=== PATIENT | male | born 1955 | race Caucasian/White ===

== ENCOUNTER 2018-08-08 10:55 | Emergency (ER) | payer OTHER ==
[2018-08-08] MEDS ORDERED: methylPREDNISolone SOD SUCCI 125 MG/2 ML VIAL IM ONE (11:51)
[2018-08-08] MEDS ORDERED: CYCLOBENZAPRINE 10MG STARTER 3 TAB BTL PO STA (11:51)
[2018-08-08] MEDS ORDERED: KETOROLAC 60 MG/2 ML VIAL IM STA (11:51)
--- NOTE | 2018-08-08 11:55 | ED ---
Neck Injury/Pain HPI - General Chief Complaint: Neck Pain/Injury Stated Complaint: trouble walking Time Seen by Provider: 08/08/18 11:08 Source: RN notes reviewed, old records reviewed Mode of arrival: ambulatory Limitations: no limitations - History of Present Illness Initial Comments: 62-year-old male presents emergency room today with chief complaint of pain over bilateral thighs worse with range of motion. He also complains of some right-sided neck pain. He reports symptoms seemed to start after he lifted a lot of heavy things earlier in the week with his father. He states that he has pain with ambulation. He denies any numbness or tingling down the legs. He reports he's had no fevers or chills. Patient relates that he has no swelling in the lower extremities. He denies any abdominal pain. No change in urination or bowel habits. - Related Data Previous Rx's Medication Instructions Recorded Cyclobenzaprine [Flexeril] 10 mg PO TID #20 tab 08/08/18 Dexamethasone 0.75 mg PO DAILY #12 tab 08/08/18 Ibuprofen 600 mg PO TID #20 tablet 08/08/18 Ibuprofen [Motrin] 600 mg PO Q8HR PRN #20 tab 08/08/18 traMADol HCl [Ultram] 50 mg PO Q6HR PRN 3 Days #12 tab 08/08/18 Allergies Allergy/AdvReac Type Severity Reaction Status Date / Time No Known Allergies Allergy Verified 08/08/18 11:05 Review of Systems ROS Statement: Those systems with pertinent positive or pertinent negative responses have been documented in the HPI. ROS Other: All systems not noted in ROS Statement are negative. Past Medical History Past Medical History: Deep Vein Thrombosis (DVT) History of Any Multi-Drug Resistant Organisms: None Reported Additional Past Surgical History / Comment(s): Lithotripsy Past Psychological History: No Psychological Hx Reported Smoking Status: Never smoker Past Alcohol Use History: Occasional Past Drug Use History: None Reported General Exam - General Exam Comments Initial Comments: Patient is a 62-year-old male. Alert and oriented 3. Patient appears in no acute distress. Limitations: no limitations General appearance: alert, in no apparent distress Head exam: Present: atraumatic, normocephalic, normal inspection Eye exam: Present: normal appearance, PERRL, EOMI. Absent: scleral icterus, conjunctival injection, periorbital swelling ENT exam: Present: normal exam, normal oropharynx, mucous membranes moist Neck exam: Present: normal inspection, other (Patient has right-sided cervical tenderness.). Absent: tenderness, meningismus, lymphadenopathy Respiratory exam: Present: normal lung sounds bilaterally. Absent: respiratory distress, wheezes, rales, rhonchi, stridor Cardiovascular Exam: Present: regular rate GI/Abdominal exam: Present: soft, normal bowel sounds. Absent: distended, tenderness, guarding, rebound, rigid Extremities exam: Present: normal inspection, full ROM, normal capillary refill , other (Patient has normal capillary refill, 2+ dorsalis pedis and posterior tibial pulse bilaterally. No surrounding swelling in the calf or lower extremity's. Patient has no pain with passive range of motion of the upper Glez. The Patient has to engage the quadricep muscles to lift the leg he does report pain. No palpable masses.). Absent: tenderness, pedal edema, joint swelling, calf tenderness Back exam: Present: normal inspection Neurological exam: Present: alert, oriented X3, CN II-XII intact Psychiatric exam: Present: normal affect, normal mood Skin exam: Present: warm, dry, intact, normal color. Absent: rash Course Vital Signs 08/08/18 11:01 Temperature 98.5 F Pulse Rate 77 Respiratory 18 Rate Blood Pressure 97/65 O2 Sat by Pulse 96 Oximetry Medical Decision Making - Medical Decision Making Patient is a 62-year-old female presents emergency department today with chief complaint of neck pain as well as bilateral anterior thigh pain. Patient's symptoms started a few days after doing a lot of heavy lifting. X-ray of his neck and lumbar spine are negative for acute process. Evidence of degenerative disease. Pelvis x-ray was normal. Patient is pain with range of motion of his upper extremities and engaging quadriceps with straight leg raise. He has no pain with passive range of motion. Discusses likely related to muscle strain with heavy lifting. He has normal pulses normal sensation distally.Leg swelling. At this time Patient will be discharged and temperature medication short course of pain medication. All questions answered return parameters were discussed. - Radiology Data Radiology results: report reviewed Pelvis x-rays negative for any acute process. Lumbar spine x-rays negative for any acute osseous lesion. In her changes noted. Cervical spine is negative for any acute osseous lesions are drowning changes noted. Disposition Clinical Impression: Quadriceps muscle strain, Cervical strain Disposition: HOME SELF-CARE Condition: Good Instructions: Cervical Strain (ED) Additional Instructions: Patient is follow-up with primary care provider. Return to emergency department if any alarming signs or symptoms occur. Prescriptions: Cyclobenzaprine [Flexeril] 10 mg PO TID #20 tab Dexamethasone 0.75 mg PO DAILY #12 tab Ibuprofen [Motrin] 600 mg PO Q8HR PRN #20 tab PRN Reason: Pain Ibuprofen 600 mg PO TID #20 tablet traMADol HCl [Ultram] 50 mg PO Q6HR PRN 3 Days #12 tab PRN Reason: Pain Is patient prescribed a controlled substance at d/c from ED?: Yes When asked, does pt state using other controlled substances?: Yes If prescribed controlled substance>3 days was MAPS reviewed?: Prescribed <3 Days If opioid is for acute pain is fill amount 7 days or less?: Yes If Rx opioid, was Start Talking consent form obtained?: Yes Referrals: Jose Sosa MD [Primary Care Provider] - 1-2 days Time of Disposition: 13:58
--- NOTE | 2018-08-08 12:57 | XR ---
EXAMINATION TYPE: XR cervical spine limited , 3 VIEWS DATE OF EXAM ORDERED: 08/08/2018 HISTORY: Pain. COMPARISON: None. FINDINGS: Vertebral body height and alignment are maintained. Atlantoaxial relationships are normal. There is degenerative disc disease and hypertrophic spondylosis present at C5-6 and C6-7 and to a le sser extent C4-5. There is mild uncovertebral joint disease at these levels. The facets appear unrema rkable. IMPRESSION: 1. NO ACUTE OSSEOUS LESION. 2. DEGENERATIVE CHANGE.
--- NOTE | 2018-08-08 13:00 | XR ---
EXAMINATION TYPE: XR lumbar spine 2 or 3V , 3 VIEWS DATE OF EXAM ORDERED: 08/08/2018 HISTORY: Pain. COMPARISON: None. FINDINGS: There is mild wedging of the T11 vertebral body which appears chronic. Vertebral body heig ht and alignment otherwise maintained. There is no spondylolysis or spondylolisthesis. There is diffu se disc space loss, most marked at L5-S1. There is diffuse hypertrophic spondylosis. The pedicles are intact. IMPRESSION: 1. NO ACUTE OSSEOUS LESION. 2. DEGENERATIVE CHANGE.
--- NOTE | 2018-08-08 13:03 | XR ---
EXAMINATION TYPE: XR pelvis AP view , ONE VIEW DATE OF EXAM ORDERED: 08/08/2018 HISTORY: Pain. COMPARISON: None. FINDINGS: Osseous structures about the pelvis are normal. There is minimal degenerative change in th e hips. There are phleboliths in the pelvis. IMPRESSION: NO ACUTE OSSEOUS LESION.
[2018-08-08 14:14] VITALS: BP 106/68; PULSE 62; RESP 16; TEMP 98.1
== END 2018-08-08 14:12 | disposition home or self-care (01) ==
LOC: EC 10:55
DX: S76.112A Strain of left quadriceps muscle, fascia and tendon, initial encounter (principal); S76.111A Strain of right quadriceps muscle, fascia and tendon, initial encounter; S16.1XXA Strain of muscle, fascia and tendon at neck level, initial encounter; Z86.718 Personal history of other venous thrombosis and embolism; X50.9XXA Other and unspecified overexertion or strenuous movements or postures, initial encounter
CPT/HCPCS: 72040; 72100; 72170; 99284; 96372 ×2; J2930; J1885

== ENCOUNTER → 2018-08-28 | Outpatient (CLI) | payer OTHER ==
--- NOTE | 2018-08-30 17:11 | CT ---
EXAMINATION TYPE: CT ChestAbdPelvis w con DATE OF EXAM: 08/28/2018 COMPARISON: NONE HISTORY: Bilateral leg pain and weakness, neck pain, and abnormal lab values. CT DLP: 1374 mGycm. Automated Exposure Control for Dose Reduction was Utilized. CONTRAST: CT scan of the thorax, abdomen and pelvis is performed with IV Contrast, patient injected with 100 mL of Isovue 300. FINDINGS: LUNGS: Anterior right upper lobe linear region on series 4 image 26 abutting the mediastinal border a ppears as vascular ectasia on the sagittal image rather than a pulmonary nodule. Focal 4 mm area of p robable atelectasis is seen along the right lung base dependently on series 4 image 43. 3 mm pulmonar y nodule is present in the right lower lobe laterally on image 44. Linear bibasilar pleural-parenchym al scarring is seen. Irregular shaped 4 mm left pulmonary nodule is seen on image 40 laterally. No fo zina consolidation is seen to suggest pneumonia. There is no pleural effusion or pneumothorax seen. T he tracheobronchial tree is patent. MEDIASTINUM: There are no greater than 1 cm hilar or mediastinal lymph nodes. There is aneurysmal dil atation of the ascending thoracic aorta as it measures 4.6 cm. Aortic root measures 4.5 cm and is als o aneurysmal. Descending thoracic aorta is within normal limits. Heart is mildly enlarged. No pericar dial effusion is seen. LIVER/GB: Hepatic parenchyma is diffusely hypoattenuated in comparison to that of the spleen, most co mmonly seen in hepatic steatosis. This finding limits evaluation for hepatic masses. No gross evidenc e of hepatic mass is seen. No intrahepatic biliary ductal dilatation. No cholelithiasis. PANCREAS: No significant abnormality is seen. SPLEEN: No significant abnormality is seen. ADRENALS: No significant abnormality is seen. KIDNEYS: Kidneys enhance and excrete symmetrically however there is mild left-sided hydronephrosis se condary to a 4 mm obstructing stone at the left ureterovesicular junction. Left-sided parapelvic cyst s are also seen as well as renal malrotation bilaterally and extrarenal pelvises sees bilaterally. BOWEL: Numerous colonic diverticula are present without pericolonic fat stranding. Moderate amount re tained colonic stool is seen throughout the entirety of the large bowel. Appendix is not clearly deli neated however no right lower quadrant fat stranding changes are seen. No dilated large or small graciela l.. GENITAL ORGANS: Prostate gland is heterogenous containing some central zone calcifications. LYMPH NODES: No greater than 1cm abdominal or pelvic lymph nodes are appreciated. OSSEOUS STRUCTURES: Multilevel moderate degenerative changes of the spine are identified with Schmorl 's nodes present throughout. Mild femoral acetabular arthropathy is also seen. IMPRESSION: 1. 4 mm left ureteral calculus at the ureterovesicular junction causing mild left-sided hydronephrosi s. No alteration in renal physiology by CT at this time as the kidneys enhance and excrete symmetrica lly. 2. Aneurysmal dilatation of the ascending thoracic aorta and aortic root. 3. Hepatic steatosis, colonic diverticulosis, and bilateral subcentimeter pulmonary nodules are incid entally identified. Follow-up CT thorax in 12 months is recommended to assess for interval growth of the small pulmonary nodules. A Yellow level critical message alert has been initiated for Jose Sosa MD via the [employer] Critical Results System on 08/30/2018 5:09 PM. This message alert has been sent to Jose Sosa MD vi a the preferences provided by the clinician for the receipt of Radiology Critical Findings. Message I D [id number].
== END | disposition home or self-care (01) ==
LOC: RADCTMAIN 08:04
PROVIDERS: ATTEND Internal Medicine Geriatric Medicine
DX: N13.2 Hydronephrosis with renal and ureteral calculous obstruction (principal); I71.2 Thoracic aortic aneurysm, without rupture; R91.8 Other nonspecific abnormal finding of lung field; K57.30 Diverticulosis of large intestine without perforation or abscess without bleeding; K76.0 Fatty (change of) liver, not elsewhere classified
CPT/HCPCS: 71260; 74177; Q9967

== ENCOUNTER → 2018-09-07 | Outpatient (CLI) | payer MEDICARE, OTHER ==
--- NOTE | 2018-09-07 10:47 | ECHOF ---
Referral Reason:I35.0 Nonrheumatic aortic (valve) stenosis MEASUREMENTS -------- HEIGHT: 175.3 cm WEIGHT: 75.7 kg BP: RVIDd: 3.5 cm (< 3.3) IVSd: 1.3 cm (0.6 - 1.1) LVIDd: 4.9 cm (3.9 - 5.3) LVPWd: 1.2 cm (0.6 - 1.1) IVSs: 3.0 cm LVIDs: 3.7 cm LVPWs: 1.5 cm LA Diam: 5.1 cm (2.7 - 3.8) LAESV Index (A-L): 54.59 ml/m Ao Diam: 4.1 cm (2.0 - 3.7) AV Cusp: 1.7 cm (1.5 - 2.6) MV EXCURSION: 40.607 mm (> 18.000) MV EF SLOPE: 104 mm/s (70 - 150) EPSS: 0.3 cm MV E Bernard: 1.11 m/s MV DecT: 85 ms MV A Bernard: 0.86 m/s MV E/A Ratio: 1.29 RAP: 5.00 mmHg RVSP: 18.74 mmHg FINDINGS -------- Sinus rhythm. This was a technically good study. The left ventricular size is normal. There is mild concentric left ventricular hypertrophy. Overa ll left ventricular systolic function is low-normal with, an EF between 50 - 55 %. The right ventricle is mildly enlarged. The left atrium is moderately dilated. The right atrial size is normal. The aortic valve is trileaflet and appears structurally normal. Aortic Root is dilated and measures 4.1cm: Ascending is dilated and measures 4.6cm. Severe mitral regurgitation is present. Large, mobile vegetation attached to the posterior mitral v alve leaflet. Mild tricuspid regurgitation present. There is no evidence of pulmonary hypertension. The right v entricular systolic pressure, as measured by Doppler, is 18.74mmHg. There is no pulmonic regurgitation present. The aortic root size is normal. There is no pericardial effusion. CONCLUSIONS -------- 1. Sinus rhythm. 2. This was a technically good study. 3. The left ventricular size is normal. 4. There is mild concentric left ventricular hypertrophy. 5. Overall left ventricular systolic function is low-normal with, an EF between 50 - 55 %. 6. The right ventricle is mildly enlarged. 7. The left atrium is moderately dilated. 8. The aortic valve is trileaflet and appears structurally normal. 9. Aortic Root is dilated and measures 4.1cm: Ascending is dilated and measures 4.6cm. 10. Severe mitral regurgitation is present. 11. Large, mobile vegetation attached to the posterior mitral valve leaflet. 12. Mild tricuspid regurgitation present. 13. There is no evidence of pulmonary hypertension. 14. There is no pulmonic regurgitation present. 15. The aortic root size is normal. 16. There is no pericardial effusion. MEDICARE COORDINATOR: Aundrea Smith RDCS
== END | disposition home or self-care (01) ==
LOC: RADECHMAIN 08:15
PROVIDERS: ATTEND Internal Medicine Geriatric Medicine
DX: I08.1 Rheumatic disorders of both mitral and tricuspid valves (principal)
CPT/HCPCS: 93306

== ENCOUNTER 2018-09-11 07:23 | Day surgery (SDC) | payer MEDICARE, OTHER ==
--- NOTE | 2018-09-07 13:02 | HP ---
HISTORY AND PHYSICAL The patient to be admitted to undergo transesophageal echocardiogram and cardiac catheterization on Friday. Mr. Reddy is a 63-year-old male with a history of hyperlipidemia and no prior documented history of coronary artery disease or congestive heart failure and a history of heart murmur for a long time. He does not recall that he had an echocardiogram. For the last month, he has not felt well. Prior to that he had some chills and sweating and he has severe generalize achiness that prevented him from being as active physically as he is usually. He was diagnosed initially with pneumonia and has received antibiotics but persisted in having the symptoms. He was seen in the emergency room her on one occasion. Subsequently was evaluated by Dr. Sosa and a CAT scan was done to rule out any other abnormalities that showed a dilated ascending aorta. The patient was referred to undergo a transthoracic echocardiogram that was performed today and that showed an overall preserved systolic function with severe mitral regurgitation and a mass on the posterior mitral valve leaflet suggestive of endocarditis and vegetations. The patient has no fever at this time. Apparently, he had lab data that raised the possibility of Lyme disease and has been started on antibiotics. He cannot recall what he is on. He is usually very active physically. He denies any change in his breathing. He denies any dizziness or palpitation. No syncope. No peripheral edema. No PND, orthopnea. No syncope. His coronary risk factors are remarkable for hyperlipidemia. He is nonsmoker, nondiabetic. REVIEW OF SYSTEMS: RESPIRATORY SYSTEM: He has no recent fever, although he had fever initially. He has no history of documented obstructive lung disease or wheezing. GI SYSTEM: No recent GI bleeding. No peptic ulcer disease. SYSTEM: No dysuria or hematuria. NERVOUS SYSTEM: No stroke or seizure. PHYSICAL EXAMINATION: He is a 63-year-old male, alert, oriented, in no apparent distress. Blood pressure 130/70 with the heart rate in the 70s. HEAD: Normocephalic. EYES: Sclerae anicteric. NECK: Good carotid upstroke. No bruit. No jugular venous distention. LUNGS: Clear to auscultation. HEART: Regular rate and rhythm. S1, S2. No S3 with a holosystolic murmur at the apex radiating to the axilla. No diastolic murmur. No rub. ABDOMEN: Soft, nontender. Positive bowel sounds. No organomegaly. EXTREMITIES: No edema. Intact distal pulses. IMPRESSION: 1. Severe mitral regurgitation with possible vegetations suggestive of endocarditis. 2. Prior history of fever 2 months ago, resolved. 3. History of hyperlipidemia. RECOMMENDATION: I have discussed his case with Dr. Sosa. I will proceed with transesophageal echocardiogram and a cardiac catheterization to further assess his mitral valve. The patient will require further evaluation by the Infectious Disease service in regard to the possible vegetation and infectious process. Depending on his progress, further recommendation will be made. MMODL / IJN: [id number] /
[2018-09-08 13:22] VITALS: BMI 23.6
[~2018-09-11 07:23] MED LIST: ALPRAZolam 0.25 MG TAB PO PRN; ALPRAZolam 0.5 MG TAB PO PRN; ASPIRIN 325 MG TAB PO STA; ATORVASTATIN 80 MG TAB PO STA; NITROGLYCERIN SL TABS 0.4 MG TAB SUBLINGUAL PRN; SODIUM CHLORIDE 0.9% 1,000 ML in EMPTY BAG 1 BAG IV ONE
[2018-09-11] MEDS ORDERED: SODIUM CHLORIDE 0.9% 1,000 ML IV ONE (08:02)
[2018-09-11 08:14] VITALS: TEMP 97.9
[2018-09-11] MEDS: BENZOCAINE SPRAY 1 CAN MUCOUS MEM ONE ×2 (08:28→08:42)
[2018-09-11] MEDS ORDERED: MIDAZOLAM 2 MG/2 ML VIAL IV ONE (08:44)
[2018-09-11] MEDS ORDERED: fentaNYL (PF) 50 MCG/ML 2 ML AMP IV ONE (08:44)
[2018-09-11] MEDS: MIDAZOLAM 2 MG/2 ML VIAL IV ONE ×2 (08:50→09:42)
[2018-09-11] MEDS ORDERED: HEPARIN SODIUM 1,000 UN/ML (10ML VL) ONE (09:09)
[2018-09-11] MEDS ORDERED: VERAPAMIL 2.5 MG/ML 2 ML AMP ONE (09:09)
[2018-09-11] MEDS ORDERED: LIDOCAINE 1% INJ 10MG/ML (20 ML MDV) ONE (09:09)
--- NOTE | 2018-09-11 09:20 | ECHOT ---
TRANSESOPHAGEAL ECHOCARDIOGRAM INDICATION: Mitral regurgitation. PROCEDURE: After explaining the procedure to the patient, its risks and the complications, his blood pressure, heart rate, O2 saturation was monitored. The throat was sprayed with Cetacaine. He received 3 mg of intravenous Versed, 50 mcg intravenous fentanyl. The probe was reintroduced into esophagus without difficulty. Images were obtained. Following that, the probe was removed. There was no immediate complication. FINDINGS: Left atrial size is normal. Left atrial appendage is normal. Left ventricular size is normal. Ejection fraction is estimated at 55%. The aortic valve is a tricuspid valve and appears to be normal. The ascending aorta is dilated at 4.6 cm. The tricuspid valve is normal. The mitral valve revealed a vegetation attached to the posterior mitral valve leaflets, predominantly from the atrial aspect and prolapsing at times back into the ventricle. The descending thoracic aorta appears to be normal. Contrast bubble study revealed no evidence of shunting across the interatrial septum with Valsalva maneuver. No pericardial effusion was noted. Doppler pulse wave and color Doppler obtained revealed severe eccentric mitral regurgitation with mild tricuspid regurgitation. There was no shunting by color Doppler study. CONCLUSION: 1. Normal left ventricular size with ejection fraction 55%. 2. Severe eccentric mitral regurgitation with vegetation on the posterior mitral valve leaflets. 3. Mild tricuspid regurgitation. 4. Normal appearance of the descending thoracic aorta with dilatation of the ascending aorta and mild aortic regurgitation. 5. No shunting across the interatrial septum. 6. No pericardial effusion. MMODL / IJN: [id number] /
[2018-09-11] MEDS ORDERED: fentaNYL (PF) 50 MCG/ML 2 ML AMP IVP ONE (09:38)
[2018-09-11] MEDS ORDERED: LIDOCAINE 1% (PF) 10MG/ML VIAL SQ ONE (09:38)
[2018-09-11] MEDS ORDERED: IV FLUID CONTINUATION 700 ML IV ONE (09:40)
[2018-09-11] MEDS ORDERED: VERAPAMIL SYRINGE (5 MG/10 ML) INTRAARTER ONE (09:40)
[2018-09-11] MEDS ORDERED: IOPAMIDOL-370 100ML BTL INJ ONE (10:09)
[2018-09-11] MEDS ORDERED: IOPAMIDOL-370 125ML BTL INJ ONE (10:10)
[2018-09-11] MEDS ORDERED: RX INFO: IV CONTRAST WAS GIVEN 1 EACH MISC MISCELLANE PRN (10:25)
[2018-09-11] MEDS ORDERED: SODIUM CHLORIDE 0.9% 1,000 ML IV SCH (10:30)
--- NOTE | 2018-09-11 10:41 | CC ---
CARDIAC CATHETERIZATION REPORT Mr. Reddy is a 63-year-old male who has not been feeling well for the last 2 months or so with symptoms of fever, subsequently had a CAT scan that showed a dilated ascending aorta. Because of that, the transthoracic echocardiogram was ordered that showed a vegetation in the posterior mitral valve leaflets. Based on those findings, recommendations were made regarding cardiac catheterization. The procedures, risks and complications were discussed with the patient who is in full understanding and agreement. PROCEDURE: Patient was brought to flue dust laborer in a fasting semi-sedated state after receiving fentanyl and Benadryl and achieving moderate conscious sedated state. Using Xylocaine anesthesia and Seldinger technique, a 6-Liberian sheath was introduced in the right radial artery. Selective right and left coronary angiography were performed using care 5-Liberian 4 bend left Bertrand catheter and a 6-Liberian Zulma catheter to cannulate the right coronary artery. Attempt to cannulate the right coronary artery using a 5-Liberian 3.5 bend right Bertrand, 5-Liberian 4 bend right Bertrand and a 6-Liberian AL 2 were unsuccessful. Images of the coronary arteries including hemiaxial views were obtained. A 5-Liberian tight pigtail catheter was introduced in the ascending aorta and an BELARUSIAN view of the ascending aorta was performed. The aortic valve was crossed using the Bertrand catheter and pressures were calculated. Following that, catheter and sheaths were removed. Hemostasis was obtained with deployment of a TR band. There was no immediate complication. Patient is returned to his room in stable condition. Of note, patient received 4000 units of intravenous heparin as well as intra-arterial verapamil. FINDINGS: LEFT MAIN: This is a large-sized vessel, bifurcating into left circumflex, left anterior descending artery. Left main coronary artery has no evidence of high-grade stenosis. LEFT ANTERIOR DESCENDING ARTERY: This is a large-sized vessel, reaching toward the apex with a wraparound apex segment, giving rise to small diagonal branch. The left anterior descending artery as well as branches have no evidence of obstructive coronary artery disease. LEFT CIRCUMFLEX: This is a large nondominant vessel giving rise to a large obtuse marginal branch that has no evidence of high-grade stenosis. RIGHT CORONARY ARTERY: This vessel has a posterior takeoff, large and dominant, bifurcating distally into PDA and posterolateral segment branches. The right coronary artery as well as branches have no evidence of obstructive coronary artery disease. LEFT VENTRICULOGRAM: Left ventriculogram is not performed. AORTOGRAM: Aortogram was performed in the BELARUSIAN view and revealed dilated ascending aorta with no significant aortic regurgitation and a tricuspid aortic valve. HEMODYNAMICS: There was no gradient across the aortic valve. The left ventricular end-diastolic pressure was 18-20 mmHg. CONCLUSION: 1. Normal coronary arteries. 2. Dilated ascending aorta. RECOMMENDATION: I have recommend proceeding with evaluation regarding his mitral regurgitation and endocarditis. Those findings and recommendation were discussed with the patient and his family who are in full understanding and agreement. Duration of the procedure is 36 minutes. MMODL / IJN: [id number] /
[2018-09-11 10:44] VITALS: PULSE 67
[2018-09-11 13:32] VITALS: RESP 20
[2018-09-11 15:40] VITALS: BP 102/60
[2018-09-11] MEDS ORDERED: DOXYCYCLINE 100 MG CAP PO SCH (21:00)
[2018-09-11] MEDS ORDERED: TAMSULOSIN 0.4 MG CAP.ER.24H PO SCH (21:00)
== END 2018-09-11 15:55 | disposition home or self-care (01) ==
LOC: CATHCVL 07:23
PROVIDERS: ATTEND Internal Medicine Interventional Cardiology
DX: I08.1 Rheumatic disorders of both mitral and tricuspid valves (principal); I77.810 Thoracic aortic ectasia; E78.5 Hyperlipidemia, unspecified
CPT/HCPCS: 93312; 93320; 93325; 93458; 87040; 87077; 87186; 87150; C1894; C1769; J2250; J3010; J2001; J1644; Q9967 ×2

== ENCOUNTER 2018-09-11 17:44 | Inpatient (IN) | payer MEDICARE, OTHER ==
[2018-09-11] MEDS ORDERED: SODIUM CHLORIDE 0.9% 1,000 ML IV ONE (17:53)
--- NOTE | 2018-09-11 18:02 | ED ---
Chest Pain HPI - General Chief Complaint: Chest Pain Stated Complaint: infection on heart valve, dr sent Time Seen by Provider: 09/11/18 17:51 Source: patient Mode of arrival: ambulatory Limitations: no limitations - History of Present Illness Initial Comments: 63-year-old male past medical history of mitral regurgitation, previous DVT presenting today sent over from primary care physician for diagnosis of holy cross mitral valve endocarditis. Patient states for the past 3 months he has had night sweats every single night and fevers on and off. In addition patient admits to general malaise, and occasional headache. Patient states he's been evaluated by his primary care provider, who ordered SILVIA and cardiac catheterization today performed by Dr. Hinojosa. Findings revealed vegetation of the posterior mitral valve. Ejection fraction preserved. Cardiac catherization WNL. Pt was sent for admission. Attending provider Dr. Sosa requested no antibiotics until 3 sets of cultures obtained. Patient denies any chest pain, shortness of breath, dyspnea on exertion, lower extremity swelling. Upon arrival pt VS stable, hemodynamically stable. Patient has a low-grade fever. Remainder of ROS (-), patient denies any recent back pain, abdominal pain, nausea or vomiting, numbness or tingling, dysuria or hematuria, constipation or diarrhea, or visual changes, or any other complaints. - Related Data Home Medications Medication Instructions Recorded Confirmed Doxycycline [Vibramycin] 100 mg PO BID 09/08/18 09/11/18 Tamsulosin [Flomax] 0.4 mg PO HS 09/08/18 09/11/18 Nattokinase 1 tab PO DAILY 09/11/18 09/11/18 Serrapeptase 1 tab PO DAILY 09/11/18 09/11/18 Allergies Allergy/AdvReac Type Severity Reaction Status Date / Time No Known Allergies Allergy Verified 09/11/18 17:58 Review of Systems ROS Statement: Those systems with pertinent positive or pertinent negative responses have been documented in the HPI. ROS Other: All systems not noted in ROS Statement are negative. EKG Findings - EKG Comments: EKG Findings:: A 12-lead EKG was performed and shows the following: Rate is 88bpm, and rhythm is normal sinus. There are normal QRS complexes and normal R- wave progression. ST segments have no elevation or depression, and CA segments appear normal. Left axis deviation noted. Past Medical History Past Medical History: Deep Vein Thrombosis (DVT), Prostate Disorder Additional Past Medical History / Comment(s): SEE DR. HINOJOSA H & P FOR CARDIAC INFORMATION. DVT-2011-RT CALF. WAS SEEN IN ER 08/08/18 FOR SEVERE GROIN PAIN. HX KIDNEY STONES History of Any Multi-Drug Resistant Organisms: None Reported Additional Past Surgical History / Comment(s): Lithotripsy. COLONOSOCPY. ALSO SCHEDULED FOR SILVIA 09/11/18 Past Anesthesia/Blood Transfusion Reactions: No Reported Reaction Past Psychological History: No Psychological Hx Reported Smoking Status: Never smoker Past Alcohol Use History: Occasional Past Drug Use History: None Reported - Past Family History Mother Family Medical History: Cancer Additional Family Medical History / Comment(s): SKIN General Exam - General Exam Comments Initial Comments: General: The patient is awake and alert, in no distress, and does not appear acutely ill. Eye: +3 pupils are equal, round and reactive to light, extra-ocular movements are intact. No nystagmus. There is normal conjunctiva bilaterally. No signs of icterus. Ears, nose, mouth and throat: There are moist mucous membranes and no oral lesions. Neck: The neck is supple, there is no tenderness or JVD. Cardiovascular: There is a regular rate and rhythm. No rub or gallop is appreciated. holo systolic murmur appreciated. Respiratory: Lungs are clear to auscultation, respirations are non-labored, breath sounds are equal. No wheezes, stridor, rales, or rhonchi. No signs of respiratory distress Gastrointestinal: Soft, non-distended, non-tender abdomen without masses or organomegaly noted. There is no rebound or guarding present. No CVA tenderness. Bowel sounds are unremarkable. Musculoskeletal: Normal ROM, no tenderness. Strength 5/5. Sensation intact. Radial pulses equal bilaterally 2+. Neurological: A&O x 3. CN II-XII intact, There are no obvious motor or sensory deficits. Coordination appears grossly intact. Speech is normal. Skin: Skin is warm and dry and no rashes or lesions are noted. No vascular phenomenon noted Psychiatric: Cooperative, appropriate mood & affect, normal judgment. Limitations: no limitations Course Vital Signs 09/11/18 09/11/18 09/11/18 17:47 18:24 19:38 Temperature 99.7 F H 100.2 F H Pulse Rate 92 Pulse Rate [ 68 Bilateral Sitting] Respiratory 20 Rate Blood Pressure 111/73 O2 Sat by Pulse 98 Oximetry 09/11/18 09/11/18 09/11/18 20:54 21:00 21:37 Temperature 99.4 F 99.3 F Pulse Rate 79 78 Pulse Rate [ Bilateral Sitting] Respiratory 16 16 Rate Blood Pressure 99/62 104/57 O2 Sat by Pulse 97 97 Oximetry Chest Pain MDM - MDM Dr. Robin, attending physician had spoken with patient's primary provider who sent patient to emergency room for evaluation for subacute endocarditis. It was recommended to avoid initiation of antibiotic therapy until 3 blood cultures were obtained with the last being the morning of 09/12/2018. EKG obtained revealing no acute findings. Troponin mildly elevated however patient had negative cardiac catheterization earlier this morning involving accessed through the right radial artery. Bandage clean and dry and intact at place of entry. Remainder of laboratory findings nonspecific/unremarkable. Patient was admitted to Dr. Farmer, with both cardiac and infectious disease consultation. Blood cultures pending. Patient's vital signs remained stable. Patient appears well. Patient given Tylenol for fever management. Patient was transferred to the floor in stable condition after discussing the case in detail with Dr. Robin. Patient continues to deny symptoms. Disposition Clinical Impression: Endocarditis of [facility] cross valve Disposition: ADMITTED IP TO THIS [facility] Time of Disposition: 19:06 Decision to Admit Reason: Admit from EC Decision Date: 09/11/18 Decision Time: 19:06
[2018-09-11] MEDS ORDERED: VANCOMYCIN IV PER PHARMACY 1 EACH MISC MISCELLANE PRN (18:03)
[2018-09-11] MEDS ORDERED: ACETAMINOPHEN TAB 325 MG TAB PO STA (18:04)
[2018-09-11] MEDS ORDERED: VANCOMYCIN 1,750 MG in SODIUM CHLORIDE 0.9% 500 ML 500 ML IVPB ONE (18:30)
[2018-09-11] MEDS: SODIUM CHLORIDE 0.9% 1,000 ML IV SCH (18:41)
--- NOTE | 2018-09-11 18:42 | XR ---
EXAMINATION TYPE: XR chest 2V DATE OF EXAM: 09/11/2018 COMPARISON: NONE HISTORY: Fever. Endocarditis TECHNIQUE: Frontal and lateral views of the chest are obtained. FINDINGS: Heart and mediastinum are normal. Lungs are clear. Diaphragm is normal. Bony thorax is int act. Pulmonary vascularity is normal. There are chest leads. IMPRESSION: No active cardiopulmonary disease. Normal heart.
[2018-09-11 18:49] LABS: Basophils % (A) 0 %; Eosinophils % (A) 1 %; HCT 37.2 % (39.0-53.0); HGB 12.2 gm/dL (13.0-17.5); Lymphocytes # (A) 0.8 k/uL (1.0-4.8); Lymphocytes % (A) 11 %; MCH 29.4 pg (25.0-35.0); MCHC 32.9 g/dL (31.0-37.0); MCV 89.5 fL (80.0-100.0); Mean Platelet Volume 6.9; Monocytes # (A) 0.3 k/uL (0-1.0); Monocytes % (A) 4 %; Neutrophils # (A) 5.7 k/uL (1.3-7.7); Neutrophils % (A) 82 %; Platelet Count 166 k/uL (150-450); RBC 4.16 m/uL (4.30-5.90); RDW 14.9 % (11.5-15.5); WBC 6.9 k/uL (3.8-10.6)
[2018-09-11 18:57] LABS: INR 1.1 (<1.2); Partial Thromboplastin Time 26.4 sec (22.0-30.0); Prothrombin Time 11.2 sec (9.0-12.0)
[2018-09-11 19:05] LABS: ALT 31 U/L (21-72); AST 35 U/L (17-59); Albumin 3.3 g/dL (3.5-5.0); Alkaline Phosphatase 126 U/L (38-126); Anion Gap 9 mmol/L; Blood Urea Nitrogen 29 mg/dL (9-20); Calcium 8.6 mg/dL (8.4-10.2); Carbon Dioxide 25 mmol/L (22-30); Chloride 102 mmol/L (98-107); Glucose 107 mg/dL (74-99); Potassium 4.1 mmol/L (3.5-5.1); Sodium 136 mmol/L (137-145); Total Bilirubin 0.6 mg/dL (0.2-1.3); Total Protein 6.5 g/dL (6.3-8.2)
[2018-09-11 19:14] LABS: Creatine Kinase MB 0.7 ng/mL (0.0-2.4)
[2018-09-11 19:15] LABS: Troponin I 0.066 ng/mL (0.000-0.034)
[2018-09-11 19:55] LABS: Appearance,Urine Clear (Clear); Bilirubin,Urine Negative (Negative); Blood,Urine Negative (Negative); Color,Urine Yellow; Glucose,Urine (UA) Negative (Negative); Ketones,Urine Negative (Negative); Leukocyte Esterase,Urine Negative (Negative); Nitrite,Urine Negative (Negative); PH, Urine 5.5 (5.0-8.0); Protein,Urine Trace (Negative); Specific Gravity,Urine 1.044 (1.001-1.035); Urobilinogen,Urine <2.0 mg/dL (<2.0)
[2018-09-11] MEDS ORDERED: IBUPROFEN 800 MG TAB PO STA (20:49)
--- NOTE | 2018-09-11 23:02 | P.CON ---
Consult Note - . Consult date: 09/11/18 Assessment/Plan:: Consult received, have requested multiple blood cultures and labs, hold antibiotics give current status, a microbiologic diagnosis allows improved outcomes in subacute endocarditis.
[2018-09-12] MEDS: SODIUM CHLORIDE 0.9% 1,000 ML IV SCH ×2 (06:28→12:50)
[2018-09-12 07:49] LABS: Basophils % (A) 0 %; Eosinophils % (A) 1 %; HCT 34.1 % (39.0-53.0); HGB 10.9 gm/dL (13.0-17.5); Lymphocytes # (A) 0.8 k/uL (1.0-4.8); Lymphocytes % (A) 16 %; MCH 29.5 pg (25.0-35.0); MCV 92.1 fL (80.0-100.0); Mean Platelet Volume 6.8; Monocytes # (A) 0.3 k/uL (0-1.0); Monocytes % (A) 5 %; Neutrophils # (A) 3.9 k/uL (1.3-7.7); Neutrophils % (A) 74 %; Platelet Count 168 k/uL (150-450); RBC 3.71 m/uL (4.30-5.90); RDW 15.1 % (11.5-15.5); WBC 5.2 k/uL (3.8-10.6)
[2018-09-12 07:55] LABS: ALT 26 U/L (21-72); AST 29 U/L (17-59); Albumin 2.6 g/dL (3.5-5.0); Alkaline Phosphatase 115 U/L (38-126); Anion Gap 7 mmol/L; Blood Urea Nitrogen 20 mg/dL (9-20); Calcium 8.2 mg/dL (8.4-10.2); Carbon Dioxide 23 mmol/L (22-30); Chloride 111 mmol/L (98-107); Glucose 92 mg/dL (74-99); Potassium 3.8 mmol/L (3.5-5.1); Sodium 141 mmol/L (137-145); Total Bilirubin 0.4 mg/dL (0.2-1.3); Total Protein 5.5 g/dL (6.3-8.2)
[2018-09-12] MEDS: NATTOKINASE PO SCH (08:26)
--- NOTE | 2018-09-12 10:05 | P.CRDCN ---
History of Present Illness Consult date: 09/12/18 Requesting physician: Jose Sosa Reason for Consult (text): Endocarditis History of present illness: This is a 63-year-old male patient of Dr. Sosa and Dr. Price with history of hyperlipidemia but long-standing history of heart murmur. Patient was having chills and sweating with generalized achiness that impacted his physical activity. He was initially treated for pneumonia and completed antibiotics but his symptoms continued. There was also concern for Lyme disease and patient was started on doxycycline approximate 3 weeks ago. He subsequently underwent a CAT scan that showed dilated ascending aorta and the patient was referred to Dr. Bear on for transthoracic echocardiogram that revealed a preserved systolic function with severe mitral regurgitation and a mass on the posterior mitral valve leaflet suggestive of endocarditis and vegetation and the patient was then set up for SILVIA and heart catheterization which was done yesterday. SILVIA revealed ejection fraction of 55% with severe eccentric right regurgitation with vegetation on the posterior mitral valve, mild tricuspid regurgitation and mild dilatation of the aorta and mild aortic regurgitation. Heart catheterization showed normal coronary arteries and dilated ascending aorta. Patient was admitted and a consult was added for Dr. Beck. Blood cultures were obtained. Patient is denying any chest pain, shortness of breath, lightheadedness or dizziness. EKG is a normal sinus with slight left axis deviation and no acute ST changes. Doxycycline has been discontinued. Review of Systems All systems: negative Constitutional: Reports fatigue, Denies anorexia, Denies chills, Denies fever, Denies lethargy, Denies malaise, Denies poor appetite, Denies weakness, Denies weight gain Eyes: denies blurred vision, denies pain Ears, nose, mouth and throat: Denies headache, Denies sore throat Cardiovascular: Denies chest pain, Denies decreased exercise tolerance, Denies dyspnea on exertion, Denies edema, Denies leg edema, Denies lightheadedness, Denies palpitations, Denies shortness of breath, Denies syncope Respiratory: Denies cough, Denies cough with sputum, Denies dyspnea, Denies excessive sputum, Denies hemoptysis, Denies home oxygen, Denies wheezing Gastrointestinal: Denies abdominal pain, Denies diarrhea, Denies loss of appetite, Denies melena, Denies nausea, Denies vomiting Genitourinary: Denies dysuria, Denies urinary retention Musculoskeletal: Denies frequent falls, Denies gait dysfunction, Denies myalgias Integumentary: Denies pruritus, Denies rash, Denies wounds Neurological: Denies aphasia, Denies change in mentation, Denies confusion, Denies convulsions, Denies head injury, Denies headaches, Denies numbness, Denies weakness Psychiatric: Denies anxiety, Denies depression Endocrine: Denies fatigue, Denies weight change Past Medical History Past Medical History: Deep Vein Thrombosis (DVT), Prostate Disorder Additional Past Medical History / Comment(s): SEE DR. ROMO H & P FOR CARDIAC INFORMATION. DVT-2010-RT CALF. WAS SEEN IN ER 08/08/18 FOR SEVERE GROIN PAIN. HX KIDNEY STONES History of Any Multi-Drug Resistant Organisms: None Reported Past Surgical History: Heart Catheterization Additional Past Surgical History / Comment(s): Lithotripsy. COLONOSOCPY. ALSO SCHEDULED FOR SILVIA 09/11/18 Past Anesthesia/Blood Transfusion Reactions: No Reported Reaction Past Psychological History: No Psychological Hx Reported Smoking Status: Never smoker Past Alcohol Use History: Occasional Past Drug Use History: None Reported Additional Drug Use History / Comment(s): patient is a lifelong nonsmoker. He denies any illicit drug use, no marijuana use. He currently lives alone. He is self-employed and sells items on the Internet. He has 2 horses that are currently being boarded. - Past Family History Mother Family Medical History: Cancer Additional Family Medical History / Comment(s): SKIN Medications and Allergies Home Medications Medication Instructions Recorded Confirmed Type Doxycycline [Vibramycin] 100 mg PO BID 09/08/18 09/11/18 History Tamsulosin [Flomax] 0.4 mg PO HS 09/08/18 09/11/18 History Nattokinase 1 tab PO DAILY 09/11/18 09/11/18 History Serrapeptase 1 tab PO DAILY 09/11/18 09/11/18 History Allergies Allergy/AdvReac Type Severity Reaction Status Date / Time No Known Allergies Allergy Verified 09/11/18 17:58 Physical Exam Vitals: Vital Signs Temp Pulse Pulse Pulse Resp BP BP 09/12/18 04:00 97.6 F 63 20 102/69 09/12/18 03:41 18 09/12/18 00:00 98.4 F 68 69 18 94/55 09/11/18 21:37 99.3 F 78 16 104/57 09/11/18 21:00 79 16 99/62 09/11/18 20:54 99.4 F 09/11/18 19:38 100.2 F H 09/11/18 18:24 68 09/11/18 17:47 99.7 F H 92 20 111/73 Pulse Ox 09/12/18 04:00 98 09/12/18 03:41 09/12/18 00:00 96 09/11/18 21:37 97 09/11/18 21:00 97 09/11/18 20:54 09/11/18 19:38 09/11/18 18:24 09/11/18 17:47 98 Intake and Output 09/11/18 09/12/18 09/12/18 22:59 06:59 14:59 Intake Total 0 360 Output Total 0 Balance 0 360 Intake: Oral 0 360 Output: Urine 0 Other: # Voids 1 Weight 75.75 kg 79 kg Gen: This is a 63-year-old male. He is sitting up in bed and appears comfortable in no acute distress. HEENT: Head is atraumatic, normocephalic. Pupils equal, round. Sclerae is anicteric. Conjunctiva pink. NECK: Supple. No JVD. No lymphadenopathy. No thyromegaly. LUNGS: Clear to auscultation. No wheezes or rhonchi. No intercostal retractions. HEART: Regular rate and rhythm. Holosystolic murmur at the apex. ABDOMEN: Soft. Bowel sounds are present. No masses. No tenderness. EXTREMITIES: No pedal edema. No calf tenderness. NEUROLOGICAL: Patient is awake, alert and oriented x3. Cranial nerves 2 through 12 are grossly intact. Results 09/12/18 06:01 09/12/18 06:01 Cardiac Enzymes 09/11/18 09/11/18 09/12/18 Range/Units 18:19 18:19 06:01 AST 35 29 (17-59) U/L CK-MB (CK-2) 0.7 (0.0-2.4) ng/mL Troponin I 0.066 H* (0.000-0.034) ng/mL Coagulation 09/11/18 Range/Units 18:19 PT 11.2 (9.0-12.0) sec APTT 26.4 (22.0-30.0) sec CBC 09/11/18 09/12/18 Range/Units 18:19 06:01 WBC 6.9 5.2 (3.8-10.6) k/uL RBC 4.16 L 3.71 L (4.30-5.90) m/uL Hgb 12.2 L 10.9 L (13.0-17.5) gm/dL Hct 37.2 L 34.1 L (39.0-53.0) % Plt Count 166 168 (150-450) k/uL Comprehensive Metabolic Panel 09/11/18 09/12/18 Range/Units 18:19 06:01 Sodium 136 L 141 (137-145) mmol/L Potassium 4.1 3.8 (3.5-5.1) mmol/L Chloride 102 111 H (98-107) mmol/L Carbon Dioxide 25 23 (22-30) mmol/L BUN 29 H 20 (9-20) mg/dL Creatinine 1.01 0.89 (0.66-1.25) mg/dL Glucose 107 H 92 (74-99) mg/dL Calcium 8.6 8.2 L (8.4-10.2) mg/dL AST 35 29 (17-59) U/L ALT 31 26 (21-72) U/L Alkaline Phosphatase 126 115 (38-126) U/L Total Protein 6.5 5.5 L (6.3-8.2) g/dL Albumin 3.3 L 2.6 L (3.5-5.0) g/dL Current Medications Generic Name Dose Route Start Last Admin Trade Name Freq PRN Reason Stop Dose Admin Sodium Chloride 1,000 mls @ 75 mls/hr 09/11/18 18:15 09/12/18 06:28 Saline 0.9% IV 75 mls/hr .[id number] JESUS Administration Nattokinase 1 Tab 1 tab 09/12/18 09:00 09/12/18 08:26 PO Not Given DAILY JESUS Serrapeptase 1 Tab 1 tab 09/12/18 09:00 09/12/18 08:26 PO Not Given DAILY JESUS Tamsulosin HCl 0.4 mg 09/12/18 21:00 Flomax PO HS JESUS Intake and Output 09/11/18 09/12/18 09/12/18 22:59 06:59 14:59 Intake Total 0 360 Output Total 0 Balance 0 360 Intake: Oral 0 360 Output: Urine 0 Other: # Voids 1 Weight 75.75 kg 79 kg 09/12/18 06:01 09/12/18 06:01 Assessment and Plan Plan: 1. Subacute endocarditis with vegetation on the mitral valve. 2. Benign prostatic hypertrophy. 3. Normal coronary arteries. . Plan: Blood cultures are in progress. Awaiting input and further recommendations from infectious disease. Impression and plan of care have been directed as dictated by the signing physician. Olga Roman nurse practitioner acting as scribe for signing physician.
--- NOTE | 2018-09-12 11:59 | P.HPIM ---
History of Present Illness H&P Date: 09/12/18 Chief Complaint: Subacute endocarditis. This is a 63-year-old male patient of Dr. Sosa and Dr. Price with history of hyperlipidemia but long-standing history of heart murmur. Patient was having chills and sweating with generalized achiness that impacted his physical activity. He was initially treated for pneumonia and completed antibiotics but his symptoms continued. There was also concern for Lyme disease and patient was started on doxycycline approximate 3 weeks ago. He subsequently underwent a CAT scan that showed dilated ascending aorta and the patient was referred to Dr. Bear on for transthoracic echocardiogram that revealed a preserved systolic function with severe mitral regurgitation and a mass on the posterior mitral valve leaflet suggestive of endocarditis and vegetation and the patient was then set up for SILVIA and heart catheterization which was done yesterday. SILVIA revealed ejection fraction of 55% with severe eccentric right regurgitation with vegetation on the posterior mitral valve, mild tricuspid regurgitation and mild dilatation of the aorta and mild aortic regurgitation. Heart catheterization showed normal coronary arteries and dilated ascending aorta. Patient was admitted and a consult was added for Dr. Beck. Blood cultures were obtained. Review of Systems Constitutional: Reports chronic headaches, Reports weakness, Denies chills Eyes: denies blurred vision, denies bulging eye, denies decreased vision Ears: deny: decreased hearing Ears, nose, mouth and throat: Denies dysphagia, Denies neck lump, Denies sore throat Cardiovascular: Denies chest pain, Denies claudication, Denies dyspnea on exertion, Denies high blood pressure, Denies phlebitis, Denies rapid heart beat Respiratory: Denies congestion, Denies cough with sputum, Denies home oxygen, Denies sleep apnea, Denies snoring, Denies wheezing Gastrointestinal: Denies abdominal pain, Denies belching, Denies BRBPR, Denies heartburn, Denies melena, Denies nausea, Denies vomiting Genitourinary: Denies dysuria, Denies nocturia, Denies polyuria Musculoskeletal: Denies myalgias Musculoskeletal: absent: ankle pain, ankle stiffness, ankle swelling, as per HPI , elbow pain, elbow stiffness, elbow swelling, foot pain, foot stiffness, foot swelling, hand pain, hand stiffness, hand swelling, hip pain, hip stiffness, hip swelling, knee pain, knee stiffness, knee swelling, shoulder pain, shoulder stiffness, shoulder swelling, wrist pain, wrist stiffness, wrist swelling Integumentary: Denies pruritus, Denies rash Neurological: Denies numbness, Denies weakness Psychiatric: Denies anxiety, Denies depression Endocrine: Denies fatigue, Denies weight change Past Medical History Past Medical History: Deep Vein Thrombosis (DVT), Prostate Disorder Additional Past Medical History / Comment(s): SEE DR. ROMO H & P FOR CARDIAC INFORMATION. DVT-2010-RT CALF. WAS SEEN IN ER 08/08/18 FOR SEVERE GROIN PAIN. HX KIDNEY STONES History of Any Multi-Drug Resistant Organisms: None Reported Past Surgical History: Heart Catheterization Additional Past Surgical History / Comment(s): Lithotripsy. COLONOSOCPY. ALSO SCHEDULED FOR SILVIA 09/11/18 Past Anesthesia/Blood Transfusion Reactions: No Reported Reaction Past Psychological History: No Psychological Hx Reported Smoking Status: Never smoker Past Alcohol Use History: Occasional Past Drug Use History: None Reported - Past Family History Mother Family Medical History: AFIB (Mother is 84-year-old with a history of skin cancer as well as macular degeneration with atrial flutter.), Cancer Additional Family Medical History / Comment(s): SKIN Father Family Medical History: Diabetes Mellitus (His biological father at age of 72 from diabetes complications.) Sister(s) Family Medical History: AFIB (Patient has one biological sister with atrial flutter and one stepsister.) Additional Family Medical History / Comment(s): Patient has no kids. Medications and Allergies Home Medications Medication Instructions Recorded Confirmed Type Doxycycline [Vibramycin] 100 mg PO BID 09/08/18 09/11/18 History Tamsulosin [Flomax] 0.4 mg PO HS 09/08/18 09/11/18 History Nattokinase 1 tab PO DAILY 09/11/18 09/11/18 History Serrapeptase 1 tab PO DAILY 09/11/18 09/11/18 History Allergies Allergy/AdvReac Type Severity Reaction Status Date / Time No Known Allergies Allergy Verified 09/11/18 17:58 Physical Exam Vitals: Vital Signs Temp Pulse Pulse Pulse Resp BP BP 09/12/18 04:00 97.6 F 63 20 102/69 09/12/18 03:41 18 09/12/18 00:00 98.4 F 68 69 18 94/55 09/11/18 21:37 99.3 F 78 16 104/57 09/11/18 21:00 79 16 99/62 09/11/18 20:54 99.4 F 09/11/18 19:38 100.2 F H 09/11/18 18:24 68 09/11/18 17:47 99.7 F H 92 20 111/73 Pulse Ox 09/12/18 04:00 98 09/12/18 03:41 09/12/18 00:00 96 09/11/18 21:37 97 09/11/18 21:00 97 09/11/18 20:54 09/11/18 19:38 09/11/18 18:24 09/11/18 17:47 98 Intake and Output 09/11/18 09/12/18 09/12/18 22:59 06:59 14:59 Intake Total 0 Output Total 0 Balance 0 Intake: Oral 0 Output: Urine 0 Other: # Voids 1 Weight 75.75 kg 79 kg - Constitutional General appearance: no acute distress, thin - Neck Neck: no lymphadenopathy, normal ROM, no rigidity, no stridor, no thyromegaly Carotids: bilateral: upstroke normal Thyroid: bilateral: normal size - Respiratory Respiratory: bilateral: diminished, negative: dullness, rales, rhonchi, wheezing , prolonged expiration, prolonged inspiration - Cardiovascular Rhythm: regular Heart sounds: abnormal: S1 (Decreased) Abnormal Heart Sounds: systolic murmur (There is 4/6 systolic ejection murmur located in the apex Radiating to the axilla.) - Gastrointestinal General gastrointestinal: no hepatomegaly, normal bowel sounds, soft, no splenomegaly, no tenderness, no umbilical hernia, no ventral hernia - Integumentary Integumentary: normal, normal turgor - Neurologic Neurologic: CNII-XII intact - Musculoskeletal Musculoskeletal: generalized weakness - Psychiatric Psychiatric: A&O x's 3, appropriate affect, intact judgment & insight Results CBC & Chem 7: 09/12/18 06:01 09/12/18 06:01 Labs: Abnormal Lab Results - Last 24 Hours (Table) 09/11/18 09/11/18 09/11/18 Range/Units 18:19 18:19 18:19 RBC 4.16 L (4.30-5.90) m/uL Hgb 12.2 L (13.0-17.5) gm/dL Hct 37.2 L (39.0-53.0) % Lymphocytes # 0.8 L (1.0-4.8) k/uL Sodium 136 L (137-145) mmol/L BUN 29 H (9-20) mg/dL Glucose 107 H (74-99) mg/dL Total Creatine Kinase 36 L (55-170) U/L Troponin I 0.066 H* (0.000-0.034) ng/mL Albumin 3.3 L (3.5-5.0) g/dL Procalcitonin (0.02-0.09) ng/mL Ur Specific [place] (1.001-1.035) Urine Protein (Negative) 09/11/18 09/11/18 Range/Units 18:19 19:42 RBC (4.30-5.90) m/uL Hgb (13.0-17.5) gm/dL Hct (39.0-53.0) % Lymphocytes # (1.0-4.8) k/uL Sodium (137-145) mmol/L BUN (9-20) mg/dL Glucose (74-99) mg/dL Total Creatine Kinase (55-170) U/L Troponin I (0.000-0.034) ng/mL Albumin (3.5-5.0) g/dL Procalcitonin 0.55 H (0.02-0.09) ng/mL Ur Specific [place] 1.044 H (1.001-1.035) Urine Protein Trace H (Negative) Thrombosis Risk Factor Assmnt - DVT/VTE Prophylaxis DVT/VTE Prophylaxis: Mechanical Prophylaxis ordered - Choose All That Apply Any of the Below Risk Factors Present?: No Other Risk Factors: Yes Each Risk Factor Represents 2 Points: Age 61-74 years Each Risk Factor Represents 3 Points: History of DVT/PE Other congenital or acquired thrombophilia - If yes, enter type in comment: No Thrombosis Risk Factor Assessment Total Risk Factor Score: 5 Thrombosis Risk Factor Assessment Level: High Risk Assessment and Plan Assessment: Assessment and plan: 1. Subacute endocarditis with mitral valve vegetation post SILVIA and left heart catheterization that showed normal coronaries. Await the final result of the blood cultures continue IV fluid, continue supportive care, cardiology consultation as well as cardiothoracic surgery consultation and infectious disease consultation appreciated. 2. Severe mitral regurgitation with mitral valve vegetation. Due to endocarditis. Await the final result of the blood culture. 3. Benign prostatic hypertrophy. Continue Flomax 0.4 mg orally once every day. 4. History of kidney stones. Stable. 5. DVT prophylaxis. Heparin 5000 units subcutaneously every 8 hours. 6. GI prophylaxis. Protonix 40 mg orally once every day. 7. Admit to inpatient. Estimate a length of stay 2 midnights. 8. Patient is full code.
[2018-09-12] MEDS: HEPARIN SODIUM,PORCINE 5,000 UNIT/ML 1 ML VIAL SQ SCH ×2 (12:51→23:00)
[2018-09-12] MEDS ORDERED: VANCOMYCIN IV PER PHARMACY 1 EACH MISC MISCELLANE PRN (15:36)
[2018-09-12] MEDS ORDERED: ACETAMINOPHEN TAB 325 MG TAB PO PRN (16:09)
[2018-09-12] MEDS ORDERED: VANCOMYCIN 1,750 MG in SODIUM CHLORIDE 0.9% 500 ML 500 ML IVPB ONE (16:15)
[2018-09-12] MEDS: TAMSULOSIN 0.4 MG CAP.ER.24H PO SCH (19:30)
--- NOTE | 2018-09-12 23:34 | PN ---
PROGRESS NOTE DATE OF SERVICE: 09/12/2018. REASON FOR CONSULTATION: 1. Positive blood culture. 2. Endocarditis. HISTORY OF PRESENT ILLNESS: The patient is a 63-year-old male who was admitted to the hospital yesterday after 8 rounds esophageal echocardiogram that was suggestive of severe mitral regurgitation and a mobile vegetation on the posterior leaflet. The patient did have blood cultures obtained yesterday. Those came back positive for gram-positive cocci. Hence I was asked to see the patient for evaluation as the patient was not on any antibiotics. The patient's symptoms have been going on since May of 2018. Symptoms has been night sweats every night, feeling weak and lethargic and no energy. These symptoms have been progressively getting worsening with spikes of fever low-grade mostly around 100-100.5. The patient denies having any headache. No URI symptoms. No chest pain. Minimal shortness of breath mostly on exertion. No orthopnea, PND, or any leg swelling. No chest pain. No nausea, no vomiting. No abdominal pain. No diarrhea. No burning or frequency of urine. The patient denies having any history of dental procedure done in the last 6 months and no other instrumentation. 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 The patient subsequently did have a transthoracic echocardiogram done and read by Dr. Hinojosa on 09/07/2018 which did show a normal EF of 55%. However, there was severe mitral regurgitation and did show a posterior mitral wall vegetation. The patient was brought in to the [facility] and did have a cardiac catheterization and transesophageal echocardiogram, which did show the mitral valve regurgitation and posterior leaflet vegetation. The patient subsequently was discharged home. However, was called in by his primary care physician, Dr. Sosa to go to the hospital to be admitted for endocarditis. The patient did have blood cultures drawn and has been in the hospital. No antibiotic was started with a blister coming positive this morning. The patient did call me for evaluation. The patient currently denies having any rash or any skin lesion. No joint swelling. REVIEW OF SYSTEMS: CONSTITUTIONAL: Positive for weakness along with fever. EYES: No complaint. ENT no complaint. RESPIRATORY: As per HPI. Cardiovascular as per HPI. Genitourinary no complaint. Gastrointestinal: No complaint. MUSCULOSKELETAL: No complaint. Integumentary: No complaint. PSYCHOLOGICAL: No complaint. ENDOCRINE: No complaint. NEUROLOGICAL: No complaint. PAST MEDICAL HISTORY: Significant for DVT, prostate disorder, kidney stone. PAST SURGICAL HISTORY: Heart catheterization, lithotripsy, colonoscopy. SOCIAL HISTORY: No history of smoking. Occasionally drinks. No drug use. FAMILY HISTORY: Mother with history of skin cancer. ALLERGIES: No known drug allergies. MEDICATIONS: Medications include the patient is currently on: Tylenol, heparin, Protonix, Flomax, vancomycin 1500 mg q.12 hours. He did receive a loading dose loading dose of 750 mg. EXAMINATION: Blood pressure is 110/64 with a pulse of 84, temperature 98.7, T-max is 100.6. He is 94% on room air. General description is an elderly male lying in bed in no distress. No tachypnea or accessory muscles of respiration use. HEENT: Shows pallor. No scleral icterus. Oral mucosa membranes are moist. No pharyngeal erythema or thrush. Neck trachea central. No thyromegaly. Lungs unlabored breathing. Clear to auscultation. No wheeze or crackles. Heart S1-S2 regular rate and rhythm. Systolic murmur. ABDOMEN: Soft. No tenderness. No guarding. No rigidity. No organomegaly. EXTREMITIES: No edema of the feet. Skin examination: No rash or mass palpable. Neurological: Patient is awake, alert, oriented times three. Mood and affect normal. LABS: Hemoglobin is 10.8, white count 5.2 with a BUN of 20, creatinine 0.89. CRP is 46.2. Troponin was 0.66. Procalcitonin 0.55. UA has been negative. Chest x-ray this admission, no active cardiopulmonary disease and normal heart. DIAGNOSTIC IMPRESSION AND PLAN: Patient with a history of fever off and on with nights that has been going on for almost 3 months in this patient who did have an echocardiogram done in the outpatient setting on 09/07/2018 that was suggestive of a mitral valve endocarditis and that has been confirmed on a transesophageal echocardiogram done completed yesterday and now with multiple positive blood culture, likely a subacute endocarditis and more likely from the . Clinically doubt MRSA or Staphylococcus aureus infection which are mostly acute with no systemic symptoms. PLAN: 1. Vancomycin, pharmacy to dose, target of 15 while watching his kidney function and Vanco trough closely. 2. Blood cultures will be repeated daily to make sure bacteremia resolves as the patient would likely need a PICC line for outpatient IV antibiotic therapy. 3. The patient will be monitored closely for any signs of cardiac decompensation as the patient did have severe MR on echocardiogram. Cardiology is already on the case. 4. We will follow up on his clinical condition and further adjust medication if needed. Thank you for this consultation. We will follow the patient along with you. MMSERAFINL / IJN: [id number] /
[2018-09-13] MEDS ORDERED: VANCOMYCIN 1,500 MG in SODIUM CHLORIDE 0.9% 250 ML IVPB SCH (06:00)
[2018-09-13] MEDS: PANTOPRAZOLE 40 MG TABLET PO SCH (06:21)
[2018-09-13] MEDS: NATTOKINASE PO SCH (08:59)
[2018-09-13] MEDS: SODIUM CHLORIDE 0.9% 1,000 ML IV SCH (09:00)
[2018-09-13] MEDS: HEPARIN SODIUM,PORCINE 5,000 UNIT/ML 1 ML VIAL SQ SCH ×3 (09:00→23:14)
--- NOTE | 2018-09-13 11:31 | P.GSCN ---
History of Present Illness Consult date: 09/13/18 Reason for Consult: Mitral valve endocarditis Requesting physician: Sea Hinojosa History of present illness: This is a 63-year-old gentleman who follows with Dr. Farmer on an outpatient basis. He has a previous medical history of heart murmur, hyperlipidemia, DVT of the right calf in 2010, occasional wine, and family history of atrial fibrillation. [place] and within a couple of weeks after moving began to develop severe headaches as well as fevers, chills, and diaphoresis and decreased activity tolerance. He presented to his primary care physician was originally thought to have pneumonia and was treated with antibiotics. This did not help, and due to the timing of events and [place], it was thought the patient might have Lyme disease, he was tested and was slightly positive and was started on doxycycline. He did feel some improvement for a short time but eventually began feeling worse again, he was sent for computed tomography scan which demonstrated no pneumonia but did show evidence of dilation of the ascending aorta measuring 4.6 cm with a 4.5 cm aortic root. Due to these findings he was referred to cardiology and was recommended to have an echocardiogram which demonstrated normal ventricular function with an EF of 50- 55%, aortic root measurement 4.1 cm, ascending aorta measuring 4.6 cm, and severe mitral regurgitation with large mobile vegetation attached to the posterior leaflet. He was further recommended to undergo heart catheterization and transesophageal echocardiogram. His heart catheterization demonstrated normal coronaries. Transesophageal echocardiogram confirmed normal LV function with ejection fraction 55%, severe eccentric mitral regurgitation with vegetation on the posterior leaflet and dilation of the ascending aorta with mild aortic regurgitation. He was admitted to the hospital with consultation to infectious disease. Blood cultures were drawn 3 preliminarily demonstrating gram-positive cocci and he was started on vancomycin per Dr. Mei. Dr. Figueroa from cardiothoracic surgery was consulted regarding mitral regurgitation. Review of Systems Review of systems was completed and was negative except as noted - Constitutional Reports as per HPI, Reports chills, Reports fatigue, Reports fever, Reports lethargy, Reports malaise, Reports night sweats, Reports sweats, Reports weakness Past Medical History Past Medical History: Deep Vein Thrombosis (DVT), Prostate Disorder Additional Past Medical History / Comment(s): SEE DR. HINOJOSA H & P FOR CARDIAC INFORMATION. DVT-2010-RT CALF. WAS SEEN IN ER 08/08/18 FOR SEVERE GROIN PAIN. HX KIDNEY STONES History of Any Multi-Drug Resistant Organisms: None Reported Past Surgical History: Heart Catheterization Additional Past Surgical History / Comment(s): Lithotripsy. COLONOSOCPY. ALSO SCHEDULED FOR SILVIA 09/11/18 Past Anesthesia/Blood Transfusion Reactions: No Reported Reaction Past Psychological History: No Psychological Hx Reported Smoking Status: Never smoker Past Alcohol Use History: Occasional Past Drug Use History: None Reported - Past Family History Mother Family Medical History: AFIB (Mother is 84-year-old with a history of skin cancer as well as macular degeneration with atrial flutter.), Cancer Additional Family Medical History / Comment(s): SKIN Father Family Medical History: Diabetes Mellitus (His biological father at age of 72 from diabetes complications.) Sister(s) Family Medical History: AFIB (Patient has one biological sister with atrial flutter and one stepsister.) Additional Family Medical History / Comment(s): Patient has no kids. Medications and Allergies Home Medications Medication Instructions Recorded Confirmed Type Doxycycline [Vibramycin] 100 mg PO BID 09/08/18 09/11/18 History Tamsulosin [Flomax] 0.4 mg PO HS 09/08/18 09/11/18 History Nattokinase 1 tab PO DAILY 09/11/18 09/11/18 History Serrapeptase 1 tab PO DAILY 09/11/18 09/11/18 History Allergies Allergy/AdvReac Type Severity Reaction Status Date / Time No Known Allergies Allergy Verified 09/11/18 17:58 Surgical - Exam Vital Signs Temp Pulse Resp BP Pulse Ox 99.7 F H 92 20 111/73 98 09/11/18 17:47 09/11/18 17:47 09/11/18 17:47 09/11/18 17:47 09/11/18 17:47 - General well developed, well nourished, no distress, no pain - Eyes PERRL, normal ocular movement - ENT no hearing loss - Neck no masses, no bruits, trachea midline - Respiratory Lungs sounds clear bilaterally. Respirations even, nonlabored. Currently on room air with oxygen saturation 94%. No chest wall deformities. - Cardiovascular S1, S2 present. Positive systolic murmur. Regular rate and rhythm, sinus rhythm on telemetry. Palpable peripheral pulses bilaterally. No edema present. No calf pain or tenderness noted. No varicosities noted to bilateral lower extremities. - Abdomen Abdomen: non tender, bowel sounds - Genitourinary Deferred - Rectum Deferred - Integumentary no rash, no growths, no abnormal pigmentation - Neurologic normal coordination, normal sensation - Musculoskeletal normal gait, normal posture - Psychiatric oriented to time, oriented to person, oriented to place, speech is normal, memory intact Results - Labs 09/12/18 06:01 09/12/18 06:01 Microbiology - Last 24 Hours (Table) 09/12/18 06:01 Blood Culture Gram Stain - Preliminary Blood 09/12/18 06:01 Blood Culture - Final Blood 09/11/18 18:19 Blood Culture Gram Stain - Preliminary Blood 09/12/18 06:39 Blood Culture Gram Stain - Preliminary Blood 09/12/18 06:39 Blood Culture - Final Blood 09/11/18 18:19 Blood Culture - Final Blood - Imaging Chest x-ray: report reviewed, image reviewed CT scan - chest: report reviewed, image reviewed EKG: image reviewed Additional studies: Heart catheterization films, SILVIA, echocardiogram films reviewed Assessment and Plan (1) Mitral regurgitation Current Visit: Yes Status: Chronic Code(s): I34.0 - NONRHEUMATIC MITRAL ( VALVE) INSUFFICIENCY SNOMED Code(s): 97584655 (2) History of DVT (deep vein thrombosis) Current Visit: No Status: Resolved Code(s): Z86.718 - PERSONAL HISTORY OF OTHER VENOUS THROMBOSIS AND EMBOLISM SNOMED Code(s): 660786493 (3) Hyperlipemia Current Visit: Yes Status: Chronic Code(s): E78.5 - HYPERLIPIDEMIA, UNSPECIFIED SNOMED Code(s): 49356743 (4) Endocarditis of [place] valve Current Visit: Yes Status: Acute Code(s): I38 - ENDOCARDITIS, VALVE UNSPECIFIED SNOMED Code(s): 05894609 Plan: The patient was seen and examined at the bedside. Chart/diagnostics were reviewed. The patient is currently asymptomatic, denies any shortness of breath or dizziness. T-max 100.6F yesterday, 99.3F this morning. No leukocytosis. CRP was 46.2, Procalcitonin was 0.55, lactic acid 1.1. Continue IV antibiotics per infectious disease recommendations to obtain negative blood cultures. Medical management per primary care service. Will continue to follow and monitor and make recommendations for surgery dependent on patient's progress. Thank you Dr. Hinojosa for this consult. We look forward to working with you in the care of your patient. Time with Patient: Greater than 30
--- NOTE | 2018-09-13 15:05 | PN ---
PROGRESS NOTE This is a gentleman mitral valve endocarditis with moderate to severe mitral regurgitation. No obstructive CAD. He has been initiated on vancomycin. Blood cultures are growing gram-positive cocci. The exact organism is not identified, but it is a gram-positive cocci. Plan is to continue vancomycin upon the advice from Infectious Disease and we will ask Dr. Figueroa to see from a cardiac standpoint with regards to that the fact that he will require mitral valve replacement down the road. Vitals are stable. There is JVD of 1 cm. No carotid bruit. S1-S2 heard normally. Holosystolic murmur is audible. Lungs are clear. Abdomen and lower exam otherwise is unchanged. MMODL / IJN: [id number] /
[2018-09-13] MEDS ORDERED: FUROSEMIDE 20 MG TAB PO STA (15:45)
[2018-09-13] MEDS: DOCUSATE 100 MG CAP PO SCH ×2 (15:46→19:46)
[2018-09-13] MEDS: ceFAZolin IN SWFI 2 GM/20 ML SYRINGE IVP SCH ×2 (16:44→23:14)
--- NOTE | 2018-09-13 18:54 | US ---
EXAMINATION TYPE: US carotid duplex BILAT DATE OF EXAM: 09/13/2018 COMPARISON: NONE CLINICAL HISTORY: preop cardiac surgery. EXAM MEASUREMENTS: RIGHT: Peak Systolic Velocity (PSV) cm/sec ----- Right CCA: 68.7 ----- Right ICA: 73. ----- Right ECA: 91.9 ICA/CCA ratio: 1.1 RIGHT: End Diastole cm/sec ----- Right CCA: 24.5 ----- Right ICA: 18.2 ----- Right ECA: 12.8 LEFT: Peak Systolic Velocity (PSV) cm/sec ----- Left CCA: 81.5 ----- Left ICA: 60.7 ----- Left ECA: 78.2 ICA/CCA ratio: 0.75 LEFT: End Diastole cm/sec ----- Left CCA: 19.3 ----- Left ICA: 30.2 ----- Left ECA: 9.9 VERTEBRALS (direction of flow): Right Vertebral: Antegrade Left Vertebral: Antegrade Rhythm: Normal Mild plaque, no significant velocity elevations. IMPRESSION: There is antegrade flow in the vertebral arteries. Images in measurements suggest less t oneill 20% stenosis in both internal carotid arteries. Criteria for Assigning % of Stenosis / Diameter reduction (Estimation based on the indirect measurements of the internal carotid artery velocities (ICA PSV). 1. Normal (no stenosis)=ICA PSV < 125 cm/s: ratio < 2.0: ICA EDV<40 cm/s. 2. Less than 50% stenosis=ICA PSV < 125 cm/s: ratio < 2.0: ICA EDV<40 cm/s. 3. 50 to 69% stenosis=ICA PSV of 125 to 230 cm/s: ration 2.0 ? 4.0: ICA EDV 40-100 cm/s. 4. Greater than 70% stenosis to near occlusion= ICA PSV > 230 cm/s: ratio > 4.0: ICA EDV > 100 cm/s. 5. Near occlusion= ICA PSV velocities may be low or undetectable: variable ratio and ICA EDV. 6. Total occlusion=unable to detect flow.
[2018-09-13] MEDS: TAMSULOSIN 0.4 MG CAP.ER.24H PO SCH (19:46)
[2018-09-13] MEDS: METOPROLOL TARTRATE 12.5 MG TAB PO SCH (19:46)
--- NOTE | 2018-09-13 21:53 | PN ---
PROGRESS NOTE DATE OF SERVICE: 09/13/2018. REASON FOR FOLLOWUP: Mitral valve endocarditis. INTERVAL HISTORY: The patient overall fever pattern has improved. Last temperature recorded was yesterday afternoon of 100.6. The patient is feeling slightly better, breathing comfortably. Denies having any chest pain or shortness of breath or cough. No nausea, no vomiting. No abdominal pain. No diarrhea. EXAMINATION: Blood pressure 123/80 with a pulse of 73, temperature 98.4. He is 96% on room air. General description is an elderly male lying in bed in no distress. Respiratory system: Unlabored breathing. Clear to auscultation anteriorly. Heart S1, S2. Regular rate and rhythm. . ABDOMEN: Soft, no tenderness. EXTREMITIES: No edema of the feet. LABS: Hemoglobin is 10.8, white count 5.2 with a BUN of 20, creatinine 0.89. Blood culture with Streptococcus agalactiae. Blood cultures from yesterday evening are positive as well. DIAGNOSTIC IMPRESSION AND PLAN: Patient with mitral wall endocarditis with blood culture showing Streptococcus agalactiae. Likely the infected pathogen. The patient fever seemed to respond to vancomycin. However Streptococcus usually sensitive to cephalosporins and penicillin. Antibiotic will be adjusted to cefazolin 2 g q.8h while waiting for the sensitivity to finalize. Blood cultures will be repeated today as well as tomorrow morning to make sure clearance of his bacteremia before placing a PICC line with the plan for at least 6 weeks of IV antibiotic therapy. All his questions and concerns were answered. MMSERAFINL / TEEN: [id number] /
--- NOTE | 2018-09-13 22:06 | P.PN ---
Subjective Progress Note Date: 09/13/18 This is a 63-year-old male patient of Dr. Sosa and Dr. Price with history of hyperlipidemia but long-standing history of heart murmur. Patient was having chills and sweating with generalized achiness that impacted his physical activity. He was initially treated for pneumonia and completed antibiotics but his symptoms continued. There was also concern for Lyme disease and patient was started on doxycycline approximate 3 weeks ago. He subsequently underwent a CAT scan that showed dilated ascending aorta and the patient was referred to Dr. Bear on for transthoracic echocardiogram that revealed a preserved systolic function with severe mitral regurgitation and a mass on the posterior mitral valve leaflet suggestive of endocarditis and vegetation and the patient was then set up for SILVIA and heart catheterization which was done yesterday. SILVIA revealed ejection fraction of 55% with severe eccentric right regurgitation with vegetation on the posterior mitral valve, mild tricuspid regurgitation and mild dilatation of the aorta and mild aortic regurgitation. Heart catheterization showed normal coronary arteries and dilated ascending aorta. Patient was admitted and a consult was added for Dr. Beck. Blood cultures were obtained. 09/13: patient is feeling well , was started on vancomycin ans subsequently was switched to Ancef 2gr IVPB Q8H as he is bacteeremic to Group B strep and alpha hemolytic strep, and we will repeat blood cultures today and tomorrow. Objective - Vital Signs Vital signs: Vital Signs Temp 99.3 F 09/13/18 04:00 Pulse 83 09/13/18 04:00 Resp 20 09/13/18 04:00 BP 117/59 09/13/18 04:00 Pulse Ox 94 L 09/13/18 04:00 Intake & Output 09/12/18 09/13/18 09/13/18 18:59 06:59 18:59 Intake Total 1200 1095 Balance 1200 1095 Weight 81 kg Intake: Intake, IV Titration 525 Amount Sodium Chloride 0.9% 1, 525 000 ml @ 75 mls/hr IV . [id number] JESUS Rx#:[id number] Oral 1200 570 Other: Voiding Method Toilet Toilet # Voids 2 1 - Exam - Constitutional General appearance: no acute distress, thin - Neck Neck: no lymphadenopathy, normal ROM, no rigidity, no stridor, no thyromegaly Carotids: bilateral: upstroke normal Thyroid: bilateral: normal size - Respiratory Respiratory: bilateral: diminished, negative: dullness, rales, rhonchi, wheezing , prolonged expiration, prolonged inspiration - Cardiovascular Rhythm: regular Heart sounds: abnormal: S1 (Decreased) Abnormal Heart Sounds: systolic murmur (There is 4/6 systolic ejection murmur located in the apex Radiating to the axilla.) - Gastrointestinal General gastrointestinal: no hepatomegaly, normal bowel sounds, soft, no splenomegaly, no tenderness, no umbilical hernia, no ventral hernia - Integumentary Integumentary: normal, normal turgor - Neurologic Neurologic: CNII-XII intact - Musculoskeletal Musculoskeletal: generalized weakness - Psychiatric Psychiatric: A&O x's 3, appropriate affect, intact judgment & insight - Labs CBC & Chem 7: 09/12/18 06:01 09/12/18 06:01 Labs: Abnormal Lab Results - Last 24 Hours (Table) 09/12/18 09/12/18 09/12/18 Range/Units 06:01 06:01 06:01 RBC 3.71 L (4.30-5.90) m/uL Hgb 10.9 L (13.0-17.5) gm/dL Hct 34.1 L (39.0-53.0) % Lymphocytes # 0.8 L (1.0-4.8) k/uL Chloride 111 H (98-107) mmol/L Calcium 8.2 L (8.4-10.2) mg/dL C-Reactive Protein 46.2 H (<10.0) mg/L Total Protein 5.5 L (6.3-8.2) g/dL Albumin 2.6 L (3.5-5.0) g/dL Microbiology - Last 24 Hours (Table) 09/12/18 06:01 Blood Culture Gram Stain - Preliminary Blood 09/12/18 06:01 Blood Culture - Final Blood 09/11/18 18:19 Blood Culture Gram Stain - Preliminary Blood 09/12/18 06:39 Blood Culture Gram Stain - Preliminary Blood 09/12/18 06:39 Blood Culture - Final Blood 09/11/18 18:19 Blood Culture - Final Blood Assessment and Plan Assessment: Assessment and plan: 1. Subacute endocarditis with mitral valve vegetation post SILVIA and left heart catheterization that showed normal coronaries. Blood cultures were positive for group B streptococcus agalactia and alpha hemolytic strep and patient was switched to Ancef 2 gr IVP Q8H and was taken off Vancomycin. 2. Severe mitral regurgitation with mitral valve vegetation. Due to endocarditis. Await the final result of the blood culture. 3. Benign prostatic hypertrophy. Continue Flomax 0.4 mg orally once every day. 4. History of kidney stones. Stable. 5. DVT prophylaxis. Heparin 5000 units subcutaneously every 8 hours. 6. GI prophylaxis. Protonix 40 mg orally once every day. 7. Hopefully home after placing PICC line post negative Blood cultures.
[2018-09-14] MEDS ORDERED: VANCOMYCIN TROUGH DUE 1 EACH MISC MISCELLANE ONE (05:00)
[2018-09-14 06:22] LABS: Basophils % (A) 1 %; Eosinophils # (A) 0.1 k/uL (0-0.7); Eosinophils % (A) 2 %; HCT 35.1 % (39.0-53.0); HGB 11.2 gm/dL (13.0-17.5); Lymphocytes # (A) 1.2 k/uL (1.0-4.8); Lymphocytes % (A) 21 %; MCH 29.1 pg (25.0-35.0); Mean Platelet Volume 6.9; Monocytes # (A) 0.3 k/uL (0-1.0); Monocytes % (A) 5 %; Neutrophils # (A) 4.1 k/uL (1.3-7.7); Neutrophils % (A) 69 %; Platelet Count 202 k/uL (150-450); RBC 3.86 m/uL (4.30-5.90); RDW 15.2 % (11.5-15.5); WBC 5.9 k/uL (3.8-10.6)
[2018-09-14 06:27] LABS: ALT 28 U/L (21-72); AST 28 U/L (17-59); Albumin 2.7 g/dL (3.5-5.0); Alkaline Phosphatase 135 U/L (38-126); Anion Gap 6 mmol/L; Blood Urea Nitrogen 13 mg/dL (9-20); Calcium 8.5 mg/dL (8.4-10.2); Carbon Dioxide 25 mmol/L (22-30); Chloride 105 mmol/L (98-107); Glucose 92 mg/dL (74-99); Potassium 4.3 mmol/L (3.5-5.1); Sodium 136 mmol/L (137-145); Total Bilirubin 0.4 mg/dL (0.2-1.3); Total Protein 5.6 g/dL (6.3-8.2)
[2018-09-14] MEDS: PANTOPRAZOLE 40 MG TABLET PO SCH (06:31)
[2018-09-14] MEDS: METOPROLOL TARTRATE 12.5 MG TAB PO SCH ×2 (09:33→20:30)
[2018-09-14] MEDS: FUROSEMIDE 20 MG TAB PO SCH (09:33)
[2018-09-14] MEDS: HEPARIN SODIUM,PORCINE 5,000 UNIT/ML 1 ML VIAL SQ SCH ×3 (09:33→23:55)
[2018-09-14] MEDS: DOCUSATE 100 MG CAP PO SCH ×2 (09:33→20:30)
[2018-09-14] MEDS: ceFAZolin IN SWFI 2 GM/20 ML SYRINGE IVP SCH (09:33)
[2018-09-14] MEDS: NATTOKINASE PO SCH (09:34)
--- NOTE | 2018-09-14 10:10 | P.PN ---
Subjective Progress Note Date: 09/14/18 Principal diagnosis: Mitral valve endocarditis, severe mitral valve regurgitation. Previous medical history of mitral regurgitation, hyperlipidemia, DVT of the right calf in 2010, occasional wine, and family history of atrial fibrillation. The patient is currently sitting up in bed in no acute distress. Denies any chest pain or shortness of breath, denies dizziness or syncopal episodes. No new complaints. Blood cultures being drawn daily, preliminary results are in width first blood culture growing alpha hemolytic strep, third blood culture growing group B strep. Infectious disease on board with antibiotic changed from vancomycin to kefzol. T-max 100.6F on September 12, current temperature is 98 to 99.3F. No leukocytosis. Objective - Vital Signs Vital signs: Vital Signs Temp 99.3 F 09/14/18 04:00 Pulse 70 09/14/18 04:00 Resp 20 09/14/18 04:00 BP 111/71 09/14/18 04:00 Pulse Ox 94 L 09/14/18 04:00 Intake & Output 09/13/18 09/14/18 09/14/18 18:59 06:59 18:59 Intake Total 1792 870 240 Balance 1792 870 240 Weight 79.8 kg Intake: IV 850 Sodium Chloride 0.9% 1, 600 000 ml @ 75 mls/hr IV . [id number] [facility] Rx#:[id number] Vancomycin 1,500 mg In 250 Sodium Chloride 0.9% 250 ml @ 125 mls/hr IVPB Q12H [facility] Rx#:[id number] Oral 942 870 240 Other: Voiding Method Toilet Toilet # Voids 1 - Constitutional General appearance: Present: cooperative, no acute distress - Respiratory Details: Lungs sounds clear bilaterally. Respirations even, nonlabored. Currently on room air with oxygen saturation 94%. - Cardiovascular Details: S1, S2 present. Positive systolic murmur present. Regular rate and rhythm, sinus rhythm on telemetry. Palpable peripheral pulses bilaterally. No edema present. No calf pain or tenderness noted. - Gastrointestinal Gastrointestinal Comment(s): Abdomen soft, nontender, nondistended. Active bowel sounds 4 quadrants. Tolerating diet. - Genitourinary Genitourinary Comment(s): Continues to void clear, yellow urine. - Integumentary Integumentary Comment(s): Skin is warm and dry with evidence of good perfusion. - Neurologic Neurologic: Present: CNII-XII intact - Musculoskeletal Musculoskeletal: Present: gait normal, strength equal bilaterally - Psychiatric Psychiatric: Present: A&O x's 3, appropriate affect, intact judgment & insight - Allied health notes Allied health notes reviewed: nursing - Labs CBC & Chem 7: 09/14/18 05:49 09/14/18 05:49 Labs: Abnormal Lab Results - Last 24 Hours (Table) 09/14/18 09/14/18 Range/Units 05:49 05:49 RBC 3.86 L (4.30-5.90) m/uL Hgb 11.2 L (13.0-17.5) gm/dL Hct 35.1 L (39.0-53.0) % Sodium 136 L (137-145) mmol/L Alkaline Phosphatase 135 H (38-126) U/L Total Protein 5.6 L (6.3-8.2) g/dL Albumin 2.7 L (3.5-5.0) g/dL Microbiology - Last 24 Hours (Table) 09/12/18 16:14 Blood Culture - Final Blood 09/11/18 18:19 Blood Culture Gram Stain - Preliminary Blood Blood Culture - Preliminary Alpha Hemolytic Streptococcus 09/12/18 16:14 Blood Culture Gram Stain - Preliminary Blood 09/12/18 06:39 Blood Culture Gram Stain - Preliminary Blood Blood Culture - Preliminary Strep agalactiae - (group b) 09/12/18 06:01 Blood Culture Gram Stain - Preliminary Blood 09/12/18 06:01 Blood Culture - Final Blood - Imaging and Cardiology Results of carotid Dopplers and PFTs reviewed. Assessment and Plan (1) Mitral regurgitation Current Visit: Yes Status: Chronic Code(s): I34.0 - NONRHEUMATIC MITRAL ( VALVE) INSUFFICIENCY SNOMED Code(s): 36927958 (2) History of DVT (deep vein thrombosis) Current Visit: No Status: Resolved Code(s): Z86.718 - PERSONAL HISTORY OF OTHER VENOUS THROMBOSIS AND EMBOLISM SNOMED Code(s): 895069574 (3) Hyperlipemia Current Visit: Yes Status: Chronic Code(s): E78.5 - HYPERLIPIDEMIA, UNSPECIFIED SNOMED Code(s): 38798491 (4) Endocarditis of [place] valve Current Visit: Yes Status: Acute Code(s): I38 - ENDOCARDITIS, VALVE UNSPECIFIED SNOMED Code(s): 13457935 Plan: 1. Continue antibiotics per recommendations from infectious disease. Will follow blood cultures. 2. Patient has his own teeth and does not see a dentist on a regular basis. We 'll obtain a Panorex and dental clearance for valve surgery. 3. Patient is at risk for embolization of the vegetation on his mitral valve leaflet, consequently our recommendation is for the patient to remain inpatient on IV antibiotics. 4. Preoperative teaching initiated, continue to reinforce. 5. Encourage incentive spirometry use. 6. Continue beta masood therapy. 7. GI/DVT prophylaxis. 8. Will monitor daily labs. 9. Plan is for mitral valve repair versus replacement at the end of the week versus beginning of next week pending negative blood cultures. 10. More recommendations to follow based on patient's progress. Time with Patient: Greater than 30
[2018-09-14 13:18] LABS: Hepatitis A Antibody IgM Non-Reactive (Non-Reactive); Hepatitis B Core IgM Non-Reactive (Non-Reactive)
--- NOTE | 2018-09-14 13:18 | CT ---
EXAMINATION TYPE: CT facial bones wo con DATE OF EXAM: 09/14/2018 COMPARISON: None HISTORY: preop valve surgery, with panorex reconstruction CT DLP: 577.7 mGycm Automated exposure control for dose reduction was used. TECHNIQUE: CT scan of the sinuses is performed without contrast, axial images are obtained, coronal r eformatted images are also reviewed. FINDINGS: The paranasal sinuses including the frontal, ethmoid, sphenoid, and maxillary sinuses bila terally are well-aerated without abnormal opacification, minimal mucoperiosteal thickening present at the dependent portion of the left maxillary sinus. The ostiomeatal complex is patent bilaterally on the coronal images. Visualized portion of mastoid air cells show no abnormal opacification. The globes are intact bilate rally. The mandible and maxilla are intact. No evident periapical abscess. IMPRESSION: The sinuses are clear with exception of the left maxillary sinus as described and the ost iomeatal complex is patent bilaterally.
--- NOTE | 2018-09-14 13:43 | P.GSCN ---
History of Present Illness Consult date: 09/14/18 Reason for Consult: Pt presented with no dental pain. RAdiographically, all teeth look within normal limits with no radiolucencies. Intr oral examination rerveals no swelling, no discomfort to buccal vestibule pressure, and negative percussion testing in all teeth except #4 was slightly sensitive. Tooth #4 is a virgin tooth with no pain to pressure, or any other significant issue. Probably needs an occlusal adjustment at some point. Patient is clear from present dental infection. Thank you for your kind referral. Past Medical History Past Medical History: Deep Vein Thrombosis (DVT), Prostate Disorder Additional Past Medical History / Comment(s): SEE DR. ROMO H & P FOR CARDIAC INFORMATION. DVT-2010-RT CALF. WAS SEEN IN ER 08/08/18 FOR SEVERE GROIN PAIN. HX KIDNEY STONES History of Any Multi-Drug Resistant Organisms: None Reported Past Surgical History: Heart Catheterization Additional Past Surgical History / Comment(s): Lithotripsy. COLONOSOCPY. ALSO SCHEDULED FOR SILVIA 09/11/18 Past Anesthesia/Blood Transfusion Reactions: No Reported Reaction Past Psychological History: No Psychological Hx Reported Smoking Status: Never smoker Past Alcohol Use History: Occasional Past Drug Use History: None Reported - Past Family History Mother Family Medical History: AFIB (Mother is 84-year-old with a history of skin cancer as well as macular degeneration with atrial flutter.), Cancer Additional Family Medical History / Comment(s): SKIN Father Family Medical History: Diabetes Mellitus (His biological father at age of 72 from diabetes complications.) Sister(s) Family Medical History: AFIB (Patient has one biological sister with atrial flutter and one stepsister.) Additional Family Medical History / Comment(s): Patient has no kids. Medications and Allergies Home Medications Medication Instructions Recorded Confirmed Type Doxycycline [Vibramycin] 100 mg PO BID 09/08/18 09/11/18 History Tamsulosin [Flomax] 0.4 mg PO HS 09/08/18 09/11/18 History Nattokinase 1 tab PO DAILY 09/11/18 09/11/18 History Serrapeptase 1 tab PO DAILY 09/11/18 09/11/18 History Allergies Allergy/AdvReac Type Severity Reaction Status Date / Time No Known Allergies Allergy Verified 09/11/18 17:58 Surgical - Exam Vital Signs Temp Pulse Resp BP Pulse Ox 99.7 F H 92 20 111/73 98 09/11/18 17:47 09/11/18 17:47 09/11/18 17:47 09/11/18 17:47 09/11/18 17:47 Results - Labs 09/14/18 05:49 09/14/18 05:49 Abnormal Lab Results - Last 24 Hours (Table) 09/14/18 09/14/18 Range/Units 05:49 05:49 RBC 3.86 L (4.30-5.90) m/uL Hgb 11.2 L (13.0-17.5) gm/dL Hct 35.1 L (39.0-53.0) % Sodium 136 L (137-145) mmol/L Alkaline Phosphatase 135 H (38-126) U/L Total Protein 5.6 L (6.3-8.2) g/dL Albumin 2.7 L (3.5-5.0) g/dL Microbiology - Last 24 Hours (Table) 09/12/18 16:14 Blood Culture Gram Stain - Preliminary Blood Blood Culture - Preliminary Alpha Hemolytic Streptococcus 09/12/18 06:01 Blood Culture Gram Stain - Preliminary Blood Blood Culture - Preliminary Alpha Hemolytic Streptococcus 09/12/18 06:39 Blood Culture Gram Stain - Final Blood Blood Culture - Final Strep agalactiae - (group b) 09/12/18 16:14 Blood Culture - Final Blood 09/11/18 18:19 Blood Culture Gram Stain - Preliminary Blood Blood Culture - Preliminary Alpha Hemolytic Streptococcus Diabetes panel 09/14/18 Range/Units 05:49 Sodium 136 L (137-145) mmol/L Potassium 4.3 (3.5-5.1) mmol/L Chloride 105 (98-107) mmol/L Carbon Dioxide 25 (22-30) mmol/L BUN 13 (9-20) mg/dL Creatinine 1.00 (0.66-1.25) mg/dL Glucose 92 (74-99) mg/dL Calcium 8.5 (8.4-10.2) mg/dL AST 28 (17-59) U/L ALT 28 (21-72) U/L Alkaline Phosphatase 135 H (38-126) U/L Total Protein 5.6 L (6.3-8.2) g/dL Albumin 2.7 L (3.5-5.0) g/dL Calcium panel 09/14/18 Range/Units 05:49 Calcium 8.5 (8.4-10.2) mg/dL Albumin 2.7 L (3.5-5.0) g/dL Pituitary panel 09/14/18 Range/Units 05:49 Sodium 136 L (137-145) mmol/L Potassium 4.3 (3.5-5.1) mmol/L Chloride 105 (98-107) mmol/L Carbon Dioxide 25 (22-30) mmol/L BUN 13 (9-20) mg/dL Creatinine 1.00 (0.66-1.25) mg/dL Glucose 92 (74-99) mg/dL Calcium 8.5 (8.4-10.2) mg/dL Adrenal panel 09/14/18 Range/Units 05:49 Sodium 136 L (137-145) mmol/L Potassium 4.3 (3.5-5.1) mmol/L Chloride 105 (98-107) mmol/L Carbon Dioxide 25 (22-30) mmol/L BUN 13 (9-20) mg/dL Creatinine 1.00 (0.66-1.25) mg/dL Glucose 92 (74-99) mg/dL Calcium 8.5 (8.4-10.2) mg/dL Total Bilirubin 0.4 (0.2-1.3) mg/dL AST 28 (17-59) U/L ALT 28 (21-72) U/L Alkaline Phosphatase 135 H (38-126) U/L Total Protein 5.6 L (6.3-8.2) g/dL Albumin 2.7 L (3.5-5.0) g/dL
--- NOTE | 2018-09-14 14:15 | P.PN ---
Subjective Progress Note Date: 09/14/18 This is a 63-year-old male patient of Dr. Sosa and Dr. Price with history of hyperlipidemia but long-standing history of heart murmur. Patient was having chills and sweating with generalized achiness that impacted his physical activity. He was initially treated for pneumonia and completed antibiotics but his symptoms continued. There was also concern for Lyme disease and patient was started on doxycycline approximate 3 weeks ago. He subsequently underwent a CAT scan that showed dilated ascending aorta and the patient was referred to Dr. Bear on for transthoracic echocardiogram that revealed a preserved systolic function with severe mitral regurgitation and a mass on the posterior mitral valve leaflet suggestive of endocarditis and vegetation and the patient was then set up for SILVIA and heart catheterization which was done yesterday. SILVIA revealed ejection fraction of 55% with severe eccentric right regurgitation with vegetation on the posterior mitral valve, mild tricuspid regurgitation and mild dilatation of the aorta and mild aortic regurgitation. Heart catheterization showed normal coronary arteries and dilated ascending aorta. Patient was admitted and a consult was added for Dr. Beck. Blood cultures were obtained. 09/13: patient is feeling well , was started on vancomycin ans subsequently was switched to Ancef 2gr IVPB Q8H as he is bacteeremic to Group B strep and alpha hemolytic strep, and we will repeat blood cultures today and tomorrow. 09/14: Patient is currently on Ancef. Patient has been seen by cardiothoracic surgery with plan for valve replacement or repair as early as Friday. Patient has been seen by dental surgeon and cleared of any present dental infection. CAT scan of the facial bones reveals sinuses clear with exception of left maxillary sinus and ostiomeatal complex is patent bilaterally. No evidence of abscess. Patient denies any new complaints. He has been afebrile since September 22. Pulse ox is 95% on room air. Review of Systems Constitutional: Reports chronic headaches, Reports weakness, Denies chills Eyes: denies blurred vision, denies bulging eye, denies decreased vision Ears: deny: decreased hearing Ears, nose, mouth and throat: Denies dysphagia, Denies neck lump, Denies sore throat Cardiovascular: Denies chest pain, Denies claudication, Denies dyspnea on exertion, Denies high blood pressure, Denies phlebitis, Denies rapid heart beat Respiratory: Denies congestion, Denies cough with sputum, Denies home oxygen, Denies sleep apnea, Denies snoring, Denies wheezing Gastrointestinal: Denies abdominal pain, Denies belching, Denies BRBPR, Denies heartburn, Denies melena, Denies nausea, Denies vomiting Genitourinary: Denies dysuria, Denies nocturia, Denies polyuria Musculoskeletal: Denies myalgias Musculoskeletal: absent: ankle pain, ankle stiffness, ankle swelling, elbow pain , elbow stiffness, elbow swelling, foot pain, foot stiffness, foot swelling, hand pain, hand stiffness, hand swelling, hip pain, hip stiffness, hip swelling , knee pain, knee stiffness, knee swelling, shoulder pain, shoulder stiffness, shoulder swelling, wrist pain, wrist stiffness, wrist swelling Integumentary: Denies pruritus, Denies rash Neurological: Denies numbness, Denies weakness Psychiatric: Denies anxiety, Denies depression Endocrine: Denies fatigue, Denies weight change Objective - Vital Signs Vital signs: Vital Signs Temp 98.8 F 09/14/18 08:00 Pulse 81 09/14/18 08:00 Resp 20 09/14/18 08:00 BP 113/73 09/14/18 08:00 Pulse Ox 94 L 09/14/18 08:00 Intake & Output 09/13/18 09/14/18 09/14/18 18:59 06:59 18:59 Intake Total 1792 870 240 Balance 1792 870 240 Weight 79.8 kg Intake: IV 850 Sodium Chloride 0.9% 1, 600 000 ml @ 75 mls/hr IV . [id number] [facility] Rx#:[id number] Vancomycin 1,500 mg In 250 Sodium Chloride 0.9% 250 ml @ 125 mls/hr IVPB Q12H [facility] Rx#:[id number] Oral [phone] Other: Voiding Method Toilet Toilet # Voids 1 - Exam General appearance: no acute distress, thin, resting comfortably in bed - Neck Neck: no lymphadenopathy, normal ROM, no rigidity, no stridor, no thyromegaly Carotids: bilateral: upstroke normal Thyroid: bilateral: normal size - Respiratory Respiratory: bilateral: diminished, negative: dullness, rales, rhonchi, wheezing , prolonged expiration, prolonged inspiration - Cardiovascular Rhythm: regular Heart sounds: abnormal: S1 (Decreased) Abnormal Heart Sounds: systolic murmur (There is 4/6 systolic ejection murmur located in the apex Radiating to the axilla.) - Gastrointestinal General gastrointestinal: no hepatomegaly, normal bowel sounds, soft, no splenomegaly, no tenderness, no umbilical hernia, no ventral hernia - Integumentary Integumentary: normal, normal turgor - Neurologic Neurologic: CNII-XII intact - Musculoskeletal Musculoskeletal: generalized weakness - Psychiatric Psychiatric: A&O x's 3, appropriate affect, intact judgment & insight - Labs CBC & Chem 7: 09/14/18 05:49 09/14/18 05:49 Labs: Abnormal Lab Results - Last 24 Hours (Table) 09/14/18 09/14/18 Range/Units 05:49 05:49 RBC 3.86 L (4.30-5.90) m/uL Hgb 11.2 L (13.0-17.5) gm/dL Hct 35.1 L (39.0-53.0) % Sodium 136 L (137-145) mmol/L Alkaline Phosphatase 135 H (38-126) U/L Total Protein 5.6 L (6.3-8.2) g/dL Albumin 2.7 L (3.5-5.0) g/dL Microbiology - Last 24 Hours (Table) 09/12/18 06:39 Blood Culture Gram Stain - Final Blood Blood Culture - Final Strep agalactiae - (group b) 09/12/18 16:14 Blood Culture - Final Blood 09/11/18 18:19 Blood Culture Gram Stain - Preliminary Blood Blood Culture - Preliminary Alpha Hemolytic Streptococcus 09/12/18 16:14 Blood Culture Gram Stain - Preliminary Blood 09/12/18 06:01 Blood Culture Gram Stain - Preliminary Blood 09/12/18 06:01 Blood Culture - Final Blood Assessment and Plan Plan: 1. Subacute endocarditis with mitral valve vegetation post SILVIA and left heart catheterization that showed normal coronaries. Blood cultures were positive for group B streptococcus agalactia and alpha hemolytic strep and patient was switched to Ancef 2 gr IVP Q8H and was taken off Vancomycin. Cardiothoracic surgery evaluation appreciated. Repeat blood cultures in progress. 2. Severe mitral regurgitation with mitral valve vegetation. Due to endocarditis. Await the final result of the blood culture. 3. Benign prostatic hypertrophy. Continue Flomax 0.4 mg orally once every day. 4. History of kidney stones. Stable. 5. DVT prophylaxis. Heparin 5000 units subcutaneously every 8 hours. 6. GI prophylaxis. Protonix 40 mg orally once every day. Discharge plan: Home Impression and plan of care have been directed as dictated by the signing physician. Olga Roman nurse practitioner acting as scribe for signing physician.
[2018-09-14 14:22] LABS: Hemoglobin A1C 5.2 % (4.0-6.0)
[2018-09-14] MEDS ORDERED: GENTAMICIN PER PHARMACY MISCELLANE PRN (14:56)
--- NOTE | 2018-09-14 16:09 | PN ---
PROGRESS NOTE This is a gentleman admitted with what seems to be a mitral valve endocarditis with moderate to severe mitral regurgitation. The patient is hemodynamically stable. Yesterday, I started him on Lasix and a small dose of beta masood. I had a discussion with Dr. Endy Hatch today. He feels that because of the friable nature of the vegetation, he is at high risk for embolism and we should probably operate on him sooner and that he has a streptococcal bacteremia which is easily cleared by antibiotics. Pursuant to this discussion I spoke to Dr. Beck, who concurred and he will adjust antibiotics so that we can proceed with mitral valve replacement sooner for this patient. He does not have any obstructive CAD. I saw Mr. Reddy. He is comfortable, resting. Denies chest pain or shortness of breath. He has no major symptoms. I explained to him the rationale that we will keep him in the hospital, treat him with antibiotics and once cultures are negative, we will consider surgery. Physical exam revealed that vitals are stable. There is no JVD. S1-S2 heard normally. Holosystolic murmur is audible at the apex. Lungs are clear. Abdomen and lower exam is unremarkable. He is already on subcu heparin which we will continue. MMODL / IJN: [id number] /
[2018-09-14] MEDS: AMPICILLIN 2,000 MG in SODIUM CHLORIDE 0.9% 100 ML IVPB SCH ×3 (16:51→23:55)
[2018-09-14] MEDS: GENTAMICIN 60 MG in SODIUM CHLORIDE 0.9% 100 ML IVPB SCH (17:36)
[2018-09-14] MEDS: TAMSULOSIN 0.4 MG CAP.ER.24H PO SCH (20:30)
--- NOTE | 2018-09-14 22:55 | P.CONS ---
History of Present Illness - Reason for Consult Consult date: 09/14/18 - Chief Complaint Fevers - History of Present Illness Very pleasant 58 febrile male presents to Hospital upon direction of his primary care physician with a several month history of alteration of his health status. This past summer was actually feeling quite well until he had the onset of a febrile illness consistent with some headaches and some myalgia. Over several weeks from the late summer and early fall he was feeling very poorly and was starting to have some outpatient workup. Some testing was performed and there was an indeterminate Lyme testing and a course of treatment with doxycycline was begun. The patient relates with this treatment his severe musculoskeletal pelvic pain improved to the point and was actually able to get up and walk around again. His pain was so severe he was having difficulty even ambulating. The patient relates that he was intermittently having drenching sweats at night and was having some progressive fatigue. He's had some weight loss that was unintentional but relates with his poor appetite was not unexpected to have some weight loss. 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 He distinctly denies exposure to other animals. He has had no exposure to any partuent animals. He is single and does not relate any current relationship. He has no history of injection drug use. No recent injuries or traumas. Review of Systems Pleasant 63-year-old male who's been having difficulties with fever, chills some drenching night sweats and some headaches in the onset of severe body aches and it improved after the initiation of a course of doxycycline but have not resolved. HEENT:Denies headache or acute visual change. Denies sinus or mouth discomforts. Denies neck stiffness or pain. Denies significant oral cavity pain. Denies difficulty on swallowing. Lungs: Denies significant shortness of breath, cough, sputum production, or hemoptysis. Cardiovascular: Denies significant shortness of breath, chest pain, chest wall pain, orthopnea, dyspnea on exertion, syncope Gastrointestinal:Denies nausea, vomiting, diarrhea, constipation, hematemesis, melena, hematochezia. No no significant change of bowel habit noticed. Musculoskeletal: As per HPI Skin: Denies new rash or lesions. No new ulcers or wounds are related.. Neuro: Denies headache or visual change. Denies any new onset weakness or difficulty with ambulation. Denies falls or seizures. Psychiatric:Denies anxiety or depression. Endocrine: Severe fatigue and weight loss Past Medical History Past Medical History: Deep Vein Thrombosis (DVT), Prostate Disorder Additional Past Medical History / Comment(s): SEE DR. ROMO [facility] & P FOR CARDIAC INFORMATION. DVT-2010-RT CALF. WAS SEEN IN ER 08/08/18 FOR SEVERE GROIN PAIN. HX KIDNEY STONES History of Any Multi-Drug Resistant Organisms: None Reported Past Surgical History: Heart Catheterization Additional Past Surgical History / Comment(s): Lithotripsy. COLONOSOCPY. ALSO SCHEDULED FOR SILVIA 09/11/18 Past Anesthesia/Blood Transfusion Reactions: No Reported Reaction Past Psychological History: No Psychological Hx Reported Additional Psychological History / Comment(s): Single. No children. Father and stepmother live close by. Lives on property with 2 horses. No other animal exposures. Lifelong nonsmoker. Denies significant alcohol or recreational drug use. No injection drug use. No current relationships. No experience. No international travel. Retired Smoking Status: Never smoker Past Alcohol Use History: Occasional Past Drug Use History: None Reported - Past Family History Mother Family Medical History: AFIB (Mother is 84-year-old with a history of skin cancer as well as macular degeneration with atrial flutter.), Cancer Additional Family Medical History / Comment(s): SKIN Father Family Medical History: Diabetes Mellitus (His biological father at age of 72 from diabetes complications.) Sister(s) Family Medical History: AFIB (Patient has one biological sister with atrial flutter and one stepsister.) Additional Family Medical History / Comment(s): Patient has no kids. Medications and Allergies Home Medications Medication Instructions Recorded Confirmed Type Doxycycline [Vibramycin] 100 mg PO BID 09/08/18 09/11/18 History Tamsulosin [Flomax] 0.4 mg PO HS 09/08/18 09/11/18 History Nattokinase 1 tab PO DAILY 09/11/18 09/11/18 History Serrapeptase 1 tab PO DAILY 09/11/18 09/11/18 History Allergies Allergy/AdvReac Type Severity Reaction Status Date / Time No Known Allergies Allergy Verified 09/11/18 17:58 Physical Exam Vitals: Vital Signs Temp Pulse Resp BP Pulse Ox 09/14/18 20:00 98.0 F 73 18 118/73 96 09/14/18 15:38 98.1 F 77 20 105/62 93 L 09/14/18 12:00 98.3 F 70 20 117/70 95 09/14/18 08:00 98.8 F 81 20 113/73 94 L 09/14/18 04:00 99.3 F 70 20 111/71 94 L 09/14/18 03:12 74 20 09/14/18 00:00 74 20 09/13/18 23:11 99 F 74 20 114/75 94 L Intake and Output 09/14/18 09/14/18 09/14/18 06:59 14:59 22:59 Intake Total 120 462 500 Output Total 800 Balance 120 -338 500 Intake: Intake, IV Titration 200 Amount Ampicillin 2,000 mg In 100 Sodium Chloride 0.9% 100 ml @ 200 mls/hr IVPB Q4HR [facility] Rx#:[id number] Gentamicin 60 mg In 100 Sodium Chloride 0.9% 100 ml @ 101.5 mls/hr IVPB Q8H [facility] Rx#:[id number] Oral 120 462 300 Output: Urine 800 Other: Voiding Method Toilet Toilet # Voids 1 Weight 79.8 kg Results CBC & Chem 7: 09/14/18 05:49 09/14/18 05:49 Labs: Abnormal Lab Results - Last 24 Hours (Table) 09/14/18 09/14/18 Range/Units 05:49 05:49 RBC 3.86 L (4.30-5.90) m/uL Hgb 11.2 L (13.0-17.5) gm/dL Hct 35.1 L (39.0-53.0) % Sodium 136 L (137-145) mmol/L Alkaline Phosphatase 135 H (38-126) U/L Total Protein 5.6 L (6.3-8.2) g/dL Albumin 2.7 L (3.5-5.0) g/dL Microbiology - Last 24 Hours (Table) 09/11/18 18:19 Blood Culture Gram Stain - Final Blood Blood Culture - Final Alpha Hemolytic Streptococcus 09/13/18 15:00 Blood Culture - Preliminary Blood No Growth after 24 hours 09/12/18 16:14 Blood Culture Gram Stain - Preliminary Blood Blood Culture - Preliminary Alpha Hemolytic Streptococcus 09/12/18 06:01 Blood Culture Gram Stain - Preliminary Blood Blood Culture - Preliminary Alpha Hemolytic Streptococcus 09/12/18 06:39 Blood Culture Gram Stain - Final Blood Blood Culture - Final Strep agalactiae - (group b) 09/12/18 16:14 Blood Culture - Final Blood
[2018-09-15] MEDS: GENTAMICIN 60 MG in SODIUM CHLORIDE 0.9% 100 ML IVPB SCH ×3 (00:48→17:27)
[2018-09-15] MEDS: AMPICILLIN 2,000 MG in SODIUM CHLORIDE 0.9% 100 ML IVPB SCH ×6 (03:55→23:31)
[2018-09-15] MEDS: PANTOPRAZOLE 40 MG TABLET PO SCH (06:29)
[2018-09-15] MEDS: METOPROLOL TARTRATE 12.5 MG TAB PO SCH ×2 (08:15→19:55)
[2018-09-15] MEDS: DOCUSATE 100 MG CAP PO SCH ×2 (08:16→19:55)
[2018-09-15] MEDS: HEPARIN SODIUM,PORCINE 5,000 UNIT/ML 1 ML VIAL SQ SCH ×3 (08:16→23:31)
[2018-09-15] MEDS: FUROSEMIDE 20 MG TAB PO SCH (08:16)
[2018-09-15] MEDS: NATTOKINASE PO SCH (08:21)
--- NOTE | 2018-09-15 14:44 | P.PN ---
Subjective Progress Note Date: 09/15/18 This is a 63-year-old male patient of Dr. Sosa and Dr. Price with history of hyperlipidemia but long-standing history of heart murmur. Patient was having chills and sweating with generalized achiness that impacted his physical activity. He was initially treated for pneumonia and completed antibiotics but his symptoms continued. There was also concern for Lyme disease and patient was started on doxycycline approximate 3 weeks ago. He subsequently underwent a CAT scan that showed dilated ascending aorta and the patient was referred to Dr. Bear on for transthoracic echocardiogram that revealed a preserved systolic function with severe mitral regurgitation and a mass on the posterior mitral valve leaflet suggestive of endocarditis and vegetation and the patient was then set up for SILVIA and heart catheterization which was done yesterday. SILVIA revealed ejection fraction of 55% with severe eccentric right regurgitation with vegetation on the posterior mitral valve, mild tricuspid regurgitation and mild dilatation of the aorta and mild aortic regurgitation. Heart catheterization showed normal coronary arteries and dilated ascending aorta. Patient was admitted and a consult was added for Dr. Beck. Blood cultures were obtained. 09/13: patient is feeling well , was started on vancomycin ans subsequently was switched to Ancef 2gr IVPB Q8H as he is bacteeremic to Group B strep and alpha hemolytic strep, and we will repeat blood cultures today and tomorrow. 09/14: Patient is currently on Ancef. Patient has been seen by cardiothoracic surgery with plan for valve replacement or repair as early as Friday. Patient has been seen by dental surgeon and cleared of any present dental infection. CAT scan of the facial bones reveals sinuses clear with exception of left maxillary sinus and ostiomeatal complex is patent bilaterally. No evidence of abscess. Patient denies any new complaints. He has been afebrile since September 22. Pulse ox is 95% on room air. 09/15: Dr. Beck has changed antibiotics to ampicillin and gentamicin. Blood culture obtained on September 13 and one on September 14 are currently showing no growth after 24 hours. Patient is afebrile, vital signs are stable, blood pressure is noted to be some readings on the low side. Pulse ox is 92% to 94% on room air. Patient continues to deny any chest pain or shortness of breath, no lightheadedness or dizziness. He denies any fever or chills. Review of Systems Constitutional: Reports chronic headaches, Reports weakness, Denies fever or chills Eyes: denies blurred vision, denies bulging eye, denies decreased vision Ears: deny: decreased hearing Ears, nose, mouth and throat: Denies dysphagia, Denies neck lump, Denies sore throat Cardiovascular: Denies chest pain, Denies claudication, Denies dyspnea on exertion, Denies high blood pressure, Denies phlebitis, Denies rapid heart beat Respiratory: Denies congestion, Denies cough with sputum, Denies home oxygen, Denies sleep apnea, Denies snoring, Denies wheezing Gastrointestinal: Denies abdominal pain, Denies belching, Denies BRBPR, Denies heartburn, Denies melena, Denies nausea, Denies vomiting Genitourinary: Denies dysuria, Denies nocturia, Denies polyuria Musculoskeletal: Denies myalgias Musculoskeletal: absent: ankle pain, ankle stiffness, ankle swelling, elbow pain , elbow stiffness, elbow swelling, foot pain, foot stiffness, foot swelling, hand pain, hand stiffness, hand swelling, hip pain, hip stiffness, hip swelling , knee pain, knee stiffness, knee swelling, shoulder pain, shoulder stiffness, shoulder swelling, wrist pain, wrist stiffness, wrist swelling Integumentary: Denies pruritus, Denies rash Neurological: Denies numbness, Denies weakness Psychiatric: Denies anxiety, Denies depression Endocrine: Denies fatigue, Denies weight change Objective - Vital Signs Vital signs: Vital Signs Temp 98.1 F 09/15/18 08:00 Pulse 79 09/15/18 08:00 Resp 20 09/15/18 08:00 BP 97/55 09/15/18 08:00 Pulse Ox 92 L 09/15/18 08:00 Intake & Output 09/14/18 09/15/18 09/15/18 18:59 06:59 18:59 Intake Total 462 800 120 Output Total 800 Balance -338 800 120 Weight 77.6 kg Intake: Intake, IV Titration 500 Amount Ampicillin 2,000 mg In 300 Sodium Chloride 0.9% 100 ml @ 200 mls/hr IVPB Q4HR [facility] Rx#:[id number] Gentamicin 60 mg In 200 Sodium Chloride 0.9% 100 ml @ 101.5 mls/hr IVPB Q8H [facility] Rx#:[id number] Oral 462 300 120 Output: Urine 800 Other: Voiding Method Toilet # Voids 2 - Exam General appearance: no acute distress, thin, resting comfortably in bed in no acute distress - Neck Neck: no lymphadenopathy, normal ROM, no rigidity, no stridor, no thyromegaly Carotids: bilateral: upstroke normal Thyroid: bilateral: normal size - Respiratory Respiratory: bilateral: diminished, negative: dullness, rales, rhonchi, wheezing , prolonged expiration, prolonged inspiration - Cardiovascular Rhythm: regular Heart sounds: abnormal: S1 (Decreased) Abnormal Heart Sounds: systolic murmur (There is 4/6 systolic ejection murmur located in the apex Radiating to the axilla.) - Gastrointestinal General gastrointestinal: no hepatomegaly, normal bowel sounds, soft, no splenomegaly, no tenderness, no umbilical hernia, no ventral hernia - Integumentary Integumentary: normal, normal turgor - Neurologic Neurologic: CNII-XII intact - Musculoskeletal Musculoskeletal: generalized weakness - Psychiatric Psychiatric: A&O x's 3, appropriate affect, intact judgment & insight - Labs CBC & Chem 7: 09/14/18 05:49 09/14/18 05:49 Labs: Microbiology - Last 24 Hours (Table) 09/14/18 05:49 Blood Culture - Preliminary Blood No Growth after 24 hours 09/11/18 18:19 Blood Culture Gram Stain - Final Blood Blood Culture - Final Alpha Hemolytic Streptococcus 09/13/18 15:00 Blood Culture - Preliminary Blood No Growth after 24 hours 09/12/18 16:14 Blood Culture Gram Stain - Preliminary Blood Blood Culture - Preliminary Alpha Hemolytic Streptococcus 09/12/18 06:01 Blood Culture Gram Stain - Preliminary Blood Blood Culture - Preliminary Alpha Hemolytic Streptococcus 09/12/18 06:39 Blood Culture Gram Stain - Final Blood Blood Culture - Final Strep agalactiae - (group b) 09/12/18 16:14 Blood Culture - Final Blood Assessment and Plan Plan: 1. Subacute endocarditis with mitral valve vegetation post SILVIA and left heart catheterization that showed normal coronaries. Blood cultures were positive for group B streptococcus agalactia and alpha hemolytic strep and patient has been changed to ampicillin and gentamicin per Dr. Beck. Cardiothoracic surgery evaluation appreciated with anticipation of surgery possibly on Friday or early next week. Repeat blood cultures in progress. 2. Severe mitral regurgitation with mitral valve vegetation due to endocarditis. 3. Benign prostatic hypertrophy. Continue Flomax 0.4 mg orally once every day. 4. History of kidney stones. Stable. 5. DVT prophylaxis. Heparin 5000 units subcutaneously every 8 hours. 6. GI prophylaxis. Protonix 40 mg orally once every day. Discharge plan: Home Impression and plan of care have been directed as dictated by the signing physician. Olga Roman nurse practitioner acting as scribe for signing physician.
--- NOTE | 2018-09-15 15:43 | PN ---
PROGRESS NOTE Mr. Reddy is gentleman with mitral valve endocarditis with severe regurgitation. No coronary artery disease who has been seen by Infectious Disease, Dr. Beck and antibiotics have been changed. We will do serial cultures and once the cultures are negative, he will be having surgery as per Cardiac surgery. Vitals are stable. He has no chest pain or shortness of breath. He is hemodynamically stable. There is no JVD. S1, S2 with holosystolic murmur is audible. Lungs are clear. Abdomen and lower extremity exam unchanged. We will continue current medical regimen and see how he does. MMODL / IJN: [id number] /
--- NOTE | 2018-09-15 16:16 | P.PN ---
Subjective Progress Note Date: 09/15/18 Principal diagnosis: Mitral valve endocarditis, severe mitral valve regurgitation. Previous medical history of mitral regurgitation, hyperlipidemia, DVT of the right calf in 2010, occasional wine, and family history of atrial fibrillation. The patient is currently sitting up in bed in no acute distress. Denies any chest pain or shortness of breath, denies dizziness or syncopal episodes. No new complaints. Blood cultures being drawn daily, most recent cultures preliminarily negative. Infectious disease on board, current prescribed antibiotic therapy ampicillin and gentamicin. T-max 100.6F on September 12, current temperature is 98F. No leukocytosis. Objective - Vital Signs Vital signs: Vital Signs Temp 98 F 09/15/18 16:00 Pulse 72 09/15/18 16:00 Resp 20 09/15/18 16:00 BP 94/60 09/15/18 16:00 Pulse Ox 98 09/15/18 16:00 Intake & Output 09/14/18 09/15/18 09/15/18 18:59 06:59 18:59 Intake Total 462 800 540 Output Total 800 Balance -338 800 540 Weight 77.6 kg Intake: Intake, IV Titration 500 300 Amount Ampicillin 2,000 mg In 300 200 Sodium Chloride 0.9% 100 ml @ 200 mls/hr IVPB Q4HR [facility] Rx#:[id number] Gentamicin 60 mg In 200 100 Sodium Chloride 0.9% 100 ml @ 101.5 mls/hr IVPB Q8H [facility] Rx#:[id number] Oral 462 300 240 Output: Urine 800 Other: Voiding Method Toilet # Voids 2 - Constitutional General appearance: Present: cooperative, no acute distress - Respiratory Details: Lungs sounds clear bilaterally. Respirations even, nonlabored. Currently on room air with oxygen saturation 94%. Able to achieve 4000 mL on his incentive spirometry. - Cardiovascular Details: S1, S2 present. Positive systolic murmur present. Regular rate and rhythm, sinus rhythm on telemetry. Palpable peripheral pulses bilaterally. No edema present. No calf pain or tenderness noted. - Gastrointestinal Gastrointestinal Comment(s): Abdomen soft, nontender, nondistended. Active bowel sounds 4 quadrants. Tolerating diet. - Genitourinary Genitourinary Comment(s): Continues to void clear, yellow urine. - Integumentary Integumentary Comment(s): Skin is warm and dry with evidence of good perfusion. - Neurologic Neurologic: Present: CNII-XII intact - Musculoskeletal Musculoskeletal: Present: gait normal, strength equal bilaterally - Psychiatric Psychiatric: Present: A&O x's 3, appropriate affect, intact judgment & insight - Allied health notes Allied health notes reviewed: nursing - Labs CBC & Chem 7: 09/14/18 05:49 09/14/18 05:49 Labs: Microbiology - Last 24 Hours (Table) 09/12/18 06:01 Blood Culture Gram Stain - Final Blood Blood Culture - Final Alpha Hemolytic Streptococcus 09/12/18 16:14 Blood Culture Gram Stain - Final Blood Blood Culture - Final Alpha Hemolytic Streptococcus 09/14/18 05:49 Blood Culture - Preliminary Blood No Growth after 24 hours 09/11/18 18:19 Blood Culture Gram Stain - Final Blood Blood Culture - Final Alpha Hemolytic Streptococcus 09/13/18 15:00 Blood Culture - Preliminary Blood No Growth after 24 hours Assessment and Plan (1) Mitral regurgitation Current Visit: Yes Status: Chronic Code(s): I34.0 - NONRHEUMATIC MITRAL ( VALVE) INSUFFICIENCY SNOMED Code(s): 00921146 (2) History of DVT (deep vein thrombosis) Current Visit: No Status: Resolved Code(s): Z86.718 - PERSONAL HISTORY OF OTHER VENOUS THROMBOSIS AND EMBOLISM SNOMED Code(s): 980370997 (3) Hyperlipemia Current Visit: Yes Status: Chronic Code(s): E78.5 - HYPERLIPIDEMIA, UNSPECIFIED SNOMED Code(s): 38979722 (4) Endocarditis of [place] valve Current Visit: Yes Status: Acute Code(s): I38 - ENDOCARDITIS, VALVE UNSPECIFIED SNOMED Code(s): 15581895 Plan: 1. Continue antibiotics per recommendations from infectious disease. Will follow blood cultures. 2. Dental clearance obtained from Dr. Orozco, patient is cleared to undergo valve surgery. 3. Patient is at risk for embolization of the vegetation on his mitral valve leaflet, consequently our recommendation is for the patient to remain inpatient on IV antibiotics. 4. Preoperative teaching initiated, continue to reinforce. 5. Encourage incentive spirometry use. 6. Continue beta masood therapy. 7. GI/DVT prophylaxis. 8. Will monitor daily labs. 9. Plan is for mitral valve repair versus replacement at the end of the week versus beginning of next week pending negative blood cultures. 10. More recommendations to follow based on patient's progress. Time with Patient: Greater than 30
[2018-09-15] MEDS ORDERED: GENTAMICIN TROUGH DUE 1 EACH MISC MISCELLANE ONE (16:30)
[2018-09-15] MEDS ORDERED: GENTAMICIN PEAK DUE 1 EACH MISC MISCELLANE ONE (19:00)
[2018-09-15] MEDS: TAMSULOSIN 0.4 MG CAP.ER.24H PO SCH (19:55)
--- NOTE | 2018-09-15 20:01 | P.PN ---
Subjective Progress Note Date: 09/15/18 Pleasant 63-year-old male presents to Hospital feeling poorly for quite some time. Because he was feeling poorly eventually had an echocardiogram performed to evaluate his cardiac status after computed tomography scan revealed potential abnormality. The transthoracic echocardiogram reveal evidence of the abnormality in the mitral valve leaflet. The patient underwent transesophageal echocardiogram the verifies the mitral regurgitant murmur in the large vegetation of the mitral valve. The patient now has multiple positive blood cultures with group B strep. 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 The patient relates that he has had a heart murmur noted for many years but has not had ongoing follow-up over time. At this time the murmur is easily heard and he has been evaluated by cardiothoracic surgery. Our plan will be to maximize antibiotic therapy this point time with ampicillin and gentamicin try to rapidly cleared his bacteremia. Once clearance of bacteremia has occurred he will proceed to the mitral valve surgery for removal of vegetation and repair or replacement of the valve. The reasons for the surgery are discussed including goal to reduce the risk of a significant embolic event Barbara concern would be of a large stroke. Secondly would be for repairing of the mitral valve without left ventricular dysfunction and refractory congestive heart failure. The qualifications of the cardiovascular surgeons is again reviewed with the patient's father and understands that the valve surgery is within the capability of the facility and the surgeons. There are many questions are answered. 09/15/2018 patient is feeling better today. He is having no fevers. Denies chills or rigors. Energy level is stable. No nausea or emesis and no onset of diarrhea. No skin rashes and no difficulties with painful joints. No painful oral cavity. Objective - Vital Signs Vital signs: Vital Signs Temp 98 F 09/15/18 16:00 Pulse 72 09/15/18 16:00 Resp 20 09/15/18 16:00 BP 94/60 09/15/18 16:00 Pulse Ox 98 09/15/18 16:00 Intake & Output 09/15/18 09/15/18 09/16/18 06:59 18:59 06:59 Intake Total 800 540 Balance 800 540 Weight 77.6 kg Intake: Intake, IV Titration 500 300 Amount Ampicillin 2,000 mg In 300 200 Sodium Chloride 0.9% 100 ml @ 200 mls/hr IVPB Q4HR [facility] Rx#:[id number] Gentamicin 60 mg In 200 100 Sodium Chloride 0.9% 100 ml @ 101.5 mls/hr IVPB Q8H [facility] Rx#:[id number] Oral 300 240 Other: Voiding Method Toilet # Voids 2 - Exam Pleasant 63-year-old male appears gentleman of stated age HEENT: Anicteric conjunctiva are pink and moist nasal mucosa grossly intact without significant lesions, there is no thrush. Neck: The neck is supple without significant lymphadenopathy or thyromegaly. Lungs: Good bilateral air entry without significant crackles or wheezing. There is no significant bronchial sounds. There is no egophony or dullness. Heart: Regular audible S1 and S2 soft S3 2/6 systolic murmur left sternal border to the axilla. No radiation to the carotids. Carotids have brisk upstroke without thrill Abdomen: Positive bowel sounds soft and nontender without palpable masses or organomegaly. There was no guarding or rebound. Extremities: The upper extremities have excellent pulses they are symmetric, no significant petechiae or telangiectasia. No splinter hemorrhages were noted. The lower extremities are free from significant edema. The peripheral pulses were 2+ and symmetric. Neuro: Awake alert oriented to person place and time. There are no acute new gross focal sensory motor deficits. The skin is without any evidence of petechia telangiectasia or splinter hemorrhages. There are no petechia of the hard or soft palate. No conjunctival lesions. - Labs CBC & Chem 7: 09/14/18 05:49 09/14/18 05:49 Labs: Microbiology - Last 24 Hours (Table) 09/13/18 15:00 Blood Culture Gram Stain - Preliminary Blood 09/13/18 15:00 Blood Culture - Final Blood 09/12/18 06:01 Blood Culture Gram Stain - Final Blood Blood Culture - Final Alpha Hemolytic Streptococcus 09/12/18 16:14 Blood Culture Gram Stain - Final Blood Blood Culture - Final Alpha Hemolytic Streptococcus 09/14/18 05:49 Blood Culture - Preliminary Blood No Growth after 24 hours 09/11/18 18:19 Blood Culture Gram Stain - Final Blood Blood Culture - Final Alpha Hemolytic Streptococcus Laboratory Results WBC 5.9 k/uL (3.8-10.6) 09/14/18 05:49 RBC 3.86 m/uL (4.30-5.90) L 09/14/18 05:49 Hgb 11.2 gm/dL (13.0-17.5) L 09/14/18 05:49 Hct 35.1 % (39.0-53.0) L 09/14/18 05:49 MCV 91.0 fL (80.0-100.0) 09/14/18 05:49 MCH 29.1 pg (25.0-35.0) 09/14/18 05:49 MCHC 32.0 g/dL (31.0-37.0) 09/14/18 05:49 RDW 15.2 % (11.5-15.5) 09/14/18 05:49 Plt Count 202 k/uL (150-450) 09/14/18 05:49 Neutrophils % 69 % 09/14/18 05:49 Lymphocytes % 21 % 09/14/18 05:49 Monocytes % 5 % 09/14/18 05:49 Eosinophils % 2 % 09/14/18 05:49 Basophils % 1 % 09/14/18 05:49 Neutrophils # 4.1 k/uL (1.3-7.7) 09/14/18 05:49 Lymphocytes # 1.2 k/uL (1.0-4.8) 09/14/18 05:49 Monocytes # 0.3 k/uL (0-1.0) 09/14/18 05:49 Eosinophils # 0.1 k/uL (0-0.7) 09/14/18 05:49 Basophils # 0.0 k/uL (0-0.2) 09/14/18 05:49 PT 11.2 sec (9.0-12.0) 09/11/18 18:19 INR 1.1 (<1.2) 09/11/18 18:19 APTT 26.4 sec (22.0-30.0) 09/11/18 18:19 Sodium 136 mmol/L (137-145) L 09/14/18 05:49 Potassium 4.3 mmol/L (3.5-5.1) 09/14/18 05:49 Chloride 105 mmol/L (98-107) 09/14/18 05:49 Carbon Dioxide 25 mmol/L (22-30) 09/14/18 05:49 Anion Gap 6 mmol/L 09/14/18 05:49 BUN 13 mg/dL (9-20) 09/14/18 05:49 Creatinine 1.00 mg/dL (0.66-1.25) 09/14/18 05:49 Est GFR (CKD-EPI)AfAm >90 (>60 ml/min/1.73 sqM) 09/14/18 05:49 Est GFR (CKD-EPI)NonAf 79 (>60 ml/min/1.73 sqM) 09/14/18 05:49 Glucose 92 mg/dL (74-99) 09/14/18 05:[address] Glu mg/dL 103 09/14/18 05:49 Hemoglobin A1c 5.2 % (4.0-6.0) 09/14/18 05:49 Plasma Lactic Acid Maximiliano 1.1 mmol/L (0.7-2.0) 09/11/18 18:19 Calcium 8.5 mg/dL (8.4-10.2) 09/14/18 05:49 Magnesium 2.0 mg/dL (1.6-2.3) 09/12/18 06:01 Total Bilirubin 0.4 mg/dL (0.2-1.3) 09/14/18 05:49 AST 28 U/L (17-59) 09/14/18 05:49 ALT 28 U/L (21-72) 09/14/18 05:49 Alkaline Phosphatase 135 U/L (38-126) H 09/14/18 05:49 Total Creatine Kinase 36 U/L (55-170) L 09/11/18 18:19 CK-MB (CK-2) 0.7 ng/mL (0.0-2.4) 09/11/18 18:19 CK-MB (CK-2) Rel Index 1.9 09/11/18 18:19 Troponin I 0.066 ng/mL (0.000-0.034) H* 09/11/18 18:19 C-Reactive Protein 46.2 mg/L (<10.0) H 09/12/18 06:01 Total Protein 5.6 g/dL (6.3-8.2) L 09/14/18 05:49 Albumin 2.7 g/dL (3.5-5.0) L 09/14/18 05:49 Procalcitonin 0.55 ng/mL (0.02-0.09) H 09/11/18 18:19 Urine Color Yellow 09/11/18 19:42 Urine Appearance Clear (Clear) 09/11/18 19:42 Urine pH 5.5 (5.0-8.0) 09/11/18 19:42 Ur Specific [place] 1.044 (1.001-1.035) H 09/11/18 19:42 Urine Protein Trace (Negative) H 09/11/18 19:42 Urine Glucose (UA) Negative (Negative) 09/11/18 19:42 Urine Ketones Negative (Negative) 09/11/18 19:42 Urine Blood Negative (Negative) 09/11/18 19:42 Urine Nitrite Negative (Negative) 09/11/18 19:42 Urine Bilirubin Negative (Negative) 09/11/18 19:42 Urine Urobilinogen <2.0 mg/dL (<2.0) 09/11/18 19:42 Ur Leukocyte Esterase Negative (Negative) 09/11/18 19:42 Gentamicin Trough 1.1 ug/mL 09/15/18 16:16 Vancomycin Trough 5.5 ug/mL 09/14/18 05:49 Hepatitis A IgM Ab Non-Reactive (Non-Reactive) 09/14/18 05:49 Hep Bs Antigen Non-Reactive (Non-Reactive) 09/14/18 05:49 Hep B Core IgM Ab Non-Reactive (Non-Reactive) 09/14/18 05:49 Hep C IgG Ab Non-Reactive (Non-Reactive) 09/14/18 05:49 Microbiology 09/13/18 15:00 Blood Blood Culture Gram Stain - Preliminary 09/13/18 15:00 Blood Blood Culture - Final 09/12/18 06:01 Blood Blood Culture Gram Stain - Final 09/12/18 06:01 Blood Blood Culture - Final Alpha Hemolytic Streptococcus 09/12/18 16:14 Blood Blood Culture Gram Stain - Final 09/12/18 16:14 Blood Blood Culture - Final Alpha Hemolytic Streptococcus 09/14/18 05:49 Blood Blood Culture - Preliminary No Growth after 24 hours 09/11/18 18:19 Blood Blood Culture Gram Stain - Final 09/11/18 18:19 Blood Blood Culture - Final Alpha Hemolytic Streptococcus 09/12/18 06:39 Blood Blood Culture Gram Stain - Final 09/12/18 06:39 Blood Blood Culture - Final Strep agalactiae - (group b) 09/12/18 16:14 Blood Blood Culture - Final 09/12/18 06:01 Blood Blood Culture - Final 09/12/18 06:39 Blood Blood Culture - Final 09/11/18 18:19 Blood Blood Culture - Final Assessment and Plan (1) Endocarditis of [place] valve Narrative/Plan: Pleasant 63-year-old male presents to Hospital feeling poorly for quite some time. Because he was feeling poorly eventually had an echocardiogram performed to evaluate his cardiac status after computed tomography scan revealed potential abnormality. The transthoracic echocardiogram reveal evidence of the abnormality in the mitral valve leaflet. The patient underwent transesophageal echocardiogram the verifies the mitral regurgitant murmur in the large vegetation of the mitral valve. The patient now has multiple positive blood cultures with group B strep. 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 The patient relates that he has had a heart murmur noted for many years but has not had ongoing follow-up over time. At this time the murmur is easily heard and he has been evaluated by cardiothoracic surgery. Our plan will be to maximize antibiotic therapy this point time with ampicillin and gentamicin try to rapidly cleared his bacteremia. Once clearance of bacteremia has occurred he will proceed to the mitral valve surgery for removal of vegetation and repair or replacement of the valve. The reasons for the surgery are discussed including goal to reduce the risk of a significant embolic event Barbara concern would be of a large stroke. Secondly would be for repairing of the mitral valve without left ventricular dysfunction and refractory congestive heart failure. The qualifications of the cardiovascular surgeons is again reviewed with the patient's father and understands that the valve surgery is within the capability of the facility and the surgeons. There are many questions are answered. 09/15/2018 patient is feeling better today. No fevers or chills. Laboratories is starting to report some negative blood cultures hopefully on the new antibiotic therapy of ampicillin and gentamicin the blood stream will be sterilized rapidly. Once this occurs it appears a cardiovascular surgery will be taking him for surgical intervention because of the large size of the vegetation and a valvular malfunction that is occurring which are both indications for intervention. Current Visit: Yes Status: Acute Code(s): I38 - ENDOCARDITIS, VALVE UNSPECIFIED SNOMED Code(s): 17650006 (2) Bacteremia due to group B Streptococcus Current Visit: Yes Status: Acute Code(s): R78.81 - BACTEREMIA SNOMED Code( s): 620960223187
[2018-09-16] MEDS: GENTAMICIN 60 MG in SODIUM CHLORIDE 0.9% 100 ML IVPB SCH (01:01)
[2018-09-16] MEDS: AMPICILLIN 2,000 MG in SODIUM CHLORIDE 0.9% 100 ML IVPB SCH ×6 (03:48→23:41)
[2018-09-16] MEDS: PANTOPRAZOLE 40 MG TABLET PO SCH (06:36)
[2018-09-16 08:13] LABS: Basophils % (A) 0 %; Eosinophils # (A) 0.1 k/uL (0-0.7); Eosinophils % (A) 2 %; HCT 36.5 % (39.0-53.0); HGB 11.8 gm/dL (13.0-17.5); Lymphocytes # (A) 1.3 k/uL (1.0-4.8); Lymphocytes % (A) 18 %; MCH 29.4 pg (25.0-35.0); MCHC 32.4 g/dL (31.0-37.0); MCV 90.6 fL (80.0-100.0); Mean Platelet Volume 6.5; Monocytes # (A) 0.3 k/uL (0-1.0); Monocytes % (A) 5 %; Neutrophils # (A) 5.2 k/uL (1.3-7.7); Neutrophils % (A) 73 %; Platelet Count 263 k/uL (150-450); RBC 4.03 m/uL (4.30-5.90); RDW 15.3 % (11.5-15.5); WBC 7.1 k/uL (3.8-10.6)
[2018-09-16 08:17] LABS: ALT 32 U/L (21-72); AST 27 U/L (17-59); Albumin 2.8 g/dL (3.5-5.0); Alkaline Phosphatase 173 U/L (38-126); Anion Gap 3 mmol/L; Blood Urea Nitrogen 13 mg/dL (9-20); Calcium 8.8 mg/dL (8.4-10.2); Carbon Dioxide 28 mmol/L (22-30); Chloride 107 mmol/L (98-107); Glucose 102 mg/dL (74-99); Potassium 4.5 mmol/L (3.5-5.1); Sodium 138 mmol/L (137-145); Total Bilirubin 0.4 mg/dL (0.2-1.3); Total Protein 5.8 g/dL (6.3-8.2)
[2018-09-16] MEDS: HEPARIN SODIUM,PORCINE 5,000 UNIT/ML 1 ML VIAL SQ SCH ×3 (08:51→23:41)
[2018-09-16] MEDS: FUROSEMIDE 20 MG TAB PO SCH (08:52)
[2018-09-16] MEDS: METOPROLOL TARTRATE 12.5 MG TAB PO SCH ×2 (08:52→20:39)
[2018-09-16] MEDS: DOCUSATE 100 MG CAP PO SCH ×2 (08:52→20:39)
[2018-09-16] MEDS: NATTOKINASE PO SCH (11:54)
--- NOTE | 2018-09-16 12:12 | P.PN ---
Subjective Progress Note Date: 09/16/18 This is a 63-year-old male patient of Dr. Sosa and Dr. Price with history of hyperlipidemia but long-standing history of heart murmur. Patient was having chills and sweating with generalized achiness that impacted his physical activity. He was initially treated for pneumonia and completed antibiotics but his symptoms continued. There was also concern for Lyme disease and patient was started on doxycycline approximate 3 weeks ago. He subsequently underwent a CAT scan that showed dilated ascending aorta and the patient was referred to Dr. Bear on for transthoracic echocardiogram that revealed a preserved systolic function with severe mitral regurgitation and a mass on the posterior mitral valve leaflet suggestive of endocarditis and vegetation and the patient was then set up for SILVIA and heart catheterization which was done yesterday. SILVIA revealed ejection fraction of 55% with severe eccentric right regurgitation with vegetation on the posterior mitral valve, mild tricuspid regurgitation and mild dilatation of the aorta and mild aortic regurgitation. Heart catheterization showed normal coronary arteries and dilated ascending aorta. Patient was admitted and a consult was added for Dr. Beck. Blood cultures were obtained. 09/13: patient is feeling well , was started on vancomycin ans subsequently was switched to Ancef 2gr IVPB Q8H as he is bacteeremic to Group B strep and alpha hemolytic strep, and we will repeat blood cultures today and tomorrow. 09/14: Patient is currently on Ancef. Patient has been seen by cardiothoracic surgery with plan for valve replacement or repair as early as Friday. Patient has been seen by dental surgeon and cleared of any present dental infection. CAT scan of the facial bones reveals sinuses clear with exception of left maxillary sinus and ostiomeatal complex is patent bilaterally. No evidence of abscess. Patient denies any new complaints. He has been afebrile since September 22. Pulse ox is 95% on room air. 09/15: Dr. Beck has changed antibiotics to ampicillin and gentamicin. Blood culture obtained on September 13 and one on September 14 are currently showing no growth after 24 hours. Patient is afebrile, vital signs are stable, blood pressure is noted to be some readings on the low side. Pulse ox is 92% to 94% on room air. Patient continues to deny any chest pain or shortness of breath, no lightheadedness or dizziness. He denies any fever or chills. 09/16: Blood culture from September 23 is now positive. Blood culture obtained on September 14 showing no growth. Blood culture from September 15 is in progress. Patient has been afebrile. He denies any fever or chills. He has had no nausea vomiting or diarrhea. Patient is continued on ampicillin and gentamicin. Cardiothoracic surgery is tentatively planning for surgery on Friday or Friday. Review of Systems Constitutional: Reports chronic headaches, Reports weakness, Denies fever or chills Eyes: denies blurred vision, denies bulging eye, denies decreased vision Ears: deny: decreased hearing Ears, nose, mouth and throat: Denies dysphagia, Denies neck lump, Denies sore throat Cardiovascular: Denies chest pain, Denies claudication, Denies dyspnea on exertion, Denies high blood pressure, Denies phlebitis, Denies rapid heart beat Respiratory: Denies congestion, Denies cough with sputum, Denies home oxygen, Denies sleep apnea, Denies snoring, Denies wheezing Gastrointestinal: Denies abdominal pain, Denies belching, Denies BRBPR, Denies heartburn, Denies melena, Denies nausea, Denies vomiting, denies diarrhea Genitourinary: Denies dysuria, Denies nocturia, Denies polyuria Musculoskeletal: Denies myalgias Musculoskeletal: absent: ankle pain, ankle stiffness, ankle swelling, elbow pain , elbow stiffness, elbow swelling, foot pain, foot stiffness, foot swelling, hand pain, hand stiffness, hand swelling, hip pain, hip stiffness, hip swelling , knee pain, knee stiffness, knee swelling, shoulder pain, shoulder stiffness, shoulder swelling, wrist pain, wrist stiffness, wrist swelling Integumentary: Denies pruritus, Denies rash Neurological: Denies numbness, Denies weakness Psychiatric: Denies anxiety, Denies depression Endocrine: Denies fatigue, Denies weight change Objective - Vital Signs Vital signs: Vital Signs Temp 98.3 F 09/16/18 04:00 Pulse 70 09/16/18 04:00 Resp 16 09/16/18 04:00 BP 99/61 09/16/18 04:00 Pulse Ox 93 L 09/16/18 04:00 Intake & Output 09/15/18 09/16/18 09/16/18 18:59 06:59 18:59 Intake Total 540 1000 360 Balance 540 1000 360 Weight 77.8 kg Intake: Intake, IV Titration 300 400 Amount Ampicillin 2,000 mg In 200 300 Sodium Chloride 0.9% 100 ml @ 200 mls/hr IVPB Q4HR [facility] Rx#:[id number] Gentamicin 60 mg In 100 100 Sodium Chloride 0.9% 100 ml @ 101.5 mls/hr IVPB Q8H [facility] Rx#:[id number] Oral 240 600 360 Other: Voiding Method Toilet # Voids 1 - Exam General appearance: no acute distress, thin, resting comfortably in bed in no acute distress - Neck Neck: no lymphadenopathy, normal ROM, no rigidity, no stridor, no thyromegaly Carotids: bilateral: upstroke normal Thyroid: bilateral: normal size - Respiratory Respiratory: bilateral: diminished, negative: dullness, rales, rhonchi, wheezing , prolonged expiration, prolonged inspiration - Cardiovascular Rhythm: regular Heart sounds: abnormal: S1 (Decreased) Abnormal Heart Sounds: systolic murmur (There is 4/6 systolic ejection murmur located in the apex Radiating to the axilla.) - Gastrointestinal General gastrointestinal: no hepatomegaly, normal bowel sounds, soft, no splenomegaly, no tenderness, no umbilical hernia, no ventral hernia - Integumentary Integumentary: normal, normal turgor - Neurologic Neurologic: CNII-XII intact - Musculoskeletal Musculoskeletal: generalized weakness, gait steady - Psychiatric Psychiatric: A&O x's 3, appropriate affect, intact judgment & insight - Labs CBC & Chem 7: 09/16/18 07:31 09/16/18 07:31 Labs: Abnormal Lab Results - Last 24 Hours (Table) 09/16/18 09/16/18 Range/Units 07:31 07:31 RBC 4.03 L (4.30-5.90) m/uL Hgb 11.8 L (13.0-17.5) gm/dL Hct 36.5 L (39.0-53.0) % Glucose 102 H (74-99) mg/dL Alkaline Phosphatase 173 H (38-126) U/L Total Protein 5.8 L (6.3-8.2) g/dL Albumin 2.8 L (3.5-5.0) g/dL Microbiology - Last 24 Hours (Table) 09/12/18 16:14 Blood Culture Gram Stain - Final Blood Blood Culture - Final Alpha Hemolytic Streptococcus 09/14/18 05:49 Blood Culture - Preliminary Blood No Growth after 48 hours 09/13/18 15:00 Blood Culture Gram Stain - Preliminary Blood 09/13/18 15:00 Blood Culture - Final Blood 09/12/18 06:01 Blood Culture Gram Stain - Final Blood Blood Culture - Final Alpha Hemolytic Streptococcus Assessment and Plan Plan: 1. Subacute endocarditis with mitral valve vegetation post SILVIA and left heart catheterization that showed normal coronaries. Blood cultures were positive for group B streptococcus agalactia and alpha hemolytic strep and patient has been changed to ampicillin and gentamicin per Dr. Beck. Cardiothoracic surgery evaluation appreciated with anticipation of surgery possibly on Friday or early next week. Repeat blood cultures in progress and more have been obtained. 2. Severe mitral regurgitation with mitral valve vegetation due to endocarditis. 3. Benign prostatic hypertrophy. Continue Flomax 0.4 mg orally once every day. 4. History of kidney stones. Stable. 5. DVT prophylaxis. Heparin 5000 units subcutaneously every 8 hours. 6. GI prophylaxis. Protonix 40 mg orally once every day. Discharge plan: Home Impression and plan of care have been directed as dictated by the signing physician. Olga Roman nurse practitioner acting as scribe for signing physician.
[2018-09-16] MEDS: GENTAMICIN IN NACL ISO-OSM PMX 80 MG in SALINE 1 100ML.BAG IVPB SCH (13:10)
--- NOTE | 2018-09-16 13:47 | P.PN ---
Subjective Progress Note Date: 09/16/18 Principal diagnosis: Mitral valve endocarditis, severe mitral valve regurgitation. Previous medical history of mitral regurgitation, hyperlipidemia, DVT of the right calf in 2010, occasional wine, and family history of atrial fibrillation. The patient is currently sitting up in bed in no acute distress. Denies any chest pain or shortness of breath, denies dizziness or syncopal episodes. No new complaints. Blood cultures being drawn daily, cultures from September 14 negative to date. Infectious disease on board, current prescribed antibiotic therapy ampicillin and gentamicin. T-max 100.6F on September 12, current temperature is 98F. No leukocytosis. Objective - Vital Signs Vital signs: Vital Signs Temp 97.7 F 09/16/18 08:00 Pulse 75 09/16/18 11:50 Resp 16 09/16/18 11:50 BP 114/62 09/16/18 11:50 Pulse Ox 97 09/16/18 11:50 Intake & Output 09/15/18 09/16/18 09/16/18 18:59 06:59 18:59 Intake Total 540 1000 840 Output Total 800 Balance 540 1000 40 Weight 77.8 kg 77.8 kg Intake: Intake, IV Titration 300 400 Amount Ampicillin 2,000 mg In 200 300 Sodium Chloride 0.9% 100 ml @ 200 mls/hr IVPB Q4HR [facility] Rx#:[id number] Gentamicin 60 mg In 100 100 Sodium Chloride 0.9% 100 ml @ 101.5 mls/hr IVPB Q8H [facility] Rx#:[id number] Oral 240 600 840 Output: Urine 800 Other: Voiding Method Toilet Toilet # Voids 1 1 - Constitutional General appearance: Present: cooperative, no acute distress - Respiratory Details: Lungs sounds clear bilaterally. Respirations even, nonlabored. Currently on room air with oxygen saturation 97%. Able to achieve 4000 mL on his incentive spirometry. - Cardiovascular Details: S1, S2 present. Positive systolic murmur present. Regular rate and rhythm, sinus rhythm on telemetry. Palpable peripheral pulses bilaterally. No edema present. No calf pain or tenderness noted. - Gastrointestinal Gastrointestinal Comment(s): Abdomen soft, nontender, nondistended. Active bowel sounds 4 quadrants. Tolerating diet. - Genitourinary Genitourinary Comment(s): Continues to void clear, yellow urine. - Integumentary Integumentary Comment(s): Skin is warm and dry with evidence of good perfusion. - Neurologic Neurologic: Present: CNII-XII intact - Musculoskeletal Musculoskeletal: Present: gait normal, strength equal bilaterally - Psychiatric Psychiatric: Present: A&O x's 3, appropriate affect, intact judgment & insight - Allied health notes Allied health notes reviewed: nursing - Labs CBC & Chem 7: 09/16/18 07:31 09/16/18 07:31 Labs: Abnormal Lab Results - Last 24 Hours (Table) 09/16/18 09/16/18 Range/Units 07:31 07:31 RBC 4.03 L (4.30-5.90) m/uL Hgb 11.8 L (13.0-17.5) gm/dL Hct 36.5 L (39.0-53.0) % Glucose 102 H (74-99) mg/dL Alkaline Phosphatase 173 H (38-126) U/L Total Protein 5.8 L (6.3-8.2) g/dL Albumin 2.8 L (3.5-5.0) g/dL Microbiology - Last 24 Hours (Table) 09/12/18 16:14 Blood Culture Gram Stain - Final Blood Blood Culture - Final Alpha Hemolytic Streptococcus 09/14/18 05:49 Blood Culture - Preliminary Blood No Growth after 48 hours 09/13/18 15:00 Blood Culture Gram Stain - Preliminary Blood 09/13/18 15:00 Blood Culture - Final Blood 09/12/18 06:01 Blood Culture Gram Stain - Final Blood Blood Culture - Final Alpha Hemolytic Streptococcus Assessment and Plan (1) Mitral regurgitation Current Visit: Yes Status: Chronic Code(s): I34.0 - NONRHEUMATIC MITRAL ( VALVE) INSUFFICIENCY SNOMED Code(s): 28683988 (2) History of DVT (deep vein thrombosis) Current Visit: No Status: Resolved Code(s): Z86.718 - PERSONAL HISTORY OF OTHER VENOUS THROMBOSIS AND EMBOLISM SNOMED Code(s): 514974516 (3) Hyperlipemia Current Visit: Yes Status: Chronic Code(s): E78.5 - HYPERLIPIDEMIA, UNSPECIFIED SNOMED Code(s): 90114201 (4) Endocarditis of [place] valve Current Visit: Yes Status: Acute Code(s): I38 - ENDOCARDITIS, VALVE UNSPECIFIED SNOMED Code(s): 01958689 Plan: 1. Continue antibiotics per recommendations from infectious disease. Will follow blood cultures. 2. Dental clearance obtained from Dr. Orozco, patient is cleared to undergo valve surgery. 3. Patient is at risk for embolization of the vegetation on his mitral valve leaflet, consequently our recommendation is for the patient to remain inpatient on IV antibiotics. 4. Continue to reinforce preoperative teaching. 5. Encourage incentive spirometry use. 6. Continue beta masood therapy. 7. GI/DVT prophylaxis. 8. Will monitor daily labs. 9. Plan is for mitral valve repair versus replacement likely at the beginning of next week pending negative blood cultures. 10. More recommendations to follow based on patient's progress. Time with Patient: Greater than 30
[2018-09-16] MEDS: TAMSULOSIN 0.4 MG CAP.ER.24H PO SCH (20:39)
--- NOTE | 2018-09-16 23:25 | P.PN ---
Subjective Progress Note Date: 09/16/18 Pleasant 63-year-old male presents to Hospital feeling poorly for quite some time. Because he was feeling poorly eventually had an echocardiogram performed to evaluate his cardiac status after computed tomography scan revealed potential abnormality. The transthoracic echocardiogram reveal evidence of the abnormality in the mitral valve leaflet. The patient underwent transesophageal echocardiogram the verifies the mitral regurgitant murmur in the large vegetation of the mitral valve. The patient now has multiple positive blood cultures with group B strep. 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 The patient relates that he has had a heart murmur noted for many years but has not had ongoing follow-up over time. At this time the murmur is easily heard and he has been evaluated by cardiothoracic surgery. Our plan will be to maximize antibiotic therapy this point time with ampicillin and gentamicin try to rapidly cleared his bacteremia. Once clearance of bacteremia has occurred he will proceed to the mitral valve surgery for removal of vegetation and repair or replacement of the valve. The reasons for the surgery are discussed including goal to reduce the risk of a significant embolic event Barbara concern would be of a large stroke. Secondly would be for repairing of the mitral valve without left ventricular dysfunction and refractory congestive heart failure. The qualifications of the cardiovascular surgeons is again reviewed with the patient's father and understands that the valve surgery is within the capability of the facility and the surgeons. There are many questions are answered. 09/15/2018 patient is feeling better today. He is having no fevers. Denies chills or rigors. Energy level is stable. No nausea or emesis and no onset of diarrhea. No skin rashes and no difficulties with painful joints. No painful oral cavity. 09/16/2018 patient continues to feel a bit better. The severe fever chills myalgias have all improved since coming to hospital. Denies to be in shortness of breath or cough supraduction no chest pains and no new neurological complaints. Tolerating antibiotic therapy well Objective - Vital Signs Vital signs: Vital Signs Temp 98.0 F 09/16/18 20:30 Pulse 74 09/16/18 20:30 Resp 16 09/16/18 20:30 BP 114/70 09/16/18 20:30 Pulse Ox 97 09/16/18 20:30 Intake & Output 12/09/2209/16/18 09/17/18 06:59 18:59 06:59 Intake Total 1000 2380 Output Total 800 Balance 1000 1580 Weight 77.8 kg 77.8 kg Intake: Intake, IV Titration 400 300 Amount Ampicillin 2,000 mg In 300 200 Sodium Chloride 0.9% 100 ml @ 200 mls/hr IVPB Q4HR [facility] Rx#:[id number] Gentamicin 60 mg In 100 Sodium Chloride 0.9% 100 ml @ 101.5 mls/hr IVPB Q8H [facility] Rx#:[id number] Gentamicin in NaCl Iso- 100 Osm Pmx 80 mg In Saline 1 100ml.bag @ 100 mls/hr IVPB Q12HR@0000,1200 [facility] Rx#:[id number] Oral 600 2080 Output: Urine 800 Other: Voiding Method Toilet Toilet # Voids 1 3 1 - Exam Pleasant 63-year-old male appears gentleman of stated age HEENT: Anicteric conjunctiva are pink and moist nasal mucosa grossly intact without significant lesions, there is no thrush. Neck: The neck is supple without significant lymphadenopathy or thyromegaly. Lungs: Good bilateral air entry without significant crackles or wheezing. There is no significant bronchial sounds. There is no egophony or dullness. Heart: Regular audible S1 and S2 soft S3 2/6 systolic murmur left sternal border to the axilla. No radiation to the carotids. Carotids have brisk upstroke without thrill Abdomen: Positive bowel sounds soft and nontender without palpable masses or organomegaly. There was no guarding or rebound. Extremities: The upper extremities have excellent pulses they are symmetric, no significant petechiae or telangiectasia. No splinter hemorrhages were noted. The lower extremities are free from significant edema. The peripheral pulses were 2+ and symmetric. Neuro: Awake alert oriented to person place and time. There are no acute new gross focal sensory motor deficits. The skin is without any evidence of petechia telangiectasia or splinter hemorrhages. There are no petechia of the hard or soft palate. No conjunctival lesions. - Labs CBC & Chem 7: 09/16/18 07:31 09/16/18 07:31 Labs: Abnormal Lab Results - Last 24 Hours (Table) 09/16/18 09/16/18 Range/Units 07:31 07:31 RBC 4.03 L (4.30-5.90) m/uL Hgb 11.8 L (13.0-17.5) gm/dL Hct 36.5 L (39.0-53.0) % Glucose 102 H (74-99) mg/dL Alkaline Phosphatase 173 H (38-126) U/L Total Protein 5.8 L (6.3-8.2) g/dL Albumin 2.8 L (3.5-5.0) g/dL Microbiology - Last 24 Hours (Table) 09/15/18 20:22 Blood Culture - Preliminary Blood No Growth after 24 hours 09/12/18 16:14 Blood Culture Gram Stain - Final Blood Blood Culture - Final Alpha Hemolytic Streptococcus 09/14/18 05:49 Blood Culture - Preliminary Blood No Growth after 48 hours 09/13/18 15:00 Blood Culture Gram Stain - Preliminary Blood 09/13/18 15:00 Blood Culture - Final Blood Laboratory Results WBC 7.1 k/uL (3.8-10.6) 09/16/18 07:31 RBC 4.03 m/uL (4.30-5.90) L 09/16/18 07:31 Hgb 11.8 gm/dL (13.0-17.5) L 09/16/18 07:31 Hct 36.5 % (39.0-53.0) L 09/16/18 07:31 MCV 90.6 fL (80.0-100.0) 09/16/18 07:31 MCH 29.4 pg (25.0-35.0) 09/16/18 07:31 MCHC 32.4 g/dL (31.0-37.0) 09/16/18 07:31 RDW 15.3 % (11.5-15.5) 09/16/18 07:31 Plt Count 263 k/uL (150-450) 09/16/18 07:31 Neutrophils % 73 % 09/16/18 07:31 Lymphocytes % 18 % 09/16/18 07:31 Monocytes % 5 % 09/16/18 07:31 Eosinophils % 2 % 09/16/18 07:31 Basophils % 0 % 09/16/18 07:31 Neutrophils # 5.2 k/uL (1.3-7.7) 09/16/18 07:31 Lymphocytes # 1.3 k/uL (1.0-4.8) 09/16/18 07:31 Monocytes # 0.3 k/uL (0-1.0) 09/16/18 07:31 Eosinophils # 0.1 k/uL (0-0.7) 09/16/18 07:31 Basophils # 0.0 k/uL (0-0.2) 09/16/18 07:31 PT 11.2 sec (9.0-12.0) 09/11/18 18:19 INR 1.1 (<1.2) 09/11/18 18:19 APTT 26.4 sec (22.0-30.0) 09/11/18 18:19 Sodium 138 mmol/L (137-145) 09/16/18 07:31 Potassium 4.5 mmol/L (3.5-5.1) 09/16/18 07:31 Chloride 107 mmol/L (98-107) 09/16/18 07:31 Carbon Dioxide 28 mmol/L (22-30) 09/16/18 07:31 Anion Gap 3 mmol/L 09/16/18 07:31 BUN 13 mg/dL (9-20) 09/16/18 07:31 Creatinine 1.01 mg/dL (0.66-1.25) 09/16/18 07:31 Est GFR (CKD-EPI)AfAm >90 (>60 ml/min/1.73 sqM) 09/16/18 07:31 Est GFR (CKD-EPI)NonAf 78 (>60 ml/min/1.73 sqM) 09/16/18 07:31 Glucose 102 mg/dL (74-99) H 09/16/18 07:[address] Glu mg/dL 103 09/14/18 05:49 Hemoglobin A1c 5.2 % (4.0-6.0) 09/14/18 05:49 Plasma Lactic Acid Maximiliano 1.1 mmol/L (0.7-2.0) 09/11/18 18:19 Calcium 8.8 mg/dL (8.4-10.2) 09/16/18 07:31 Magnesium 2.0 mg/dL (1.6-2.3) 09/12/18 06:01 Total Bilirubin 0.4 mg/dL (0.2-1.3) 09/16/18 07:31 AST 27 U/L (17-59) 09/16/18 07:31 ALT 32 U/L (21-72) 09/16/18 07:31 Alkaline Phosphatase 173 U/L (38-126) H 09/16/18 07:31 Total Creatine Kinase 36 U/L (55-170) L 09/11/18 18:19 CK-MB (CK-2) 0.7 ng/mL (0.0-2.4) 09/11/18 18:19 CK-MB (CK-2) Rel Index 1.9 09/11/18 18:19 Troponin I 0.066 ng/mL (0.000-0.034) H* 09/11/18 18:19 C-Reactive Protein 46.2 mg/L (<10.0) H 09/12/18 06:01 Total Protein 5.8 g/dL (6.3-8.2) L 09/16/18 07:31 Albumin 2.8 g/dL (3.5-5.0) L 09/16/18 07:31 Procalcitonin 0.55 ng/mL (0.02-0.09) H 09/11/18 18:19 Urine Color Yellow 09/11/18 19:42 Urine Appearance Clear (Clear) 09/11/18 19:42 Urine pH 5.5 (5.0-8.0) 09/11/18 19:42 Ur Specific [place] 1.044 (1.001-1.035) H 09/11/18 19:42 Urine Protein Trace (Negative) H 09/11/18 19:42 Urine Glucose (UA) Negative (Negative) 09/11/18 19:42 Urine Ketones Negative (Negative) 09/11/18 19:42 Urine Blood Negative (Negative) 09/11/18 19:42 Urine Nitrite Negative (Negative) 09/11/18 19:42 Urine Bilirubin Negative (Negative) 09/11/18 19:42 Urine Urobilinogen <2.0 mg/dL (<2.0) 09/11/18 19:42 Ur Leukocyte Esterase Negative (Negative) 09/11/18 19:42 Gentamicin Peak 2.5 ug/mL 09/15/18 20:22 Gentamicin Trough 1.1 ug/mL 09/15/18 16:16 Vancomycin Trough 5.5 ug/mL 09/14/18 05:49 Hepatitis A IgM Ab Non-Reactive (Non-Reactive) 09/14/18 05:49 Hep Bs Antigen Non-Reactive (Non-Reactive) 09/14/18 05:49 Hep B Core IgM Ab Non-Reactive (Non-Reactive) 09/14/18 05:49 Hep C IgG Ab Non-Reactive (Non-Reactive) 09/14/18 05:49 Microbiology 09/15/18 20:22 Blood Blood Culture - Preliminary No Growth after 24 hours 09/12/18 16:14 Blood Blood Culture Gram Stain - Final 09/12/18 16:14 Blood Blood Culture - Final Alpha Hemolytic Streptococcus 09/14/18 05:49 Blood Blood Culture - Preliminary No Growth after 48 hours 09/13/18 15:00 Blood Blood Culture Gram Stain - Preliminary 09/13/18 15:00 Blood Blood Culture - Final 09/12/18 06:01 Blood Blood Culture Gram Stain - Final 09/12/18 06:01 Blood Blood Culture - Final Alpha Hemolytic Streptococcus 09/11/18 18:19 Blood Blood Culture Gram Stain - Final 09/11/18 18:19 Blood Blood Culture - Final Alpha Hemolytic Streptococcus 09/12/18 06:39 Blood Blood Culture Gram Stain - Final 09/12/18 06:39 Blood Blood Culture - Final Strep agalactiae - (group b) 09/12/18 16:14 Blood Blood Culture - Final 09/12/18 06:01 Blood Blood Culture - Final 09/12/18 06:39 Blood Blood Culture - Final 09/11/18 18:19 Blood Blood Culture - Final Assessment and Plan (1) Endocarditis of [place] valve Narrative/Plan: Pleasant 63-year-old male presents to Hospital feeling poorly for quite some time. Because he was feeling poorly eventually had an echocardiogram performed to evaluate his cardiac status after computed tomography scan revealed potential abnormality. The transthoracic echocardiogram reveal evidence of the abnormality in the mitral valve leaflet. The patient underwent transesophageal echocardiogram the verifies the mitral regurgitant murmur in the large vegetation of the mitral valve. The patient now has multiple positive blood cultures with group B strep. 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 The patient relates that he has had a heart murmur noted for many years but has not had ongoing follow-up over time. At this time the murmur is easily heard and he has been evaluated by cardiothoracic surgery. Our plan will be to maximize antibiotic therapy this point time with ampicillin and gentamicin try to rapidly cleared his bacteremia. Once clearance of bacteremia has occurred he will proceed to the mitral valve surgery for removal of vegetation and repair or replacement of the valve. The reasons for the surgery are discussed including goal to reduce the risk of a significant embolic event Barbara concern would be of a large stroke. Secondly would be for repairing of the mitral valve without left ventricular dysfunction and refractory congestive heart failure. The qualifications of the cardiovascular surgeons is again reviewed with the patient's father and understands that the valve surgery is within the capability of the facility and the surgeons. There are many questions are answered. 09/15/2018 patient is feeling better today. No fevers or chills. Laboratories is starting to report some negative blood cultures hopefully on the new antibiotic therapy of ampicillin and gentamicin the blood stream will be sterilized rapidly. Once this occurs it appears a cardiovascular surgery will be taking him for surgical intervention because of the large size of the vegetation and a valvular malfunction that is occurring which are both indications for intervention. 09/16/2018 patient feeling better today. Tolerating antibiotic therapy well with no significant difficulty such as fevers or chills. No nausea or emesis or diarrhea. Overall progressing. 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 As noted there are now blood cultures -48 hours and one set at 24 hours hopefully relating to the parents of his bacteremia with the synergistic combination of ampicillin and gentamicin. Patient be monitored for any nephrotoxicity. The patient and his mother's questions are answered. Current Visit: Yes Status: Acute Code(s): I38 - ENDOCARDITIS, VALVE UNSPECIFIED SNOMED Code(s): 39224147 (2) Bacteremia due to group B Streptococcus Current Visit: Yes Status: Acute Code(s): R78.81 - BACTEREMIA SNOMED Code( s): 056818223014
[2018-09-17] MEDS: GENTAMICIN IN NACL ISO-OSM PMX 80 MG in SALINE 1 100ML.BAG IVPB SCH ×4 (00:51→23:14)
[2018-09-17] MEDS: AMPICILLIN 2,000 MG in SODIUM CHLORIDE 0.9% 100 ML IVPB SCH ×6 (05:24→23:13)
[2018-09-17] MEDS: PANTOPRAZOLE 40 MG TABLET PO SCH (06:36)
[2018-09-17 06:44] LABS: Basophils % (A) 1 %; Eosinophils # (A) 0.1 k/uL (0-0.7); Eosinophils % (A) 2 %; HGB 11.4 gm/dL (13.0-17.5); Lymphocytes # (A) 1.5 k/uL (1.0-4.8); Lymphocytes % (A) 24 %; MCH 29.2 pg (25.0-35.0); MCHC 31.7 g/dL (31.0-37.0); MCV 92.1 fL (80.0-100.0); Mean Platelet Volume 6.6; Monocytes # (A) 0.3 k/uL (0-1.0); Monocytes % (A) 5 %; Neutrophils # (A) 4.2 k/uL (1.3-7.7); Neutrophils % (A) 67 %; Platelet Count 282 k/uL (150-450); RBC 3.91 m/uL (4.30-5.90); RDW 15.3 % (11.5-15.5); WBC 6.3 k/uL (3.8-10.6)
[2018-09-17 06:55] LABS: Calcium 8.7 mg/dL (8.4-10.2); Potassium 4.5 mmol/L (3.5-5.1)
[2018-09-17] MEDS: HEPARIN SODIUM,PORCINE 5,000 UNIT/ML 1 ML VIAL SQ SCH ×3 (08:34→19:47)
[2018-09-17] MEDS: DOCUSATE 100 MG CAP PO SCH ×2 (08:34→19:48)
[2018-09-17] MEDS: METOPROLOL TARTRATE 12.5 MG TAB PO SCH ×2 (08:34→19:48)
[2018-09-17] MEDS: FUROSEMIDE 20 MG TAB PO SCH (08:34)
[2018-09-17] MEDS: NATTOKINASE PO SCH (11:56)
--- NOTE | 2018-09-17 12:25 | P.PN ---
Subjective Progress Note Date: 09/17/18 Principal diagnosis: Mitral valve endocarditis, severe mitral valve regurgitation. Previous medical history of mitral regurgitation, hyperlipidemia, DVT of the right calf in 2010, occasional wine, and family history of atrial fibrillation. The patient is currently sitting up in bed in no acute distress. Denies any chest pain or shortness of breath, denies dizziness or syncopal episodes. No new complaints. Blood cultures being drawn daily, cultures from September 14 and negative to date. Infectious disease on board, current prescribed antibiotic therapy ampicillin and gentamicin. T-max 100.6F on September 12, afebrile since. No leukocytosis. Objective - Vital Signs Vital signs: Vital Signs Temp 97.8 F 09/17/18 12:00 Pulse 62 09/17/18 12:00 Resp 18 09/17/18 12:00 BP 104/73 09/17/18 12:00 Pulse Ox 97 09/17/18 12:00 Intake & Output 09/16/18 09/17/18 09/17/18 18:59 06:59 18:59 Intake Total 2380 300 480 Output Total 800 Balance 1580 300 480 Weight 77.8 kg 77.7 kg Intake: Intake, IV Titration 300 300 Amount Ampicillin 2,000 mg In 200 100 Sodium Chloride 0.9% 100 ml @ 200 mls/hr IVPB Q4HR [facility] Rx#:[id number] Gentamicin in NaCl Iso- 100 200 Osm Pmx 80 mg In Saline 1 100ml.bag @ 100 mls/hr IVPB Q12HR@0000,1200 [facility] Rx#:[id number] Oral 2080 480 Output: Urine 800 Other: Voiding Method Toilet Toilet # Voids 3 1 1 - Constitutional General appearance: Present: cooperative, no acute distress - Respiratory Details: Lungs sounds clear bilaterally. Respirations even, nonlabored. Currently on room air with oxygen saturation 97%. Able to achieve 4000 mL on his incentive spirometry. Strong cough. - Cardiovascular Details: S1, S2 present. Positive systolic murmur present. Regular rate and rhythm, sinus rhythm on telemetry. Palpable peripheral pulses bilaterally. No edema present. No calf pain or tenderness noted. - Gastrointestinal Gastrointestinal Comment(s): Abdomen soft, nontender, nondistended. Active bowel sounds 4 quadrants. Tolerating diet. - Genitourinary Genitourinary Comment(s): Continues to void clear, yellow urine. - Integumentary Integumentary Comment(s): Skin is warm and dry with evidence of good perfusion. - Neurologic Neurologic: Present: CNII-XII intact - Musculoskeletal Musculoskeletal: Present: gait normal, strength equal bilaterally - Psychiatric Psychiatric: Present: A&O x's 3, appropriate affect, intact judgment & insight - Allied health notes Allied health notes reviewed: nursing - Labs CBC & Chem 7: 09/17/18 05:28 09/17/18 05:28 Labs: Abnormal Lab Results - Last 24 Hours (Table) 09/17/18 Range/Units 05:28 RBC 3.91 L (4.30-5.90) m/uL Hgb 11.4 L (13.0-17.5) gm/dL Hct 36.0 L (39.0-53.0) % Microbiology - Last 24 Hours (Table) 09/14/18 05:49 Blood Culture - Preliminary Blood No Growth after 72 hours 09/15/18 20:22 Blood Culture - Preliminary Blood No Growth after 24 hours 09/12/18 16:14 Blood Culture Gram Stain - Final Blood Blood Culture - Final Alpha Hemolytic Streptococcus Assessment and Plan (1) Mitral regurgitation Current Visit: Yes Status: Chronic Code(s): I34.0 - NONRHEUMATIC MITRAL ( VALVE) INSUFFICIENCY SNOMED Code(s): 90514317 (2) History of DVT (deep vein thrombosis) Current Visit: No Status: Resolved Code(s): Z86.718 - PERSONAL HISTORY OF OTHER VENOUS THROMBOSIS AND EMBOLISM SNOMED Code(s): 519628414 (3) Hyperlipemia Current Visit: Yes Status: Chronic Code(s): E78.5 - HYPERLIPIDEMIA, UNSPECIFIED SNOMED Code(s): 70198186 (4) Endocarditis of [place] valve Current Visit: Yes Status: Acute Code(s): I38 - ENDOCARDITIS, VALVE UNSPECIFIED SNOMED Code(s): 78267248 Plan: 1. Continue antibiotics per recommendations from infectious disease. Will follow blood cultures, September 14 and blood cultures negative to date. 2. Dental clearance obtained from Dr. Orozco, patient is cleared to undergo valve surgery. 3. Patient is at risk for embolization of the vegetation on his mitral valve leaflet, consequently our recommendation is for the patient to remain inpatient on IV antibiotics. 4. Continue to reinforce preoperative teaching. 5. Encourage incentive spirometry use. 6. Continue beta masood therapy. 7. GI/DVT prophylaxis. 8. Will monitor daily labs. 9. Plan is for mitral valve repair versus replacement, tentatively we'll plan for surgery on Friday 10. More recommendations to follow based on patient's progress. Time with Patient: Greater than 30
--- NOTE | 2018-09-17 14:26 | P.PN ---
Subjective Progress Note Date: 09/17/18 This is a 63-year-old male patient of Dr. Sosa and Dr. Price with history of hyperlipidemia but long-standing history of heart murmur. Patient was having chills and sweating with generalized achiness that impacted his physical activity. He was initially treated for pneumonia and completed antibiotics but his symptoms continued. There was also concern for Lyme disease and patient was started on doxycycline approximate 3 weeks ago. He subsequently underwent a CAT scan that showed dilated ascending aorta and the patient was referred to Dr. Bear on for transthoracic echocardiogram that revealed a preserved systolic function with severe mitral regurgitation and a mass on the posterior mitral valve leaflet suggestive of endocarditis and vegetation and the patient was then set up for SILVIA and heart catheterization which was done yesterday. SILVIA revealed ejection fraction of 55% with severe eccentric right regurgitation with vegetation on the posterior mitral valve, mild tricuspid regurgitation and mild dilatation of the aorta and mild aortic regurgitation. Heart catheterization showed normal coronary arteries and dilated ascending aorta. Patient was admitted and a consult was added for Dr. Beck. Blood cultures were obtained. 09/13: patient is feeling well , was started on vancomycin ans subsequently was switched to Ancef 2gr IVPB Q8H as he is bacteeremic to Group B strep and alpha hemolytic strep, and we will repeat blood cultures today and tomorrow. 09/14: Patient is currently on Ancef. Patient has been seen by cardiothoracic surgery with plan for valve replacement or repair as early as Friday. Patient has been seen by dental surgeon and cleared of any present dental infection. CAT scan of the facial bones reveals sinuses clear with exception of left maxillary sinus and ostiomeatal complex is patent bilaterally. No evidence of abscess. Patient denies any new complaints. He has been afebrile since September 22. Pulse ox is 95% on room air. 09/15: Dr. Beck has changed antibiotics to ampicillin and gentamicin. Blood culture obtained on September 13 and one on September 14 are currently showing no growth after 24 hours. Patient is afebrile, vital signs are stable, blood pressure is noted to be some readings on the low side. Pulse ox is 92% to 94% on room air. Patient continues to deny any chest pain or shortness of breath, no lightheadedness or dizziness. He denies any fever or chills. 09/16: Blood culture from September 23 is now positive. Blood culture obtained on September 14 showing no growth. Blood culture from September 15 is in progress. Patient has been afebrile. He denies any fever or chills. He has had no nausea vomiting or diarrhea. Patient is continued on ampicillin and gentamicin. Cardiothoracic surgery is tentatively planning for surgery on Friday or Friday. 09/17: Patient denies any new complaints. He remains afebrile. Blood cultures from September 14 and September 15 are showing no growth. Patient is tentatively scheduled for surgery on Friday. Review of Systems Constitutional: Reports chronic headaches, Denies weakness, Denies fever or chills Eyes: denies blurred vision, denies bulging eye, denies decreased vision Ears: deny: decreased hearing Ears, nose, mouth and throat: Denies dysphagia, Denies neck lump, Denies sore throat Cardiovascular: Denies chest pain, Denies claudication, Denies dyspnea on exertion, Denies high blood pressure, Denies phlebitis, Denies rapid heart beat Respiratory: Denies congestion, Denies cough with sputum, Denies home oxygen, Denies sleep apnea, Denies snoring, Denies wheezing Gastrointestinal: Denies abdominal pain, Denies belching, Denies BRBPR, Denies heartburn, Denies melena, Denies nausea, Denies vomiting, denies diarrhea Genitourinary: Denies dysuria, Denies nocturia, Denies polyuria Musculoskeletal: Denies myalgias Musculoskeletal: absent: ankle pain, ankle stiffness, ankle swelling, elbow pain , elbow stiffness, elbow swelling, foot pain, foot stiffness, foot swelling, hand pain, hand stiffness, hand swelling, hip pain, hip stiffness, hip swelling , knee pain, knee stiffness, knee swelling, shoulder pain, shoulder stiffness, shoulder swelling, wrist pain, wrist stiffness, wrist swelling Integumentary: Denies pruritus, Denies rash Neurological: Denies numbness, Denies weakness Psychiatric: Denies anxiety, Denies depression Endocrine: Denies fatigue, Denies weight change Objective - Vital Signs Vital signs: Vital Signs Temp 97.7 F 09/16/18 08:00 Pulse 75 09/16/18 11:50 Resp 16 09/16/18 11:50 BP 114/62 09/16/18 11:50 Pulse Ox 97 09/16/18 11:50 Intake & Output 09/15/18 09/16/18 09/16/18 18:59 06:59 18:59 Intake Total 540 1000 2140 Output Total 800 Balance 540 1000 1340 Weight 77.8 kg 77.8 kg Intake: Intake, IV Titration 300 400 300 Amount Ampicillin 2,000 mg In 200 300 200 Sodium Chloride 0.9% 100 ml @ 200 mls/hr IVPB Q4HR [facility] Rx#:[id number] Gentamicin 60 mg In 100 100 Sodium Chloride 0.9% 100 ml @ 101.5 mls/hr IVPB Q8H [facility] Rx#:[id number] Gentamicin in NaCl Iso- 100 Osm Pmx 80 mg In Saline 1 100ml.bag @ 100 mls/hr IVPB Q12HR@0000,1200 [facility] Rx#:[id number] Oral [phone] Output: Urine 800 Other: Voiding Method Toilet Toilet # Voids 1 3 - Exam General appearance: no acute distress, thin, resting comfortably in bed in no acute distress. - Neck Neck: no lymphadenopathy, normal ROM, no rigidity, no stridor, no thyromegaly Carotids: bilateral: upstroke normal Thyroid: bilateral: normal size - Respiratory Respiratory: bilateral: diminished, negative: dullness, rales, rhonchi, wheezing , prolonged expiration, prolonged inspiration - Cardiovascular Rhythm: regular Heart sounds: abnormal: S1 (Decreased) Abnormal Heart Sounds: systolic murmur (There is 4/6 systolic ejection murmur located in the apex Radiating to the axilla.) - Gastrointestinal General gastrointestinal: no hepatomegaly, normal bowel sounds, soft, no splenomegaly, no tenderness, no umbilical hernia, no ventral hernia - Integumentary Integumentary: normal, normal turgor - Neurologic Neurologic: CNII-XII intact - Musculoskeletal Musculoskeletal: generalized weakness, gait steady - Psychiatric Psychiatric: A&O x's 3, appropriate affect, intact judgment & insight - Labs CBC & Chem 7: 09/17/18 05:28 09/17/18 05:28 Labs: Abnormal Lab Results - Last 24 Hours (Table) 09/16/18 09/16/18 Range/Units 07:31 07:31 RBC 4.03 L (4.30-5.90) m/uL Hgb 11.8 L (13.0-17.5) gm/dL Hct 36.5 L (39.0-53.0) % Glucose 102 H (74-99) mg/dL Alkaline Phosphatase 173 H (38-126) U/L Total Protein 5.8 L (6.3-8.2) g/dL Albumin 2.8 L (3.5-5.0) g/dL Microbiology - Last 24 Hours (Table) 09/12/18 16:14 Blood Culture Gram Stain - Final Blood Blood Culture - Final Alpha Hemolytic Streptococcus 09/14/18 05:49 Blood Culture - Preliminary Blood No Growth after 48 hours 09/13/18 15:00 Blood Culture Gram Stain - Preliminary Blood 09/13/18 15:00 Blood Culture - Final Blood 09/12/18 06:01 Blood Culture Gram Stain - Final Blood Blood Culture - Final Alpha Hemolytic Streptococcus Assessment and Plan Plan: 1. Subacute endocarditis with mitral valve vegetation post SILVIA and left heart catheterization that showed normal coronaries. Blood cultures were positive for group B streptococcus agalactia and alpha hemolytic strep and patient has been changed to ampicillin and gentamicin per Dr. Beck. Cardiothoracic surgery evaluation appreciated with anticipation of surgery possibly on Friday. Repeat blood cultures from September 14 and are showing no growth. 2. Severe mitral regurgitation with mitral valve vegetation due to endocarditis. 3. Benign prostatic hypertrophy. Continue Flomax 0.4 mg orally once every day. 4. History of kidney stones. Stable. 5. DVT prophylaxis. Heparin 5000 units subcutaneously every 8 hours. 6. GI prophylaxis. Protonix 40 mg orally once every day. Discharge plan: Home Impression and plan of care have been directed as dictated by the signing physician. Olga Roman nurse practitioner acting as scribe for signing physician.
--- NOTE | 2018-09-17 19:00 | PN ---
PROGRESS NOTE Casey Moncada is a gentleman with mitral valve endocarditis going for surgery on Friday. His cultures from the are not growing any organisms. It appears that the antibiotics have been effective. The patient can proceed with the surgery. His vital signs stable. S1-S2 heard normally. Holosystolic murmur is audible. Lungs are clear. Abdomen and lower extremity exam otherwise is unchanged. MMODL / IJN: [id number] /
[2018-09-17] MEDS: TAMSULOSIN 0.4 MG CAP.ER.24H PO SCH (19:47)
[2018-09-18] MEDS: AMPICILLIN 2,000 MG in SODIUM CHLORIDE 0.9% 100 ML IVPB SCH ×6 (03:21→23:02)
[2018-09-18] MEDS: PANTOPRAZOLE 40 MG TABLET PO SCH (06:41)
[2018-09-18 06:59] LABS: Basophils % (A) 1 %; Eosinophils # (A) 0.1 k/uL (0-0.7); Eosinophils % (A) 1 %; HGB 11.3 gm/dL (13.0-17.5); Lymphocytes # (A) 1.4 k/uL (1.0-4.8); Lymphocytes % (A) 19 %; MCH 29.3 pg (25.0-35.0); MCHC 32.3 g/dL (31.0-37.0); MCV 90.6 fL (80.0-100.0); Mean Platelet Volume 6.5; Monocytes # (A) 0.3 k/uL (0-1.0); Monocytes % (A) 4 %; Neutrophils # (A) 5.3 k/uL (1.3-7.7); Neutrophils % (A) 74 %; Platelet Count 284 k/uL (150-450); RBC 3.87 m/uL (4.30-5.90); RDW 15.2 % (11.5-15.5); WBC 7.1 k/uL (3.8-10.6)
[2018-09-18 07:12] LABS: Albumin 2.9 g/dL (3.5-5.0); Calcium 8.6 mg/dL (8.4-10.2); Potassium 4.5 mmol/L (3.5-5.1); Total Bilirubin 0.4 mg/dL (0.2-1.3); Total Protein 5.8 g/dL (6.3-8.2)
[2018-09-18] MEDS: METOPROLOL TARTRATE 12.5 MG TAB PO SCH ×2 (08:42→20:59)
[2018-09-18] MEDS: DOCUSATE 100 MG CAP PO SCH ×2 (08:42→20:58)
[2018-09-18] MEDS: FUROSEMIDE 20 MG TAB PO SCH (08:42)
[2018-09-18] MEDS: NATTOKINASE PO SCH (08:43)
[2018-09-18] MEDS: HEPARIN SODIUM,PORCINE 5,000 UNIT/ML 1 ML VIAL SQ SCH ×3 (08:44→23:02)
[2018-09-18] MEDS ORDERED: MD COMMUNICATION TO PHARMACY 1 EACH MISC PO ONE ×2 (09:53)
[2018-09-18] MEDS ORDERED: GENTAMICIN TROUGH DUE 1 EACH MISC MISCELLANE ONE (11:30)
[2018-09-18] MEDS: GENTAMICIN IN NACL ISO-OSM PMX 80 MG in SALINE 1 100ML.BAG IVPB SCH ×2 (13:07→23:02)
--- NOTE | 2018-09-18 13:18 | P.PN ---
Subjective Progress Note Date: 09/18/18 Principal diagnosis: Mitral valve endocarditis, severe mitral valve regurgitation. Previous medical history of mitral regurgitation, hyperlipidemia, DVT of the right calf in 2010, occasional wine, and family history of atrial fibrillation. The patient is currently sitting up in bed in no acute distress. Denies any chest pain or shortness of breath, denies dizziness or syncopal episodes. No new complaints. Blood cultures being drawn daily, cultures from September 14 and negative to date. Infectious disease on board, current prescribed antibiotic therapy ampicillin and gentamicin. T-max 100.6F on September 12, afebrile since. No leukocytosis. Objective - Vital Signs Vital signs: Vital Signs Temp 98.6 F 09/18/18 08:20 Pulse 86 09/18/18 08:20 Resp 16 09/18/18 08:20 BP 97/55 09/18/18 08:20 Pulse Ox 93 L 09/18/18 08:20 Intake & Output 09/17/18 09/18/18 09/18/18 18:59 06:59 18:59 Intake Total 1080 640 120 Balance 1080 640 120 Weight 77.7 kg 77.7 kg Intake: Intake, IV Titration 400 Amount Ampicillin 2,000 mg In 300 Sodium Chloride 0.9% 100 ml @ 200 mls/hr IVPB Q4HR [facility] Rx#:[id number] Gentamicin in NaCl Iso- 100 Osm Pmx 80 mg In Saline 1 100ml.bag @ 100 mls/hr IVPB Q12HR@0000,1200 [facility] Rx#:[id number] Oral 1080 240 120 Other: Voiding Method Toilet Toilet # Voids 1 3 - Constitutional General appearance: Present: cooperative, no acute distress - Respiratory Details: Lungs sounds clear bilaterally. Respirations even, nonlabored. Currently on room air with oxygen saturation 96%. Able to achieve 4000 mL on his incentive spirometry. Strong cough. - Cardiovascular Details: S1, S2 present. Positive systolic murmur present. Regular rate and rhythm, sinus rhythm on telemetry. Palpable peripheral pulses bilaterally. No edema present. No calf pain or tenderness noted. - Gastrointestinal Gastrointestinal Comment(s): Abdomen soft, nontender, nondistended. Active bowel sounds 4 quadrants. Tolerating diet. - Genitourinary Genitourinary Comment(s): Continues to void clear, yellow urine. - Integumentary Integumentary Comment(s): Skin is warm and dry with evidence of good perfusion. - Neurologic Neurologic: Present: CNII-XII intact - Musculoskeletal Musculoskeletal: Present: gait normal, strength equal bilaterally - Psychiatric Psychiatric: Present: A&O x's 3, appropriate affect, intact judgment & insight - Allied health notes Allied health notes reviewed: nursing - Labs CBC & Chem 7: 09/18/18 06:15 09/18/18 06:15 Labs: Abnormal Lab Results - Last 24 Hours (Table) 09/18/18 09/18/18 Range/Units 06:15 06:15 RBC 3.87 L (4.30-5.90) m/uL Hgb 11.3 L (13.0-17.5) gm/dL Hct 35.0 L (39.0-53.0) % Alkaline Phosphatase 164 H (38-126) U/L Total Protein 5.8 L (6.3-8.2) g/dL Albumin 2.9 L (3.5-5.0) g/dL Microbiology - Last 24 Hours (Table) 09/14/18 05:49 Blood Culture - Preliminary Blood No Growth after 96 hours 09/15/18 20:22 Blood Culture - Preliminary Blood No Growth after 48 hours 09/13/18 15:00 Blood Culture Gram Stain - Preliminary Blood Blood Culture - Preliminary Alpha Hemolytic Streptococcus Assessment and Plan (1) Mitral regurgitation Current Visit: Yes Status: Chronic Code(s): I34.0 - NONRHEUMATIC MITRAL ( VALVE) INSUFFICIENCY SNOMED Code(s): 66410226 (2) History of DVT (deep vein thrombosis) Current Visit: No Status: Resolved Code(s): Z86.718 - PERSONAL HISTORY OF OTHER VENOUS THROMBOSIS AND EMBOLISM SNOMED Code(s): 253300056 (3) Hyperlipemia Current Visit: Yes Status: Chronic Code(s): E78.5 - HYPERLIPIDEMIA, UNSPECIFIED SNOMED Code(s): 39420532 (4) Endocarditis of [place] valve Current Visit: Yes Status: Acute Code(s): I38 - ENDOCARDITIS, VALVE UNSPECIFIED SNOMED Code(s): 25176636 Plan: 1. Continue antibiotics per recommendations from infectious disease. Will follow blood cultures, September 14 and blood cultures negative to date. 2. Dental clearance obtained from Dr. Jundi-Samman, patient is cleared to undergo valve surgery. 3. Plan is for mitral valve repair, possible replacement, exclusion of the left atrial appendage on September [address] Figueroa. 4. Continue to reinforce preoperative teaching. 5. Encourage incentive spirometry use. 6. Continue beta masood therapy. 7. GI/DVT prophylaxis. 8. Will monitor daily labs. 9. More recommendations to follow based on patient's progress. Time with Patient: Greater than 30
[2018-09-18 13:28] LABS: Appearance,Urine Clear (Clear); Bilirubin,Urine Negative (Negative); Blood,Urine Negative (Negative); Color,Urine Light Yellow; Glucose,Urine (UA) Negative (Negative); Ketones,Urine Negative (Negative); Leukocyte Esterase,Urine Negative (Negative); Nitrite,Urine Negative (Negative); PH, Urine 6.5 (5.0-8.0); Protein,Urine Negative (Negative); Specific Gravity,Urine 1.009 (1.001-1.035); Urobilinogen,Urine <2.0 mg/dL (<2.0)
[2018-09-18] MEDS ORDERED: GENTAMICIN PEAK DUE 1 EACH MISC MISCELLANE ONE (14:00)
--- NOTE | 2018-09-18 14:39 | P.PN ---
Subjective Progress Note Date: 09/18/18 This is a 63-year-old male patient of Dr. Sosa and Dr. Price with history of hyperlipidemia but long-standing history of heart murmur. Patient was having chills and sweating with generalized achiness that impacted his physical activity. He was initially treated for pneumonia and completed antibiotics but his symptoms continued. There was also concern for Lyme disease and patient was started on doxycycline approximate 3 weeks ago. He subsequently underwent a CAT scan that showed dilated ascending aorta and the patient was referred to Dr. Bear on for transthoracic echocardiogram that revealed a preserved systolic function with severe mitral regurgitation and a mass on the posterior mitral valve leaflet suggestive of endocarditis and vegetation and the patient was then set up for SILVIA and heart catheterization which was done yesterday. SILVIA revealed ejection fraction of 55% with severe eccentric right regurgitation with vegetation on the posterior mitral valve, mild tricuspid regurgitation and mild dilatation of the aorta and mild aortic regurgitation. Heart catheterization showed normal coronary arteries and dilated ascending aorta. Patient was admitted and a consult was added for Dr. Beck. Blood cultures were obtained. 09/13: patient is feeling well , was started on vancomycin ans subsequently was switched to Ancef 2gr IVPB Q8H as he is bacteeremic to Group B strep and alpha hemolytic strep, and we will repeat blood cultures today and tomorrow. 09/14: Patient is currently on Ancef. Patient has been seen by cardiothoracic surgery with plan for valve replacement or repair as early as Friday. Patient has been seen by dental surgeon and cleared of any present dental infection. CAT scan of the facial bones reveals sinuses clear with exception of left maxillary sinus and ostiomeatal complex is patent bilaterally. No evidence of abscess. Patient denies any new complaints. He has been afebrile since September 22. Pulse ox is 95% on room air. 09/15: Dr. Beck has changed antibiotics to ampicillin and gentamicin. Blood culture obtained on September 13 and one on September 14 are currently showing no growth after 24 hours. Patient is afebrile, vital signs are stable, blood pressure is noted to be some readings on the low side. Pulse ox is 92% to 94% on room air. Patient continues to deny any chest pain or shortness of breath, no lightheadedness or dizziness. He denies any fever or chills. 09/16: Blood culture from September 23 is now positive. Blood culture obtained on September 14 showing no growth. Blood culture from September 15 is in progress. Patient has been afebrile. He denies any fever or chills. He has had no nausea vomiting or diarrhea. Patient is continued on ampicillin and gentamicin. Cardiothoracic surgery is tentatively planning for surgery on Friday or Friday. 09/17: Patient denies any new complaints. He remains afebrile. Blood cultures from September 14 and September 15 are showing no growth. Patient is tentatively scheduled for surgery on Friday. 09/18: Patient denies any Complains any remains afebrile. Blood cultures from September 14 and September 15 are continuing to show no growth. Patient is scheduled for open heart surgery on Friday for mitral valve repair or replacement. Patient is continued on ampicillin and gentamicin and followed by Dr. Beck. Review of Systems Constitutional: Reports chronic headaches, Denies weakness, Denies fever or chills, Eyes: denies blurred vision, denies bulging eye, denies decreased vision Ears: deny: decreased hearing Ears, nose, mouth and throat: Denies dysphagia, Denies neck lump, Denies sore throat Cardiovascular: Denies chest pain, Denies claudication, Denies dyspnea on exertion, Denies high blood pressure, Denies phlebitis, Denies rapid heart beat Respiratory: Denies congestion, Denies cough with sputum, Denies home oxygen, Denies sleep apnea, Denies snoring, Denies wheezing Gastrointestinal: Denies abdominal pain, Denies belching, Denies BRBPR, Denies heartburn, Denies melena, Denies nausea, Denies vomiting, denies diarrhea Genitourinary: Denies dysuria, Denies nocturia, Denies polyuria Musculoskeletal: Denies myalgias Musculoskeletal: absent: ankle pain, ankle stiffness, ankle swelling, elbow pain , elbow stiffness, elbow swelling, foot pain, foot stiffness, foot swelling, hand pain, hand stiffness, hand swelling, hip pain, hip stiffness, hip swelling , knee pain, knee stiffness, knee swelling, shoulder pain, shoulder stiffness, shoulder swelling, wrist pain, wrist stiffness, wrist swelling Integumentary: Denies pruritus, Denies rash Neurological: Denies numbness, Denies weakness Psychiatric: Denies anxiety, Denies depression Endocrine: Denies fatigue Objective - Vital Signs Vital signs: Vital Signs Temp 98.6 F 09/18/18 08:20 Pulse 86 09/18/18 08:20 Resp 16 09/18/18 08:20 BP 97/55 09/18/18 08:20 Pulse Ox 93 L 09/18/18 08:20 Intake & Output 09/17/18 09/18/18 09/18/18 18:59 06:59 18:59 Intake Total 1080 640 120 Balance 1080 640 120 Weight 77.7 kg 77.7 kg Intake: Intake, IV Titration 400 Amount Ampicillin 2,000 mg In 300 Sodium Chloride 0.9% 100 ml @ 200 mls/hr IVPB Q4HR [facility] Rx#:[id number] Gentamicin in NaCl Iso- 100 Osm Pmx 80 mg In Saline 1 100ml.bag @ 100 mls/hr IVPB Q12HR@0000,1200 [facility] Rx#:[id number] Oral 1080 240 120 Other: Voiding Method Toilet Toilet # Voids 1 3 - Exam General appearance: no acute distress, thin, resting comfortably in bed in no acute distress. Mother is at bedside - Neck Neck: no lymphadenopathy, normal ROM, no rigidity, no stridor, no thyromegaly Carotids: bilateral: upstroke normal Thyroid: bilateral: normal size - Respiratory Respiratory: bilateral: diminished, negative: dullness, rales, rhonchi, wheezing , prolonged expiration, prolonged inspiration - Cardiovascular Rhythm: regular Heart sounds: abnormal: S1 (Decreased) Abnormal Heart Sounds: systolic murmur (There is 4/6 systolic ejection murmur located in the apex Radiating to the axilla.) - Gastrointestinal General gastrointestinal: no hepatomegaly, normal bowel sounds, soft, no splenomegaly, no tenderness, no umbilical hernia, no ventral hernia - Integumentary Integumentary: normal, normal turgor - Neurologic Neurologic: CNII-XII intact - Musculoskeletal Musculoskeletal: generalized weakness, gait steady - Psychiatric Psychiatric: A&O x's 3, appropriate affect, intact judgment & insight - Labs CBC & Chem 7: 09/18/18 06:15 09/18/18 06:15 Labs: Abnormal Lab Results - Last 24 Hours (Table) 09/18/18 09/18/18 Range/Units 06:15 06:15 RBC 3.87 L (4.30-5.90) m/uL Hgb 11.3 L (13.0-17.5) gm/dL Hct 35.0 L (39.0-53.0) % Alkaline Phosphatase 164 H (38-126) U/L Total Protein 5.8 L (6.3-8.2) g/dL Albumin 2.9 L (3.5-5.0) g/dL Microbiology - Last 24 Hours (Table) 09/14/18 05:49 Blood Culture - Preliminary Blood No Growth after 96 hours 09/15/18 20:22 Blood Culture - Preliminary Blood No Growth after 48 hours 09/13/18 15:00 Blood Culture Gram Stain - Preliminary Blood Blood Culture - Preliminary Alpha Hemolytic Streptococcus Assessment and Plan Plan: 1. Subacute endocarditis with mitral valve vegetation post SILVIA and left heart catheterization that showed normal coronaries. Blood cultures were positive for group B streptococcus agalactia and alpha hemolytic strep and patient has been changed to ampicillin and gentamicin per Dr. Beck. Cardiothoracic surgery evaluation appreciated. Mitral valve repair or replacement scheduled for Friday. Repeat blood cultures from September 14 and are showing no growth. 2. Severe mitral regurgitation with mitral valve vegetation due to endocarditis. 3. Benign prostatic hypertrophy. Continue Flomax 0.4 mg orally once every day. 4. History of kidney stones. Stable. 5. DVT prophylaxis. Heparin 5000 units subcutaneously every 8 hours. 6. GI prophylaxis. Protonix 40 mg orally once every day. Discharge plan: Home Impression and plan of care have been directed as dictated by the signing physician. Olga Roman nurse practitioner acting as scribe for signing physician.
--- NOTE | 2018-09-18 15:16 | PN ---
PROGRESS NOTE Mr. Reddy is a gentleman with mitral valve endocarditis with a beta-hemolytic streptococcal infection which has cleared. His blood cultures from the 09/14, four days later is negative for any growth which is a good sign. He remains hemodynamically stable, doing well. Vital signs are stable, S1-S2 heard normally. Holosystolic murmur is audible. JVD is not evident. Lungs are clear. Abdomen and lower extremity exam unchanged. Patient seems a little volume depleted. I will discontinue the Lasix. Continue beta masood and he will have surgery on Friday, which Dr. Figueroa will perform. Physical exam, there are no new significant changes. Prognosis will be good with surgery for this patient. MMODL / IJN: [id number] /
--- NOTE | 2018-09-18 17:43 | P.CNPUL ---
History of Present Illness Consult date: 09/18/18 Requesting physician: Galo Goemz Reason for consult: other Chief complaint: Mitral valve endocarditis, severe mitral valve regurgitation History of present illness: This is a 63-year-old white male patient of Dr. Sosa, who was initially admitted on 09/11/2018 for mitral valve endocarditis. Patient had been having night sweats, severe headaches, fevers on and off for the last 3 months, since June. He has been having generalized malaise, he was evaluated by his PCP , he was treated with a course of antibiotics with some improvement initially, but then patient's symptoms would recur. Patient had the SILVIA and cardiac catheterization by Dr. Hinojosa, findings revealed vegetation of the posterior mitral valve. Ejection fraction was preserved, cardiac presentation was within normal limits. Patient started on antibiotics, currently on IV ampicillin and gentamicin, and ID service is following. Patient's multiple blood cultures were positive for alpha hemolytic streptococcus, most recently his last 3 blood cultures have shown no growth. Afebrile, denies any chest pain, denies any dyspnea, pulse ox is 93%. No dizziness or syncopal episodes. Blood cultures are being drawn daily. Patient has received dental clearance. He is scheduled for mitral valve repair, possible replacement and exclusion of left atrial appendage on September 21. Patient does not have any history of chronic lung condition, He states he only smoked 6 cigarettes in his whole entire life, No asthma, no COPD. Other medical history includes hyperlipidemia, history of DVT and pulmonary embolism in 2010 following surgery on removal of kidney stone. He completed a course of anticoagulation for 9 months with Coumadin. Review of Systems All systems: negative Constitutional: Denies chills, Denies fever Eyes: denies blurred vision, denies pain Ears, nose, mouth and throat: Denies headache, Denies sore throat Cardiovascular: Denies chest pain, Denies shortness of breath Respiratory: Denies cough Gastrointestinal: Denies abdominal pain, Denies diarrhea, Denies nausea, Denies vomiting Musculoskeletal: Denies myalgias Integumentary: Denies pruritus, Denies rash Neurological: Denies numbness, Denies weakness Psychiatric: Denies anxiety, Denies depression Endocrine: Denies fatigue, Denies weight change Past Medical History Past Medical History: Deep Vein Thrombosis (DVT), Prostate Disorder Additional Past Medical History / Comment(s): SEE DR. HINOJOSA H & P FOR CARDIAC INFORMATION. DVT-2010-RT CALF. WAS SEEN IN ER 08/08/18 FOR SEVERE GROIN PAIN. HX KIDNEY STONES History of Any Multi-Drug Resistant Organisms: None Reported Past Surgical History: Heart Catheterization Additional Past Surgical History / Comment(s): Lithotripsy. COLONOSOCPY. ALSO SCHEDULED FOR SILVIA 09/11/18 Past Anesthesia/Blood Transfusion Reactions: No Reported Reaction Past Psychological History: No Psychological Hx Reported Additional Psychological History / Comment(s): Single. No children. Father and stepmother live close by. [place] on property with 2 horses. No other animal exposures. Lifelong nonsmoker. Denies significant alcohol or recreational drug use. No injection drug use. No current relationships. No experience. No international travel. Retired Smoking Status: Never smoker Past Alcohol Use History: Occasional Past Drug Use History: None Reported - Past Family History Mother Family Medical History: AFIB (Mother is 84-year-old with a history of skin cancer as well as macular degeneration with atrial flutter.), Cancer Additional Family Medical History / Comment(s): SKIN Father Family Medical History: Diabetes Mellitus (His biological father at age of 72 from diabetes complications.) Sister(s) Family Medical History: AFIB (Patient has one biological sister with atrial flutter and one stepsister.) Additional Family Medical History / Comment(s): Patient has no kids. Medications and Allergies Home Medications Medication Instructions Recorded Confirmed Type Doxycycline [Vibramycin] 100 mg PO BID 09/08/18 09/11/18 History Tamsulosin [Flomax] 0.4 mg PO HS 09/08/18 09/11/18 History Nattokinase 1 tab PO DAILY 09/11/18 09/11/18 History Serrapeptase 1 tab PO DAILY 09/11/18 09/11/18 History Allergies Allergy/AdvReac Type Severity Reaction Status Date / Time No Known Allergies Allergy Verified 09/11/18 17:58 Physical Exam Vitals: Vital Signs Temp Pulse Resp BP Pulse Ox 09/18/18 11:10 77 18 109/65 93 L 09/18/18 08:20 98.6 F 86 16 97/55 93 L 09/18/18 07:56 96 09/18/18 04:00 98.8 F 64 16 95/61 96 09/18/18 00:00 98 F 75 16 97/57 96 09/17/18 20:00 97.8 F 70 16 109/70 97 Intake and Output 09/18/18 09/18/18 09/18/18 06:59 14:59 22:59 Intake Total 640 360 Balance 640 360 Intake: Intake, IV Titration 400 Amount Ampicillin 2,000 mg In 300 Sodium Chloride 0.9% 100 ml @ 200 mls/hr IVPB Q4HR [facility] Rx#:[id number] Gentamicin in NaCl Iso- 100 Osm Pmx 80 mg In Saline 1 100ml.bag @ 100 mls/hr IVPB Q12HR@0000,1200 [facility] Rx#:[id number] Oral 240 360 Other: Voiding Method Toilet Toilet # Voids 3 3 Weight 77.7 kg GENERAL EXAM: Alert, pleasant, 63-year-old white male comfortable in no apparent distress. HEAD: Normocephalic/atraumatic. EYES: Normal reaction of pupils, equal size. Conjunctiva pink, sclera white. NOSE: Clear with pink turbinates. THROAT: No erythema or exudates. NECK: No masses, no JVD, no thyroid enlargement, no adenopathy. CHEST: No chest wall deformity. Symmetrical expansion. LUNGS: Equal air entry with no crackles, wheeze, rhonchi or dullness. CVS: Regular rate and rhythm, normal S1 and S2, no gallops, systolic murmur loudest at the left midclavicular line, no rubs ABDOMEN: Soft, nontender. No hepatosplenomegaly, normal bowel sounds, no guarding or rigidity. EXTREMITIES: No clubbing, no edema, no cyanosis, 2+ pulses and upper and lower extremities. MUSCULOSKELETAL: Muscle strength and tone normal. SPINE: No scoliosis or deformity SKIN: No rashes CENTRAL NERVOUS SYSTEM: Alert and oriented -3. No focal deficits, tone is normal in all 4 extremities. PSYCHIATRIC: Alert and oriented -3. Appropriate affect. Intact judgment and insight. Results - Laboratory Findings CBC and BMP: 09/18/18 06:15 09/18/18 06:15 PT/INR, D-dimer PT 11.2 sec (9.0-12.0) 09/11/18 18:19 INR 1.1 (<1.2) 09/11/18 18:19 Abnormal lab findings: Abnormal Labs 09/11/18 09/11/18 09/11/18 18:19 18:19 18:19 RBC 4.16 L Hgb 12.2 L Hct 37.2 L Lymphocytes # 0.8 L Sodium 136 L Chloride BUN 29 H Glucose 107 H Calcium Alkaline Phosphatase Total Creatine Kinase 36 L Troponin I 0.066 H* C-Reactive Protein Total Protein Albumin 3.3 L Procalcitonin Ur Specific [place] Urine Protein 09/11/18 09/11/18 09/12/18 18:19 19:42 06:01 RBC Hgb Hct Lymphocytes # Sodium Chloride BUN Glucose Calcium Alkaline Phosphatase Total Creatine Kinase Troponin I C-Reactive Protein 46.2 H Total Protein Albumin Procalcitonin 0.55 H Ur Specific [place] 1.044 H Urine Protein Trace H 09/12/18 09/12/18 09/14/18 06:01 06:01 05:49 RBC 3.71 L Hgb 10.9 L Hct 34.1 L Lymphocytes # 0.8 L Sodium 136 L Chloride 111 H BUN Glucose Calcium 8.2 L Alkaline Phosphatase 135 H Total Creatine Kinase Troponin I C-Reactive Protein Total Protein 5.5 L 5.6 L Albumin 2.6 L 2.7 L Procalcitonin Ur Specific [place] Urine Protein 09/14/18 09/16/18 09/16/18 05:49 07:31 07:31 RBC 3.86 L 4.03 L Hgb 11.2 L 11.8 L Hct 35.1 L 36.5 L Lymphocytes # Sodium Chloride BUN Glucose 102 H Calcium Alkaline Phosphatase 173 H Total Creatine Kinase Troponin I C-Reactive Protein Total Protein 5.8 L Albumin 2.8 L Procalcitonin Ur Specific [place] Urine Protein 09/17/18 09/18/18 09/18/18 05:28 06:15 06:15 RBC 3.91 L 3.87 L Hgb 11.4 L 11.3 L Hct 36.0 L 35.0 L Lymphocytes # Sodium Chloride BUN Glucose Calcium Alkaline Phosphatase 164 H Total Creatine Kinase Troponin I C-Reactive Protein Total Protein 5.8 L Albumin 2.9 L Procalcitonin Ur Specific [place] Urine Protein - Diagnostic Findings Chest x-ray: report reviewed, image reviewed Assessment and Plan Plan: Assessment #1. 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 Severe mitral valve regurgitation #3. Hyperlipidemia #4. History of DVT and pulmonary embolism in 2010 following the procedure for removal of kidney stone, completed 9 months course of Coumadin #5. Benign prostatic hypertrophy Plan: Patient is scheduled for his surgery on Friday. He has a pulmonary complaints, no chronic lung conditions, he is on room air, he is ambulating, has no limitation of his exercise capacity on the regular basis. Patient is cleared for surgery from pulmonary perspective. We'll review his bedside spirometry. Continue to follow with you I performed a history & physical examination of the patient and discussed their management with my nurse practitioner, Alena Wang. I reviewed the nurse practitioner's note and agree with the documented findings and plan of care. Lung sounds are positive for clear breath sounds. The findings and the impression was discussed with the patient. I attest to the documentation by the nurse practitioner. Time with Patient: Greater than 30
[2018-09-18] MEDS: TAMSULOSIN 0.4 MG CAP.ER.24H PO SCH (20:58)
[2018-09-18] MEDS: MUPIROCIN 2% OINT 22 GM TUBE NASAL SCH (20:58)
--- NOTE | 2018-09-18 23:58 | P.PN ---
Subjective Progress Note Date: 09/18/18 Pleasant 63-year-old male presents to Hospital feeling poorly for quite some time. Because he was feeling poorly eventually had an echocardiogram performed to evaluate his cardiac status after computed tomography scan revealed potential abnormality. The transthoracic echocardiogram reveal evidence of the abnormality in the mitral valve leaflet. The patient underwent transesophageal echocardiogram the verifies the mitral regurgitant murmur in the large vegetation of the mitral valve. The patient now has multiple positive blood cultures with group B strep. 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 The patient relates that he has had a heart murmur noted for many years but has not had ongoing follow-up over time. At this time the murmur is easily heard and he has been evaluated by cardiothoracic surgery. Our plan will be to maximize antibiotic therapy this point time with ampicillin and gentamicin try to rapidly cleared his bacteremia. Once clearance of bacteremia has occurred he will proceed to the mitral valve surgery for removal of vegetation and repair or replacement of the valve. The reasons for the surgery are discussed including goal to reduce the risk of a significant embolic event Barbara concern would be of a large stroke. Secondly would be for repairing of the mitral valve without left ventricular dysfunction and refractory congestive heart failure. The qualifications of the cardiovascular surgeons is again reviewed with the patient's father and understands that the valve surgery is within the capability of the facility and the surgeons. There are many questions are answered. 09/15/2018 patient is feeling better today. He is having no fevers. Denies chills or rigors. Energy level is stable. No nausea or emesis and no onset of diarrhea. No skin rashes and no difficulties with painful joints. No painful oral cavity. 09/16/2018 patient continues to feel a bit better. The severe fever chills myalgias have all improved since coming to hospital. Denies to be in shortness of breath or cough denies chest pains and no new neurological complaints. Tolerating antibiotic therapy well 09/18/2018 patient is continued to have improvement of his status. Diffusion shows a resolved. Energy levels improved. Diffuse profuse myalgias and arthralgias have resolved. He is anxious to proceed to cardiac surgery. Objective - Vital Signs Vital signs: Vital Signs Temp 98.2 F 09/18/18 20:00 Pulse 73 09/18/18 20:00 Resp 16 09/18/18 20:00 BP 117/73 09/18/18 20:00 Pulse Ox 96 09/18/18 20:00 Intake & Output 09/18/18 09/18/18 09/19/18 06:59 18:59 06:59 Intake Total 640 590 260 Output Total 500 Balance 640 90 260 Weight 77.7 kg Intake: Intake, IV Titration 400 20 Amount Ampicillin 2,000 mg In 300 Sodium Chloride 0.9% 100 ml @ 200 mls/hr IVPB Q4HR [facility] Rx#:[id number] Gentamicin in NaCl Iso- 100 Osm Pmx 80 mg In Saline 1 100ml.bag @ 100 mls/hr IVPB Q12HR@0000,1200 [facility] Rx#:[id number] Sodium Chloride 0.9% 1, 20 000 ml @ 10 mls/hr IV . Q24H [facility] Rx#:[id number] Oral 240 590 240 Output: Urine 500 Other: Voiding Method Toilet Toilet # Voids 3 1 2 - Exam Pleasant 63-year-old male appears gentleman of stated age HEENT: Anicteric conjunctiva are pink and moist nasal mucosa grossly intact without significant lesions, there is no thrush. Neck: The neck is supple without significant lymphadenopathy or thyromegaly. Lungs: Good bilateral air entry without significant crackles or wheezing. There is no significant bronchial sounds. There is no egophony or dullness. Heart: Regular audible S1 and S2 soft S3 2/6 systolic murmur left sternal border to the axilla. No radiation to the carotids. Carotids have brisk upstroke without thrill Abdomen: Positive bowel sounds soft and nontender without palpable masses or organomegaly. There was no guarding or rebound. Extremities: The upper extremities have excellent pulses they are symmetric, no significant petechiae or telangiectasia. No splinter hemorrhages were noted. The lower extremities are free from significant edema. The peripheral pulses were 2+ and symmetric. Neuro: Awake alert oriented to person place and time. There are no acute new gross focal sensory motor deficits. The skin is without any evidence of petechia telangiectasia or splinter hemorrhages. There are no petechia of the hard or soft palate. No conjunctival lesions. - Labs CBC & Chem 7: 09/18/18 06:15 09/18/18 06:15 Labs: Abnormal Lab Results - Last 24 Hours (Table) 09/18/18 09/18/18 Range/Units 06:15 06:15 RBC 3.87 L (4.30-5.90) m/uL Hgb 11.3 L (13.0-17.5) gm/dL Hct 35.0 L (39.0-53.0) % Alkaline Phosphatase 164 H (38-126) U/L Total Protein 5.8 L (6.3-8.2) g/dL Albumin 2.9 L (3.5-5.0) g/dL Microbiology - Last 24 Hours (Table) 09/15/18 20:22 Blood Culture - Preliminary Blood No Growth after 72 hours 09/18/18 12:52 Urine Culture - Preliminary Urine,Voided 09/18/18 12:09 Nasal Screen MRSA/MSSA - Preliminary Nasal Swab 09/13/18 15:00 Blood Culture Gram Stain - Final Blood Blood Culture - Final Alpha Hemolytic Streptococcus 09/14/18 05:49 Blood Culture - Preliminary Blood No Growth after 96 hours Laboratory Results WBC 7.1 k/uL (3.8-10.6) 09/18/18 06:15 RBC 3.87 m/uL (4.30-5.90) L 09/18/18 06:15 Hgb 11.3 gm/dL (13.0-17.5) L 09/18/18 06:15 Hct 35.0 % (39.0-53.0) L 09/18/18 06:15 MCV 90.6 fL (80.0-100.0) 09/18/18 06:15 MCH 29.3 pg (25.0-35.0) 09/18/18 06:15 MCHC 32.3 g/dL (31.0-37.0) 09/18/18 06:15 RDW 15.2 % (11.5-15.5) 09/18/18 06:15 Plt Count 284 k/uL (150-450) 09/18/18 06:15 Neutrophils % 74 % 09/18/18 06:15 Lymphocytes % 19 % 09/18/18 06:15 Monocytes % 4 % 09/18/18 06:15 Eosinophils % 1 % 09/18/18 06:15 Basophils % 1 % 09/18/18 06:15 Neutrophils # 5.3 k/uL (1.3-7.7) 09/18/18 06:15 Lymphocytes # 1.4 k/uL (1.0-4.8) 09/18/18 06:15 Monocytes # 0.3 k/uL (0-1.0) 09/18/18 06:15 Eosinophils # 0.1 k/uL (0-0.7) 09/18/18 06:15 Basophils # 0.0 k/uL (0-0.2) 09/18/18 06:15 PT 11.2 sec (9.0-12.0) 09/11/18 18:19 INR 1.1 (<1.2) 09/11/18 18:19 APTT 26.4 sec (22.0-30.0) 09/11/18 18:19 Sodium 137 mmol/L (137-145) 09/18/18 06:15 Potassium 4.5 mmol/L (3.5-5.1) 09/18/18 06:15 Chloride 105 mmol/L (98-107) 09/18/18 06:15 Carbon Dioxide 27 mmol/L (22-30) 09/18/18 06:15 Anion Gap 5 mmol/L 09/18/18 06:15 BUN 14 mg/dL (9-20) 09/18/18 06:15 Creatinine 1.05 mg/dL (0.66-1.25) 09/18/18 06:15 Est GFR (CKD-EPI)AfAm 86 (>60 ml/min/1.73 sqM) 09/18/18 06:15 Est GFR (CKD-EPI)NonAf 75 (>60 ml/min/1.73 sqM) 09/18/18 06:15 Glucose 94 mg/dL (74-99) 09/18/18 06:[address] Glu mg/dL 103 09/14/18 05:49 Hemoglobin A1c 5.2 % (4.0-6.0) 09/14/18 05:49 Plasma Lactic Acid Maximiliano 1.1 mmol/L (0.7-2.0) 09/11/18 18:19 Calcium 8.6 mg/dL (8.4-10.2) 09/18/18 06:15 Magnesium 2.0 mg/dL (1.6-2.3) 09/18/18 06:15 Total Bilirubin 0.4 mg/dL (0.2-1.3) 09/18/18 06:15 AST 23 U/L (17-59) 09/18/18 06:15 ALT 25 U/L (21-72) 09/18/18 06:15 Alkaline Phosphatase 164 U/L (38-126) H 09/18/18 06:15 Total Creatine Kinase 36 U/L (55-170) L 09/11/18 18:19 CK-MB (CK-2) 0.7 ng/mL (0.0-2.4) 09/11/18 18:19 CK-MB (CK-2) Rel Index 1.9 09/11/18 18:19 Troponin I 0.066 ng/mL (0.000-0.034) H* 09/11/18 18:19 C-Reactive Protein 46.2 mg/L (<10.0) H 09/12/18 06:01 Total Protein 5.8 g/dL (6.3-8.2) L 09/18/18 06:15 Albumin 2.9 g/dL (3.5-5.0) L 09/18/18 06:15 Procalcitonin 0.55 ng/mL (0.02-0.09) H 09/11/18 18:19 Urine Color Light Yellow 09/18/18 12:52 Urine Appearance Clear (Clear) 09/18/18 12:52 Urine pH 6.5 (5.0-8.0) 09/18/18 12:52 Ur Specific [place] 1.009 (1.001-1.035) 09/18/18 12:52 Urine Protein Negative (Negative) 09/18/18 12:52 Urine Glucose (UA) Negative (Negative) 09/18/18 12:52 Urine Ketones Negative (Negative) 09/18/18 12:52 Urine Blood Negative (Negative) 09/18/18 12:52 Urine Nitrite Negative (Negative) 09/18/18 12:52 Urine Bilirubin Negative (Negative) 09/18/18 12:52 Urine Urobilinogen <2.0 mg/dL (<2.0) 09/18/18 12:52 Ur Leukocyte Esterase Negative (Negative) 09/18/18 12:52 Gentamicin Peak 4.2 ug/mL 09/18/18 14:42 Gentamicin Trough 0.7 ug/mL 09/18/18 11:26 Vancomycin Trough 5.5 ug/mL 09/14/18 05:49 Hepatitis A IgM Ab Non-Reactive (Non-Reactive) 09/14/18 05:49 Hep Bs Antigen Non-Reactive (Non-Reactive) 09/14/18 05:49 Hep B Core IgM Ab Non-Reactive (Non-Reactive) 09/14/18 05:49 Hep C IgG Ab Non-Reactive (Non-Reactive) 09/14/18 05:49 Microbiology 09/15/18 20:22 Blood Blood Culture - Preliminary No Growth after 72 hours 09/18/18 12:52 Urine,Voided Urine Culture - Preliminary 09/18/18 12:09 Nasal Swab Nasal Screen MRSA/MSSA - Preliminary 09/13/18 15:00 Blood Blood Culture Gram Stain - Final 09/13/18 15:00 Blood Blood Culture - Final Alpha Hemolytic Streptococcus 09/14/18 05:49 Blood Blood Culture - Preliminary No Growth after 96 hours 09/12/18 16:14 Blood Blood Culture Gram Stain - Final 09/12/18 16:14 Blood Blood Culture - Final Alpha Hemolytic Streptococcus 09/13/18 15:00 Blood Blood Culture - Final 09/12/18 06:01 Blood Blood Culture Gram Stain - Final 09/12/18 06:01 Blood Blood Culture - Final Alpha Hemolytic Streptococcus 09/11/18 18:19 Blood Blood Culture Gram Stain - Final 09/11/18 18:19 Blood Blood Culture - Final Alpha Hemolytic Streptococcus 09/12/18 06:39 Blood Blood Culture Gram Stain - Final 09/12/18 06:39 Blood Blood Culture - Final Strep agalactiae - (group b) 09/12/18 16:14 Blood Blood Culture - Final 09/12/18 06:01 Blood Blood Culture - Final 09/12/18 06:39 Blood Blood Culture - Final 09/11/18 18:19 Blood Blood Culture - Final Assessment and Plan (1) Endocarditis of [place] valve Narrative/Plan: Pleasant 63-year-old male presents to Hospital feeling poorly for quite some time. Because he was feeling poorly eventually had an echocardiogram performed to evaluate his cardiac status after computed tomography scan revealed potential abnormality. The transthoracic echocardiogram reveal evidence of the abnormality in the mitral valve leaflet. The patient underwent transesophageal echocardiogram the verifies the mitral regurgitant murmur in the large vegetation of the mitral valve. The patient now has multiple positive blood cultures with group B strep. 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 The patient relates that he has had a heart murmur noted for many years but has not had ongoing follow-up over time. At this time the murmur is easily heard and he has been evaluated by cardiothoracic surgery. Our plan will be to maximize antibiotic therapy this point time with ampicillin and gentamicin try to rapidly cleared his bacteremia. Once clearance of bacteremia has occurred he will proceed to the mitral valve surgery for removal of vegetation and repair or replacement of the valve. The reasons for the surgery are discussed including goal to reduce the risk of a significant embolic event Barbraa concern would be of a large stroke. Secondly would be for repairing of the mitral valve without left ventricular dysfunction and refractory congestive heart failure. The qualifications of the cardiovascular surgeons is again reviewed with the patient's father and understands that the valve surgery is within the capability of the facility and the surgeons. There are many questions are answered. 09/15/2018 patient is feeling better today. No fevers or chills. Laboratories is starting to report some negative blood cultures hopefully on the new antibiotic therapy of ampicillin and gentamicin the blood stream will be sterilized rapidly. Once this occurs it appears a cardiovascular surgery will be taking him for surgical intervention because of the large size of the vegetation and a valvular malfunction that is occurring which are both indications for intervention. 09/16/2018 patient feeling better today. Tolerating antibiotic therapy well with no significant difficulty such as fevers or chills. No nausea or emesis or diarrhea. Overall progressing. 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 As noted there are now blood cultures -48 hours and one set at 24 hours hopefully relating to the parents of his bacteremia with the synergistic combination of ampicillin and gentamicin. Patient be monitored for any nephrotoxicity. The patient and his mother's questions are answered. 09/18/2018 patient continues to improve. Is being followed closely by multiple consultants and cardiothoracic surgery is planning on the family repair or replacement on Friday. He has noted the blood cultures are now negative and 2 events the patient clinically has had significant improvement. We will continue to monitor in the perioperative timeframe. Continue current antimicrobial therapy with ampicillin and gentamicin. Current Visit: Yes Status: Acute Code(s): I38 - ENDOCARDITIS, VALVE UNSPECIFIED SNOMED Code(s): 45563939 (2) Bacteremia due to group B Streptococcus Current Visit: Yes Status: Acute Code(s): R78.81 - BACTEREMIA SNOMED Code( s): 547155170020
[2018-09-19] MEDS: AMPICILLIN 2,000 MG in SODIUM CHLORIDE 0.9% 100 ML IVPB SCH ×6 (03:01→22:53)
[2018-09-19 06:33] LABS: Basophils % (A) 1 %; Eosinophils # (A) 0.1 k/uL (0-0.7); Eosinophils % (A) 1 %; HCT 37.7 % (39.0-53.0); HGB 11.6 gm/dL (13.0-17.5); Lymphocytes # (A) 1.5 k/uL (1.0-4.8); Lymphocytes % (A) 22 %; MCH 27.9 pg (25.0-35.0); MCHC 30.6 g/dL (31.0-37.0); Mean Platelet Volume 6.5; Monocytes # (A) 0.3 k/uL (0-1.0); Monocytes % (A) 4 %; Neutrophils % (A) 71 %; Platelet Count 314 k/uL (150-450); RBC 4.15 m/uL (4.30-5.90); RDW 15.3 % (11.5-15.5)
[2018-09-19] MEDS: PANTOPRAZOLE 40 MG TABLET PO SCH (06:37)
[2018-09-19 06:44] LABS: INR 0.9 (<1.2); Partial Thromboplastin Time 25.4 sec (22.0-30.0); Prothrombin Time 10.2 sec (9.0-12.0)
[2018-09-19 06:46] LABS: Albumin 3.2 g/dL (3.5-5.0); Calcium 8.8 mg/dL (8.4-10.2); Potassium 4.4 mmol/L (3.5-5.1); Total Bilirubin 0.4 mg/dL (0.2-1.3); Total Protein 6.2 g/dL (6.3-8.2)
[2018-09-19] MEDS: HEPARIN SODIUM,PORCINE 5,000 UNIT/ML 1 ML VIAL SQ SCH ×3 (09:40→23:29)
[2018-09-19] MEDS: MUPIROCIN 2% OINT 22 GM TUBE NASAL SCH ×2 (09:46→22:47)
[2018-09-19] MEDS: METOPROLOL TARTRATE 12.5 MG TAB PO SCH ×2 (09:48→19:53)
[2018-09-19] MEDS: DOCUSATE 100 MG CAP PO SCH ×2 (09:48→19:53)
[2018-09-19] MEDS: GENTAMICIN IN NACL ISO-OSM PMX 80 MG in SALINE 1 100ML.BAG IVPB SCH ×2 (12:06→23:29)
--- NOTE | 2018-09-19 13:54 | P.PN ---
Subjective Progress Note Date: 09/19/18 Principal diagnosis: Mitral valve endocarditis, severe mitral valve regurgitation This is a 63-year-old white male patient of Dr. Sosa, who was initially admitted on 09/11/2018 for mitral valve endocarditis. Patient had been having night sweats, severe headaches, fevers on and off for the last 3 months, since June. He has been having generalized malaise, he was evaluated by his PCP , he was treated with a course of antibiotics with some improvement initially, but then patient's symptoms would recur. Patient had the SILVIA and cardiac catheterization by Dr. Hinojosa, findings revealed vegetation of the posterior mitral valve. Ejection fraction was preserved, cardiac presentation was within normal limits. Patient started on antibiotics, currently on IV ampicillin and gentamicin, and ID service is following. Patient's multiple blood cultures were positive for alpha hemolytic streptococcus, most recently his last 3 blood cultures have shown no growth. Afebrile, denies any chest pain, denies any dyspnea, pulse ox is 93%. No dizziness or syncopal episodes. Blood cultures are being drawn daily. Patient has received dental clearance. He is scheduled for mitral valve repair, possible replacement and exclusion of left atrial appendage on September 21. Patient does not have any history of chronic lung condition, He states he only smoked 6 cigarettes in his whole entire life, No asthma, no COPD. Other medical history includes hyperlipidemia, history of DVT and pulmonary embolism in 2010 following surgery on removal of kidney stone. He completed a course of anticoagulation for 9 months with Coumadin. The patient is seen again today 09/19/2018 in follow-up on the cardiac care unit. He is currently sitting up in bed. He is awake and alert in no acute distress. No chest pain, palpitations lightheadedness or dizziness. No fever, chills or night sweats. Maintaining good O2 saturations in the 90s on room air. Practicing with the incentive spirometer. Lungs are clear. White count 7.0. Hemoglobin 11.6. Creatinine 1.11. Blood cultures were positive for alpha hemolytic streptococcus. He remains on ampicillin and gentamicin. Plan is for mitral valve repair, possible replacement on 09/21/2018. Objective - Vital Signs Vital signs: Vital Signs Temp 97.8 F 09/19/18 08:15 Pulse 97 09/19/18 11:50 Resp 16 09/19/18 11:50 BP 107/55 09/19/18 11:50 Pulse Ox 97 09/19/18 11:50 Intake & Output 09/18/18 09/19/18 09/19/18 18:59 06:59 18:59 Intake Total 590 1240 2180 Output Total 500 Balance 90 1240 2180 Intake: Intake, IV Titration 520 380 Amount Ampicillin 2,000 mg In 400 200 Sodium Chloride 0.9% 100 ml @ 200 mls/hr IVPB Q4HR [facility] Rx#:[id number] Gentamicin in NaCl Iso- 100 100 Osm Pmx 80 mg In Saline 1 100ml.bag @ 100 mls/hr IVPB Q12HR@0000,1200 [facility] Rx#:[id number] Sodium Chloride 0.9% 1, 20 80 000 ml @ 10 mls/hr IV . Q24H [facility] Rx#:[id number] Oral [id number] Output: Urine 500 Other: Voiding Method Toilet Toilet # Voids 1 3 3 - Exam GENERAL EXAM: Alert, active, comfortable in no apparent distress. HEAD: Normocephalic. EYES: Normal reaction of pupils, equal size. NOSE: Clear with pink turbinates. THROAT: No erythema or exudates. NECK: No masses, no JVD. CHEST: No chest wall deformity. LUNGS: Equal air entry with no crackles, wheeze, rhonchi or dullness. CVS: S1 and S2 normal with positive systolic murmur murmur, regular rhythm. ABDOMEN: No hepatosplenomegaly, normal bowel sounds, no guarding or rigidity. SPINE: No scoliosis or deformity SKIN: No rashes CENTRAL NERVOUS SYSTEM: No focal deficits, tone is normal in all 4 extremities. EXTREMITIES: There is no peripheral edema. No clubbing, no cyanosis. Peripheral pulses are intact. - Labs CBC & Chem 7: 09/19/18 05:30 09/19/18 05:30 Labs: Abnormal Lab Results - Last 24 Hours (Table) 09/19/18 09/19/18 Range/Units 05:30 05:30 RBC 4.15 L (4.30-5.90) m/uL Hgb 11.6 L (13.0-17.5) gm/dL Hct 37.7 L (39.0-53.0) % MCHC 30.6 L (31.0-37.0) g/dL Alkaline Phosphatase 174 H (38-126) U/L Total Protein 6.2 L (6.3-8.2) g/dL Albumin 3.2 L (3.5-5.0) g/dL LDL Cholesterol, Calc 106 H (0-99) mg/dL HDL Cholesterol 39 L (40-60) mg/dL Microbiology - Last 24 Hours (Table) 09/14/18 05:49 Blood Culture - Preliminary Blood No Growth after 120 hours 09/15/18 20:22 Blood Culture - Preliminary Blood No Growth after 72 hours 09/18/18 12:52 Urine Culture - Preliminary Urine,Voided 09/18/18 12:09 Nasal Screen MRSA/MSSA - Preliminary Nasal Swab 09/13/18 15:00 Blood Culture Gram Stain - Final Blood Blood Culture - Final Alpha Hemolytic Streptococcus Assessment and Plan Assessment: Assessment #1. 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 Severe mitral valve regurgitation #3. Hyperlipidemia #4. History of DVT and pulmonary embolism in 2010 following the procedure for removal of kidney stone, completed 9 months course of Coumadin #5. Benign prostatic hypertrophy Plan: The patient was seen and evaluated by Dr. Bowles. He is currently stable from the pulmonary standpoint. Working well with the incentive spirometer. Maintaining good O2 saturations in the 90s on room air. We'll increase his activity as tolerated. We'll continue to follow make further recommendations based on his clinical status. I, the cosigning physician, performed a history & physical examination of the patient. Lungs sounds are clear. Maintaining good O2 saturations in the 90s on room air. I discussed the assessment and plan of care with my nurse practitioner, Jana Drummond. I attest to the above note as dictated by her.
--- NOTE | 2018-09-19 16:09 | P.PN ---
Subjective Progress Note Date: 09/19/18 Pleasant 63-year-old male presents to Hospital feeling poorly for quite some time. Because he was feeling poorly eventually had an echocardiogram performed to evaluate his cardiac status after computed tomography scan revealed potential abnormality. The transthoracic echocardiogram reveal evidence of the abnormality in the mitral valve leaflet. The patient underwent transesophageal echocardiogram the verifies the mitral regurgitant murmur in the large vegetation of the mitral valve. The patient now has multiple positive blood cultures with group B strep. 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 The patient relates that he has had a heart murmur noted for many years but has not had ongoing follow-up over time. At this time the murmur is easily heard and he has been evaluated by cardiothoracic surgery. Our plan will be to maximize antibiotic therapy this point time with ampicillin and gentamicin try to rapidly cleared his bacteremia. Once clearance of bacteremia has occurred he will proceed to the mitral valve surgery for removal of vegetation and repair or replacement of the valve. The reasons for the surgery are discussed including goal to reduce the risk of a significant embolic event [place] concern would be of a large stroke. Secondly would be for repairing of the mitral valve without left ventricular dysfunction and refractory congestive heart failure. The qualifications of the cardiovascular surgeons is again reviewed with the patient's father and understands that the valve surgery is within the capability of the facility and the surgeons. There are many questions are answered. 09/15/2018 patient is feeling better today. He is having no fevers. Denies chills or rigors. Energy level is stable. No nausea or emesis and no onset of diarrhea. No skin rashes and no difficulties with painful joints. No painful oral cavity. 09/16/2018 patient continues to feel a bit better. The severe fever chills myalgias have all improved since coming to hospital. Denies to be in shortness of breath or cough denies chest pains and no new neurological complaints. Tolerating antibiotic therapy well 09/18/2018 patient is continued to have improvement of his status. Diffusion shows a resolved. Energy levels improved. Diffuse profuse myalgias and arthralgias have resolved. He is anxious to proceed to cardiac surgery. 09/19/2018 patient is stable looks forward to surgery Friday Objective - Vital Signs Vital signs: Vital Signs Temp 97.8 F 09/19/18 08:15 Pulse 97 09/19/18 11:50 Resp 16 09/19/18 11:50 BP 107/55 09/19/18 11:50 Pulse Ox 97 09/19/18 11:50 Intake & Output 09/18/18 09/19/18 09/19/18 18:59 06:59 18:59 Intake Total 590 1240 2180 Output Total 500 Balance 90 1240 2180 Intake: Intake, IV Titration 520 380 Amount Ampicillin 2,000 mg In 400 200 Sodium Chloride 0.9% 100 ml @ 200 mls/hr IVPB Q4HR [facility] Rx#:[id number] Gentamicin in NaCl Iso- 100 100 Osm Pmx 80 mg In Saline 1 100ml.bag @ 100 mls/hr IVPB Q12HR@0000,1200 [facility] Rx#:[id number] Sodium Chloride 0.9% 1, 20 80 000 ml @ 10 mls/hr IV . Q24H [facility] Rx#:[id number] Oral [id number] Output: Urine 500 Other: Voiding Method Toilet Toilet # Voids 1 3 3 - Exam Pleasant 63-year-old male appears gentleman of stated age HEENT: Anicteric conjunctiva are pink and moist nasal mucosa grossly intact without significant lesions, there is no thrush. Neck: The neck is supple without significant lymphadenopathy or thyromegaly. Lungs: Good bilateral air entry without significant crackles or wheezing. There is no significant bronchial sounds. There is no egophony or dullness. Heart: Regular audible S1 and S2 soft S3 2/6 systolic murmur left sternal border to the axilla. No radiation to the carotids. Carotids have brisk upstroke without thrill Abdomen: Positive bowel sounds soft and nontender without palpable masses or organomegaly. There was no guarding or rebound. Extremities: The upper extremities have excellent pulses they are symmetric, no significant petechiae or telangiectasia. No splinter hemorrhages were noted. The lower extremities are free from significant edema. The peripheral pulses were 2+ and symmetric. Neuro: Awake alert oriented to person place and time. There are no acute new gross focal sensory motor deficits. The skin is without any evidence of petechia telangiectasia or splinter hemorrhages. There are no petechia of the hard or soft palate. No conjunctival lesions. - Labs CBC & Chem 7: 09/19/18 05:30 09/19/18 05:30 Labs: Abnormal Lab Results - Last 24 Hours (Table) 09/19/18 09/19/18 Range/Units 05:30 05:30 RBC 4.15 L (4.30-5.90) m/uL Hgb 11.6 L (13.0-17.5) gm/dL Hct 37.7 L (39.0-53.0) % MCHC 30.6 L (31.0-37.0) g/dL Alkaline Phosphatase 174 H (38-126) U/L Total Protein 6.2 L (6.3-8.2) g/dL Albumin 3.2 L (3.5-5.0) g/dL LDL Cholesterol, Calc 106 H (0-99) mg/dL HDL Cholesterol 39 L (40-60) mg/dL Microbiology - Last 24 Hours (Table) 09/14/18 05:49 Blood Culture - Preliminary Blood No Growth after 120 hours 09/15/18 20:22 Blood Culture - Preliminary Blood No Growth after 72 hours 09/18/18 12:52 Urine Culture - Preliminary Urine,Voided 09/18/18 12:09 Nasal Screen MRSA/MSSA - Preliminary Nasal Swab 09/13/18 15:00 Blood Culture Gram Stain - Final Blood Blood Culture - Final Alpha Hemolytic Streptococcus Laboratory Results WBC 7.0 k/uL (3.8-10.6) 09/19/18 05:30 RBC 4.15 m/uL (4.30-5.90) L 09/19/18 05:30 Hgb 11.6 gm/dL (13.0-17.5) L 09/19/18 05:30 Hct 37.7 % (39.0-53.0) L 09/19/18 05:30 MCV 91.0 fL (80.0-100.0) 09/19/18 05:30 MCH 27.9 pg (25.0-35.0) 09/19/18 05:30 MCHC 30.6 g/dL (31.0-37.0) L 09/19/18 05:30 RDW 15.3 % (11.5-15.5) 09/19/18 05:30 Plt Count 314 k/uL (150-450) 09/19/18 05:30 Neutrophils % 71 % 09/19/18 05:30 Lymphocytes % 22 % 09/19/18 05:30 Monocytes % 4 % 09/19/18 05:30 Eosinophils % 1 % 09/19/18 05:30 Basophils % 1 % 09/19/18 05:30 Neutrophils # 5.0 k/uL (1.3-7.7) 09/19/18 05:30 Lymphocytes # 1.5 k/uL (1.0-4.8) 09/19/18 05:30 Monocytes # 0.3 k/uL (0-1.0) 09/19/18 05:30 Eosinophils # 0.1 k/uL (0-0.7) 09/19/18 05:30 Basophils # 0.0 k/uL (0-0.2) 09/19/18 05:30 PT 10.2 sec (9.0-12.0) 09/19/18 05:30 INR 0.9 (<1.2) 09/19/18 05:30 APTT 25.4 sec (22.0-30.0) 09/19/18 05:30 Sodium 138 mmol/L (137-145) 09/19/18 05:30 Potassium 4.4 mmol/L (3.5-5.1) 09/19/18 05:30 Chloride 105 mmol/L (98-107) 09/19/18 05:30 Carbon Dioxide 27 mmol/L (22-30) 09/19/18 05:30 Anion Gap 6 mmol/L 09/19/18 05:30 BUN 15 mg/dL (9-20) 09/19/18 05:30 Creatinine 1.11 mg/dL (0.66-1.25) 09/19/18 05:30 Est GFR (CKD-EPI)AfAm 80 (>60 ml/min/1.73 sqM) 09/19/18 05:30 Est GFR (CKD-EPI)NonAf 70 (>60 ml/min/1.73 sqM) 09/19/18 05:30 Glucose 87 mg/dL (74-99) 09/19/18 05:[address] Glu mg/dL 103 09/14/18 05:49 Hemoglobin A1c 5.2 % (4.0-6.0) 09/14/18 05:49 Plasma Lactic Acid Maximil[place] 1.1 mmol/L (0.7-2.0) 09/11/18 18:19 Calcium 8.8 mg/dL (8.4-10.2) 09/19/18 05:30 Magnesium 2.0 mg/dL (1.6-2.3) 09/18/18 06:15 Total Bilirubin 0.4 mg/dL (0.2-1.3) 09/19/18 05:30 AST 25 U/L (17-59) 09/19/18 05:30 ALT 22 U/L (21-72) 09/19/18 05:30 Alkaline Phosphatase 174 U/L (38-126) H 09/19/18 05:30 Total Creatine Kinase 36 U/L (55-170) L 09/11/18 18:19 CK-MB (CK-2) 0.7 ng/mL (0.0-2.4) 09/11/18 18:19 CK-MB (CK-2) Rel Index 1.9 09/11/18 18:19 Troponin I 0.066 ng/mL (0.000-0.034) H* 09/11/18 18:19 C-Reactive Protein 46.2 mg/L (<10.0) H 09/12/18 06:01 Total Protein 6.2 g/dL (6.3-8.2) L 09/19/18 05:30 Albumin 3.2 g/dL (3.5-5.0) L 09/19/18 05:30 Triglycerides 66 mg/dL (<150) 09/19/18 05:30 Cholesterol 158 mg/dL (<200) 09/19/18 05:30 LDL Cholesterol, Calc 106 mg/dL (0-99) H 09/19/18 05:30 HDL Cholesterol 39 mg/dL (40-60) L 09/19/18 05:30 Procalcitonin 0.55 ng/mL (0.02-0.09) H 09/11/18 18:19 TSH 2.630 mIU/L (0.465-4.680) 09/19/18 05:30 Urine Color Light Yellow 09/18/18 12:52 Urine Appearance Clear (Clear) 09/18/18 12:52 Urine pH 6.5 (5.0-8.0) 09/18/18 12:52 Ur Specific [place] 1.009 (1.001-1.035) 09/18/18 12:52 Urine Protein Negative (Negative) 09/18/18 12:52 Urine Glucose (UA) Negative (Negative) 09/18/18 12:52 Urine Ketones Negative (Negative) 09/18/18 12:52 Urine Blood Negative (Negative) 09/18/18 12:52 Urine Nitrite Negative (Negative) 09/18/18 12:52 Urine Bilirubin Negative (Negative) 09/18/18 12:52 Urine Urobilinogen <2.0 mg/dL (<2.0) 09/18/18 12:52 Ur Leukocyte Esterase Negative (Negative) 09/18/18 12:52 Gentamicin Peak 4.2 ug/mL 09/18/18 14:42 Gentamicin Trough 0.7 ug/mL 09/18/18 11:26 Vancomycin Trough 5.5 ug/mL 09/14/18 05:49 Hepatitis A IgM Ab Non-Reactive (Non-Reactive) 09/14/18 05:49 Hep Bs Antigen Non-Reactive (Non-Reactive) 09/14/18 05:49 Hep B Core IgM Ab Non-Reactive (Non-Reactive) 09/14/18 05:49 Hep C IgG Ab Non-Reactive (Non-Reactive) 09/14/18 05:49 Microbiology 09/14/18 05:49 Blood Blood Culture - Preliminary No Growth after 120 hours 09/15/18 20:22 Blood Blood Culture - Preliminary No Growth after 72 hours 09/18/18 12:52 Urine,Voided Urine Culture - Preliminary 09/18/18 12:09 Nasal Swab Nasal Screen MRSA/MSSA - Preliminary 09/13/18 15:00 Blood Blood Culture Gram Stain - Final 09/13/18 15:00 Blood Blood Culture - Final Alpha Hemolytic Streptococcus 09/12/18 16:14 Blood Blood Culture Gram Stain - Final 09/12/18 16:14 Blood Blood Culture - Final Alpha Hemolytic Streptococcus 09/13/18 15:00 Blood Blood Culture - Final 09/12/18 06:01 Blood Blood Culture Gram Stain - Final 09/12/18 06:01 Blood Blood Culture - Final Alpha Hemolytic Streptococcus 09/11/18 18:19 Blood Blood Culture Gram Stain - Final 09/11/18 18:19 Blood Blood Culture - Final Alpha Hemolytic Streptococcus 09/12/18 06:39 Blood Blood Culture Gram Stain - Final 09/12/18 06:39 Blood Blood Culture - Final Strep agalactiae - (group b) 09/12/18 16:14 Blood Blood Culture - Final 09/12/18 06:01 Blood Blood Culture - Final 09/12/18 06:39 Blood Blood Culture - Final 09/11/18 18:19 Blood Blood Culture - Final Assessment and Plan (1) Endocarditis of [place] valve Narrative/Plan: Pleasant 63-year-old male presents to Hospital feeling poorly for quite some time. Because he was feeling poorly eventually had an echocardiogram performed to evaluate his cardiac status after computed tomography scan revealed potential abnormality. The transthoracic echocardiogram reveal evidence of the abnormality in the mitral valve leaflet. The patient underwent transesophageal echocardiogram the verifies the mitral regurgitant murmur in the large vegetation of the mitral valve. The patient now has multiple positive blood cultures with group B strep. 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 The patient relates that he has had a heart murmur noted for many years but has not had ongoing follow-up over time. At this time the murmur is easily heard and he has been evaluated by cardiothoracic surgery. Our plan will be to maximize antibiotic therapy this point time with ampicillin and gentamicin try to rapidly cleared his bacteremia. Once clearance of bacteremia has occurred he will proceed to the mitral valve surgery for removal of vegetation and repair or replacement of the valve. The reasons for the surgery are discussed including goal to reduce the risk of a significant embolic event [place] concern would be of a large stroke. Secondly would be for repairing of the mitral valve without left ventricular dysfunction and refractory congestive heart failure. The qualifications of the cardiovascular surgeons is again reviewed with the patient's father and understands that the valve surgery is within the capability of the facility and the surgeons. There are many questions are answered. 09/15/2018 patient is feeling better today. No fevers or chills. Laboratories is starting to report some negative blood cultures hopefully on the new antibiotic therapy of ampicillin and gentamicin the blood stream will be sterilized rapidly. Once this occurs it appears a cardiovascular surgery will be taking him for surgical intervention because of the large size of the vegetation and a valvular malfunction that is occurring which are both indications for intervention. 09/16/2018 patient feeling better today. Tolerating antibiotic therapy well with no significant difficulty such as fevers or chills. No nausea or emesis or diarrhea. Overall progressing. 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 As noted there are now blood cultures -48 hours and one set at 24 hours hopefully relating to the parents of his bacteremia with the synergistic combination of ampicillin and gentamicin. Patient be monitored for any nephrotoxicity. The patient and his mother's questions are answered. 09/18/2018 patient continues to improve. Is being followed closely by multiple consultants and cardiothoracic surgery is planning on the family repair or replacement on Friday. He has noted the blood cultures are now negative and 2 events the patient clinically has had significant improvement. We will continue to monitor in the perioperative timeframe. Continue current antimicrobial therapy with ampicillin and gentamicin. 09/19/2018 ongoing improvement await surgery on Friday. Continue the course of antibiotic therapy with ampicillin and gentamicin. Current Visit: Yes Status: Acute Code(s): I38 - ENDOCARDITIS, VALVE UNSPECIFIED SNOMED Code(s): 36022658 (2) Bacteremia due to group B Streptococcus Current Visit: Yes Status: Acute Code(s): R78.81 - BACTEREMIA SNOMED Code( s): 615336556102
[2018-09-19] MEDS: NATTOKINASE PO SCH (18:48)
[2018-09-19] MEDS: TAMSULOSIN 0.4 MG CAP.ER.24H PO SCH (19:53)
--- NOTE | 2018-09-19 22:14 | PN ---
PROGRESS NOTE Mr. Reddy is going for mitral valve endocarditis surgery for valve replacement. He is doing better. No chest pain. Cultures remain negative. Blood pressure 108/70, pulse rate 70 per minute. No JVD or carotid bruit. S1, S2 with a holosystolic murmur at the apex is audible. Lungs are clear. Abdomen and lower extremity exam unchanged. The rest of physical examination is unchanged. Patient will go for surgery in 48 hours. We will do a CBC and BMP in a.m. MMODL / IJN: [id number] /
--- NOTE | 2018-09-19 22:36 | P.PN ---
Subjective Progress Note Date: 09/19/18 is is a 63-year-old male patient of Dr. Sosa and Dr. Price with history of hyperlipidemia but long-standing history of heart murmur. Patient was having chills and sweating with generalized achiness that impacted his physical activity. He was initially treated for pneumonia and completed antibiotics but his symptoms continued. There was also concern for Lyme disease and patient was started on doxycycline approximate 3 weeks ago. He subsequently underwent a CAT scan that showed dilated ascending aorta and the patient was referred to Dr. Bear on for transthoracic echocardiogram that revealed a preserved systolic function with severe mitral regurgitation and a mass on the posterior mitral valve leaflet suggestive of endocarditis and vegetation and the patient was then set up for SILVIA and heart catheterization which was done yesterday. SILVIA revealed ejection fraction of 55% with severe eccentric right regurgitation with vegetation on the posterior mitral valve, mild tricuspid regurgitation and mild dilatation of the aorta and mild aortic regurgitation. Heart catheterization showed normal coronary arteries and dilated ascending aorta. Patient was admitted and a consult was added for Dr. Beck. Blood cultures were obtained. 09/13: patient is feeling well , was started on vancomycin ans subsequently was switched to Ancef 2gr IVPB Q8H as he is bacteeremic to Group B strep and alpha hemolytic strep, and we will repeat blood cultures today and tomorrow. 09/14: Patient is currently on Ancef. Patient has been seen by cardiothoracic surgery with plan for valve replacement or repair as early as Friday. Patient has been seen by dental surgeon and cleared of any present dental infection. CAT scan of the facial bones reveals sinuses clear with exception of left maxillary sinus and ostiomeatal complex is patent bilaterally. No evidence of abscess. Patient denies any new complaints. He has been afebrile since September 22. Pulse ox is 95% on room air. 09/15: Dr. Beck has changed antibiotics to ampicillin and gentamicin. Blood culture obtained on September 13 and one on September 14 are currently showing no growth after 24 hours. Patient is afebrile, vital signs are stable, blood pressure is noted to be some readings on the low side. Pulse ox is 92% to 94% on room air. Patient continues to deny any chest pain or shortness of breath, no lightheadedness or dizziness. He denies any fever or chills. 09/16: Blood culture from September 23 is now positive. Blood culture obtained on September 14 showing no growth. Blood culture from September 15 is in progress. Patient has been afebrile. He denies any fever or chills. He has had no nausea vomiting or diarrhea. Patient is continued on ampicillin and gentamicin. Cardiothoracic surgery is tentatively planning for surgery on Friday or Friday. 09/17: Patient denies any new complaints. He remains afebrile. Blood cultures from September 14 and September 15 are showing no growth. Patient is tentatively scheduled for surgery on Friday. 09/18: Patient denies any Complains any remains afebrile. Blood cultures from September 14 and September 15 are continuing to show no growth. Patient is scheduled for open heart surgery on Friday for mitral valve repair or replacement. Patient is continued on ampicillin and gentamicin and followed by Dr. Beck. 09/19: patient is in good spirits today, no apprehension towards anticipated surgery on friday. no fever chills or diarrhea. no chest pain edema or shortness of breath. labs reviewed Objective - Vital Signs Vital signs: Vital Signs Temp 97.8 F 09/19/18 08:15 Pulse 97 09/19/18 11:50 Resp 16 09/19/18 11:50 BP 107/55 09/19/18 11:50 Pulse Ox 97 09/19/18 11:50 Intake & Output 09/18/18 09/19/18 09/19/18 18:59 06:59 18:59 Intake Total 590 1240 300 Output Total 500 Balance 90 1240 300 Intake: Intake, IV Titration 520 Amount Ampicillin 2,000 mg In 400 Sodium Chloride 0.9% 100 ml @ 200 mls/hr IVPB Q4HR [facility] Rx#:[id number] Gentamicin in NaCl Iso- 100 Osm Pmx 80 mg In Saline 1 100ml.bag @ 100 mls/hr IVPB Q12HR@0000,1200 [facility] Rx#:[id number] Sodium Chloride 0.9% 1, 20 000 ml @ 10 mls/hr IV . Q24H [facility] Rx#:[id number] Oral 590 720 300 Output: Urine 500 Other: Voiding Method Toilet Toilet # Voids 1 3 - Constitutional General appearance: Present: average body habitus, cooperative, no acute distress - EENT Eyes: Present: anicteric sclerae, PERRLA, dentition normal ENT: Present: hearing grossly normal, NA/AT, normal oropharynx - Neck Neck: Present: normal ROM - Respiratory Respiratory: bilateral: CTA, negative: diminished, dullness, rales, rhonchi, wheezing - Cardiovascular Rhythm: regular Abnormal Heart Sounds: Present: systolic murmur - Integumentary Integumentary: Present: normal - Neurologic Neurologic: Present: CNII-XII intact - Musculoskeletal Musculoskeletal: Present: gait normal, strength equal bilaterally - Psychiatric Psychiatric: Present: A&O x's 3, appropriate affect, intact judgment & insight - Labs CBC & Chem 7: 09/19/18 05:30 09/19/18 05:30 Labs: Abnormal Lab Results - Last 24 Hours (Table) 09/19/18 09/19/18 Range/Units 05:30 05:30 RBC 4.15 L (4.30-5.90) m/uL Hgb 11.6 L (13.0-17.5) gm/dL Hct 37.7 L (39.0-53.0) % MCHC 30.6 L (31.0-37.0) g/dL Alkaline Phosphatase 174 H (38-126) U/L Total Protein 6.2 L (6.3-8.2) g/dL Albumin 3.2 L (3.5-5.0) g/dL LDL Cholesterol, Calc 106 H (0-99) mg/dL HDL Cholesterol 39 L (40-60) mg/dL Microbiology - Last 24 Hours (Table) 09/14/18 05:49 Blood Culture - Preliminary Blood No Growth after 120 hours 09/15/18 20:22 Blood Culture - Preliminary Blood No Growth after 72 hours 09/18/18 12:52 Urine Culture - Preliminary Urine,Voided 09/18/18 12:09 Nasal Screen MRSA/MSSA - Preliminary Nasal Swab 09/13/18 15:00 Blood Culture Gram Stain - Final Blood Blood Culture - Final Alpha Hemolytic Streptococcus Assessment and Plan Plan: 1. Subacute endocarditis with mitral valve vegetation post SILVIA and left heart catheterization that showed normal coronaries. Blood cultures were positive for group B streptococcus agalactia and alpha hemolytic strep and patient has been changed to ampicillin and gentamicin per Dr. Beck. Cardiothoracic surgery evaluation appreciated. Mitral valve repair or replacement scheduled for Friday 09/21 Repeat blood cultures from September 14 and are showing no growth. 2. Severe mitral regurgitation with mitral valve vegetation due to endocarditis. 3. Benign prostatic hypertrophy. Continue Flomax 0.4 mg orally once every day. 4. History of kidney stones. Stable. 5. DVT prophylaxis. Heparin 5000 units subcutaneously every 8 hours. 6. GI prophylaxis. Protonix 40 mg orally once every day. Discharge plan: Home
[2018-09-20] MEDS: AMPICILLIN 2,000 MG in SODIUM CHLORIDE 0.9% 100 ML IVPB SCH ×6 (03:09→22:41)
[2018-09-20] MEDS: PANTOPRAZOLE 40 MG TABLET PO SCH (06:26)
[2018-09-20] MEDS: DOCUSATE 100 MG CAP PO SCH ×2 (08:39→21:06)
[2018-09-20] MEDS: METOPROLOL TARTRATE 12.5 MG TAB PO SCH ×2 (08:39→21:06)
[2018-09-20] MEDS: HEPARIN SODIUM,PORCINE 5,000 UNIT/ML 1 ML VIAL SQ SCH ×3 (08:40→22:41)
[2018-09-20] MEDS: NATTOKINASE PO SCH (08:41)
[2018-09-20] MEDS: MUPIROCIN 2% OINT 22 GM TUBE NASAL SCH ×2 (08:41→21:07)
--- NOTE | 2018-09-20 09:49 | P.PN ---
Subjective Progress Note Date: 09/20/18 Principal diagnosis: Mitral valve endocarditis, severe mitral valve regurgitation. Previous medical history of mitral regurgitation, hyperlipidemia, DVT of the right calf in 2010, BPH, occasional wine, and family history of atrial fibrillation. The patient is currently sitting up in bed in no acute distress. Denies any chest pain or shortness of breath, denies dizziness or syncopal episodes. No new complaints. Blood cultures from September 14 and negative to date. Infectious disease on board, current prescribed antibiotic therapy ampicillin and gentamicin. T-max 100.6F on September 12, afebrile since. No leukocytosis. No new questions regarding surgery at this time. Objective - Vital Signs Vital signs: Vital Signs Temp 98.4 F 09/20/18 04:00 Pulse 74 09/20/18 04:00 Resp 16 09/20/18 04:00 BP 106/68 09/20/18 04:00 Pulse Ox 97 09/20/18 04:00 Intake & Output 09/19/18 09/20/18 09/20/18 18:59 06:59 18:59 Intake Total 2402 880 480 Balance 2402 880 480 Weight 77.5 kg Intake: Intake, IV Titration 380 400 Amount Ampicillin 2,000 mg In 200 300 Sodium Chloride 0.9% 100 ml @ 200 mls/hr IVPB Q4HR [facility] Rx#:[id number] Gentamicin in NaCl Iso- 100 100 Osm Pmx 80 mg In Saline 1 100ml.bag @ 100 mls/hr IVPB Q12HR@0000,1200 [facility] Rx#:[id number] Sodium Chloride 0.9% 1, 80 000 ml @ 10 mls/hr IV . Q24H [facility] Rx#:[id number] Oral 2021 480 480 Other: Voiding Method Toilet Toilet # Voids 3 1 - Constitutional General appearance: Present: cooperative, no acute distress - Respiratory Details: Lungs sounds clear bilaterally. Respirations even, nonlabored. Currently on room air with oxygen saturation 97%. Able to achieve 4000 mL on his incentive spirometry. Strong cough. - Cardiovascular Details: S1, S2 present. Positive systolic murmur present. Regular rate and rhythm, sinus rhythm on telemetry. Palpable peripheral pulses bilaterally. No edema present. No calf pain or tenderness noted. - Gastrointestinal Gastrointestinal Comment(s): Abdomen soft, nontender, nondistended. Active bowel sounds 4 quadrants. Tolerating diet. - Genitourinary Genitourinary Comment(s): Continues to void clear, yellow urine. - Integumentary Integumentary Comment(s): Skin is warm and dry with evidence of good perfusion. - Neurologic Neurologic: Present: CNII-XII intact - Musculoskeletal Musculoskeletal: Present: gait normal, strength equal bilaterally - Psychiatric Psychiatric: Present: A&O x's 3, appropriate affect, intact judgment & insight - Allied health notes Allied health notes reviewed: nursing - Labs CBC & Chem 7: 09/19/18 05:30 09/19/18 05:30 Labs: Abnormal Lab Results - Last 24 Hours (Table) 09/20/18 Range/Units 05:35 Crossmatch See Detail Microbiology - Last 24 Hours (Table) 09/14/18 05:49 Blood Culture - Final Blood No Growth after 144 hours 09/15/18 20:22 Blood Culture - Preliminary Blood No Growth after 96 hours 09/18/18 12:09 Nasal Screen MRSA/MSSA - Final Nasal Swab 09/18/18 12:52 Urine Culture - Final Urine,Voided Assessment and Plan (1) Mitral regurgitation Current Visit: Yes Status: Chronic Code(s): I34.0 - NONRHEUMATIC MITRAL ( VALVE) INSUFFICIENCY SNOMED Code(s): 06691100 (2) History of DVT (deep vein thrombosis) Current Visit: No Status: Resolved Code(s): Z86.718 - PERSONAL HISTORY OF OTHER VENOUS THROMBOSIS AND EMBOLISM SNOMED Code(s): 588965562 (3) Hyperlipemia Current Visit: Yes Status: Chronic Code(s): E78.5 - HYPERLIPIDEMIA, UNSPECIFIED SNOMED Code(s): 95402844 (4) Endocarditis of [place] valve Current Visit: Yes Status: Acute Code(s): I38 - ENDOCARDITIS, VALVE UNSPECIFIED SNOMED Code(s): 31227989 Plan: 1. Continue antibiotics per recommendations from infectious disease. Will follow blood cultures, September 14 and blood cultures negative to date. 2. Dental clearance obtained from Dr. Orozco, patient is cleared to undergo valve surgery. 3. Plan is for mitral valve repair, possible replacement, exclusion of the left atrial appendage on September [address] Figueroa. 4. Continue to reinforce preoperative teaching. 5. Encourage incentive spirometry use. 6. Continue beta masood therapy. 7. GI/DVT prophylaxis. 8. More recommendations to follow based on patient's progress. Time with Patient: Greater than 30
[2018-09-20] MEDS: GENTAMICIN IN NACL ISO-OSM PMX 80 MG in SALINE 1 100ML.BAG IVPB SCH ×2 (12:39→22:41)
--- NOTE | 2018-09-20 14:23 | PN ---
PROGRESS NOTE Mr. Moncada is going for mitral valve replacement for mitral valve endocarditis tomorrow. He is doing well. Vital signs stable. S1-S2 heard normally. Holosystolic murmur audible. Lungs are clear. Abdomen and lower extremity exam is unchanged. Plan is to continue all other medications as before. He will proceed with surgery. He has been culture negative for nearly 6 days. MMODL / IJN: [id number] /
[2018-09-20] MEDS ORDERED: MIDAZOLAM (PF) 2 MG/2 ML VIAL IV PRN (17:44)
[2018-09-20] MEDS ORDERED: LACTATED RINGERS 1,000 ML IV SCH (17:45)
[2018-09-20] MEDS: TAMSULOSIN 0.4 MG CAP.ER.24H PO SCH (21:06)
--- NOTE | 2018-09-20 21:21 | P.PN ---
Subjective Progress Note Date: 09/20/18 is is a 63-year-old male patient of Dr. Sosa and Dr. Price with history of hyperlipidemia but long-standing history of heart murmur. Patient was having chills and sweating with generalized achiness that impacted his physical activity. He was initially treated for pneumonia and completed antibiotics but his symptoms continued. There was also concern for Lyme disease and patient was started on doxycycline approximate 3 weeks ago. He subsequently underwent a CAT scan that showed dilated ascending aorta and the patient was referred to Dr. Bear on for transthoracic echocardiogram that revealed a preserved systolic function with severe mitral regurgitation and a mass on the posterior mitral valve leaflet suggestive of endocarditis and vegetation and the patient was then set up for SILVIA and heart catheterization which was done yesterday. SILVIA revealed ejection fraction of 55% with severe eccentric right regurgitation with vegetation on the posterior mitral valve, mild tricuspid regurgitation and mild dilatation of the aorta and mild aortic regurgitation. Heart catheterization showed normal coronary arteries and dilated ascending aorta. Patient was admitted and a consult was added for Dr. Beck. Blood cultures were obtained. 09/13: patient is feeling well , was started on vancomycin ans subsequently was switched to Ancef 2gr IVPB Q8H as he is bacteeremic to Group B strep and alpha hemolytic strep, and we will repeat blood cultures today and tomorrow. 09/14: Patient is currently on Ancef. Patient has been seen by cardiothoracic surgery with plan for valve replacement or repair as early as Friday. Patient has been seen by dental surgeon and cleared of any present dental infection. CAT scan of the facial bones reveals sinuses clear with exception of left maxillary sinus and ostiomeatal complex is patent bilaterally. No evidence of abscess. Patient denies any new complaints. He has been afebrile since September 22. Pulse ox is 95% on room air. 09/15: Dr. Beck has changed antibiotics to ampicillin and gentamicin. Blood culture obtained on September 13 and one on September 14 are currently showing no growth after 24 hours. Patient is afebrile, vital signs are stable, blood pressure is noted to be some readings on the low side. Pulse ox is 92% to 94% on room air. Patient continues to deny any chest pain or shortness of breath, no lightheadedness or dizziness. He denies any fever or chills. 09/16: Blood culture from September 23 is now positive. Blood culture obtained on September 14 showing no growth. Blood culture from September 15 is in progress. Patient has been afebrile. He denies any fever or chills. He has had no nausea vomiting or diarrhea. Patient is continued on ampicillin and gentamicin. Cardiothoracic surgery is tentatively planning for surgery on Friday or Friday. 09/17: Patient denies any new complaints. He remains afebrile. Blood cultures from September 14 and September 15 are showing no growth. Patient is tentatively scheduled for surgery on Friday. 09/18: Patient denies any Complains any remains afebrile. Blood cultures from September 14 and September 15 are continuing to show no growth. Patient is scheduled for open heart surgery on Friday for mitral valve repair or replacement. Patient is continued on ampicillin and gentamicin and followed by Dr. Beck. 09/19: patient is in good spirits today, no apprehension towards anticipated surgery on friday. no fever chills or diarrhea. no chest pain edema or shortness of breath. labs reviewed 09/20: patent is doing well anticpating MV replacemeint n am, has not have any chest pain or dyspnea any concerns were addressed today. family at bedside with full confidence going forward to surgery hgb 11.7 Objective - Vital Signs Vital signs: Vital Signs Temp 98.3 F 09/20/18 08:00 Pulse 83 09/20/18 08:00 Resp 16 09/20/18 04:00 BP 117/75 09/20/18 08:00 Pulse Ox 96 09/20/18 08:00 Intake & Output 09/19/18 09/20/18 09/20/18 18:59 06:59 18:59 Intake Total 2402 880 960 Balance 2402 880 960 Weight 77.5 kg Intake: Intake, IV Titration 380 400 Amount Ampicillin 2,000 mg In 200 300 Sodium Chloride 0.9% 100 ml @ 200 mls/hr IVPB Q4HR [facility] Rx#:[id number] Gentamicin in NaCl Iso- 100 100 Osm Pmx 80 mg In Saline 1 100ml.bag @ 100 mls/hr IVPB Q12HR@0000,1200 [facility] Rx#:[id number] Sodium Chloride 0.9% 1, 80 000 ml @ 10 mls/hr IV . Q24H [facility] Rx#:[id number] Oral 2022 480 960 Other: Voiding Method Toilet Toilet # Voids 3 1 - Constitutional General appearance: Present: average body habitus, cooperative, no acute distress - EENT Eyes: Present: anicteric sclerae, EOMI, dentition normal, normal appearance ENT: Present: NA/AT, normal oropharynx - Neck Neck: Present: normal ROM. Absent: lymphadenopathy, other, rigidity, stridor, thyromegaly - Respiratory Respiratory: bilateral: CTA, negative: diminished, dullness, rales, wheezing, prolonged expiration, prolonged inspiration - Cardiovascular Rhythm: regular Heart sounds: normal: S1, S2 Abnormal Heart Sounds: Absent: systolic murmur, diastolic murmur, rub, S3 Gallop , S4 Gallop, click, other - Gastrointestinal General gastrointestinal: Present: normal bowel sounds, soft - Integumentary Integumentary: Present: decreased turgor, normal - Neurologic Neurologic: Present: CNII-XII intact - Musculoskeletal Musculoskeletal: Present: gait normal, strength equal bilaterally - Psychiatric Psychiatric: Present: A&O x's 3, appropriate affect, intact judgment & insight - Labs CBC & Chem 7: 09/19/18 05:30 09/19/18 05:30 Labs: Abnormal Lab Results - Last 24 Hours (Table) 09/20/18 Range/Units 05:35 Crossmatch See Detail Microbiology - Last 24 Hours (Table) 09/14/18 05:49 Blood Culture - Final Blood No Growth after 144 hours 09/15/18 20:22 Blood Culture - Preliminary Blood No Growth after 96 hours 09/18/18 12:09 Nasal Screen MRSA/MSSA - Final Nasal Swab 09/18/18 12:52 Urine Culture - Final Urine,Voided Assessment and Plan Plan: 1. Subacute endocarditis with mitral valve vegetation post SILVIA and left heart catheterization that showed normal coronaries. Blood cultures were positive for group B streptococcus agalactia and alpha hemolytic strep and patient has been changed to ampicillin and gentamicin per Dr. Beck. Cardiothoracic surgery evaluation appreciated. Mitral valve repair or replacement scheduled for Friday 09/21 Repeat blood cultures from September 14 and are showing no growth. 2. Severe mitral regurgitation with mitral valve vegetation due to spontaneous endocarditis. remains afebrile dr beck for antibiotic 3. Benign prostatic hypertrophy. Continue Flomax 0.4 mg orally once every day. 4. History of kidney stones. Stable. 5. mild anemia posibly hemolytic in nature, arising from valve injury. stable for surgery 5. DVT prophylaxis. Heparin 5000 units subcutaneously every 8 hours. 6. GI prophylaxis. Protonix 40 mg orally once every day. Discharge plan: Home
--- NOTE | 2018-09-20 22:46 | P.PN ---
Subjective Progress Note Date: 09/20/18 Pleasant 63-year-old male presents to Hospital feeling poorly for quite some time. Because he was feeling poorly eventually had an echocardiogram performed to evaluate his cardiac status after computed tomography scan revealed potential abnormality. The transthoracic echocardiogram reveal evidence of the abnormality in the mitral valve leaflet. The patient underwent transesophageal echocardiogram the verifies the mitral regurgitant murmur in the large vegetation of the mitral valve. The patient now has multiple positive blood cultures with group B strep. 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 The patient relates that he has had a heart murmur noted for many years but has not had ongoing follow-up over time. At this time the murmur is easily heard and he has been evaluated by cardiothoracic surgery. Our plan will be to maximize antibiotic therapy this point time with ampicillin and gentamicin try to rapidly cleared his bacteremia. Once clearance of bacteremia has occurred he will proceed to the mitral valve surgery for removal of vegetation and repair or replacement of the valve. The reasons for the surgery are discussed including goal to reduce the risk of a significant embolic event Barbara concern would be of a large stroke. Secondly would be for repairing of the mitral valve without left ventricular dysfunction and refractory congestive heart failure. The qualifications of the cardiovascular surgeons is again reviewed with the patient's father and understands that the valve surgery is within the capability of the facility and the surgeons. There are many questions are answered. 09/15/2018 patient is feeling better today. He is having no fevers. Denies chills or rigors. Energy level is stable. No nausea or emesis and no onset of diarrhea. No skin rashes and no difficulties with painful joints. No painful oral cavity. 09/16/2018 patient continues to feel a bit better. The severe fever chills myalgias have all improved since coming to hospital. Denies to be in shortness of breath or cough denies chest pains and no new neurological complaints. Tolerating antibiotic therapy well 09/18/2018 patient is continued to have improvement of his status. Diffusion shows a resolved. Energy levels improved. Diffuse profuse myalgias and arthralgias have resolved. He is anxious to proceed to cardiac surgery. 09/19/2018 patient is stable looks forward to surgery Friday09/20/2018 patient is prepped for surgery for tomorrow and will monitor him in the postoperative time frame. Objective - Vital Signs Vital signs: Vital Signs Temp 98.8 F 09/20/18 20:00 Pulse 72 09/20/18 20:00 Resp 18 09/20/18 20:00 BP 122/81 09/20/18 20:00 Pulse Ox 94 L 09/20/18 20:00 Intake & Output 09/20/18 09/20/18 09/21/18 06:59 18:59 06:59 Intake Total 880 1500 40 Balance 880 1500 40 Weight 77.5 kg Intake: Intake, IV Titration 400 300 40 Amount Ampicillin 2,000 mg In 300 200 Sodium Chloride 0.9% 100 ml @ 200 mls/hr IVPB Q4HR [facility] Rx#:[id number] Gentamicin in NaCl Iso- 100 100 Osm Pmx 80 mg In Saline 1 100ml.bag @ 100 mls/hr IVPB Q12HR@0000,1200 J[facility]US Rx#:[id number] Lactated Ringers 1,000 ml 40 @ 20 mls/hr IV .Q24H [facility]US Rx#:[id number] Oral 480 1200 Other: Voiding Method Toilet # Voids 1 - Exam Pleasant 63-year-old male appears gentleman of stated age HEENT: Anicteric conjunctiva are pink and moist nasal mucosa grossly intact without significant lesions, there is no thrush. Neck: The neck is supple without significant lymphadenopathy or thyromegaly. Lungs: Good bilateral air entry without significant crackles or wheezing. There is no significant bronchial sounds. There is no egophony or dullness. Heart: Regular audible S1 and S2 soft S3 2/6 systolic murmur left sternal border to the axilla. No radiation to the carotids. Carotids have brisk upstroke without thrill Abdomen: Positive bowel sounds soft and nontender without palpable masses or organomegaly. There was no guarding or rebound. Extremities: The upper extremities have excellent pulses they are symmetric, no significant petechiae or telangiectasia. No splinter hemorrhages were noted. The lower extremities are free from significant edema. The peripheral pulses were 2+ and symmetric. Neuro: Awake alert oriented to person place and time. There are no acute new gross focal sensory motor deficits. The skin is without any evidence of petechia telangiectasia or splinter hemorrhages. There are no petechia of the hard or soft palate. No conjunctival lesions. - Labs CBC & Chem 7: 09/19/18 05:30 09/19/18 05:30 Labs: Abnormal Lab Results - Last 24 Hours (Table) 09/20/18 Range/Units 05:35 Crossmatch See Detail Microbiology - Last 24 Hours (Table) 09/15/18 20:22 Blood Culture - Preliminary Blood No Growth after 120 hours 09/14/18 05:49 Blood Culture - Final Blood No Growth after 144 hours 09/18/18 12:09 Nasal Screen MRSA/MSSA - Final Nasal Swab 09/18/18 12:52 Urine Culture - Final Urine,Voided Laboratory Results WBC 7.0 k/uL (3.8-10.6) 09/19/18 05:30 RBC 4.15 m/uL (4.30-5.90) L 09/19/18 05:30 Hgb 11.6 gm/dL (13.0-17.5) L 09/19/18 05:30 Hct 37.7 % (39.0-53.0) L 09/19/18 05:30 MCV 91.0 fL (80.0-100.0) 09/19/18 05:30 MCH 27.9 pg (25.0-35.0) 09/19/18 05:30 MCHC 30.6 g/dL (31.0-37.0) L 09/19/18 05:30 RDW 15.3 % (11.5-15.5) 09/19/18 05:30 Plt Count 314 k/uL (150-450) 09/19/18 05:30 Neutrophils % 71 % 09/19/18 05:30 Lymphocytes % 22 % 09/19/18 05:30 Monocytes % 4 % 09/19/18 05:30 Eosinophils % 1 % 09/19/18 05:30 Basophils % 1 % 09/19/18 05:30 Neutrophils # 5.0 k/uL (1.3-7.7) 09/19/18 05:30 Lymphocytes # 1.5 k/uL (1.0-4.8) 09/19/18 05:30 Monocytes # 0.3 k/uL (0-1.0) 09/19/18 05:30 Eosinophils # 0.1 k/uL (0-0.7) 09/19/18 05:30 Basophils # 0.0 k/uL (0-0.2) 09/19/18 05:30 PT 10.2 sec (9.0-12.0) 09/19/18 05:30 INR 0.9 (<1.2) 09/19/18 05:30 APTT 25.4 sec (22.0-30.0) 09/19/18 05:30 Sodium 138 mmol/L (137-145) 09/19/18 05:30 Potassium 4.4 mmol/L (3.5-5.1) 09/19/18 05:30 Chloride 105 mmol/L (98-107) 09/19/18 05:30 Carbon Dioxide 27 mmol/L (22-30) 09/19/18 05:30 Anion Gap 6 mmol/L 09/19/18 05:30 BUN 15 mg/dL (9-20) 09/19/18 05:30 Creatinine 1.11 mg/dL (0.66-1.25) 09/19/18 05:30 Est GFR (CKD-EPI)AfAm 80 (>60 ml/min/1.73 sqM) 09/19/18 05:30 Est GFR (CKD-EPI)NonAf 70 (>60 ml/min/1.73 sqM) 09/19/18 05:30 Glucose 87 mg/dL (74-99) 09/19/18 05:[address] Glu mg/dL 103 09/14/18 05:49 Hemoglobin A1c 5.2 % (4.0-6.0) 09/14/18 05:49 Plasma Lactic Acid Maximiliano 1.1 mmol/L (0.7-2.0) 09/11/18 18:19 Calcium 8.8 mg/dL (8.4-10.2) 09/19/18 05:30 Magnesium 2.0 mg/dL (1.6-2.3) 09/18/18 06:15 Total Bilirubin 0.4 mg/dL (0.2-1.3) 09/19/18 05:30 AST 25 U/L (17-59) 09/19/18 05:30 ALT 22 U/L (21-72) 09/19/18 05:30 Alkaline Phosphatase 174 U/L (38-126) H 09/19/18 05:30 Total Creatine Kinase 36 U/L (55-170) L 09/11/18 18:19 CK-MB (CK-2) 0.7 ng/mL (0.0-2.4) 09/11/18 18:19 CK-MB (CK-2) Rel Index 1.9 09/11/18 18:19 Troponin I 0.066 ng/mL (0.000-0.034) H* 09/11/18 18:19 C-Reactive Protein 46.2 mg/L (<10.0) H 09/12/18 06:01 Total Protein 6.2 g/dL (6.3-8.2) L 09/19/18 05:30 Albumin 3.2 g/dL (3.5-5.0) L 09/19/18 05:30 Triglycerides 66 mg/dL (<150) 09/19/18 05:30 Cholesterol 158 mg/dL (<200) 09/19/18 05:30 LDL Cholesterol, Calc 106 mg/dL (0-99) H 09/19/18 05:30 HDL Cholesterol 39 mg/dL (40-60) L 09/19/18 05:30 Procalcitonin 0.55 ng/mL (0.02-0.09) H 09/11/18 18:19 TSH 2.630 mIU/L (0.465-4.680) 09/19/18 05:30 Urine Color Light Yellow 09/18/18 12:52 Urine Appearance Clear (Clear) 09/18/18 12:52 Urine pH 6.5 (5.0-8.0) 09/18/18 12:52 Ur Specific [place] 1.009 (1.001-1.035) 09/18/18 12:52 Urine Protein Negative (Negative) 09/18/18 12:52 Urine Glucose (UA) Negative (Negative) 09/18/18 12:52 Urine Ketones Negative (Negative) 09/18/18 12:52 Urine Blood Negative (Negative) 09/18/18 12:52 Urine Nitrite Negative (Negative) 09/18/18 12:52 Urine Bilirubin Negative (Negative) 09/18/18 12:52 Urine Urobilinogen <2.0 mg/dL (<2.0) 09/18/18 12:52 Ur Leukocyte Esterase Negative (Negative) 09/18/18 12:52 Gentamicin Peak 4.2 ug/mL 09/18/18 14:42 Gentamicin Trough 0.7 ug/mL 09/18/18 11:26 Vancomycin Trough 5.5 ug/mL 09/14/18 05:49 Hepatitis A IgM Ab Non-Reactive (Non-Reactive) 09/14/18 05:49 Hep Bs Antigen Non-Reactive (Non-Reactive) 09/14/18 05:49 Hep B Core IgM Ab Non-Reactive (Non-Reactive) 09/14/18 05:49 Hep C IgG Ab Non-Reactive (Non-Reactive) 09/14/18 05:49 Blood Type B Positive 09/20/18 05:35 Blood Type Confirm B Positive 09/18/18 06:15 Blood Type Recheck CABO Indicated 09/20/18 05:35 Antibody Screen NEGATIVE 09/20/18 05:35 Crossmatch See Detail 09/20/18 05:35 Spec Expiration Date 09/23/2018 - 0249 09/20/18 05:35 Microbiology 09/15/18 20:22 Blood Blood Culture - Preliminary No Growth after 120 hours 09/14/18 05:49 Blood Blood Culture - Final No Growth after 144 hours 09/18/18 12:09 Nasal Swab Nasal Screen MRSA/MSSA - Final 09/18/18 12:52 Urine,Voided Urine Culture - Final 09/13/18 15:00 Blood Blood Culture Gram Stain - Final 09/13/18 15:00 Blood Blood Culture - Final Alpha Hemolytic Streptococcus 09/12/18 16:14 Blood Blood Culture Gram Stain - Final 09/12/18 16:14 Blood Blood Culture - Final Alpha Hemolytic Streptococcus 09/13/18 15:00 Blood Blood Culture - Final 09/12/18 06:01 Blood Blood Culture Gram Stain - Final 09/12/18 06:01 Blood Blood Culture - Final Alpha Hemolytic Streptococcus 09/11/18 18:19 Blood Blood Culture Gram Stain - Final 09/11/18 18:19 Blood Blood Culture - Final Alpha Hemolytic Streptococcus 09/12/18 06:39 Blood Blood Culture Gram Stain - Final 09/12/18 06:39 Blood Blood Culture - Final Strep agalactiae - (group b) 09/12/18 16:14 Blood Blood Culture - Final 09/12/18 06:01 Blood Blood Culture - Final 12/08/18 06:39 Blood Blood Culture - Final 09/11/18 18:19 Blood Blood Culture - Final Assessment and Plan (1) Endocarditis of [place] valve Narrative/Plan: Pleasant 63-year-old male presents to Hospital feeling poorly for quite some time. Because he was feeling poorly eventually had an echocardiogram performed to evaluate his cardiac status after computed tomography scan revealed potential abnormality. The transthoracic echocardiogram reveal evidence of the abnormality in the mitral valve leaflet. The patient underwent transesophageal echocardiogram the verifies the mitral regurgitant murmur in the large vegetation of the mitral valve. The patient now has multiple positive blood cultures with group B strep. 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 The patient relates that he has had a heart murmur noted for many years but has not had ongoing follow-up over time. At this time the murmur is easily heard and he has been evaluated by cardiothoracic surgery. Our plan will be to maximize antibiotic therapy this point time with ampicillin and gentamicin try to rapidly cleared his bacteremia. Once clearance of bacteremia has occurred he will proceed to the mitral valve surgery for removal of vegetation and repair or replacement of the valve. The reasons for the surgery are discussed including goal to reduce the risk of a significant embolic event Barbara concern would be of a large stroke. Secondly would be for repairing of the mitral valve without left ventricular dysfunction and refractory congestive heart failure. The qualifications of the cardiovascular surgeons is again reviewed with the patient's father and understands that the valve surgery is within the capability of the facility and the surgeons. There are many questions are answered. 09/15/2018 patient is feeling better today. No fevers or chills. Laboratories is starting to report some negative blood cultures hopefully on the new antibiotic therapy of ampicillin and gentamicin the blood stream will be sterilized rapidly. Once this occurs it appears a cardiovascular surgery will be taking him for surgical intervention because of the large size of the vegetation and a valvular malfunction that is occurring which are both indications for intervention. 09/16/2018 patient feeling better today. Tolerating antibiotic therapy well with no significant difficulty such as fevers or chills. No nausea or emesis or diarrhea. Overall progressing. 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 As noted there are now blood cultures -48 hours and one set at 24 hours hopefully relating to the parents of his bacteremia with the synergistic combination of ampicillin and gentamicin. Patient be monitored for any nephrotoxicity. The patient and his mother's questions are answered. 09/18/2018 patient continues to improve. Is being followed closely by multiple consultants and cardiothoracic surgery is planning on the family repair or replacement on Friday. He has noted the blood cultures are now negative and 2 events the patient clinically has had significant improvement. We will continue to monitor in the perioperative timeframe. Continue current antimicrobial therapy with ampicillin and gentamicin. 09/19/2018 ongoing improvement await surgery on Friday. Continue the course of antibiotic therapy with ampicillin and gentamicin. 09/20/2018 patient will have his valvular surgery tomorrow and he will be followed postoperatively. The goal will be for 2 weeks of antibiotic therapy after his surgery. Once surgery is complete IV access PICC line can be placed for completion of his course of antibiotic therapy. The frequency of antibiotic might be a bit of a challenge but will work with the home care regarding options. The patient's parents and sister are present and are updated to the patient's status and plans for tomorrow and the overall plan in the outpatient setting. Current Visit: Yes Status: Acute Code(s): I38 - ENDOCARDITIS, VALVE UNSPECIFIED SNOMED Code(s): 16725136 (2) Bacteremia due to group B Streptococcus Current Visit: Yes Status: Acute Code(s): R78.81 - BACTEREMIA SNOMED Code( s): 270231069007
[2018-09-21] MEDS: AMPICILLIN 2,000 MG in SODIUM CHLORIDE 0.9% 100 ML IVPB SCH ×4 (03:58→22:11)
[2018-09-21 04:58] LABS: Glucose,Whole Blood 101 mg/dL (75-99)
[2018-09-21] MEDS ORDERED: HEPARIN SODIUM 1,000 UN/ML (10ML VL) IV ONE (05:00)
[2018-09-21] MEDS ORDERED: METOPROLOL TARTRATE 12.5 MG TAB PO ONE (05:00)
[2018-09-21] MEDS ORDERED: SODIUM CHLORIDE 0.9% 1,000 ML IV SCH (05:00)
[2018-09-21] MEDS ORDERED: PROTAMINE SULFATE 10 MG/ML 25 ML VIAL IV ONE ×2 (05:00→08:06)
[2018-09-21] MEDS ORDERED: MAGNESIUM SULFATE SYG 4.06 MEQ/ML SYRINGE IV ONE (05:00)
[2018-09-21] MEDS ORDERED: PROTAMINE SULFATE 250 MG in EMPTY BAG 1 BAG IV ONE (05:00)
[2018-09-21] MEDS ORDERED: PHENYLEPHRINE-0.9% NACL SYG 1 MG/10 ML SYRINGE IV ONE ×4 (05:00)
[2018-09-21] MEDS ORDERED: TRANEXAMIC ACID 2,000 MG in SODIUM CHLORIDE 0.9% 180 ML IV ONE (05:00)
[2018-09-21] MEDS ORDERED: NITROGLYCERIN-D5W PMX 50 MG in DEXTROSE/WATER 1 250ML.BAG IV ONE (05:00)
[2018-09-21] MEDS ORDERED: PROPOFOL 1,000 MG in EMPTY BAG 1 BAG IV ONE (05:00)
[2018-09-21] MEDS ORDERED: ALBUMIN HUMAN 25% 50 ML in EMPTY BAG 1 BAG IVPB ONE (05:00)
[2018-09-21] MEDS ORDERED: NITROGLYCERIN-D5W PMX 25 MG/250 ML BTL IV ONE (05:00)
[2018-09-21] MEDS ORDERED: ALBUMIN HUMAN 5% 500 ML in EMPTY BAG 1 BAG IVPB ONE ×6 (05:00)
[2018-09-21] MEDS ORDERED: MANNITOL 25% 12.5 GM/50 ML VIAL IV ONE ×2 (05:00)
[2018-09-21] MEDS ORDERED: PHENYLEPHRINE 40 MG in SODIUM CHLORIDE 0.9% 250 ML IV ONE (05:00)
[2018-09-21] MEDS ORDERED: CALCIUM CHLORIDE 100 MG/ML 10 ML SYRINGE IVP ONE (05:00)
[2018-09-21] MEDS ORDERED: CHLORHEXIDINE GLUCONATE 15 ML CUP MUCOUS MEM ONE (05:00)
[2018-09-21] MEDS ORDERED: ASPIRIN 325 MG TAB PO ONE (05:00)
[2018-09-21] MEDS ORDERED: ATORVASTATIN 10 MG TAB PO ONE (05:00)
[2018-09-21] MEDS ORDERED: SODIUM BICARB 8.4% 50 ML SYR (1 MEQ/ML) IV ONE (05:00)
[2018-09-21] MEDS ORDERED: CLEVIDIPINE BUTYRATE 25 MG in EMPTY BAG 1 BAG IV ONE (06:00)
[2018-09-21] MEDS ORDERED: ceFAZolin 2 GM in SODIUM CHLORIDE 0.9% 30 ML IVPB ONE (06:00)
[2018-09-21] MEDS ORDERED: DEXTROSE 5% IN WATER 1,000 ML with POTASSIUM CHLORIDE 110 MEQ, MAGNESIUM SULFATE 16 MEQ... IV SCH ×5 (06:00)
[2018-09-21] MEDS ORDERED: ceFAZolin 1,000 MG in SODIUM CHLORIDE 0.9% IRRIGATIO 1,000 ML IRRIGATION ONE (06:00)
[2018-09-21] MEDS ORDERED: DEXTROSE 5% IN WATER 1,000 ML with POTASSIUM CHLORIDE 25 MEQ, SODIUM CHLORIDE 2.5MEQ/ML... IV SCH ×6 (06:00)
[2018-09-21] MEDS ORDERED: HEPARIN SODIUM,PORCINE 5,000 UNIT in SODIUM CHLORIDE 0.9% 500 ML 500 ML IV ONE (06:00)
[2018-09-21] MEDS ORDERED: NOREPINEPHRINE 4 MG in SODIUM CHLORIDE 0.9% 250 ML IV SCH (06:00)
[2018-09-21] MEDS ORDERED: ceFAZolin 2,000 MG in SODIUM CHLORIDE 0.9% 30 ML IVPB ONE (06:00)
[2018-09-21] MEDS ORDERED: INSULIN REGULAR 100 UNIT in SODIUM CHLORIDE 0.9% 100 ML IV ONE (06:00)
[2018-09-21] MEDS ORDERED: IV FLUID CONTINUATION 1,000 ML IV ONE (06:39)
[2018-09-21] MEDS ORDERED: PROPOFOL 10 MG/ML 20 ML VIAL IV ONE (08:06)
[2018-09-21] MEDS ORDERED: ELECTROLYTE-R (PH 7.4) 1,000 ML IV.SOLN IV ONE (08:06)
[2018-09-21] MEDS ORDERED: VECURONIUM 10 MG VIAL IV ONE (08:06)
[2018-09-21] MEDS ORDERED: SODIUM CHLORIDE 0.9% 250 ML BAG ONE (08:06)
[2018-09-21] MEDS ORDERED: SODIUM CHLORIDE 0.9% IRRIG 1,000 ML BTL IRRIGATION ONE (08:06)
[2018-09-21] MEDS ORDERED: MAGNESIUM SULFATE 4 MEQ/ML 10ML VIAL ONE (08:06)
[2018-09-21] MEDS ORDERED: fentaNYL (PF) 50 MCG/ML 50 ML VIAL ONE (08:06)
[2018-09-21] MEDS ORDERED: TRANEXAMIC ACID 1,000 MG/10 ML VIAL ONE (08:06)
[2018-09-21] MEDS ORDERED: ALBUMIN HUMAN 5% 500 ML VIAL IVPB ONE (08:06)
[2018-09-21] MEDS ORDERED: LIDOCAINE 2% SYG (PF) 100 MG/5 ML ONE (08:06)
[2018-09-21] MEDS ORDERED: MIDAZOLAM 2 MG/2 ML VIAL ONE (08:06)
[2018-09-21] MEDS ORDERED: HEPARIN SODIUM,PORCINE 10,000 UNIT/ML 1 ML VIAL ONE (08:06)
[2018-09-21] MEDS ORDERED: fentaNYL (PF) 50 MCG/ML 2 ML AMP ONE (08:06)
[2018-09-21 08:41] LABS: ABG Base Excess 1.9 mmol/L; ABG HCO3 26 mmol/L (21-25); ABG PCO2 36 mmHg (35-45); ABG PH 7.47 (7.35-7.45); ABG PO2 374 mmHg (83-108); ABG Sodium Whole Blood 140 mmol/L (135-146); ABG TCO2 27 mmol/L (19-24)
[2018-09-21 09:46] LABS: ABG Base Excess 1.4 mmol/L; ABG HCO3 27 mmol/L (21-25); ABG Oxygen Saturation 79.9 % (94-97); ABG PCO2 46 mmHg (35-45); ABG PH 7.38 (7.35-7.45); ABG Sodium Whole Blood 141 mmol/L (135-146); ABG TCO2 28 mmol/L (19-24)
[2018-09-21] MEDS ORDERED: SODIUM CHLORIDE 0.9% 500 ML 500 ML with HEPARIN SODIUM,PORCINE 5,000 UNIT IV ONE ×2 (09:47)
[2018-09-21] MEDS ORDERED: ceFAZolin 1,000 MG in SODIUM CHLORIDE 0.9% 1,000 ML IRRIGATION ONE ×4 (09:48)
[2018-09-21 10:31] LABS: ABG Base Excess 0.5 mmol/L; ABG HCO3 26 mmol/L (21-25); ABG PCO2 45 mmHg (35-45); ABG PH 7.37 (7.35-7.45); ABG PO2 271 mmHg (83-108); ABG Potassium Whole Blood 4.7 mmol/L (3.4-4.5); ABG Sodium Whole Blood 136 mmol/L (135-146); ABG TCO2 27 mmol/L (19-24)
[2018-09-21 11:03] LABS: ABG Base Excess -0.6 mmol/L; ABG HCO3 26 mmol/L (21-25); ABG PCO2 50 mmHg (35-45); ABG PH 7.32 (7.35-7.45); ABG PO2 331 mmHg (83-108); ABG Potassium Whole Blood 4.5 mmol/L (3.4-4.5); ABG Sodium Whole Blood 137 mmol/L (135-146); ABG TCO2 27 mmol/L (19-24)
[2018-09-21 11:36] LABS: ABG Base Excess -1.1 mmol/L; ABG HCO3 24 mmol/L (21-25); ABG PCO2 43 mmHg (35-45); ABG PH 7.36 (7.35-7.45); ABG PO2 303 mmHg (83-108); ABG Potassium Whole Blood 4.3 mmol/L (3.4-4.5); ABG Sodium Whole Blood 138 mmol/L (135-146); ABG TCO2 26 mmol/L (19-24)
[2018-09-21 12:07] LABS: ABG PO2 47 mmHg (83-108)
[2018-09-21 12:14] LABS: ABG Base Excess -0.7 mmol/L; ABG HCO3 24 mmol/L (21-25); ABG Oxygen Saturation 99.7 % (94-97); ABG PCO2 39 mmHg (35-45); ABG PO2 191 mmHg (83-108); ABG Potassium Whole Blood 3.7 mmol/L (3.4-4.5); ABG Sodium Whole Blood 139 mmol/L (135-146); ABG TCO2 25 mmol/L (19-24)
[2018-09-21] MEDS: DEXTROSE 50%-WATER 50 ML SYRINGE IVP STA ×2 (13:15→14:45)
[2018-09-21] MEDS ORDERED: PROPOFOL 1,000 MG in EMPTY BAG 1 BAG IV SCH (13:23)
[2018-09-21] MEDS ORDERED: Phosphorus Replacement Protoco 1 EACH MISC MISCELLANE PRN (13:23)
[2018-09-21] MEDS ORDERED: ONDANSETRON 4 MG/2 ML VIAL IVP PRN (13:23)
[2018-09-21] MEDS ORDERED: Potassium Replacement Protocol 1 EACH MISC MISCELLANE PRN (13:23)
[2018-09-21] MEDS ORDERED: CALCIUM CHLORIDE 1,000 MG in SODIUM CHLORIDE 0.9% 100 ML IV PRN (13:23)
[2018-09-21] MEDS ORDERED: Magnesium Replacement Protocol 1 EACH MISC MISCELLANE PRN (13:23)
[2018-09-21] MEDS ORDERED: IPRATROPIUM-ALBUTEROL 3 ML NEB INHALATION PRN (13:23)
[2018-09-21] MEDS ORDERED: AMIODARONE 450 MG in DEXTROSE 5% IN WATER 250 ML IV PRN ×2 (13:23)
[2018-09-21] MEDS ORDERED: MORPHINE SULFATE 2 MG/ML SYRINGE IVP PRN (13:23)
[2018-09-21] MEDS ORDERED: BENZOCAINE/MENTHOL LOZENG 1 EACH LOZENGE MUCOUS MEM PRN (13:23)
[2018-09-21] MEDS ORDERED: NITROGLYCERIN-D5W PMX 50 MG in DEXTROSE/WATER 1 250ML.BAG IV SCH (13:23)
[2018-09-21] MEDS ORDERED: INSULIN REGULAR 100 UNIT in SODIUM CHLORIDE 0.9% 100 ML IV SCH (13:30)
[2018-09-21 13:31] LABS: Glucose,Whole Blood 69 mg/dL (75-99)
[2018-09-21] MEDS: LACTATED RINGERS 1,000 ML IV SCH (13:32)
[2018-09-21 13:38] LABS: Glucose,Whole Blood 131 mg/dL (75-99)
[2018-09-21 13:40] LABS: Ionized Calcium 4.9 mg/dL (4.5-5.3)
[2018-09-21 13:43] LABS: INR 1.1 (<1.2); Partial Thromboplastin Time 26.6 sec (22.0-30.0); Prothrombin Time 11.2 sec (9.0-12.0)
[2018-09-21] MEDS: CLEVIDIPINE BUTYRATE 25 MG in EMPTY BAG 1 BAG IV SCH (13:49)
[2018-09-21 13:57] LABS: Basophils % (A) 0 %; Eosinophils # (A) 0.1 k/uL (0-0.7); Eosinophils % (A) 1 %; HCT 26.5 % (39.0-53.0); Lymphocytes # (A) 1.1 k/uL (1.0-4.8); Lymphocytes % (A) 6 %; MCH 29.8 pg (25.0-35.0); MCHC 31.9 g/dL (31.0-37.0); MCV 93.2 fL (80.0-100.0); Mean Platelet Volume 6.6; Monocytes # (A) 0.4 k/uL (0-1.0); Monocytes % (A) 2 %; Neutrophils % (A) 91 %; Platelet Count 206 k/uL (150-450); RBC 2.84 m/uL (4.30-5.90); RDW 15.7 % (11.5-15.5); WBC 17.7 k/uL (3.8-10.6)
--- NOTE | 2018-09-21 13:57 | XR ---
EXAMINATION TYPE: XR chest 1V portable DATE OF EXAM: 09/21/2018 Comparison: 09/11/2018 Clinical History: 63-year-old male Post Operative Cardiac Surgery Findings: Median sternotomy wires are present weight. Mediastinal drains. ET tube satisfactory. NG tube courses below the diaphragm. Annuloplasty ring. Right IJ sheath with Willis-López catheter at the distal main p ulmonary outflow tract. White sided chest tube is present. There is some patchy left basilar and retrocardiac opacity. Remain ruben of the lungs appear relatively clear. Impression: Post surgical changes with patchy left basilar and retrocardiac atelectasis.
[2018-09-21 13:59] LABS: ALT 27 U/L (21-72); AST 32 U/L (17-59); Albumin 2.5 g/dL (3.5-5.0); Alkaline Phosphatase 88 U/L (38-126); Anion Gap 4 mmol/L; Blood Urea Nitrogen 12 mg/dL (9-20); Calcium 7.7 mg/dL (8.4-10.2); Carbon Dioxide 25 mmol/L (22-30); Chloride 110 mmol/L (98-107); Glucose 178 mg/dL (74-99); Magnesium 2.4 mg/dL (1.6-2.3); Sodium 139 mmol/L (137-145); Total Bilirubin 0.5 mg/dL (0.2-1.3); Total Protein 4.6 g/dL (6.3-8.2)
[2018-09-21 14:05] LABS: HGB 8.5 gm/dL (13.0-17.5)
[2018-09-21 14:06] LABS: Glucose,Whole Blood 115 mg/dL (75-99)
[2018-09-21] MEDS: POTASSIUM CHLORIDE 10 MEQ in WATER FOR INJECTION 1 100ML.BAG IVPB SCH ×2 (14:49→16:15)
[2018-09-21 15:03] LABS: Glucose,Whole Blood 134 mg/dL (75-99)
--- NOTE | 2018-09-21 15:55 | PN ---
PROGRESS NOTE This is a 63-year-old male who is postoperative day number zero, status post mitral valve replacement and left atrial appendage excision. 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 The patient has severe mitral valve regurgitation. In addition, the patient has a history of DVT and pulmonary embolism in 2010 following the procedure for removal of a kidney stone as well as hyperlipidemia and BPH. The patient underwent surgery today by Dr. Figueroa. Currently the patient's vent settings include the SIMV mode with a rate of 12, tidal volume 500, FiO2 which was 100%, dropped down to 40%, PEEP of 5. The patient is on lactated Ringer's at 50 mL/hour, Cleviprex at 4 mg/hour and propofol 25 mcg/kg per minute. According to the nurse, he is very stable, and he really should do well and hopefully get extubated quickly. Current vital signs are reviewed. Temperature 98.7, heart rate 67, respiratory rate 16, blood pressure 124/82. Saturation is currently 100% on 40% and 5 of PEEP. Appears in no acute distress. Currently sedated. HEENT examination is grossly unremarkable. There is an orally placed endotracheal tube and NG tube. Neck is supple. Full range of motion. No adenopathy. Neck veins are not distended. There is a Cordis catheter in place with a PA catheter noted through it. Cardiovascular examination reveals regular rhythm and rate. Heart sounds are distant. No distinct murmurs noted. Lungs reveal relatively clear breath sounds. No wheezes, rhonchi or crackles. Abdomen is soft. Extremities are intact. No cyanosis, clubbing or edema. Skin without rash. Neurologic examination could not be adequately assessed, as the patient is currently sedated. Chest x-ray looked good. Good placement of the endotracheal tube. Lung castillo are clear. Labs are reviewed. PT 11.2, INR 1.1, PTT 26.6. Sodium and potassium are 139 and 4.0, respectively. Chloride 110, CO2 25, anion gap 4, BUN 12, creatinine 0.84. The rest of the labs look pretty good. Microbiologic studies show alpha hemolytic Streptococcus beginning on September 11 in the blood cultures and still positive on September 13. ASSESSMENT: 1. Postoperative day number zero, status post mitral valve replacement and left atrial appendage excision secondary to mitral valve endocarditis and severe mitral valve regurgitation caused by beta-hemolytic streptococcal infection. 2. Routine mechanical ventilatory management. 3. Hyperlipidemia. 4. History of deep venous thrombosis and pulmonary embolism in 2010. 5. History of benign prostatic hypertrophy. PLAN: Will follow. Hopefully we will get this patient weaned and extubated quickly. That is our goal today. We will keep him on updrafts q.4. Post extubation, the patient will be encouraged to take deep breathing, coughing and clearing of secretions and use incentive spirometry q.1 hour. Critical care time 34 minutes. MMSERAFINL / IJN: [id number] /
[2018-09-21] MEDS ORDERED: ceFAZolin IN SWFI 2 GM/20 ML SYRINGE IVP SCH (16:00)
[2018-09-21] MEDS ORDERED: IPRATROPIUM-ALBUTEROL 3 ML NEB INHALATION SCH (16:00)
[2018-09-21 16:05] LABS: Glucose,Whole Blood 138 mg/dL (75-99)
[2018-09-21] MEDS: GENTAMICIN IN NACL ISO-OSM PMX 80 MG in SALINE 1 100ML.BAG IVPB SCH (16:11)
[2018-09-21 16:24] LABS: Basophils % (A) 0 %; Eosinophils % (A) 0 %; HCT 29.3 % (39.0-53.0); HGB 9.4 gm/dL (13.0-17.5); Lymphocytes # (A) 0.7 k/uL (1.0-4.8); Lymphocytes % (A) 4 %; MCH 29.5 pg (25.0-35.0); MCHC 32.1 g/dL (31.0-37.0); MCV 91.7 fL (80.0-100.0); Mean Platelet Volume 7.6; Monocytes # (A) 0.5 k/uL (0-1.0); Monocytes % (A) 3 %; Neutrophils # (A) 16.5 k/uL (1.3-7.7); Neutrophils % (A) 93 %; Platelet Count 236 k/uL (150-450); RBC 3.19 m/uL (4.30-5.90); RDW 15.5 % (11.5-15.5); WBC 17.7 k/uL (3.8-10.6)
[2018-09-21] MEDS: ALBUMIN HUMAN 5% 250 ML in EMPTY BAG 1 BAG IVPB PRN ×2 (16:57→17:15)
[2018-09-21 16:58] LABS: ABG Base Excess -0.2 mmol/L; ABG HCO3 24 mmol/L (21-25); ABG Oxygen Saturation 98.8 % (94-97); ABG PCO2 36 mmHg (35-45); ABG PH 7.43 (7.35-7.45); ABG PO2 109 mmHg (83-108); ABG TCO2 25 mmol/L (19-24)
[2018-09-21 17:06] LABS: Glucose,Whole Blood 123 mg/dL (75-99)
[2018-09-21] MEDS: ACETAMINOPHEN IV (For NPO) 1,000 MG in EMPTY BAG 1 BAG IVPB SCH (18:03)
[2018-09-21 18:10] LABS: Glucose,Whole Blood 115 mg/dL (75-99)
[2018-09-21 19:05] LABS: Glucose,Whole Blood 117 mg/dL (75-99)
[2018-09-21 19:36] LABS: Basophils % (A) 0 %; Eosinophils % (A) 0 %; HCT 26.6 % (39.0-53.0); HGB 8.5 gm/dL (13.0-17.5); Lymphocytes # (A) 0.5 k/uL (1.0-4.8); Lymphocytes % (A) 3 %; MCH 29.4 pg (25.0-35.0); MCHC 31.9 g/dL (31.0-37.0); MCV 92.2 fL (80.0-100.0); Mean Platelet Volume 7.3; Monocytes # (A) 0.3 k/uL (0-1.0); Monocytes % (A) 2 %; Neutrophils % (A) 94 %; Platelet Count 198 k/uL (150-450); RBC 2.89 m/uL (4.30-5.90); RDW 15.6 % (11.5-15.5); WBC 14.8 k/uL (3.8-10.6)
[2018-09-21 20:00] LABS: Glucose,Whole Blood 121 mg/dL (75-99)
[2018-09-21] MEDS: IPRATROPIUM-ALBUTEROL 3 ML NEB INHALATION SCH (20:52)
[2018-09-21 21:07] LABS: Glucose,Whole Blood 121 mg/dL (75-99)
--- NOTE | 2018-09-21 22:19 | OP ---
OPERATIVE REPORT DATE OF SERVICE: 09/21/2018. SURGEON: Salazar Figueroa M.D. CONCRETE BUSTER OPERATOR: Alphonso TY. PREOPERATIVE DIAGNOSIS: Mitral valve endocarditis with flail P2 and severe mitral valve regurgitation. POSTOPERATIVE DIAGNOSIS: Mitral valve endocarditis with flail P2 and severe mitral valve regurgitation. PROCEDURES: 1. Complex mitral valve repair with quadrangular resection of P2 with reconstruction and reinforcement with posterior annuloplasty using a 32 mm AnnuloFlex. 2. Excision of the left atrial appendage using a 35 mm AtriClip. 3. Intraoperative transesophageal echocardiogram and epiaortic scanning. INDICATION FOR SURGERY: The patient is a 63-year-old gentleman who was complaining of malaise. He had a CT of the chest performed to explain an indwelling temperature and sweats, looking for potential lymphoma; however, that showed a dilated ascending aorta. That prompted a 2D echo that showed a moderate dilatation of the ascending aorta, however, it showed severe mitral valve regurgitation with flail P2 and evidence of potential vegetation of the mitral valve. SILVIA and catheterization followed. He had normal coronaries. 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 His blood culture grew Streptococcus. The patient was treated with antibiotic over 1 week and had 2 successive negative blood cultures. We are proceeding today with surgery for mitral valve repair and possible replacement with a bioprosthesis. The SDS risk was discussed with him. He understood it and agreed to proceed. DESCRIPTION OF THE PROCEDURE: With the patient in supine position in the preoperative holding area, a right internal jugular Gardner-López catheter and right radial artery line were placed. He had normal PA pressures. Cardiac index was 2. Subsequently he was brought to the operating room where general endotracheal anesthesia was induced uneventfully. The patient received 2 g of cefazolin intravenously. George catheter was inserted. The chest, abdomen and both lower extremities were prepped and draped using ChloraPrep. Ioban was used to cover the skin. Transesophageal echocardiogram confirmed the preoperative finding of preserved left ventricular function, severe mitral valve regurgitation from flail of P2 with ruptured cord and vegetation. All other valves were intact. The aortomitral membrane was intact. A midline sternotomy was performed and no bone wax was used. The right pleura was opened with this process and was drained with a 19-Paraguayan Sonny drain. Mediastinal fat was transected between 2 ties. Epiaortic scanning revealed no protruding atheroma in the ascending aorta. The pericardium was opened in an inverted T-fashion and a pericardial cradle was created. Findings included a mildly dilated aorta that displaced the heart inferiorly and toward the left side. Heart was of normal size. After placement of respective pledgeted pursestrings and after systemic heparinization, aortic cannulation in the distal ascending aorta with a 21-Paraguayan soft flow cannula was performed. Cable cannulation with a 28-Paraguayan right angle directly into the SVC and a 30-Paraguayan via the IVC right atrial junction was performed. Antegrade as well as retrograde cardioplegia catheters were inserted via respective pledgeted pursestrings. Cardiopulmonary bypass was initiated and patient's temperature was allowed to drift down to 34 degrees Celsius. Both vena cava were encircled but not snared with an umbilical tape. The aorta was clamped and myocardial protection was achieved. An initial dose of 800 mL of antegrade cold blood cardioplegia with adequate arrest at around 300 mL, followed by 300 mL of retrograde cold blood cardioplegia. All subsequent doses were given retrograde at 15 minute intervals. The interatrial groove was developed and entry was medial to help us expose the mitral and what seemed to be a nondilated left atrium with a displaced heart. The Mae mitral retractor was used to aid in visualization. We had a reasonable view initially of the posterior aspect to the mitral valve and I passed a total of 12 Tycron 2-0 nonpledgeted annuloplasty sutures from trigone to trigone posteriorly. That helped open and expand the valve for better evaluation. Exploration revealed myxomatous valve with no prolapse except of the P2 segment which had an endocarditic inflammation and vegetation at the tip at the coaptation line, extending around ruptured cords. There were no other vegetations or deposits anywhere else. I proceeded at a quadrangular resection of the P2 segment. I had plenty of P1 and P3 tissue to work with. P1 and P3 were approximated together without the need for sliding plasty or annular plication and in this way we reduced the height of the posterior leaflet. Thorough irrigation with 1 liter of antibiotic was performed after resecting P2 and all the instruments were changed. The anterior leaflet was measured to a 32 mm AnnuloFlex which was selected and all the sutures were passed into this posterior aspect of that ring, which seated nicely. All the needles cut and the suture tied using the device. Thorough irrigation performed one more time. CO2 was flowing over the field as long as the left atrium was opened. The left atrium was closed using Prolene 4-0 pledgets on each corner and meeting in the midline. Before closing the left atrium totally we proceeded with some de-airing maneuvers. Subsequently, without displacing the heart much, we excluded the left atrial appendage from outside using a 35 mm AtriClip. It was very hard to do it from inside. The patient was given lidocaine and magnesium and warm blood had been given retrograde. The aorta was unclamped after de-airing maneuver. The patient regained spontaneous sinus rhythm after one single defibrillation. SILVIA guided de-airing, which was very satisfactory. There was no evidence of any mitral valve regurgitation and there was no CONRAD. The left atrial appendage appeared to be adequately excluded. With that we weaned off cardiopulmonary bypass without the need of any inotropic or vasopressor support. Test dose and then full dose protamine was given. Decannulation followed. The SVC cannulation site were closed with a nonpledgeted Prolene 4-0. Two monopolar atrial pacing wires were affixed to the right atrium and one bipolar ventricular pacing wire was driven via the inferior aspect of the right ventricle. Two 19-Paraguayan Sonny drain were placed, one substernally and one in the posterior pericardium. The pericardium was approximated over the whole heart and the aorta. After ensuring adequate hemostasis and hemodynamic and after correct sponge, instrument, and needle count, the sternum was closed using 5 [id number] pineal cable after interposing fibula between the sternal edges. Thorough irrigation of cefazolin followed. The rest of the closure proceeded in layers. Skin glue was applied. Patient did not receive any blood bank product but received 450 mL of Cell Saver blood and autologous blood. His hemodynamics were excellent when he was transferred to the ICU in sinus rhythm. MMODL / IJN: [id number] /
[2018-09-21 22:20] LABS: Glucose,Whole Blood 121 mg/dL (75-99)
[2018-09-21] MEDS: MUPIROCIN 2% OINT 22 GM TUBE NASAL SCH (22:20)
--- NOTE | 2018-09-21 23:51 | P.PN ---
Subjective Progress Note Date: 09/21/18 Pleasant 63-year-old male presents to Hospital feeling poorly for quite some time. Because he was feeling poorly eventually had an echocardiogram performed to evaluate his cardiac status after computed tomography scan revealed potential abnormality. The transthoracic echocardiogram reveal evidence of the abnormality in the mitral valve leaflet. The patient underwent transesophageal echocardiogram the verifies the mitral regurgitant murmur in the large vegetation of the mitral valve. The patient now has multiple positive blood cultures with group B strep. 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 The patient relates that he has had a heart murmur noted for many years but has not had ongoing follow-up over time. At this time the murmur is easily heard and he has been evaluated by cardiothoracic surgery. Our plan will be to maximize antibiotic therapy this point time with ampicillin and gentamicin try to rapidly cleared his bacteremia. Once clearance of bacteremia has occurred he will proceed to the mitral valve surgery for removal of vegetation and repair or replacement of the valve. The reasons for the surgery are discussed including goal to reduce the risk of a significant embolic event Barbara concern would be of a large stroke. Secondly would be for repairing of the mitral valve without left ventricular dysfunction and refractory congestive heart failure. The qualifications of the cardiovascular surgeons is again reviewed with the patient's father and understands that the valve surgery is within the capability of the facility and the surgeons. There are many questions are answered. 09/15/2018 patient is feeling better today. He is having no fevers. Denies chills or rigors. Energy level is stable. No nausea or emesis and no onset of diarrhea. No skin rashes and no difficulties with painful joints. No painful oral cavity. 09/16/2018 patient continues to feel a bit better. The severe fever chills myalgias have all improved since coming to hospital. Denies to be in shortness of breath or cough denies chest pains and no new neurological complaints. Tolerating antibiotic therapy well 09/18/2018 patient is continued to have improvement of his status. Diffusion shows a resolved. Energy levels improved. Diffuse profuse myalgias and arthralgias have resolved. He is anxious to proceed to cardiac surgery. 09/19/2018 patient is stable looks forward to surgery Friday09/20/2018 patient is prepped for surgery for tomorrow and will monitor him in the postoperative time frame. . 09/21/2018 patient is now post operative from the the mitral valve repair , doing very well is extubated and has adequate pain control Objective - Vital Signs Vital signs: Vital Signs Temp 99.9 F H 09/21/18 20:00 Pulse 80 09/21/18 22:00 Resp 24 09/21/18 22:00 BP 103/74 09/21/18 22:00 Pulse Ox 95 09/21/18 22:00 Intake & Output 09/21/18 09/21/18 09/22/18 06:59 18:59 06:59 Intake Total 220 1056 343.083 Output Total 2529 425 Balance 220 -1473 -81.917 Weight 77.1 kg Intake: IV 1056 307 Ampicillin 2,000 mg In 200 100 Sodium Chloride 0.9% 100 ml @ 200 mls/hr IVPB Q4H [facility] Rx#:[id number] CO/CI 140 30 Gentamicin in NaCl Iso- 100 Osm Pmx 80 mg In Saline 1 100ml.bag @ 100 mls/hr IVPB Q12H [facility] Rx#: [id number] Lactated Ringers 1,000 ml 350 150 @ 50 mls/hr IV .Q20H [facility] Rx#:[id number] PRESSURE BAG 63 27 Potassium Chloride 10 meq 200 In Water For Injection 1 100ml.bag @ 100 mls/hr IVPB Q1H [facility] Rx#: [id number] Intake, IV Titration 220 36.083 Amount Clevidipine Butyrate 25 31.1 mg In Empty Bag 1 bag @ 1 MG/HR 2 mls/hr IV .Q24H [facility] Rx#:[id number] Insulin Regular 100 unit 4.983 In Sodium Chloride 0.9% 100 ml @ Per Protocol IV .Q0M [facility] Rx#:[id number] Lactated Ringers 1,000 ml 220 @ 20 mls/hr IV .Q24H [facility] Rx#:[id number] Output: Chest Tube Drainage 314 160 Chest Tube Mediastinal 208 50 Right Pleural Chest Tube 106 110 Urine 1615 265 Estimated Blood Loss 600 Other: Voiding Method Toilet Indwelling Catheter Indwelling Catheter ABP, PAP, CO, CI - Last Documented Arterial Blood Pressure 97/48 Pulmonary Artery Pressure 34/15 Cardiac Output 6.5 Cardiac Index 3.4 - Exam Pleasant 63-year-old male is postoperative, extubated complaining of some pain in his chest HEENT: Anicteric conjunctiva are pink and moist nasal mucosa grossly intact without significant lesions, there is no thrush. Neck: The neck is supple without significant lymphadenopathy or thyromegaly. Lungs: Good bilateral air entry without significant crackles or wheezing. There is no significant bronchial sounds. There is no egophony or dullness. Heart: Regular audible S1 and S2 soft S3 no significant murmur No radiation to the carotids. Carotids have brisk upstroke without thrill Abdomen: Positive bowel sounds soft and nontender without palpable masses or organomegaly. There was no guarding or rebound. Extremities: The upper extremities have excellent pulses they are symmetric, no significant petechiae or telangiectasia. No splinter hemorrhages were noted. The lower extremities are free from significant edema. The peripheral pulses were 2+ and symmetric. Neuro: Awake alert oriented to person place and time. There are no acute new gross focal sensory motor deficits. The skin is without any evidence of petechia telangiectasia or splinter hemorrhages. There are no petechia of the hard or soft palate. No conjunctival lesions. - Additional findings Additional findings: Laboratory Results WBC 14.8 k/uL (3.8-10.6) H 09/21/18 19:10 RBC 2.89 m/uL (4.30-5.90) L 09/21/18 19:10 Hgb 8.5 gm/dL (13.0-17.5) L 09/21/18 19:10 Hct 26.6 % (39.0-53.0) L 09/21/18 19:10 MCV 92.2 fL (80.0-100.0) 09/21/18 19:10 MCH 29.4 pg (25.0-35.0) 09/21/18 19:10 MCHC 31.9 g/dL (31.0-37.0) 09/21/18 19:10 RDW 15.6 % (11.5-15.5) H 09/21/18 19:10 Plt Count 198 k/uL (150-450) 09/21/18 19:10 Neutrophils % 94 % 09/21/18 19:10 Lymphocytes % 3 % 09/21/18 19:10 Monocytes % 2 % 09/21/18 19:10 Eosinophils % 0 % 09/21/18 19:10 Basophils % 0 % 09/21/18 19:10 Neutrophils # 14.0 k/uL (1.3-7.7) H 09/21/18 19:10 Lymphocytes # 0.5 k/uL (1.0-4.8) L 09/21/18 19:10 Monocytes # 0.3 k/uL (0-1.0) 09/21/18 19:10 Eosinophils # 0.0 k/uL (0-0.7) 09/21/18 19:10 Basophils # 0.0 k/uL (0-0.2) 09/21/18 19:10 PT 11.2 sec (9.0-12.0) 09/21/18 13:22 INR 1.1 (<1.2) 09/21/18 13:22 APTT 26.6 sec (22.0-30.0) 09/21/18 13:22 Sample Site A line 09/21/18 16:57 ABG pH 7.43 (7.35-7.45) 09/21/18 16:57 ABG pCO2 36 mmHg (35-45) 09/21/18 16:57 ABG pO2 109 mmHg (83-108) H 09/21/18 16:57 ABG HCO3 24 mmol/L (21-25) 09/21/18 16:57 ABG Total CO2 25 mmol/L (19-24) H 09/21/18 16:57 ABG O2 Saturation 98.8 % (94-97) H 09/21/18 16:57 ABG Base Excess -0.2 mmol/L 09/21/18 16:57 ABG Hematocrit 25 % (34.0-46.0) L 09/21/18 12:15 Pranav Test no 09/21/18 16:57 ABG Sodium 139 mmol/L (135-146) 09/21/18 12:15 ABG Potassium 3.7 mmol/L (3.4-4.5) 09/21/18 12:15 ABG Ionized Calcium 4.5 mg/dL (4.5-5.3) 09/21/18 12:15 ABG Glucose 92 mg/dL (75-99) 09/21/18 12:15 ABG Lactic Acid 1.7 mmol/L (0.5-1.6) H 09/21/18 12:15 Hemoglobin 8.3 gm/dL (13.0-17.5) L 09/21/18 12:15 FiO2 40 % 09/21/18 16:57 Sodium 139 mmol/L (137-145) 09/21/18 13:22 Potassium 4.0 mmol/L (3.5-5.1) 09/21/18 13:22 Chloride 110 mmol/L (98-107) H 09/21/18 13:22 Carbon Dioxide 25 mmol/L (22-30) 09/21/18 13:22 Anion Gap 4 mmol/L 09/21/18 13:22 BUN 12 mg/dL (9-20) 09/21/18 13:22 Creatinine 0.84 mg/dL (0.66-1.25) 09/21/18 13:22 Est GFR (CKD-EPI)AfAm >90 (>60 ml/min/1.73 sqM) 09/21/18 13:22 Est GFR (CKD-EPI)NonAf >90 (>60 ml/min/1.73 sqM) 09/21/18 13:22 Glucose 178 mg/dL (74-99) H 09/21/18 13:22 POC Glucose (mg/dL) 121 mg/dL (75-99) H 09/21/18 22:18 POC Glu Rig Manager ID Sachin Miller 09/21/18 22:[address] Glu mg/dL 103 09/14/18 05:49 Hemoglobin A1c 5.2 % (4.0-6.0) 09/14/18 05:49 Plasma Lactic Acid Maximiliano 1.1 mmol/L (0.7-2.0) 09/11/18 18:19 Calcium 7.7 mg/dL (8.4-10.2) L 09/21/18 13:22 Ionized Calcium Abdi 4.9 mg/dL (4.5-5.3) 09/21/18 13:22 Magnesium 2.4 mg/dL (1.6-2.3) H 09/21/18 13:22 Total Bilirubin 0.5 mg/dL (0.2-1.3) 09/21/18 13:22 AST 32 U/L (17-59) 09/21/18 13:22 ALT 27 U/L (21-72) 09/21/18 13:22 Alkaline Phosphatase 88 U/L (38-126) 09/21/18 13:22 Total Creatine Kinase 36 U/L (55-170) L 09/11/18 18:19 CK-MB (CK-2) 0.7 ng/mL (0.0-2.4) 09/11/18 18:19 CK-MB (CK-2) Rel Index 1.9 09/11/18 18:19 Troponin I 0.066 ng/mL (0.000-0.034) H* 09/11/18 18:19 C-Reactive Protein 46.2 mg/L (<10.0) H 09/12/18 06:01 Total Protein 4.6 g/dL (6.3-8.2) L 09/21/18 13:22 Albumin 2.5 g/dL (3.5-5.0) L 09/21/18 13:22 Triglycerides 66 mg/dL (<150) 09/19/18 05:30 Cholesterol 158 mg/dL (<200) 09/19/18 05:30 LDL Cholesterol, Calc 106 mg/dL (0-99) H 09/19/18 05:30 HDL Cholesterol 39 mg/dL (40-60) L 09/19/18 05:30 Procalcitonin 0.55 ng/mL (0.02-0.09) H 09/11/18 18:19 TSH 2.630 mIU/L (0.465-4.680) 09/19/18 05:30 Arterial Blood Potassium 3.7 mmol/L (3.4-4.5) 09/21/18 12:15 Arterial Blood Glucose 92 mg/dL (75-99) 09/21/18 12:15 Urine Color Light Yellow 09/18/18 12:52 Urine Appearance Clear (Clear) 09/18/18 12:52 Urine pH 6.5 (5.0-8.0) 09/18/18 12:52 Ur Specific [place] 1.009 (1.001-1.035) 09/18/18 12:52 Urine Protein Negative (Negative) 09/18/18 12:52 Urine Glucose (UA) Negative (Negative) 09/18/18 12:52 Urine Ketones Negative (Negative) 09/18/18 12:52 Urine Blood Negative (Negative) 09/18/18 12:52 Urine Nitrite Negative (Negative) 09/18/18 12:52 Urine Bilirubin Negative (Negative) 09/18/18 12:52 Urine Urobilinogen <2.0 mg/dL (<2.0) 09/18/18 12:52 Ur Leukocyte Esterase Negative (Negative) 09/18/18 12:52 Gentamicin Peak 4.2 ug/mL 09/18/18 14:42 Gentamicin Trough 0.7 ug/mL 09/18/18 11:26 Vancomycin Trough 5.5 ug/mL 09/14/18 05:49 Hepatitis A IgM Ab Non-Reactive (Non-Reactive) 09/14/18 05:49 Hep Bs Antigen Non-Reactive (Non-Reactive) 09/14/18 05:49 Hep B Core IgM Ab Non-Reactive (Non-Reactive) 09/14/18 05:49 Hep C IgG Ab Non-Reactive (Non-Reactive) 09/14/18 05:49 Blood Type B Positive 09/20/18 05:35 Blood Type Confirm B Positive 09/18/18 06:15 Blood Type Recheck CABO Indicated 09/20/18 05:35 Antibody Screen NEGATIVE 09/20/18 05:35 Crossmatch See Detail 09/20/18 05:35 Spec Expiration Date 09/23/2018 - 8786 09/20/18 05:35 Microbiology 09/15/18 20:22 Blood Blood Culture - Final No Growth after 144 hours 09/21/18 13:02 Heart Valve Anaerobic Culture - Preliminary 09/21/18 13:02 Heart Valve Tissue Culture - Preliminary 09/14/18 05:49 Blood Blood Culture - Final No Growth after 144 hours 09/18/18 12:09 Nasal Swab Nasal Screen MRSA/MSSA - Final 09/18/18 12:52 Urine,Voided Urine Culture - Final 09/13/18 15:00 Blood Blood Culture Gram Stain - Final 09/13/18 15:00 Blood Blood Culture - Final Alpha Hemolytic Streptococcus 09/12/18 16:14 Blood Blood Culture Gram Stain - Final 09/12/18 16:14 Blood Blood Culture - Final Alpha Hemolytic Streptococcus 09/13/18 15:00 Blood Blood Culture - Final 09/12/18 06:01 Blood Blood Culture Gram Stain - Final 09/12/18 06:01 Blood Blood Culture - Final Alpha Hemolytic Streptococcus 09/11/18 18:19 Blood Blood Culture Gram Stain - Final 09/11/18 18:19 Blood Blood Culture - Final Alpha Hemolytic Streptococcus 09/12/18 06:39 Blood Blood Culture Gram Stain - Final 09/12/18 06:39 Blood Blood Culture - Final Strep agalactiae - (group b) 09/12/18 16:14 Blood Blood Culture - Final 09/12/18 06:01 Blood Blood Culture - Final 09/12/18 06:39 Blood Blood Culture - Final 09/11/18 18:19 Blood Blood Culture - Final - Labs CBC & Chem 7: 09/21/18 19:10 09/21/18 13:22 Labs: Abnormal Lab Results - Last 24 Hours (Table) 09/20/18 09/21/18 09/21/18 Range/Units 05:35 04:47 08:39 WBC (3.8-10.6) k/uL RBC (4.30-5.90) m/uL Hgb (13.0-17.5) gm/dL Hct (39.0-53.0) % RDW (11.5-15.5) % Neutrophils # (1.3-7.7) k/uL Lymphocytes # (1.0-4.8) k/uL ABG pH 7.47 H (7.35-7.45) ABG pCO2 (35-45) mmHg ABG pO2 374 H (83-108) mmHg ABG HCO3 26 H (21-25) mmol/L ABG Total CO2 27 H (19-24) mmol/L ABG O2 Saturation 100.0 H (94-97) % ABG Hematocrit 32 L (34.0-46.0) % ABG Potassium (3.4-4.5) mmol/L ABG Ionized Calcium (4.5-5.3) mg/dL ABG Glucose (75-99) mg/dL ABG Lactic Acid (0.5-1.6) mmol/L Hemoglobin 10.5 L (13.0-17.5) gm/dL Chloride (98-107) mmol/L Glucose (74-99) mg/dL POC Glucose (mg/dL) 101 H (75-99) mg/dL Calcium (8.4-10.2) mg/dL Magnesium (1.6-2.3) mg/dL Total Protein (6.3-8.2) g/dL Albumin (3.5-5.0) g/dL Arterial Blood Potassium (3.4-4.5) mmol/L Arterial Blood Glucose (75-99) mg/dL Crossmatch See Detail 09/21/18 09/21/18 09/21/18 Range/Units 09:44 10:30 11:01 WBC (3.8-10.6) k/uL RBC (4.30-5.90) m/uL Hgb (13.0-17.5) gm/dL Hct (39.0-53.0) % RDW (11.5-15.5) % Neutrophils # (1.3-7.7) k/uL Lymphocytes # (1.0-4.8) k/uL ABG pH 7.32 L (7.35-7.45) ABG pCO2 46 H 50 H (35-45) mmHg ABG pO2 47 L* 271 H 331 H (83-108) mmHg ABG HCO3 27 H 26 H 26 H (21-25) mmol/L ABG Total CO2 28 H 27 H 27 H (19-24) mmol/L ABG O2 Saturation 79.9 L 100.0 H 100.0 H (94-97) % ABG Hematocrit 29 L 23 L 25 L (34.0-46.0) % ABG Potassium 4.7 H (3.4-4.5) mmol/L ABG Ionized Calcium 4.3 L 4.4 L (4.5-5.3) mg/dL ABG Glucose 149 H 157 H (75-99) mg/dL ABG Lactic Acid (0.5-1.6) mmol/L Hemoglobin 9.4 L 7.4 L 8.1 L (13.0-17.5) gm/dL Chloride (98-107) mmol/L Glucose (74-99) mg/dL POC Glucose (mg/dL) (75-99) mg/dL Calcium (8.4-10.2) mg/dL Magnesium (1.6-2.3) mg/dL Total Protein (6.3-8.2) g/dL Albumin (3.5-5.0) g/dL Arterial Blood Potassium 4.7 H (3.4-4.5) mmol/L Arterial Blood Glucose 149 H 157 H (75-99) mg/dL Crossmatch 09/21/18 09/21/18 09/21/18 Range/Units 11:35 12:15 13:11 WBC (3.8-10.6) k/uL RBC (4.30-5.90) m/uL Hgb (13.0-17.5) gm/dL Hct (39.0-53.0) % RDW (11.5-15.5) % Neutrophils # (1.3-7.7) k/uL Lymphocytes # (1.0-4.8) k/uL ABG pH (7.35-7.45) ABG pCO2 (35-45) mmHg ABG pO2 303 H 191 H (83-108) mmHg ABG HCO3 (21-25) mmol/L ABG Total CO2 26 H 25 H (19-24) mmol/L ABG O2 Saturation 100.0 H 99.7 H (94-97) % ABG Hematocrit 24 L 25 L (34.0-46.0) % ABG Potassium (3.4-4.5) mmol/L ABG Ionized Calcium 4.4 L (4.5-5.3) mg/dL ABG Glucose 123 H (75-99) mg/dL ABG Lactic Acid 1.9 H 1.7 H (0.5-1.6) mmol/L Hemoglobin 7.7 L 8.3 L (13.0-17.5) gm/dL Chloride (98-107) mmol/L Glucose (74-99) mg/dL POC Glucose (mg/dL) 69 L (75-99) mg/dL Calcium (8.4-10.2) mg/dL Magnesium (1.6-2.3) mg/dL Total Protein (6.3-8.2) g/dL Albumin (3.5-5.0) g/dL Arterial Blood Potassium (3.4-4.5) mmol/L Arterial Blood Glucose 123 H (75-99) mg/dL Crossmatch 09/21/18 09/21/18 09/21/18 Range/Units 13:22 13:22 13:36 WBC 17.7 H (3.8-10.6) k/uL RBC 2.84 L (4.30-5.90) m/uL Hgb 8.5 L D (13.0-17.5) gm/dL Hct 26.5 L (39.0-53.0) % RDW 15.7 H (11.5-15.5) % Neutrophils # 16.0 H (1.3-7.7) k/uL Lymphocytes # (1.0-4.8) k/uL ABG pH (7.35-7.45) ABG pCO2 (35-45) mmHg ABG pO2 (83-108) mmHg ABG HCO3 (21-25) mmol/L ABG Total CO2 (19-24) mmol/L ABG O2 Saturation (94-97) % ABG Hematocrit (34.0-46.0) % ABG Potassium (3.4-4.5) mmol/L ABG Ionized Calcium (4.5-5.3) mg/dL ABG Glucose (75-99) mg/dL ABG Lactic Acid (0.5-1.6) mmol/L Hemoglobin (13.0-17.5) gm/dL Chloride 110 H (98-107) mmol/L Glucose 178 H (74-99) mg/dL POC Glucose (mg/dL) 131 H (75-99) mg/dL Calcium 7.7 L (8.4-10.2) mg/dL Magnesium 2.4 H (1.6-2.3) mg/dL Total Protein 4.6 L (6.3-8.2) g/dL Albumin 2.5 L (3.5-5.0) g/dL Arterial Blood Potassium (3.4-4.5) mmol/L Arterial Blood Glucose (75-99) mg/dL Crossmatch 09/21/18 09/21/18 09/21/18 Range/Units 14:01 15:01 16:00 WBC 17.7 H (3.8-10.6) k/uL RBC 3.19 L (4.30-5.90) m/uL Hgb 9.4 L (13.0-17.5) gm/dL Hct 29.3 L (39.0-53.0) % RDW (11.5-15.5) % Neutrophils # 16.5 H (1.3-7.7) k/uL Lymphocytes # 0.7 L (1.0-4.8) k/uL ABG pH (7.35-7.45) ABG pCO2 (35-45) mmHg ABG pO2 (83-108) mmHg ABG HCO3 (21-25) mmol/L ABG Total CO2 (19-24) mmol/L ABG O2 Saturation (94-97) % ABG Hematocrit (34.0-46.0) % ABG Potassium (3.4-4.5) mmol/L ABG Ionized Calcium (4.5-5.3) mg/dL ABG Glucose (75-99) mg/dL ABG Lactic Acid (0.5-1.6) mmol/L Hemoglobin (13.0-17.5) gm/dL Chloride (98-107) mmol/L Glucose (74-99) mg/dL POC Glucose (mg/dL) 115 H 134 H (75-99) mg/dL Calcium (8.4-10.2) mg/dL Magnesium (1.6-2.3) mg/dL Total Protein (6.3-8.2) g/dL Albumin (3.5-5.0) g/dL Arterial Blood Potassium (3.4-4.5) mmol/L Arterial Blood Glucose (75-99) mg/dL Crossmatch 09/21/18 09/21/18 09/21/18 Range/Units 16:03 16:57 17:04 WBC (3.8-10.6) k/uL RBC (4.30-5.90) m/uL Hgb (13.0-17.5) gm/dL Hct (39.0-53.0) % RDW (11.5-15.5) % Neutrophils # (1.3-7.7) k/uL Lymphocytes # (1.0-4.8) k/uL ABG pH (7.35-7.45) ABG pCO2 (35-45) mmHg ABG pO2 109 H (83-108) mmHg ABG HCO3 (21-25) mmol/L ABG Total CO2 25 H (19-24) mmol/L ABG O2 Saturation 98.8 H (94-97) % ABG Hematocrit (34.0-46.0) % ABG Potassium (3.4-4.5) mmol/L ABG Ionized Calcium (4.5-5.3) mg/dL ABG Glucose (75-99) mg/dL ABG Lactic Acid (0.5-1.6) mmol/L Hemoglobin (13.0-17.5) gm/dL Chloride (98-107) mmol/L Glucose (74-99) mg/dL POC Glucose (mg/dL) 138 H 123 H (75-99) mg/dL Calcium (8.4-10.2) mg/dL Magnesium (1.6-2.3) mg/dL Total Protein (6.3-8.2) g/dL Albumin (3.5-5.0) g/dL Arterial Blood Potassium (3.4-4.5) mmol/L Arterial Blood Glucose (75-99) mg/dL Crossmatch 09/21/18 09/21/18 09/21/18 Range/Units 18:09 19:03 19:10 WBC 14.8 H (3.8-10.6) k/uL RBC 2.89 L (4.30-5.90) m/uL Hgb 8.5 L (13.0-17.5) gm/dL Hct 26.6 L (39.0-53.0) % RDW 15.6 H (11.5-15.5) % Neutrophils # 14.0 H (1.3-7.7) k/uL Lymphocytes # 0.5 L (1.0-4.8) k/uL ABG pH (7.35-7.45) ABG pCO2 (35-45) mmHg ABG pO2 (83-108) mmHg ABG HCO3 (21-25) mmol/L ABG Total CO2 (19-24) mmol/L ABG O2 Saturation (94-97) % ABG Hematocrit (34.0-46.0) % ABG Potassium (3.4-4.5) mmol/L ABG Ionized Calcium (4.5-5.3) mg/dL ABG Glucose (75-99) mg/dL ABG Lactic Acid (0.5-1.6) mmol/L Hemoglobin (13.0-17.5) gm/dL Chloride (98-107) mmol/L Glucose (74-99) mg/dL POC Glucose (mg/dL) 115 H 117 H (75-99) mg/dL Calcium (8.4-10.2) mg/dL Magnesium (1.6-2.3) mg/dL Total Protein (6.3-8.2) g/dL Albumin (3.5-5.0) g/dL Arterial Blood Potassium (3.4-4.5) mmol/L Arterial Blood Glucose (75-99) mg/dL Crossmatch 09/21/18 09/21/18 09/21/18 Range/Units 19:59 21:05 22:18 WBC (3.8-10.6) k/uL RBC (4.30-5.90) m/uL Hgb (13.0-17.5) gm/dL Hct (39.0-53.0) % RDW (11.5-15.5) % Neutrophils # (1.3-7.7) k/uL Lymphocytes # (1.0-4.8) k/uL ABG pH (7.35-7.45) ABG pCO2 (35-45) mmHg ABG pO2 (83-108) mmHg ABG HCO3 (21-25) mmol/L ABG Total CO2 (19-24) mmol/L ABG O2 Saturation (94-97) % ABG Hematocrit (34.0-46.0) % ABG Potassium (3.4-4.5) mmol/L ABG Ionized Calcium (4.5-5.3) mg/dL ABG Glucose (75-99) mg/dL ABG Lactic Acid (0.5-1.6) mmol/L Hemoglobin (13.0-17.5) gm/dL Chloride (98-107) mmol/L Glucose (74-99) mg/dL POC Glucose (mg/dL) 121 H 121 H 121 H (75-99) mg/dL Calcium (8.4-10.2) mg/dL Magnesium (1.6-2.3) mg/dL Total Protein (6.3-8.2) g/dL Albumin (3.5-5.0) g/dL Arterial Blood Potassium (3.4-4.5) mmol/L Arterial Blood Glucose (75-99) mg/dL Crossmatch Microbiology - Last 24 Hours (Table) 09/15/18 20:22 Blood Culture - Final Blood No Growth after 144 hours 12/17/18 13:02 Anaerobic Culture - Preliminary Heart Valve 09/21/18 13:02 Tissue Culture - Preliminary Heart Valve Assessment and Plan (1) 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 Because he was feeling poorly eventually had an echocardiogram performed to evaluate his cardiac status after computed tomography scan revealed potential abnormality. The transthoracic echocardiogram reveal evidence of the abnormality in the mitral valve leaflet. The patient underwent transesophageal echocardiogram the verifies the mitral regurgitant murmur in the large vegetation of the mitral valve. The patient now has multiple positive blood cultures with group B strep. 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 The patient relates that he has had a heart murmur noted for many years but has not had ongoing follow-up over time. At this time the murmur is easily heard and he has been evaluated by cardiothoracic surgery. Our plan will be to maximize antibiotic therapy this point time with ampicillin and gentamicin try to rapidly cleared his bacteremia. Once clearance of bacteremia has occurred he will proceed to the mitral valve surgery for removal of vegetation and repair or replacement of the valve. The reasons for the surgery are discussed including goal to reduce the risk of a significant embolic event Barbara concern would be of a large stroke. Secondly would be for repairing of the mitral valve without left ventricular dysfunction and refractory congestive heart failure. The qualifications of the cardiovascular surgeons is again reviewed with the patient's father and understands that the valve surgery is within the capability of the facility and the surgeons. There are many questions are answered. 09/15/2018 patient is feeling better today. No fevers or chills. Laboratories is starting to report some negative blood cultures hopefully on the new antibiotic therapy of ampicillin and gentamicin the blood stream will be sterilized rapidly. Once this occurs it appears a cardiovascular surgery will be taking him for surgical intervention because of the large size of the vegetation and a valvular malfunction that is occurring which are both indications for intervention. 09/16/2018 patient feeling better today. Tolerating antibiotic therapy well with no significant difficulty such as fevers or chills. No nausea or emesis or diarrhea. Overall progressing. 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 As noted there are now blood cultures -48 hours and one set at 24 hours hopefully relating to the parents of his bacteremia with the synergistic combination of ampicillin and gentamicin. Patient be monitored for any nephrotoxicity. The patient and his mother's questions are answered. 09/18/2018 patient continues to improve. Is being followed closely by multiple consultants and cardiothoracic surgery is planning on the family repair or replacement on Friday. He has noted the blood cultures are now negative and 2 events the patient clinically has had significant improvement. We will continue to monitor in the perioperative timeframe. Continue current antimicrobial therapy with ampicillin and gentamicin. 09/19/2018 ongoing improvement await surgery on Friday. Continue the course of antibiotic therapy with ampicillin and gentamicin. 09/20/2018 patient will have his valvular surgery tomorrow and he will be followed postoperatively. The goal will be for 2 weeks of antibiotic therapy after his surgery. Once surgery is complete IV access PICC line can be placed for completion of his course of antibiotic therapy. The frequency of antibiotic might be a bit of a challenge but will work with the home care regarding options. The patient's parents and sister are present and are updated to the patient's status and plans for tomorrow and the overall plan in the outpatient setting. 09/21/2018 Patient is doing well status post mitral valve repair. He is having no specific new complaints. He has been extubated and pain is under good control. 2 weeks of ampicillin gentamicin to be planned in the outpatient setting PICC line will be requested. Current Visit: Yes Status: Acute Code(s): I38 - ENDOCARDITIS, VALVE UNSPECIFIED SNOMED Code(s): 92089485 (2) Bacteremia due to group B Streptococcus Current Visit: Yes Status: Acute Code(s): R78.81 - BACTEREMIA SNOMED Code( s): 930312671407
[2018-09-22] MEDS: HEPARIN SODIUM,PORCINE 5,000 UNIT/ML 1 ML VIAL SQ SCH ×4 (00:07→23:49)
[2018-09-22] MEDS: ACETAMINOPHEN IV (For NPO) 1,000 MG in EMPTY BAG 1 BAG IVPB SCH ×4 (00:07→19:03)
[2018-09-22 00:13] LABS: Glucose,Whole Blood 119 mg/dL (75-99)
[2018-09-22] MEDS: ALBUMIN HUMAN 5% 250 ML in EMPTY BAG 1 BAG IVPB PRN ×4 (00:16→21:16)
[2018-09-22 01:34] LABS: Glucose,Whole Blood 116 mg/dL (75-99)
[2018-09-22] MEDS: AMPICILLIN 2,000 MG in SODIUM CHLORIDE 0.9% 100 ML IVPB SCH ×6 (02:15→22:39)
[2018-09-22 02:23] LABS: Glucose,Whole Blood 119 mg/dL (75-99)
[2018-09-22] MEDS: GENTAMICIN IN NACL ISO-OSM PMX 80 MG in SALINE 1 100ML.BAG IVPB SCH ×2 (03:28→15:50)
[2018-09-22 04:17] LABS: Glucose,Whole Blood 116 mg/dL (75-99)
[2018-09-22 05:55] LABS: Glucose,Whole Blood 130 mg/dL (75-99)
[2018-09-22 06:08] LABS: Basophils % (A) 0 %; Eosinophils # (A) 0.1 k/uL (0-0.7); Eosinophils % (A) 0 %; HCT 26.4 % (39.0-53.0); HGB 8.7 gm/dL (13.0-17.5); Lymphocytes # (A) 0.8 k/uL (1.0-4.8); Lymphocytes % (A) 7 %; MCH 30.2 pg (25.0-35.0); MCHC 32.9 g/dL (31.0-37.0); MCV 91.9 fL (80.0-100.0); Mean Platelet Volume 7.5; Monocytes # (A) 0.5 k/uL (0-1.0); Monocytes % (A) 4 %; Neutrophils # (A) 9.3 k/uL (1.3-7.7); Neutrophils % (A) 87 %; Platelet Count 198 k/uL (150-450); RBC 2.87 m/uL (4.30-5.90); RDW 15.7 % (11.5-15.5); WBC 10.7 k/uL (3.8-10.6)
[2018-09-22 06:12] LABS: Ionized Calcium 4.7 mg/dL (4.5-5.3)
[2018-09-22 06:34] LABS: ALT 24 U/L (21-72); AST 46 U/L (17-59); Albumin 3.5 g/dL (3.5-5.0); Alkaline Phosphatase 84 U/L (38-126); Anion Gap 6 mmol/L; Blood Urea Nitrogen 16 mg/dL (9-20); Calcium 8.3 mg/dL (8.4-10.2); Carbon Dioxide 24 mmol/L (22-30); Chloride 106 mmol/L (98-107); Glucose 120 mg/dL (74-99); Potassium 4.4 mmol/L (3.5-5.1); Sodium 136 mmol/L (137-145); Total Protein 5.8 g/dL (6.3-8.2)
[2018-09-22 07:04] LABS: Glucose,Whole Blood 100 mg/dL (75-99)
[2018-09-22] MEDS: IPRATROPIUM-ALBUTEROL 3 ML NEB INHALATION SCH ×4 (07:22→19:44)
--- NOTE | 2018-09-22 07:42 | XR ---
EXAMINATION TYPE: XR chest 1V portable DATE OF EXAM: 09/22/2018 COMPARISON: 09/21/2018 HISTORY: Status post cardiac surgery. Follow-up exam. Extubation. TECHNIQUE: Single frontal view of the chest is obtained. FINDINGS: There is been interval extubation and removal of the enteric tube. There is unchanged posit ioning of the right-sided internal jugular [place]-López catheter, mediastinal drain, epicardial pacing w layne, and left thoracostomy tube. There is increasing confluence of the left basilar and retrocardiac opacity with overall low lung volumes and linear right basilar atelectasis. Median sternotomy wires a nd a new plastic ring are again demonstrated. Osseous structures are grossly intact. No residual pneu mothorax. IMPRESSION: 1. Interval removal of the enteric and endotracheal tubes. Right-sided thoracostomy tube is stable wi th no residual pneumothorax. 2. Increasing retrocardiac opacity suspected to represent a small pleural effusion and left basilar a telectasis. 3. Low lung volumes with right basilar atelectasis.
[2018-09-22] MEDS ORDERED: FUROSEMIDE 10 MG/ML 2 ML VIAL IV ONE (08:24)
[2018-09-22] MEDS: KETOROLAC 30 MG/ML 1 ML VIAL IVP SCH ×3 (08:59→21:12)
[2018-09-22] MEDS ORDERED: PANTOPRAZOLE 40 MG/10 ML VIAL IVP SCH (09:00)
[2018-09-22] MEDS: ATORVASTATIN 40 MG TAB PO SCH (09:00)
[2018-09-22] MEDS: CLOPIDOGREL 75 MG TAB PO SCH (09:00)
[2018-09-22] MEDS: ASPIRIN 325 MG TAB PO SCH (09:00)
[2018-09-22] MEDS: MUPIROCIN 2% OINT 22 GM TUBE NASAL SCH ×2 (09:01→21:12)
--- NOTE | 2018-09-22 10:02 | PN ---
PROGRESS NOTE Mr. Reddy underwent mitral valve repair, a complex repair performed by Dr. Figueroa. He did not have a valve replacement. He has been extubated. He looks very good clinically. He is doing well, denies any major symptoms. S1-S2 heard normally. No significant murmurs. Lungs are clear. Abdomen and lower extremity exam unchanged. Plan is to continue incentive spirometry, pulmonary toilet. Patient is maintaining sinus rhythm. Same medications at this time. He is doing remarkably well. He has no CAD and had a mitral valve repair for endocarditis and microbiology does not reveal any information on the tissues that were sent for culture. MMODL / IJN: [id number] /
[2018-09-22] MEDS: METOPROLOL TARTRATE 12.5 MG TAB PO SCH ×2 (10:06→21:12)
--- NOTE | 2018-09-22 10:23 | PN ---
PROGRESS NOTE This 63-year-old male, postop day #1, status post mitral valve replacement and left atrial appendage excision. The patient is doing well. He was extubated within the 6- hour window. 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 The patient was found to have severe mitral valve regurgitation. He also has a history of DVT and pulmonary embolism in 2010 following removal of a kidney stone. He also has a history of hyperlipidemia and BPH. Currently, the patient is on 3 L nasal cannula. His only IV is lactated Ringer's running at 50 mL an hour. Talking to the patient, his primary issue is pain. He has had difficulty taking a deep breath. I did tell him to work hard on the incentive spirometer as well as deep breathing, coughing and clearing of secretions. Currently, his vital signs are reviewed. Temperature is 99.1, heart rate 73, respiratory rate 15, blood pressure 96/58 with mean 70 and a 3 L saturation of 94%, although at times is up to 98%. Appears in no acute distress. Grimaces when he takes a deep breath. HEENT examination is grossly unremarkable. NECK: Supple. Full range of motion. No adenopathy or thyromegaly. Neck veins are flat. Cardiovascular examination reveals regular rhythm and rate. S1, S2 normal. No S3, S4, or murmur. Lungs reveal diminished breath sounds. A few scattered expiratory or rhonchi. There is a few scattered crackles at the bases. Breath sounds equal bilaterally. No wheezes. Abdomen is soft. Bowel sounds are heard. Extremities are intact. No cyanosis, clubbing, or edema. Skin without rash. Neurologic examination is brief but nonfocal. Chest x-ray shows some bibasilar atelectasis. There is some postsurgical changes noted as well. Labs are reviewed. White count 10.7, hemoglobin 8.7, hematocrit 26.4, platelet count 198,000. PT/INR, PTT normal. Sodium 136. Potassium, chloride, CO2 all normal. BUN and creatinine were 16 and 0.88. Medications are reviewed. He remains on updrafts q.i.d. and p.r.n. Labs, x-rays and medications are all reviewed. ASSESSMENT: 1. 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 2. Routine mechanical ventilatory management with extubation within 6 hours post OR. 3. Hyperlipidemia. 4. History of deep venous thrombosis and pulmonary embolism in 2010 following a kidney procedure. 5. History of benign prostatic hypertrophy. PLAN: Overall, the patient is doing well. He is still having significant pain. This will be addressed by the nurse. In addition, I asked him to continue to use his incentive spirometer q.1 hour. Also would continue with the updrafts q.i.d. and p.r.n. and also deep breathing, coughing and clearing of secretions. He seems to be doing relatively well. Surgeon has not seen the patient as yet. We will continue to follow. Prognosis is guarded. CRITICAL CARE TIME: 32 minutes. KENNEY / TONIE: [id number] /
--- NOTE | 2018-09-22 10:34 | P.PN ---
Subjective Progress Note Date: 09/22/18 Principal diagnosis: Mitral valve endocarditis with flail P2, severe mitral valve regurgitation. Previous medical history of mitral regurgitation, hyperlipidemia, DVT of the right calf in 2011, BPH, occasional wine, and family history of atrial fibrillation. POD #1 complex mitral valve repair with quadrangular resection of P2 with reconstruction and reinforcement with posterior annuloplasty using a 32 mm AnnuloFlex. Excision of the left atrial appendage using a 35 mm AtriClip. Intraoperative transesophageal echocardiogram and epi-aortic scanning. The patient was sitting up in a recliner in the intensive care unit in no acute distress when seen on rounds with Dr. Figueroa. Does complain of postoperative pain which is mostly controlled with current regimen medication regimen, denies shortness of breath. No new complaints. Remains hemodynamically stable on no inotropes or pressors. Objective - Vital Signs Vital signs: Vital Signs Temp 99.1 F 09/22/18 09:00 Pulse 71 09/22/18 10:00 Resp 20 09/22/18 10:00 BP 94/61 09/22/18 10:00 Pulse Ox 95 09/22/18 10:00 Intake & Output 09/21/18 09/22/18 09/22/18 18:59 06:59 18:59 Intake Total 1056 1175.083 562.55 Output Total 2529 885 185 Balance -1473 290.083 377.55 Intake: IV 1056 1139 197 Ampicillin 2,000 mg In 200 300 Sodium Chloride 0.9% 100 ml @ 200 mls/hr IVPB Q4H [facility] Rx#:[id number] CO/CI 140 90 20 Gentamicin in NaCl Iso- 100 100 Osm Pmx 80 mg In Saline 1 100ml.bag @ 100 mls/hr IVPB Q12H [facility] Rx#: [id number] Lactated Ringers 1,000 ml 350 550 150 @ 50 mls/hr IV .Q20H [facility] Rx#:[id number] PRESSURE BAG 63 99 27 Potassium Chloride 10 meq 200 In Water For Injection 1 100ml.bag @ 100 mls/hr IVPB Q1H [facility] Rx#: [id number] Intake, IV Titration 36.083 5.55 Amount Clevidipine Butyrate 25 31.1 mg In Empty Bag 1 bag @ 1 MG/HR 2 mls/hr IV .Q24H [facility] Rx#:[id number] Insulin Regular 100 unit 4.983 5.55 In Sodium Chloride 0.9% 100 ml @ Per Protocol IV .Q0M [facility] Rx#:[id number] Oral 360 Output: Chest Tube Drainage 314 300 20 Chest Tube Mediastinal 208 120 10 Right Pleural Chest Tube 106 180 10 Urine 1615 585 165 Estimated Blood Loss 600 Other: Voiding Method Indwelling Catheter Indwelling Catheter ABP, PAP, CO, CI - Last Documented Arterial Blood Pressure 94/52 Pulmonary Artery Pressure 24/12 Cardiac Output 7.0 Cardiac Index 3.6 - Constitutional General appearance: Present: cooperative, no acute distress - Respiratory Details: Lungs sounds clear bilaterally. Respirations even, nonlabored. Currently on 3 L nasal cannula with oxygen saturation 98%. Able to achieve 750 mL on his incentive spirometry. Strong cough. Mediastinal chest tube to continuous wall suction, 70 mL sanguinous drainage overnight, 350 mL since surgery. Right pleural chest tube to continuous wall suction, 80 mL serosanguineous drainage overnight, 300 mL since surgery. No air leaks present. - Cardiovascular Details: S1, S2 present. Positive systolic murmur present. Regular rate and rhythm, sinus rhythm on telemetry. Sternum stable. A/V epicardial pacemaker wires present, connected to generator, VVI mode backup rate 50 bpm. Palpable peripheral pulses bilaterally. No edema present. No calf pain or tenderness noted. Right internal jugular [place], right radial arterial line present. Last CO/CI 6.2/3.2 on no inotropes or pressors. Heart hugger in place with patient demonstrating appropriate use. - Gastrointestinal Gastrointestinal Comment(s): Abdomen soft, nontender, nondistended. Hypoactive bowel sounds 4 quadrants. Tolerating clear liquids. Positive belching, negative flatus. - Genitourinary Genitourinary Comment(s): George present draining clear, yellow urine. Output 30-50 mL per hour overnight. - Integumentary Integumentary Comment(s): Skin is warm and dry with evidence of good perfusion. Anterior chest incision well approximated and covered with dry intact dressing. - Neurologic Neurologic: Present: CNII-XII intact - Musculoskeletal Musculoskeletal: Present: strength equal bilaterally - Psychiatric Psychiatric: Present: A&O x's 3, appropriate affect, intact judgment & insight - Allied health notes Allied health notes reviewed: nursing - Labs CBC & Chem 7: 09/22/18 05:55 09/22/18 05:55 Labs: Abnormal Lab Results - Last 24 Hours (Table) 09/20/18 09/21/18 09/21/18 Range/Units 05:35 08:39 09:44 WBC (3.8-10.6) k/uL RBC (4.30-5.90) m/uL Hgb (13.0-17.5) gm/dL Hct (39.0-53.0) % RDW (11.5-15.5) % Neutrophils # (1.3-7.7) k/uL Lymphocytes # (1.0-4.8) k/uL ABG pH 7.47 H (7.35-7.45) ABG pCO2 46 H (35-45) mmHg ABG pO2 374 H 47 L* (83-108) mmHg ABG HCO3 26 H 27 H (21-25) mmol/L ABG Total CO2 27 H 28 H (19-24) mmol/L ABG O2 Saturation 100.0 H 79.9 L (94-97) % ABG Hematocrit 32 L 29 L (34.0-46.0) % ABG Potassium (3.4-4.5) mmol/L ABG Ionized Calcium (4.5-5.3) mg/dL ABG Glucose (75-99) mg/dL ABG Lactic Acid (0.5-1.6) mmol/L Hemoglobin 10.5 L 9.4 L (13.0-17.5) gm/dL Sodium (137-145) mmol/L Chloride (98-107) mmol/L Glucose (74-99) mg/dL POC Glucose (mg/dL) (75-99) mg/dL Calcium (8.4-10.2) mg/dL Magnesium (1.6-2.3) mg/dL Total Protein (6.3-8.2) g/dL Albumin (3.5-5.0) g/dL Arterial Blood Potassium (3.4-4.5) mmol/L Arterial Blood Glucose (75-99) mg/dL Crossmatch See Detail 09/21/18 09/21/18 09/21/18 Range/Units 10:30 11:01 11:35 WBC (3.8-10.6) k/uL RBC (4.30-5.90) m/uL Hgb (13.0-17.5) gm/dL Hct (39.0-53.0) % RDW (11.5-15.5) % Neutrophils # (1.3-7.7) k/uL Lymphocytes # (1.0-4.8) k/uL ABG pH 7.32 L (7.35-7.45) ABG pCO2 50 H (35-45) mmHg ABG pO2 271 H 331 H 303 H (83-108) mmHg ABG HCO3 26 H 26 H (21-25) mmol/L ABG Total CO2 27 H 27 H 26 H (19-24) mmol/L ABG O2 Saturation 100.0 H 100.0 H 100.0 H (94-97) % ABG Hematocrit 23 L 25 L 24 L (34.0-46.0) % ABG Potassium 4.7 H (3.4-4.5) mmol/L ABG Ionized Calcium 4.3 L 4.4 L 4.4 L (4.5-5.3) mg/dL ABG Glucose 149 H 157 H 123 H (75-99) mg/dL ABG Lactic Acid 1.9 H (0.5-1.6) mmol/L Hemoglobin 7.4 L 8.1 L 7.7 L (13.0-17.5) gm/dL Sodium (137-145) mmol/L Chloride (98-107) mmol/L Glucose (74-99) mg/dL POC Glucose (mg/dL) (75-99) mg/dL Calcium (8.4-10.2) mg/dL Magnesium (1.6-2.3) mg/dL Total Protein (6.3-8.2) g/dL Albumin (3.5-5.0) g/dL Arterial Blood Potassium 4.7 H (3.4-4.5) mmol/L Arterial Blood Glucose 149 H 157 H 123 H (75-99) mg/dL Crossmatch 09/21/18 09/21/18 09/21/18 Range/Units 12:15 13:11 13:22 WBC 17.7 H (3.8-10.6) k/uL RBC 2.84 L (4.30-5.90) m/uL Hgb 8.5 L D (13.0-17.5) gm/dL Hct 26.5 L (39.0-53.0) % RDW 15.7 H (11.5-15.5) % Neutrophils # 16.0 H (1.3-7.7) k/uL Lymphocytes # (1.0-4.8) k/uL ABG pH (7.35-7.45) ABG pCO2 (35-45) mmHg ABG pO2 191 H (83-108) mmHg ABG HCO3 (21-25) mmol/L ABG Total CO2 25 H (19-24) mmol/L ABG O2 Saturation 99.7 H (94-97) % ABG Hematocrit 25 L (34.0-46.0) % ABG Potassium (3.4-4.5) mmol/L ABG Ionized Calcium (4.5-5.3) mg/dL ABG Glucose (75-99) mg/dL ABG Lactic Acid 1.7 H (0.5-1.6) mmol/L Hemoglobin 8.3 L (13.0-17.5) gm/dL Sodium (137-145) mmol/L Chloride (98-107) mmol/L Glucose (74-99) mg/dL POC Glucose (mg/dL) 69 L (75-99) mg/dL Calcium (8.4-10.2) mg/dL Magnesium (1.6-2.3) mg/dL Total Protein (6.3-8.2) g/dL Albumin (3.5-5.0) g/dL Arterial Blood Potassium (3.4-4.5) mmol/L Arterial Blood Glucose (75-99) mg/dL Crossmatch 09/21/18 09/21/18 09/21/18 Range/Units 13:22 13:36 14:01 WBC (3.8-10.6) k/uL RBC (4.30-5.90) m/uL Hgb (13.0-17.5) gm/dL Hct (39.0-53.0) % RDW (11.5-15.5) % Neutrophils # (1.3-7.7) k/uL Lymphocytes # (1.0-4.8) k/uL ABG pH (7.35-7.45) ABG pCO2 (35-45) mmHg ABG pO2 (83-108) mmHg ABG HCO3 (21-25) mmol/L ABG Total CO2 (19-24) mmol/L ABG O2 Saturation (94-97) % ABG Hematocrit (34.0-46.0) % ABG Potassium (3.4-4.5) mmol/L ABG Ionized Calcium (4.5-5.3) mg/dL ABG Glucose (75-99) mg/dL ABG Lactic Acid (0.5-1.6) mmol/L Hemoglobin (13.0-17.5) gm/dL Sodium (137-145) mmol/L Chloride 110 H (98-107) mmol/L Glucose 178 H (74-99) mg/dL POC Glucose (mg/dL) 131 H 115 H (75-99) mg/dL Calcium 7.7 L (8.4-10.2) mg/dL Magnesium 2.4 H (1.6-2.3) mg/dL Total Protein 4.6 L (6.3-8.2) g/dL Albumin 2.5 L (3.5-5.0) g/dL Arterial Blood Potassium (3.4-4.5) mmol/L Arterial Blood Glucose (75-99) mg/dL Crossmatch 09/21/18 09/21/18 09/21/18 Range/Units 15:01 16:00 16:03 WBC 17.7 H (3.8-10.6) k/uL RBC 3.19 L (4.30-5.90) m/uL Hgb 9.4 L (13.0-17.5) gm/dL Hct 29.3 L (39.0-53.0) % RDW (11.5-15.5) % Neutrophils # 16.5 H (1.3-7.7) k/uL Lymphocytes # 0.7 L (1.0-4.8) k/uL ABG pH (7.35-7.45) ABG pCO2 (35-45) mmHg ABG pO2 (83-108) mmHg ABG HCO3 (21-25) mmol/L ABG Total CO2 (19-24) mmol/L ABG O2 Saturation (94-97) % ABG Hematocrit (34.0-46.0) % ABG Potassium (3.4-4.5) mmol/L ABG Ionized Calcium (4.5-5.3) mg/dL ABG Glucose (75-99) mg/dL ABG Lactic Acid (0.5-1.6) mmol/L Hemoglobin (13.0-17.5) gm/dL Sodium (137-145) mmol/L Chloride (98-107) mmol/L Glucose (74-99) mg/dL POC Glucose (mg/dL) 134 H 138 H (75-99) mg/dL Calcium (8.4-10.2) mg/dL Magnesium (1.6-2.3) mg/dL Total Protein (6.3-8.2) g/dL Albumin (3.5-5.0) g/dL Arterial Blood Potassium (3.4-4.5) mmol/L Arterial Blood Glucose (75-99) mg/dL Crossmatch 09/21/18 09/21/18 09/21/18 Range/Units 16:57 17:04 18:09 WBC (3.8-10.6) k/uL RBC (4.30-5.90) m/uL Hgb (13.0-17.5) gm/dL Hct (39.0-53.0) % RDW (11.5-15.5) % Neutrophils # (1.3-7.7) k/uL Lymphocytes # (1.0-4.8) k/uL ABG pH (7.35-7.45) ABG pCO2 (35-45) mmHg ABG pO2 109 H (83-108) mmHg ABG HCO3 (21-25) mmol/L ABG Total CO2 25 H (19-24) mmol/L ABG O2 Saturation 98.8 H (94-97) % ABG Hematocrit (34.0-46.0) % ABG Potassium (3.4-4.5) mmol/L ABG Ionized Calcium (4.5-5.3) mg/dL ABG Glucose (75-99) mg/dL ABG Lactic Acid (0.5-1.6) mmol/L Hemoglobin (13.0-17.5) gm/dL Sodium (137-145) mmol/L Chloride (98-107) mmol/L Glucose (74-99) mg/dL POC Glucose (mg/dL) 123 H 115 H (75-99) mg/dL Calcium (8.4-10.2) mg/dL Magnesium (1.6-2.3) mg/dL Total Protein (6.3-8.2) g/dL Albumin (3.5-5.0) g/dL Arterial Blood Potassium (3.4-4.5) mmol/L Arterial Blood Glucose (75-99) mg/dL Crossmatch 09/21/18 09/21/18 09/21/18 Range/Units 19:03 19:10 19:59 WBC 14.8 H (3.8-10.6) k/uL RBC 2.89 L (4.30-5.90) m/uL Hgb 8.5 L (13.0-17.5) gm/dL Hct 26.6 L (39.0-53.0) % RDW 15.6 H (11.5-15.5) % Neutrophils # 14.0 H (1.3-7.7) k/uL Lymphocytes # 0.5 L (1.0-4.8) k/uL ABG pH (7.35-7.45) ABG pCO2 (35-45) mmHg ABG pO2 (83-108) mmHg ABG HCO3 (21-25) mmol/L ABG Total CO2 (19-24) mmol/L ABG O2 Saturation (94-97) % ABG Hematocrit (34.0-46.0) % ABG Potassium (3.4-4.5) mmol/L ABG Ionized Calcium (4.5-5.3) mg/dL ABG Glucose (75-99) mg/dL ABG Lactic Acid (0.5-1.6) mmol/L Hemoglobin (13.0-17.5) gm/dL Sodium (137-145) mmol/L Chloride (98-107) mmol/L Glucose (74-99) mg/dL POC Glucose (mg/dL) 117 H 121 H (75-99) mg/dL Calcium (8.4-10.2) mg/dL Magnesium (1.6-2.3) mg/dL Total Protein (6.3-8.2) g/dL Albumin (3.5-5.0) g/dL Arterial Blood Potassium (3.4-4.5) mmol/L Arterial Blood Glucose (75-99) mg/dL Crossmatch 09/21/18 09/21/18 09/22/18 Range/Units 21:05 22:18 00:11 WBC (3.8-10.6) k/uL RBC (4.30-5.90) m/uL Hgb (13.0-17.5) gm/dL Hct (39.0-53.0) % RDW (11.5-15.5) % Neutrophils # (1.3-7.7) k/uL Lymphocytes # (1.0-4.8) k/uL ABG pH (7.35-7.45) ABG pCO2 (35-45) mmHg ABG pO2 (83-108) mmHg ABG HCO3 (21-25) mmol/L ABG Total CO2 (19-24) mmol/L ABG O2 Saturation (94-97) % ABG Hematocrit (34.0-46.0) % ABG Potassium (3.4-4.5) mmol/L ABG Ionized Calcium (4.5-5.3) mg/dL ABG Glucose (75-99) mg/dL ABG Lactic Acid (0.5-1.6) mmol/L Hemoglobin (13.0-17.5) gm/dL Sodium (137-145) mmol/L Chloride (98-107) mmol/L Glucose (74-99) mg/dL POC Glucose (mg/dL) 121 H 121 H 119 H (75-99) mg/dL Calcium (8.4-10.2) mg/dL Magnesium (1.6-2.3) mg/dL Total Protein (6.3-8.2) g/dL Albumin (3.5-5.0) g/dL Arterial Blood Potassium (3.4-4.5) mmol/L Arterial Blood Glucose (75-99) mg/dL Crossmatch 09/22/18 09/22/18 09/22/18 Range/Units 01:32 02:22 04:15 WBC (3.8-10.6) k/uL RBC (4.30-5.90) m/uL Hgb (13.0-17.5) gm/dL Hct (39.0-53.0) % RDW (11.5-15.5) % Neutrophils # (1.3-7.7) k/uL Lymphocytes # (1.0-4.8) k/uL ABG pH (7.35-7.45) ABG pCO2 (35-45) mmHg ABG pO2 (83-108) mmHg ABG HCO3 (21-25) mmol/L ABG Total CO2 (19-24) mmol/L ABG O2 Saturation (94-97) % ABG Hematocrit (34.0-46.0) % ABG Potassium (3.4-4.5) mmol/L ABG Ionized Calcium (4.5-5.3) mg/dL ABG Glucose (75-99) mg/dL ABG Lactic Acid (0.5-1.6) mmol/L Hemoglobin (13.0-17.5) gm/dL Sodium (137-145) mmol/L Chloride (98-107) mmol/L Glucose (74-99) mg/dL POC Glucose (mg/dL) 116 H 119 H 116 H (75-99) mg/dL Calcium (8.4-10.2) mg/dL Magnesium (1.6-2.3) mg/dL Total Protein (6.3-8.2) g/dL Albumin (3.5-5.0) g/dL Arterial Blood Potassium (3.4-4.5) mmol/L Arterial Blood Glucose (75-99) mg/dL Crossmatch 09/22/18 09/22/18 09/22/18 Range/Units 05:53 05:55 05:55 WBC 10.7 H (3.8-10.6) k/uL RBC 2.87 L (4.30-5.90) m/uL Hgb 8.7 L (13.0-17.5) gm/dL Hct 26.4 L (39.0-53.0) % RDW 15.7 H (11.5-15.5) % Neutrophils # 9.3 H (1.3-7.7) k/uL Lymphocytes # 0.8 L (1.0-4.8) k/uL ABG pH (7.35-7.45) ABG pCO2 (35-45) mmHg ABG pO2 (83-108) mmHg ABG HCO3 (21-25) mmol/L ABG Total CO2 (19-24) mmol/L ABG O2 Saturation (94-97) % ABG Hematocrit (34.0-46.0) % ABG Potassium (3.4-4.5) mmol/L ABG Ionized Calcium (4.5-5.3) mg/dL ABG Glucose (75-99) mg/dL ABG Lactic Acid (0.5-1.6) mmol/L Hemoglobin (13.0-17.5) gm/dL Sodium 136 L (137-145) mmol/L Chloride (98-107) mmol/L Glucose 120 H (74-99) mg/dL POC Glucose (mg/dL) 130 H (75-99) mg/dL Calcium 8.3 L (8.4-10.2) mg/dL Magnesium (1.6-2.3) mg/dL Total Protein 5.8 L (6.3-8.2) g/dL Albumin (3.5-5.0) g/dL Arterial Blood Potassium (3.4-4.5) mmol/L Arterial Blood Glucose (75-99) mg/dL Crossmatch 09/22/18 Range/Units 07:02 WBC (3.8-10.6) k/uL RBC (4.30-5.90) m/uL Hgb (13.0-17.5) gm/dL Hct (39.0-53.0) % RDW (11.5-15.5) % Neutrophils # (1.3-7.7) k/uL Lymphocytes # (1.0-4.8) k/uL ABG pH (7.35-7.45) ABG pCO2 (35-45) mmHg ABG pO2 (83-108) mmHg ABG HCO3 (21-25) mmol/L ABG Total CO2 (19-24) mmol/L ABG O2 Saturation (94-97) % ABG Hematocrit (34.0-46.0) % ABG Potassium (3.4-4.5) mmol/L ABG Ionized Calcium (4.5-5.3) mg/dL ABG Glucose (75-99) mg/dL ABG Lactic Acid (0.5-1.6) mmol/L Hemoglobin (13.0-17.5) gm/dL Sodium (137-145) mmol/L Chloride (98-107) mmol/L Glucose (74-99) mg/dL POC Glucose (mg/dL) 100 H (75-99) mg/dL Calcium (8.4-10.2) mg/dL Magnesium (1.6-2.3) mg/dL Total Protein (6.3-8.2) g/dL Albumin (3.5-5.0) g/dL Arterial Blood Potassium (3.4-4.5) mmol/L Arterial Blood Glucose (75-99) mg/dL Crossmatch Microbiology - Last 24 Hours (Table) 09/21/18 13:02 Gram Stain - Preliminary Heart Valve Tissue Culture - Preliminary 09/15/18 20:22 Blood Culture - Final Blood No Growth after 144 hours 09/21/18 13:02 Anaerobic Culture - Preliminary Heart Valve - Imaging and Cardiology Chest x-ray: image reviewed Assessment and Plan (1) Mitral regurgitation Current Visit: Yes Status: Chronic Code(s): I34.0 - NONRHEUMATIC MITRAL ( VALVE) INSUFFICIENCY SNOMED Code(s): 34047472 (2) History of DVT (deep vein thrombosis) Current Visit: No Status: Resolved Code(s): Z86.718 - PERSONAL HISTORY OF OTHER VENOUS THROMBOSIS AND EMBOLISM SNOMED Code(s): 037347392 (3) Hyperlipemia Current Visit: Yes Status: Chronic Code(s): E78.5 - HYPERLIPIDEMIA, UNSPECIFIED SNOMED Code(s): 71416495 (4) Endocarditis of [place] valve Current Visit: Yes Status: Acute Code(s): I38 - ENDOCARDITIS, VALVE UNSPECIFIED SNOMED Code(s): 93996714 Plan: 1. Continue aspirin, statin, Plavix, beta masood. Will increase beta masood therapy when tolerated. 2. Wean O2 as tolerated. Encourage incentive spirometry 10 times every hour while awake. 3. Continue antibiotics per recommendations from infectious disease. 4. Bronchodilators per pulmonology. 5. Will monitor daily labs, chest x-rays. Electrolyte replacement per protocol. 6. Pain controlled current medication regimen. Will add Toradol. 7. GI prophylaxis with Protonix, DVT prophylaxis with subcu heparin and SCDs. 8. Insulin management per primary care service. 9. Increase activity, ambulate as tolerated. PT/OT/cardiac rehab following. 10. DC [place]. Cannot [place] to continue CVP monitoring. 11. Lasix 20 mg IV push 1. 12. More recommendations to follow based on patient's progress. Time with Patient: Greater than 30
--- NOTE | 2018-09-22 10:43 | P.PN ---
Subjective Progress Note Date: 09/21/18 This is a 63-year-old male patient of Dr. Sosa and Dr. Price with history of hyperlipidemia but long-standing history of heart murmur. Patient was having chills and sweating with generalized achiness that impacted his physical activity. He was initially treated for pneumonia and completed antibiotics but his symptoms continued. There was also concern for Lyme disease and patient was started on doxycycline approximate 3 weeks ago. He subsequently underwent a CAT scan that showed dilated ascending aorta and the patient was referred to Dr. Bear on for transthoracic echocardiogram that revealed a preserved systolic function with severe mitral regurgitation and a mass on the posterior mitral valve leaflet suggestive of endocarditis and vegetation and the patient was then set up for SILVIA and heart catheterization which was done yesterday. SILVIA revealed ejection fraction of 55% with severe eccentric right regurgitation with vegetation on the posterior mitral valve, mild tricuspid regurgitation and mild dilatation of the aorta and mild aortic regurgitation. Heart catheterization showed normal coronary arteries and dilated ascending aorta. Patient was admitted and a consult was added for Dr. Beck. Blood cultures were obtained. 09/13: patient is feeling well , was started on vancomycin ans subsequently was switched to Ancef 2gr IVPB Q8H as he is bacteeremic to Group B strep and alpha hemolytic strep, and we will repeat blood cultures today and tomorrow. 09/14: Patient is currently on Ancef. Patient has been seen by cardiothoracic surgery with plan for valve replacement or repair as early as Friday. Patient has been seen by dental surgeon and cleared of any present dental infection. CAT scan of the facial bones reveals sinuses clear with exception of left maxillary sinus and ostiomeatal complex is patent bilaterally. No evidence of abscess. Patient denies any new complaints. He has been afebrile since September 22. Pulse ox is 95% on room air. 09/15: Dr. Beck has changed antibiotics to ampicillin and gentamicin. Blood culture obtained on September 13 and one on September 14 are currently showing no growth after 24 hours. Patient is afebrile, vital signs are stable, blood pressure is noted to be some readings on the low side. Pulse ox is 92% to 94% on room air. Patient continues to deny any chest pain or shortness of breath, no lightheadedness or dizziness. He denies any fever or chills. 09/16: Blood culture from September 23 is now positive. Blood culture obtained on September 14 showing no growth. Blood culture from September 15 is in progress. Patient has been afebrile. He denies any fever or chills. He has had no nausea vomiting or diarrhea. Patient is continued on ampicillin and gentamicin. Cardiothoracic surgery is tentatively planning for surgery on Friday or Friday. 09/17: Patient denies any new complaints. He remains afebrile. Blood cultures from September 14 and September 15 are showing no growth. Patient is tentatively scheduled for surgery on Friday. 09/18: Patient denies any Complains any remains afebrile. Blood cultures from September 14 and September 15 are continuing to show no growth. Patient is scheduled for open heart surgery on Friday for mitral valve repair or replacement. Patient is continued on ampicillin and gentamicin and followed by Dr. Beck. 09/21: Patient is status post complex mitral valve repair with quadrangular resection of P2 with reconstruction and reinforcement with posterior annuloplasty using a 32 mm AnnuloFlex. Excision of the left atrial appendage using a 35 mm AtriClip. Intraoperative transesophageal echocardiogram and epi- aortic scanning. Patient is currently intubated and on mechanical ventilation. He is continued on IV antibiotics with ampicillin and gentamicin. Right- sided Cordis in place. Patient is currently on Clevidipine 4 for blood pressure control. Insulin drip has been started. He has a right-sided pleural chest tube and mediastinal. Patient has not required transfusion. Anticipate possible extubation this evening. Review of Systems unable to be obtained as patient is intubated Objective - Vital Signs Vital signs: Vital Signs Temp 98.7 F 09/21/18 06:26 Pulse 67 09/21/18 06:26 Resp 16 09/21/18 06:26 BP 124/82 09/21/18 06:26 Pulse Ox 100 09/21/18 13:23 Intake & Output 09/20/18 09/21/18 09/21/18 18:59 06:59 18:59 Intake Total 1500 220 440 Output Total 2002 Balance 1500 220 -1563 Weight 77.1 kg Intake: IV 440 Ampicillin 2,000 mg In 100 Sodium Chloride 0.9% 100 ml @ 200 mls/hr IVPB Q4H [facility] Rx#:[id number] CO/CI 60 Lactated Ringers 1,000 ml 150 @ 50 mls/hr IV .Q20H [facility] Rx#:[id number] PRESSURE BAG 27 Potassium Chloride 10 meq 100 In Water For Injection 1 100ml.bag @ 100 mls/hr IVPB Q1H [facility] Rx#: [id number] Intake, IV Titration 300 220 Amount Ampicillin 2,000 mg In 200 Sodium Chloride 0.9% 100 ml @ 200 mls/hr IVPB Q4HR [facility] Rx#:[id number] Gentamicin in NaCl Iso- 100 Osm Pmx 80 mg In Saline 1 100ml.bag @ 100 mls/hr IVPB Q12HR@0000,1200 [facility] Rx#:[id number] Lactated Ringers 1,000 ml 220 @ 20 mls/hr IV .Q24H [facility] Rx#:[id number] Oral 1200 Output: Chest Tube Drainage 243 Chest Tube Mediastinal 158 Right Pleural Chest Tube 85 Urine 1160 Estimated Blood Loss 600 Other: Voiding Method Toilet - Exam General appearance: no acute distress, intubated and on mechanical ventilation - Neck Neck: no lymphadenopathy, normal ROM, no rigidity, no stridor, no thyromegaly Carotids: bilateral: upstroke normal Thyroid: bilateral: normal size - Respiratory Respiratory: bilateral: diminished, negative: dullness, rales, rhonchi, wheezing , prolonged expiration, prolonged inspiration - Cardiovascular Rhythm: regular Heart sounds: abnormal: S1 (Decreased) Abnormal Heart Sounds: systolic murmur (There is 4/6 systolic ejection murmur located in the apex Radiating to the axilla.) - Gastrointestinal General gastrointestinal: no hepatomegaly, hypoactive bowel sounds, soft, no splenomegaly, no tenderness, no umbilical hernia, no ventral hernia - Integumentary Integumentary: normal, normal turgor - Neurologic Neurologic: CNII-XII intact - Musculoskeletal Musculoskeletal: generalized weakness, gait steady - Psychiatric Psychiatric: On sedation - Labs CBC & Chem 7: 09/22/18 05:55 09/22/18 05:55 Labs: Abnormal Lab Results - Last 24 Hours (Table) 09/20/18 09/21/18 09/21/18 Range/Units 05:35 04:47 08:39 WBC (3.8-10.6) k/uL RBC (4.30-5.90) m/uL Hgb (13.0-17.5) gm/dL Hct (39.0-53.0) % RDW (11.5-15.5) % Neutrophils # (1.3-7.7) k/uL ABG pH 7.47 H (7.35-7.45) ABG pCO2 (35-45) mmHg ABG pO2 374 H (83-108) mmHg ABG HCO3 26 H (21-25) mmol/L ABG Total CO2 27 H (19-24) mmol/L ABG O2 Saturation 100.0 H (94-97) % ABG Hematocrit 32 L (34.0-46.0) % ABG Potassium (3.4-4.5) mmol/L ABG Ionized Calcium (4.5-5.3) mg/dL ABG Glucose (75-99) mg/dL ABG Lactic Acid (0.5-1.6) mmol/L Hemoglobin 10.5 L (13.0-17.5) gm/dL Chloride (98-107) mmol/L Glucose (74-99) mg/dL POC Glucose (mg/dL) 101 H (75-99) mg/dL Calcium (8.4-10.2) mg/dL Magnesium (1.6-2.3) mg/dL Total Protein (6.3-8.2) g/dL Albumin (3.5-5.0) g/dL Arterial Blood Potassium (3.4-4.5) mmol/L Arterial Blood Glucose (75-99) mg/dL Crossmatch See Detail 09/21/18 09/21/18 09/21/18 Range/Units 09:44 10:30 11:01 WBC (3.8-10.6) k/uL RBC (4.30-5.90) m/uL Hgb (13.0-17.5) gm/dL Hct (39.0-53.0) % RDW (11.5-15.5) % Neutrophils # (1.3-7.7) k/uL ABG pH 7.32 L (7.35-7.45) ABG pCO2 46 H 50 H (35-45) mmHg ABG pO2 47 L* 271 H 331 H (83-108) mmHg ABG HCO3 27 H 26 H 26 H (21-25) mmol/L ABG Total CO2 28 H 27 H 27 H (19-24) mmol/L ABG O2 Saturation 79.9 L 100.0 H 100.0 H (94-97) % ABG Hematocrit 29 L 23 L 25 L (34.0-46.0) % ABG Potassium 4.7 H (3.4-4.5) mmol/L ABG Ionized Calcium 4.3 L 4.4 L (4.5-5.3) mg/dL ABG Glucose 149 H 157 H (75-99) mg/dL ABG Lactic Acid (0.5-1.6) mmol/L Hemoglobin 9.4 L 7.4 L 8.1 L (13.0-17.5) gm/dL Chloride (98-107) mmol/L Glucose (74-99) mg/dL POC Glucose (mg/dL) (75-99) mg/dL Calcium (8.4-10.2) mg/dL Magnesium (1.6-2.3) mg/dL Total Protein (6.3-8.2) g/dL Albumin (3.5-5.0) g/dL Arterial Blood Potassium 4.7 H (3.4-4.5) mmol/L Arterial Blood Glucose 149 H 157 H (75-99) mg/dL Crossmatch 09/21/18 09/21/18 09/21/18 Range/Units 11:35 12:15 13:11 WBC (3.8-10.6) k/uL RBC (4.30-5.90) m/uL Hgb (13.0-17.5) gm/dL Hct (39.0-53.0) % RDW (11.5-15.5) % Neutrophils # (1.3-7.7) k/uL ABG pH (7.35-7.45) ABG pCO2 (35-45) mmHg ABG pO2 303 H 191 H (83-108) mmHg ABG HCO3 (21-25) mmol/L ABG Total CO2 26 H 25 H (19-24) mmol/L ABG O2 Saturation 100.0 H 99.7 H (94-97) % ABG Hematocrit 24 L 25 L (34.0-46.0) % ABG Potassium (3.4-4.5) mmol/L ABG Ionized Calcium 4.4 L (4.5-5.3) mg/dL ABG Glucose 123 H (75-99) mg/dL ABG Lactic Acid 1.9 H 1.7 H (0.5-1.6) mmol/L Hemoglobin 7.7 L 8.3 L (13.0-17.5) gm/dL Chloride (98-107) mmol/L Glucose (74-99) mg/dL POC Glucose (mg/dL) 69 L (75-99) mg/dL Calcium (8.4-10.2) mg/dL Magnesium (1.6-2.3) mg/dL Total Protein (6.3-8.2) g/dL Albumin (3.5-5.0) g/dL Arterial Blood Potassium (3.4-4.5) mmol/L Arterial Blood Glucose 123 H (75-99) mg/dL Crossmatch 09/21/18 09/21/18 09/21/18 Range/Units 13:22 13:22 13:36 WBC 17.7 H (3.8-10.6) k/uL RBC 2.84 L (4.30-5.90) m/uL Hgb 8.5 L D (13.0-17.5) gm/dL Hct 26.5 L (39.0-53.0) % RDW 15.7 H (11.5-15.5) % Neutrophils # 16.0 H (1.3-7.7) k/uL ABG pH (7.35-7.45) ABG pCO2 (35-45) mmHg ABG pO2 (83-108) mmHg ABG HCO3 (21-25) mmol/L ABG Total CO2 (19-24) mmol/L ABG O2 Saturation (94-97) % ABG Hematocrit (34.0-46.0) % ABG Potassium (3.4-4.5) mmol/L ABG Ionized Calcium (4.5-5.3) mg/dL ABG Glucose (75-99) mg/dL ABG Lactic Acid (0.5-1.6) mmol/L Hemoglobin (13.0-17.5) gm/dL Chloride 110 H (98-107) mmol/L Glucose 178 H (74-99) mg/dL POC Glucose (mg/dL) 131 H (75-99) mg/dL Calcium 7.7 L (8.4-10.2) mg/dL Magnesium 2.4 H (1.6-2.3) mg/dL Total Protein 4.6 L (6.3-8.2) g/dL Albumin 2.5 L (3.5-5.0) g/dL Arterial Blood Potassium (3.4-4.5) mmol/L Arterial Blood Glucose (75-99) mg/dL Crossmatch 09/21/18 09/21/18 Range/Units 14:01 15:01 WBC (3.8-10.6) k/uL RBC (4.30-5.90) m/uL Hgb (13.0-17.5) gm/dL Hct (39.0-53.0) % RDW (11.5-15.5) % Neutrophils # (1.3-7.7) k/uL ABG pH (7.35-7.45) ABG pCO2 (35-45) mmHg ABG pO2 (83-108) mmHg ABG HCO3 (21-25) mmol/L ABG Total CO2 (19-24) mmol/L ABG O2 Saturation (94-97) % ABG Hematocrit (34.0-46.0) % ABG Potassium (3.4-4.5) mmol/L ABG Ionized Calcium (4.5-5.3) mg/dL ABG Glucose (75-99) mg/dL ABG Lactic Acid (0.5-1.6) mmol/L Hemoglobin (13.0-17.5) gm/dL Chloride (98-107) mmol/L Glucose (74-99) mg/dL POC Glucose (mg/dL) 115 H 134 H (75-99) mg/dL Calcium (8.4-10.2) mg/dL Magnesium (1.6-2.3) mg/dL Total Protein (6.3-8.2) g/dL Albumin (3.5-5.0) g/dL Arterial Blood Potassium (3.4-4.5) mmol/L Arterial Blood Glucose (75-99) mg/dL Crossmatch Microbiology - Last 24 Hours (Table) 09/15/18 20:22 Blood Culture - Preliminary Blood No Growth after 120 hours Assessment and Plan Plan: 1. Subacute endocarditis with mitral valve vegetation post SILVIA and left heart catheterization that showed normal coronaries. Blood cultures were positive for group B streptococcus agalactia and alpha hemolytic strep. Patient is status post complex mitral valve repair with quadrangular resection of P2 with reconstruction and reinforcement with posterior annuloplasty using a 32 mm AnnuloFlex. Continue ampicillin and gentamicin per Dr. Beck. Repeat blood cultures from September 14 and are showing no growth. Continue current management per cardiothoracic surgery 2. Severe mitral regurgitation with mitral valve vegetation due to endocarditis. 3. Benign prostatic hypertrophy. Continue Flomax 0.4 mg orally once every day. 4. History of kidney stones. Stable. 5. DVT prophylaxis. Heparin 5000 units subcutaneously every 8 hours. 6. GI prophylaxis. Protonix 40 mg orally once every day. Discharge plan: Home Impression and plan of care have been directed as dictated by the signing physician. Olga Roman nurse practitioner acting as scribe for signing physician.
[2018-09-22] MEDS: LACTATED RINGERS 1,000 ML IV SCH (11:24)
[2018-09-22 12:12] LABS: Glucose,Whole Blood 137 mg/dL (75-99)
[2018-09-22] MEDS: INSULIN ASPART 100 UNIT/ML 1 ML 10 ML VIAL SQ SCH ×3 (12:20→21:02)
[2018-09-22] MEDS ORDERED: HYDROcodone/APAP 5-325MG 1 EACH TAB PO PRN (13:18)
[2018-09-22] MEDS ORDERED: MAGNESIUM HYDROXIDE 2,400 MG/10 ML CUP PO PRN (13:19)
[2018-09-22] MEDS ORDERED: BISACODYL 10 MG SUPP RECTAL PRN (13:19)
[2018-09-22] MEDS: FERROUS SULFATE 325 MG TAB PO SCH (13:56)
[2018-09-22] MEDS: CLEVIDIPINE BUTYRATE 25 MG in EMPTY BAG 1 BAG IV SCH (13:56)
--- NOTE | 2018-09-22 15:09 | P.PN ---
Subjective Progress Note Date: 09/22/18 This is a 63-year-old male patient of Dr. Sosa and Dr. Price with history of hyperlipidemia but long-standing history of heart murmur. Patient was having chills and sweating with generalized achiness that impacted his physical activity. He was initially treated for pneumonia and completed antibiotics but his symptoms continued. There was also concern for Lyme disease and patient was started on doxycycline approximate 3 weeks ago. He subsequently underwent a CAT scan that showed dilated ascending aorta and the patient was referred to Dr. Bear on for transthoracic echocardiogram that revealed a preserved systolic function with severe mitral regurgitation and a mass on the posterior mitral valve leaflet suggestive of endocarditis and vegetation and the patient was then set up for SILVIA and heart catheterization which was done yesterday. SILVIA revealed ejection fraction of 55% with severe eccentric right regurgitation with vegetation on the posterior mitral valve, mild tricuspid regurgitation and mild dilatation of the aorta and mild aortic regurgitation. Heart catheterization showed normal coronary arteries and dilated ascending aorta. Patient was admitted and a consult was added for Dr. Beck. Blood cultures were obtained. 09/13: patient is feeling well , was started on vancomycin ans subsequently was switched to Ancef 2gr IVPB Q8H as he is bacteeremic to Group B strep and alpha hemolytic strep, and we will repeat blood cultures today and tomorrow. 09/14: Patient is currently on Ancef. Patient has been seen by cardiothoracic surgery with plan for valve replacement or repair as early as Friday. Patient has been seen by dental surgeon and cleared of any present dental infection. CAT scan of the facial bones reveals sinuses clear with exception of left maxillary sinus and ostiomeatal complex is patent bilaterally. No evidence of abscess. Patient denies any new complaints. He has been afebrile since September 22. Pulse ox is 95% on room air. 09/15: Dr. Beck has changed antibiotics to ampicillin and gentamicin. Blood culture obtained on September 13 and one on September 14 are currently showing no growth after 24 hours. Patient is afebrile, vital signs are stable, blood pressure is noted to be some readings on the low side. Pulse ox is 92% to 94% on room air. Patient continues to deny any chest pain or shortness of breath, no lightheadedness or dizziness. He denies any fever or chills. 09/16: Blood culture from September 23 is now positive. Blood culture obtained on September 14 showing no growth. Blood culture from September 15 is in progress. Patient has been afebrile. He denies any fever or chills. He has had no nausea vomiting or diarrhea. Patient is continued on ampicillin and gentamicin. Cardiothoracic surgery is tentatively planning for surgery on Friday or Friday. 09/17: Patient denies any new complaints. He remains afebrile. Blood cultures from September 14 and September 15 are showing no growth. Patient is tentatively scheduled for surgery on Friday. 09/18: Patient denies any Complains any remains afebrile. Blood cultures from September 14 and September 15 are continuing to show no growth. Patient is scheduled for open heart surgery on Friday for mitral valve repair or replacement. Patient is continued on ampicillin and gentamicin and followed by Dr. Beck. 09/21: Patient is status post complex mitral valve repair with quadrangular resection of P2 with reconstruction and reinforcement with posterior annuloplasty using a 32 mm AnnuloFlex. Excision of the left atrial appendage using a 35 mm AtriClip. Intraoperative transesophageal echocardiogram and epi- aortic scanning. Patient is currently intubated and on mechanical ventilation. He is continued on IV antibiotics with ampicillin and gentamicin. Right- sided Cordis in place. Patient is currently on Clevidipine 4 for blood pressure control. Insulin drip has been started. He has a right-sided pleural chest tube and mediastinal. Patient has not required transfusion. Anticipate possible extubation this evening. 09/22: Patient has been successfully extubated. He is found sitting up in a recliner and appears to be comfortable and in no acute distress. His pain is currently controlled. He states he is having pain in the lower sternal area only area No shortness of breath. Incentive spirometer is 1750 ML's. Pulse ox is 95% on 3 L nasal cannula, blood pressure is on the low side. He has not required vasopressors. White count is 10.7, hemoglobin 8.7. Capillary blood glucose running between 101-121 and he is off insulin drip. We will add in pairs sulfate. Review Of Systems: Constitutional: No fever, no chills, no night sweats. No weight change. No weakness, fatigue or lethargy. No daytime sleepiness. EENT: No headache. No blurred vision or double vision, no loss of vision. No loss of Hearing, no ringing in the ears, no dizziness. No nasal drainage or congestion. No epistaxis. No sore throat. Lungs: No shortness of breath, cough, no sputum production. No wheezing. Cardiovascular: No chest pain, complains of postop pain, no lower extremity edema. No palpitations. No paroxysmal nocturnal dyspnea. No orthopnea. No lightheadedness or dizziness. No syncopal episodes. Abdominal: No abdominal pain. No nausea, vomiting. No diarrhea. No constipation. No bloody or tarry stools.. No loss of appetite. Genitourinary: No dysuria, increased frequency, urgency. No urinary retention. Musculoskeletal: No myalgias. No muscle weakness, no gait dysfunction, no frequent falls. No back pain. No neck pain. Integumentary: No wounds, no lesions. No rash or pruritus. No unusual bruising. No change in hair or nails. Neurologic: No aphasia. No facial droop. No change in mentation. No head injury. No headache. No paralysis. No paresthesia. Psychiatric: No depression. No anxiety. No mood swings. Endocrine: No abnormal blood sugars. No weight change. Objective - Vital Signs Vital signs: Vital Signs Temp 99.1 F 09/22/18 09:00 Pulse 71 09/22/18 10:00 Resp 20 09/22/18 10:00 BP 94/61 09/22/18 10:00 Pulse Ox 95 09/22/18 10:00 Intake & Output 09/21/18 09/22/18 09/22/18 18:59 06:59 18:59 Intake Total 1056 1175.083 562.55 Output Total 2529 885 185 Balance -1473 290.083 377.55 Intake: IV 1056 1139 197 Ampicillin 2,000 mg In 200 300 Sodium Chloride 0.9% 100 ml @ 200 mls/hr IVPB Q4H [facility] Rx#:[id number] CO/CI 140 90 20 Gentamicin in NaCl Iso- 100 100 Osm Pmx 80 mg In Saline 1 100ml.bag @ 100 mls/hr IVPB Q12H [facility] Rx#: [id number] Lactated Ringers 1,000 ml 350 550 150 @ 50 mls/hr IV .Q20H [facility] Rx#:[id number] PRESSURE BAG 63 99 27 Potassium Chloride 10 meq 200 In Water For Injection 1 100ml.bag @ 100 mls/hr IVPB Q1H [facility] Rx#: [id number] Intake, IV Titration 36.083 5.55 Amount Clevidipine Butyrate 25 31.1 mg In Empty Bag 1 bag @ 1 MG/HR 2 mls/hr IV .Q24H [facility] Rx#:[id number] Insulin Regular 100 unit 4.983 5.55 In Sodium Chloride 0.9% 100 ml @ Per Protocol IV .Q0M [facility] Rx#:[id number] Oral 360 Output: Chest Tube Drainage 314 300 20 Chest Tube Mediastinal 208 120 10 Right Pleural Chest Tube 106 180 10 Urine 1615 585 165 Estimated Blood Loss 600 Other: Voiding Method Indwelling Catheter Indwelling Catheter Indwelling Catheter ABP, PAP, CO, CI - Last Documented Arterial Blood Pressure 94/52 Pulmonary Artery Pressure 24/12 Cardiac Output 7.0 Cardiac Index 3.6 - Exam General appearance: no acute distress, sitting up in recliner and appears to be comfortable and in no acute distress. - Neck Neck: no lymphadenopathy, normal ROM, no rigidity, no stridor, no thyromegaly, right-sided Cordis in place Carotids: bilateral: upstroke normal Thyroid: bilateral: normal size - Respiratory Respiratory: bilateral: diminished, negative: dullness, rales, rhonchi, wheezing , prolonged expiration, prolonged inspiration - Cardiovascular Rhythm: regular Heart sounds: abnormal: S1 (Decreased) Abnormal Heart Sounds: systolic murmur (There is 4/6 systolic ejection murmur located in the apex Radiating to the axilla.) Chest tubes in place. - Gastrointestinal General gastrointestinal: no hepatomegaly, hypoactive bowel sounds, soft, no splenomegaly, no tenderness, no umbilical hernia, no ventral hernia, George catheter in place - Integumentary Integumentary: normal, normal turgor - Neurologic Neurologic: CNII-XII intact - Musculoskeletal Musculoskeletal: generalized weakness, gait steady - Psychiatric Psychiatric: Awake alert and oriented 3, intact judgment, normal affect. - Labs CBC & Chem 7: 09/22/18 05:55 09/22/18 05:55 Labs: Abnormal Lab Results - Last 24 Hours (Table) 09/20/18 09/21/18 09/21/18 Range/Units 05:35 08:39 09:44 WBC (3.8-10.6) k/uL RBC (4.30-5.90) m/uL Hgb (13.0-17.5) gm/dL Hct (39.0-53.0) % RDW (11.5-15.5) % Neutrophils # (1.3-7.7) k/uL Lymphocytes # (1.0-4.8) k/uL ABG pH 7.47 H (7.35-7.45) ABG pCO2 46 H (35-45) mmHg ABG pO2 374 H 47 L* (83-108) mmHg ABG HCO3 26 H 27 H (21-25) mmol/L ABG Total CO2 27 H 28 H (19-24) mmol/L ABG O2 Saturation 100.0 H 79.9 L (94-97) % ABG Hematocrit 32 L 29 L (34.0-46.0) % ABG Potassium (3.4-4.5) mmol/L ABG Ionized Calcium (4.5-5.3) mg/dL ABG Glucose (75-99) mg/dL ABG Lactic Acid (0.5-1.6) mmol/L Hemoglobin 10.5 L 9.4 L (13.0-17.5) gm/dL Sodium (137-145) mmol/L Chloride (98-107) mmol/L Glucose (74-99) mg/dL POC Glucose (mg/dL) (75-99) mg/dL Calcium (8.4-10.2) mg/dL Magnesium (1.6-2.3) mg/dL Total Protein (6.3-8.2) g/dL Albumin (3.5-5.0) g/dL Arterial Blood Potassium (3.4-4.5) mmol/L Arterial Blood Glucose (75-99) mg/dL Crossmatch See Detail 09/21/18 09/21/18 09/21/18 Range/Units 10:30 11:01 11:35 WBC (3.8-10.6) k/uL RBC (4.30-5.90) m/uL Hgb (13.0-17.5) gm/dL Hct (39.0-53.0) % RDW (11.5-15.5) % Neutrophils # (1.3-7.7) k/uL Lymphocytes # (1.0-4.8) k/uL ABG pH 7.32 L (7.35-7.45) ABG pCO2 50 H (35-45) mmHg ABG pO2 271 H 331 H 303 H (83-108) mmHg ABG HCO3 26 H 26 H (21-25) mmol/L ABG Total CO2 27 H 27 H 26 H (19-24) mmol/L ABG O2 Saturation 100.0 H 100.0 H 100.0 H (94-97) % ABG Hematocrit 23 L 25 L 24 L (34.0-46.0) % ABG Potassium 4.7 H (3.4-4.5) mmol/L ABG Ionized Calcium 4.3 L 4.4 L 4.4 L (4.5-5.3) mg/dL ABG Glucose 149 H 157 H 123 H (75-99) mg/dL ABG Lactic Acid 1.9 H (0.5-1.6) mmol/L Hemoglobin 7.4 L 8.1 L 7.7 L (13.0-17.5) gm/dL Sodium (137-145) mmol/L Chloride (98-107) mmol/L Glucose (74-99) mg/dL POC Glucose (mg/dL) (75-99) mg/dL Calcium (8.4-10.2) mg/dL Magnesium (1.6-2.3) mg/dL Total Protein (6.3-8.2) g/dL Albumin (3.5-5.0) g/dL Arterial Blood Potassium 4.7 H (3.4-4.5) mmol/L Arterial Blood Glucose 149 H 157 H 123 H (75-99) mg/dL Crossmatch 09/21/18 09/21/18 09/21/18 Range/Units 12:15 13:11 13:22 WBC 17.7 H (3.8-10.6) k/uL RBC 2.84 L (4.30-5.90) m/uL Hgb 8.5 L D (13.0-17.5) gm/dL Hct 26.5 L (39.0-53.0) % RDW 15.7 H (11.5-15.5) % Neutrophils # 16.0 H (1.3-7.7) k/uL Lymphocytes # (1.0-4.8) k/uL ABG pH (7.35-7.45) ABG pCO2 (35-45) mmHg ABG pO2 191 H (83-108) mmHg ABG HCO3 (21-25) mmol/L ABG Total CO2 25 H (19-24) mmol/L ABG O2 Saturation 99.7 H (94-97) % ABG Hematocrit 25 L (34.0-46.0) % ABG Potassium (3.4-4.5) mmol/L ABG Ionized Calcium (4.5-5.3) mg/dL ABG Glucose (75-99) mg/dL ABG Lactic Acid 1.7 H (0.5-1.6) mmol/L Hemoglobin 8.3 L (13.0-17.5) gm/dL Sodium (137-145) mmol/L Chloride (98-107) mmol/L Glucose (74-99) mg/dL POC Glucose (mg/dL) 69 L (75-99) mg/dL Calcium (8.4-10.2) mg/dL Magnesium (1.6-2.3) mg/dL Total Protein (6.3-8.2) g/dL Albumin (3.5-5.0) g/dL Arterial Blood Potassium (3.4-4.5) mmol/L Arterial Blood Glucose (75-99) mg/dL Crossmatch 09/21/18 09/21/18 09/21/18 Range/Units 13:22 13:36 14:01 WBC (3.8-10.6) k/uL RBC (4.30-5.90) m/uL Hgb (13.0-17.5) gm/dL Hct (39.0-53.0) % RDW (11.5-15.5) % Neutrophils # (1.3-7.7) k/uL Lymphocytes # (1.0-4.8) k/uL ABG pH (7.35-7.45) ABG pCO2 (35-45) mmHg ABG pO2 (83-108) mmHg ABG HCO3 (21-25) mmol/L ABG Total CO2 (19-24) mmol/L ABG O2 Saturation (94-97) % ABG Hematocrit (34.0-46.0) % ABG Potassium (3.4-4.5) mmol/L ABG Ionized Calcium (4.5-5.3) mg/dL ABG Glucose (75-99) mg/dL ABG Lactic Acid (0.5-1.6) mmol/L Hemoglobin (13.0-17.5) gm/dL Sodium (137-145) mmol/L Chloride 110 H (98-107) mmol/L Glucose 178 H (74-99) mg/dL POC Glucose (mg/dL) 131 H 115 H (75-99) mg/dL Calcium 7.7 L (8.4-10.2) mg/dL Magnesium 2.4 H (1.6-2.3) mg/dL Total Protein 4.6 L (6.3-8.2) g/dL Albumin 2.5 L (3.5-5.0) g/dL Arterial Blood Potassium (3.4-4.5) mmol/L Arterial Blood Glucose (75-99) mg/dL Crossmatch 09/21/18 09/21/18 09/21/18 Range/Units 15:01 16:00 16:03 WBC 17.7 H (3.8-10.6) k/uL RBC 3.19 L (4.30-5.90) m/uL Hgb 9.4 L (13.0-17.5) gm/dL Hct 29.3 L (39.0-53.0) % RDW (11.5-15.5) % Neutrophils # 16.5 H (1.3-7.7) k/uL Lymphocytes # 0.7 L (1.0-4.8) k/uL ABG pH (7.35-7.45) ABG pCO2 (35-45) mmHg ABG pO2 (83-108) mmHg ABG HCO3 (21-25) mmol/L ABG Total CO2 (19-24) mmol/L ABG O2 Saturation (94-97) % ABG Hematocrit (34.0-46.0) % ABG Potassium (3.4-4.5) mmol/L ABG Ionized Calcium (4.5-5.3) mg/dL ABG Glucose (75-99) mg/dL ABG Lactic Acid (0.5-1.6) mmol/L Hemoglobin (13.0-17.5) gm/dL Sodium (137-145) mmol/L Chloride (98-107) mmol/L Glucose (74-99) mg/dL POC Glucose (mg/dL) 134 H 138 H (75-99) mg/dL Calcium (8.4-10.2) mg/dL Magnesium (1.6-2.3) mg/dL Total Protein (6.3-8.2) g/dL Albumin (3.5-5.0) g/dL Arterial Blood Potassium (3.4-4.5) mmol/L Arterial Blood Glucose (75-99) mg/dL Crossmatch 09/21/18 09/21/18 09/21/18 Range/Units 16:57 17:04 18:09 WBC (3.8-10.6) k/uL RBC (4.30-5.90) m/uL Hgb (13.0-17.5) gm/dL Hct (39.0-53.0) % RDW (11.5-15.5) % Neutrophils # (1.3-7.7) k/uL Lymphocytes # (1.0-4.8) k/uL ABG pH (7.35-7.45) ABG pCO2 (35-45) mmHg ABG pO2 109 H (83-108) mmHg ABG HCO3 (21-25) mmol/L ABG Total CO2 25 H (19-24) mmol/L ABG O2 Saturation 98.8 H (94-97) % ABG Hematocrit (34.0-46.0) % ABG Potassium (3.4-4.5) mmol/L ABG Ionized Calcium (4.5-5.3) mg/dL ABG Glucose (75-99) mg/dL ABG Lactic Acid (0.5-1.6) mmol/L Hemoglobin (13.0-17.5) gm/dL Sodium (137-145) mmol/L Chloride (98-107) mmol/L Glucose (74-99) mg/dL POC Glucose (mg/dL) 123 H 115 H (75-99) mg/dL Calcium (8.4-10.2) mg/dL Magnesium (1.6-2.3) mg/dL Total Protein (6.3-8.2) g/dL Albumin (3.5-5.0) g/dL Arterial Blood Potassium (3.4-4.5) mmol/L Arterial Blood Glucose (75-99) mg/dL Crossmatch 09/21/18 09/21/18 09/21/18 Range/Units 19:03 19:10 19:59 WBC 14.8 H (3.8-10.6) k/uL RBC 2.89 L (4.30-5.90) m/uL Hgb 8.5 L (13.0-17.5) gm/dL Hct 26.6 L (39.0-53.0) % RDW 15.6 H (11.5-15.5) % Neutrophils # 14.0 H (1.3-7.7) k/uL Lymphocytes # 0.5 L (1.0-4.8) k/uL ABG pH (7.35-7.45) ABG pCO2 (35-45) mmHg ABG pO2 (83-108) mmHg ABG HCO3 (21-25) mmol/L ABG Total CO2 (19-24) mmol/L ABG O2 Saturation (94-97) % ABG Hematocrit (34.0-46.0) % ABG Potassium (3.4-4.5) mmol/L ABG Ionized Calcium (4.5-5.3) mg/dL ABG Glucose (75-99) mg/dL ABG Lactic Acid (0.5-1.6) mmol/L Hemoglobin (13.0-17.5) gm/dL Sodium (137-145) mmol/L Chloride (98-107) mmol/L Glucose (74-99) mg/dL POC Glucose (mg/dL) 117 H 121 H (75-99) mg/dL Calcium (8.4-10.2) mg/dL Magnesium (1.6-2.3) mg/dL Total Protein (6.3-8.2) g/dL Albumin (3.5-5.0) g/dL Arterial Blood Potassium (3.4-4.5) mmol/L Arterial Blood Glucose (75-99) mg/dL Crossmatch 09/21/18 09/21/18 09/22/18 Range/Units 21:05 22:18 00:11 WBC (3.8-10.6) k/uL RBC (4.30-5.90) m/uL Hgb (13.0-17.5) gm/dL Hct (39.0-53.0) % RDW (11.5-15.5) % Neutrophils # (1.3-7.7) k/uL Lymphocytes # (1.0-4.8) k/uL ABG pH (7.35-7.45) ABG pCO2 (35-45) mmHg ABG pO2 (83-108) mmHg ABG HCO3 (21-25) mmol/L ABG Total CO2 (19-24) mmol/L ABG O2 Saturation (94-97) % ABG Hematocrit (34.0-46.0) % ABG Potassium (3.4-4.5) mmol/L ABG Ionized Calcium (4.5-5.3) mg/dL ABG Glucose (75-99) mg/dL ABG Lactic Acid (0.5-1.6) mmol/L Hemoglobin (13.0-17.5) gm/dL Sodium (137-145) mmol/L Chloride (98-107) mmol/L Glucose (74-99) mg/dL POC Glucose (mg/dL) 121 H 121 H 119 H (75-99) mg/dL Calcium (8.4-10.2) mg/dL Magnesium (1.6-2.3) mg/dL Total Protein (6.3-8.2) g/dL Albumin (3.5-5.0) g/dL Arterial Blood Potassium (3.4-4.5) mmol/L Arterial Blood Glucose (75-99) mg/dL Crossmatch 09/22/18 09/22/18 09/22/18 Range/Units 01:32 02:22 04:15 WBC (3.8-10.6) k/uL RBC (4.30-5.90) m/uL Hgb (13.0-17.5) gm/dL Hct (39.0-53.0) % RDW (11.5-15.5) % Neutrophils # (1.3-7.7) k/uL Lymphocytes # (1.0-4.8) k/uL ABG pH (7.35-7.45) ABG pCO2 (35-45) mmHg ABG pO2 (83-108) mmHg ABG HCO3 (21-25) mmol/L ABG Total CO2 (19-24) mmol/L ABG O2 Saturation (94-97) % ABG Hematocrit (34.0-46.0) % ABG Potassium (3.4-4.5) mmol/L ABG Ionized Calcium (4.5-5.3) mg/dL ABG Glucose (75-99) mg/dL ABG Lactic Acid (0.5-1.6) mmol/L Hemoglobin (13.0-17.5) gm/dL Sodium (137-145) mmol/L Chloride (98-107) mmol/L Glucose (74-99) mg/dL POC Glucose (mg/dL) 116 H 119 H 116 H (75-99) mg/dL Calcium (8.4-10.2) mg/dL Magnesium (1.6-2.3) mg/dL Total Protein (6.3-8.2) g/dL Albumin (3.5-5.0) g/dL Arterial Blood Potassium (3.4-4.5) mmol/L Arterial Blood Glucose (75-99) mg/dL Crossmatch 09/22/18 09/22/18 09/22/18 Range/Units 05:53 05:55 05:55 WBC 10.7 H (3.8-10.6) k/uL RBC 2.87 L (4.30-5.90) m/uL Hgb 8.7 L (13.0-17.5) gm/dL Hct 26.4 L (39.0-53.0) % RDW 15.7 H (11.5-15.5) % Neutrophils # 9.3 H (1.3-7.7) k/uL Lymphocytes # 0.8 L (1.0-4.8) k/uL ABG pH (7.35-7.45) ABG pCO2 (35-45) mmHg ABG pO2 (83-108) mmHg ABG HCO3 (21-25) mmol/L ABG Total CO2 (19-24) mmol/L ABG O2 Saturation (94-97) % ABG Hematocrit (34.0-46.0) % ABG Potassium (3.4-4.5) mmol/L ABG Ionized Calcium (4.5-5.3) mg/dL ABG Glucose (75-99) mg/dL ABG Lactic Acid (0.5-1.6) mmol/L Hemoglobin (13.0-17.5) gm/dL Sodium 136 L (137-145) mmol/L Chloride (98-107) mmol/L Glucose 120 H (74-99) mg/dL POC Glucose (mg/dL) 130 H (75-99) mg/dL Calcium 8.3 L (8.4-10.2) mg/dL Magnesium (1.6-2.3) mg/dL Total Protein 5.8 L (6.3-8.2) g/dL Albumin (3.5-5.0) g/dL Arterial Blood Potassium (3.4-4.5) mmol/L Arterial Blood Glucose (75-99) mg/dL Crossmatch 09/22/18 Range/Units 07:02 WBC (3.8-10.6) k/uL RBC (4.30-5.90) m/uL Hgb (13.0-17.5) gm/dL Hct (39.0-53.0) % RDW (11.5-15.5) % Neutrophils # (1.3-7.7) k/uL Lymphocytes # (1.0-4.8) k/uL ABG pH (7.35-7.45) ABG pCO2 (35-45) mmHg ABG pO2 (83-108) mmHg ABG HCO3 (21-25) mmol/L ABG Total CO2 (19-24) mmol/L ABG O2 Saturation (94-97) % ABG Hematocrit (34.0-46.0) % ABG Potassium (3.4-4.5) mmol/L ABG Ionized Calcium (4.5-5.3) mg/dL ABG Glucose (75-99) mg/dL ABG Lactic Acid (0.5-1.6) mmol/L Hemoglobin (13.0-17.5) gm/dL Sodium (137-145) mmol/L Chloride (98-107) mmol/L Glucose (74-99) mg/dL POC Glucose (mg/dL) 100 H (75-99) mg/dL Calcium (8.4-10.2) mg/dL Magnesium (1.6-2.3) mg/dL Total Protein (6.3-8.2) g/dL Albumin (3.5-5.0) g/dL Arterial Blood Potassium (3.4-4.5) mmol/L Arterial Blood Glucose (75-99) mg/dL Crossmatch Microbiology - Last 24 Hours (Table) 09/21/18 13:02 Gram Stain - Preliminary Heart Valve Tissue Culture - Preliminary 09/15/18 20:22 Blood Culture - Final Blood No Growth after 144 hours 09/21/18 13:02 Anaerobic Culture - Preliminary Heart Valve Assessment and Plan Plan: 1. Subacute endocarditis with mitral valve vegetation post SILVIA and left heart catheterization that showed normal coronaries. Blood cultures were positive for group B streptococcus agalactia and alpha hemolytic strep. Patient is status post complex mitral valve repair with quadrangular resection of P2 with reconstruction and reinforcement with posterior annuloplasty using a 32 mm AnnuloFlex. Continue ampicillin and gentamicin per Dr. Beck. Repeat blood cultures from September 14 and are showing no growth. Continue current management per cardiothoracic surgery 2. Severe mitral regurgitation with mitral valve vegetation due to endocarditis. 3. Benign prostatic hypertrophy. Continue Flomax 0.4 mg orally once every day. 4. History of kidney stones. Stable. 5. DVT prophylaxis. Heparin 5000 units subcutaneously every 8 hours. 6. GI prophylaxis. Protonix 40 mg orally once every day. 7. Acute postop blood loss anemia, expected from surgery. Continue to monitor. Discharge plan: Home Impression and plan of care have been directed as dictated by the signing physician. Olga Roman nurse practitioner acting as scribe for signing physician.
[2018-09-22 16:55] LABS: Glucose,Whole Blood 121 mg/dL (75-99)
[2018-09-22 21:02] LABS: Glucose,Whole Blood 127 mg/dL (75-99)
[2018-09-22] MEDS: DEXTROSE 5% IN WATER 100 ML with AMIODARONE 150 MG IV PRN ×3 (21:11→23:49)
[2018-09-22] MEDS: TAMSULOSIN 0.4 MG CAP.ER.24H PO SCH (21:11)
[2018-09-22] MEDS: SENNOSIDES-DOCUSATE SODIUM 1 EACH TAB PO SCH (21:11)
--- NOTE | 2018-09-22 23:36 | P.PN ---
Subjective Progress Note Date: 09/22/18 Pleasant 63-year-old male presents to Hospital feeling poorly for quite some time. Because he was feeling poorly eventually had an echocardiogram performed to evaluate his cardiac status after computed tomography scan revealed potential abnormality. The transthoracic echocardiogram reveal evidence of the abnormality in the mitral valve leaflet. The patient underwent transesophageal echocardiogram the verifies the mitral regurgitant murmur in the large vegetation of the mitral valve. The patient now has multiple positive blood cultures with group B strep. 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 The patient relates that he has had a heart murmur noted for many years but has not had ongoing follow-up over time. At this time the murmur is easily heard and he has been evaluated by cardiothoracic surgery. Our plan will be to maximize antibiotic therapy this point time with ampicillin and gentamicin try to rapidly cleared his bacteremia. Once clearance of bacteremia has occurred he will proceed to the mitral valve surgery for removal of vegetation and repair or replacement of the valve. The reasons for the surgery are discussed including goal to reduce the risk of a significant embolic event Barbara concern would be of a large stroke. Secondly would be for repairing of the mitral valve without left ventricular dysfunction and refractory congestive heart failure. The qualifications of the cardiovascular surgeons is again reviewed with the patient's father and understands that the valve surgery is within the capability of the facility and the surgeons. There are many questions are answered. 09/15/2018 patient is feeling better today. He is having no fevers. Denies chills or rigors. Energy level is stable. No nausea or emesis and no onset of diarrhea. No skin rashes and no difficulties with painful joints. No painful oral cavity. 09/16/2018 patient continues to feel a bit better. The severe fever chills myalgias have all improved since coming to hospital. Denies to be in shortness of breath or cough denies chest pains and no new neurological complaints. Tolerating antibiotic therapy well 09/18/2018 patient is continued to have improvement of his status. Diffusion shows a resolved. Energy levels improved. Diffuse profuse myalgias and arthralgias have resolved. He is anxious to proceed to cardiac surgery. 09/19/2018 patient is stable looks forward to surgery Friday09/20/2018 patient is prepped for surgery for tomorrow and will monitor him in the postoperative time frame. . 09/21/2018 patient is now post operative from the the mitral valve repair , doing very well is extubated and has adequate pain control 09/22/2018 patient is continued to improve, is now sitting upright in the chair with this pain is considerably improved from yesterday. He is not having shortness of breath he is having difficulty with incentive spirometer present illness relates that he is without other acute difficulty. No fevers or chills. Tolerating current course of antibiotic therapy well. Objective - Vital Signs Vital signs: Vital Signs Temp 98 F 09/22/18 20:00 Pulse 74 09/22/18 22:00 Resp 21 09/22/18 23:04 BP 77/57 09/22/18 22:00 Pulse Ox 94 L 09/22/18 22:00 Intake & Output 09/22/18 09/22/18 09/23/18 06:59 18:59 06:59 Intake Total 8989.461 9263.55 1020 Output Total 885 725 275 Balance 517.634 3768.55 745 Weight 77.1 kg Intake: IV 1139 1025 680 Albumin Human 5% 250 ml 250 In Empty Bag 1 bag @ 250 mls/hr IVPB Q1HR PRN Rx#: [id number] Ampicillin 2,000 mg In 300 400 100 Sodium Chloride 0.9% 100 ml @ 200 mls/hr IVPB Q4H [facility] Rx#:[id number] CO/CI 90 20 Dextrose 5% in Water 100 200 ml @ 618 mls/hr IV .Q10M PRN with Amiodarone 150 mg Rx#:[id number] Gentamicin in NaCl Iso- 100 100 Osm Pmx 80 mg In Saline 1 100ml.bag @ 100 mls/hr IVPB Q12H [facility] Rx#: [id number] Lactated Ringers 1,000 ml 550 430 100 @ 20 mls/hr IV .Q24H [facility] Rx#:[id number] PRESSURE BAG 99 75 30 Intake, IV Titration 36.083 355.55 100 Amount ACETAMINOPHEN IV (For NPO 100 100 ) 1,000 mg In Empty Bag 1 bag @ 400 mls/hr IVPB Q6HR [facility] Rx#:[id number] Albumin Human 5% 500 ml 250 In Empty Bag 1 bag @ 250 mls/hr IVPB ONCE ONE Rx#: [id number] Clevidipine Butyrate 25 31.1 mg In Empty Bag 1 bag @ 1 MG/HR 2 mls/hr IV .Q24H [facility] Rx#:[id number] Insulin Regular 100 unit 4.983 5.55 In Sodium Chloride 0.9% 100 ml @ Per Protocol IV .Q0M [facility] Rx#:[id number] Oral 720 240 Output: Chest Tube Drainage 300 110 30 Chest Tube Mediastinal 120 40 10 Right Pleural Chest Tube 180 70 20 Urine 585 615 245 Other: Voiding Method Indwelling Catheter Indwelling Catheter Indwelling Catheter ABP, PAP, CO, CI - Last Documented Arterial Blood Pressure 82/52 Pulmonary Artery Pressure 24/12 Cardiac Output 7.0 Cardiac Index 3.6 - Exam Pleasant 63-year-old male is postoperative, extubated complaining of some pain in his chest HEENT: Anicteric conjunctiva are pink and moist nasal mucosa grossly intact without significant lesions, there is no thrush. Neck: The neck is supple without significant lymphadenopathy or thyromegaly. Lungs: Good bilateral air entry without significant crackles or wheezing. There is no significant bronchial sounds. There is no egophony or dullness. Heart: Regular audible S1 and S2 soft S3 no significant murmur No radiation to the carotids. Carotids have brisk upstroke without thrill Abdomen: Positive bowel sounds soft and nontender without palpable masses or organomegaly. There was no guarding or rebound. Extremities: The upper extremities have excellent pulses they are symmetric, no significant petechiae or telangiectasia. No splinter hemorrhages were noted. The lower extremities are free from significant edema. The peripheral pulses were 2+ and symmetric. Neuro: Awake alert oriented to person place and time. There are no acute new gross focal sensory motor deficits. The skin is without any evidence of petechia telangiectasia or splinter hemorrhages. There are no petechia of the hard or soft palate. No conjunctival lesions. - Labs CBC & Chem 7: 09/22/18 05:55 09/22/18 05:55 Labs: Abnormal Lab Results - Last 24 Hours (Table) 09/20/18 09/22/18 09/22/18 Range/Units 05:35 00:11 01:32 WBC (3.8-10.6) k/uL RBC (4.30-5.90) m/uL Hgb (13.0-17.5) gm/dL Hct (39.0-53.0) % RDW (11.5-15.5) % Neutrophils # (1.3-7.7) k/uL Lymphocytes # (1.0-4.8) k/uL Sodium (137-145) mmol/L Glucose (74-99) mg/dL POC Glucose (mg/dL) 119 H 116 H (75-99) mg/dL Calcium (8.4-10.2) mg/dL Total Protein (6.3-8.2) g/dL Crossmatch See Detail 09/22/18 09/22/18 09/22/18 Range/Units 02:22 04:15 05:53 WBC (3.8-10.6) k/uL RBC (4.30-5.90) m/uL Hgb (13.0-17.5) gm/dL Hct (39.0-53.0) % RDW (11.5-15.5) % Neutrophils # (1.3-7.7) k/uL Lymphocytes # (1.0-4.8) k/uL Sodium (137-145) mmol/L Glucose (74-99) mg/dL POC Glucose (mg/dL) 119 H 116 H 130 H (75-99) mg/dL Calcium (8.4-10.2) mg/dL Total Protein (6.3-8.2) g/dL Crossmatch 09/22/18 09/22/18 09/22/18 Range/Units 05:55 05:55 07:02 WBC 10.7 H (3.8-10.6) k/uL RBC 2.87 L (4.30-5.90) m/uL Hgb 8.7 L (13.0-17.5) gm/dL Hct 26.4 L (39.0-53.0) % RDW 15.7 H (11.5-15.5) % Neutrophils # 9.3 H (1.3-7.7) k/uL Lymphocytes # 0.8 L (1.0-4.8) k/uL Sodium 136 L (137-145) mmol/L Glucose 120 H (74-99) mg/dL POC Glucose (mg/dL) 100 H (75-99) mg/dL Calcium 8.3 L (8.4-10.2) mg/dL Total Protein 5.8 L (6.3-8.2) g/dL Crossmatch 09/22/18 09/22/18 09/22/18 Range/Units 12:10 16:53 21:01 WBC (3.8-10.6) k/uL RBC (4.30-5.90) m/uL Hgb (13.0-17.5) gm/dL Hct (39.0-53.0) % RDW (11.5-15.5) % Neutrophils # (1.3-7.7) k/uL Lymphocytes # (1.0-4.8) k/uL Sodium (137-145) mmol/L Glucose (74-99) mg/dL POC Glucose (mg/dL) 137 H 121 H 127 H (75-99) mg/dL Calcium (8.4-10.2) mg/dL Total Protein (6.3-8.2) g/dL Crossmatch Microbiology - Last 24 Hours (Table) 09/21/18 13:02 Gram Stain - Preliminary Heart Valve Tissue Culture - Preliminary 09/15/18 20:22 Blood Culture - Final Blood No Growth after 144 hours Laboratory Results WBC 10.7 k/uL (3.8-10.6) H 09/22/18 05:55 RBC 2.87 m/uL (4.30-5.90) L 09/22/18 05:55 Hgb 8.7 gm/dL (13.0-17.5) L 09/22/18 05:55 Hct 26.4 % (39.0-53.0) L 09/22/18 05:55 MCV 91.9 fL (80.0-100.0) 09/22/18 05:55 MCH 30.2 pg (25.0-35.0) 09/22/18 05:55 MCHC 32.9 g/dL (31.0-37.0) 09/22/18 05:55 RDW 15.7 % (11.5-15.5) H 09/22/18 05:55 Plt Count 198 k/uL (150-450) 09/22/18 05:55 Neutrophils % 87 % 09/22/18 05:55 Lymphocytes % 7 % 09/22/18 05:55 Monocytes % 4 % 09/22/18 05:55 Eosinophils % 0 % 09/22/18 05:55 Basophils % 0 % 09/22/18 05:55 Neutrophils # 9.3 k/uL (1.3-7.7) H 09/22/18 05:55 Lymphocytes # 0.8 k/uL (1.0-4.8) L 09/22/18 05:55 Monocytes # 0.5 k/uL (0-1.0) 09/22/18 05:55 Eosinophils # 0.1 k/uL (0-0.7) 09/22/18 05:55 Basophils # 0.0 k/uL (0-0.2) 09/22/18 05:55 PT 11.0 sec (9.0-12.0) 09/22/18 05:55 INR 1.0 (<1.2) 09/22/18 05:55 APTT 25.0 sec (22.0-30.0) 09/22/18 05:55 Sample Site A line 09/21/18 16:57 ABG pH 7.43 (7.35-7.45) 09/21/18 16:57 ABG pCO2 36 mmHg (35-45) 09/21/18 16:57 ABG pO2 109 mmHg (83-108) H 09/21/18 16:57 ABG HCO3 24 mmol/L (21-25) 09/21/18 16:57 ABG Total CO2 25 mmol/L (19-24) H 09/21/18 16:57 ABG O2 Saturation 98.8 % (94-97) H 09/21/18 16:57 ABG Base Excess -0.2 mmol/L 09/21/18 16:57 ABG Hematocrit 25 % (34.0-46.0) L 09/21/18 12:15 Pranav Test no 09/21/18 16:57 ABG Sodium 139 mmol/L (135-146) 09/21/18 12:15 ABG Potassium 3.7 mmol/L (3.4-4.5) 09/21/18 12:15 ABG Ionized Calcium 4.5 mg/dL (4.5-5.3) 09/21/18 12:15 ABG Glucose 92 mg/dL (75-99) 09/21/18 12:15 ABG Lactic Acid 1.7 mmol/L (0.5-1.6) H 09/21/18 12:15 Hemoglobin 8.3 gm/dL (13.0-17.5) L 09/21/18 12:15 FiO2 40 % 09/21/18 16:57 Sodium 136 mmol/L (137-145) L 09/22/18 05:55 Potassium 4.4 mmol/L (3.5-5.1) 09/22/18 05:55 Chloride 106 mmol/L (98-107) 09/22/18 05:55 Carbon Dioxide 24 mmol/L (22-30) 09/22/18 05:55 Anion Gap 6 mmol/L 09/22/18 05:55 BUN 16 mg/dL (9-20) 09/22/18 05:55 Creatinine 0.88 mg/dL (0.66-1.25) 09/22/18 05:55 Est GFR (CKD-EPI)AfAm >90 (>60 ml/min/1.73 sqM) 09/22/18 05:55 Est GFR (CKD-EPI)NonAf >90 (>60 ml/min/1.73 sqM) 09/22/18 05:55 Glucose 120 mg/dL (74-99) H 09/22/18 05:55 POC Glucose (mg/dL) 127 mg/dL (75-99) H 09/22/18 21:01 POC Glu Jumpbasting Machine Operator ID Sachin Miller 09/22/18 21:[address] Glu mg/dL 103 09/14/18 05:49 Hemoglobin A1c 5.2 % (4.0-6.0) 09/14/18 05:49 Plasma Lactic Acid Maximiliano 1.1 mmol/L (0.7-2.0) 09/11/18 18:19 Calcium 8.3 mg/dL (8.4-10.2) L 09/22/18 05:55 Ionized Calcium Abdi 4.7 mg/dL (4.5-5.3) 09/22/18 05:55 Magnesium 2.0 mg/dL (1.6-2.3) 09/22/18 05:55 Total Bilirubin 1.0 mg/dL (0.2-1.3) 09/22/18 05:55 AST 46 U/L (17-59) 09/22/18 05:55 ALT 24 U/L (21-72) 09/22/18 05:55 Alkaline Phosphatase 84 U/L (38-126) 09/22/18 05:55 Total Creatine Kinase 36 U/L (55-170) L 09/11/18 18:19 CK-MB (CK-2) 0.7 ng/mL (0.0-2.4) 09/11/18 18:19 CK-MB (CK-2) Rel Index 1.9 09/11/18 18:19 Troponin I 0.066 ng/mL (0.000-0.034) H* 09/11/18 18:19 C-Reactive Protein 46.2 mg/L (<10.0) H 09/12/18 06:01 Total Protein 5.8 g/dL (6.3-8.2) L 09/22/18 05:55 Albumin 3.5 g/dL (3.5-5.0) 09/22/18 05:55 Triglycerides 66 mg/dL (<150) 09/19/18 05:30 Cholesterol 158 mg/dL (<200) 09/19/18 05:30 LDL Cholesterol, Calc 106 mg/dL (0-99) H 09/19/18 05:30 HDL Cholesterol 39 mg/dL (40-60) L 09/19/18 05:30 Procalcitonin 0.55 ng/mL (0.02-0.09) H 09/11/18 18:19 TSH 2.630 mIU/L (0.465-4.680) 09/19/18 05:30 Arterial Blood Potassium 3.7 mmol/L (3.4-4.5) 09/21/18 12:15 Arterial Blood Glucose 92 mg/dL (75-99) 09/21/18 12:15 Urine Color Light Yellow 09/18/18 12:52 Urine Appearance Clear (Clear) 09/18/18 12:52 Urine pH 6.5 (5.0-8.0) 09/18/18 12:52 Ur Specific [place] 1.009 (1.001-1.035) 09/18/18 12:52 Urine Protein Negative (Negative) 09/18/18 12:52 Urine Glucose (UA) Negative (Negative) 09/18/18 12:52 Urine Ketones Negative (Negative) 09/18/18 12:52 Urine Blood Negative (Negative) 09/18/18 12:52 Urine Nitrite Negative (Negative) 09/18/18 12:52 Urine Bilirubin Negative (Negative) 09/18/18 12:52 Urine Urobilinogen <2.0 mg/dL (<2.0) 09/18/18 12:52 Ur Leukocyte Esterase Negative (Negative) 09/18/18 12:52 Gentamicin Peak 4.2 ug/mL 09/18/18 14:42 Gentamicin Trough 0.7 ug/mL 09/18/18 11:26 Vancomycin Trough 5.5 ug/mL 09/14/18 05:49 Hepatitis A IgM Ab Non-Reactive (Non-Reactive) 09/14/18 05:49 Hep Bs Antigen Non-Reactive (Non-Reactive) 09/14/18 05:49 Hep B Core IgM Ab Non-Reactive (Non-Reactive) 09/14/18 05:49 Hep C IgG Ab Non-Reactive (Non-Reactive) 09/14/18 05:49 Blood Type B Positive 09/20/18 05:35 Blood Type Confirm B Positive 09/18/18 06:15 Blood Type Recheck CABO Indicated 09/20/18 05:35 Antibody Screen NEGATIVE 09/20/18 05:35 Crossmatch See Detail 09/20/18 05:35 Transfuse Platelets 09/21/18 09/20/18 08:45 Spec Expiration Date 09/23/2018 - 0109 09/20/18 05:35 Microbiology 09/21/18 13:02 Heart Valve Gram Stain - Preliminary 09/21/18 13:02 Heart Valve Tissue Culture - Preliminary 09/15/18 20:22 Blood Blood Culture - Final No Growth after 144 hours 09/21/18 13:02 Heart Valve Anaerobic Culture - Preliminary 09/14/18 05:49 Blood Blood Culture - Final No Growth after 144 hours 09/18/18 12:09 Nasal Swab Nasal Screen MRSA/MSSA - Final 09/18/18 12:52 Urine,Voided Urine Culture - Final 09/13/18 15:00 Blood Blood Culture Gram Stain - Final 09/13/18 15:00 Blood Blood Culture - Final Alpha Hemolytic Streptococcus 09/12/18 16:14 Blood Blood Culture Gram Stain - Final 09/12/18 16:14 Blood Blood Culture - Final Alpha Hemolytic Streptococcus 09/13/18 15:00 Blood Blood Culture - Final 09/12/18 06:01 Blood Blood Culture Gram Stain - Final 09/12/18 06:01 Blood Blood Culture - Final Alpha Hemolytic Streptococcus 09/11/18 18:19 Blood Blood Culture Gram Stain - Final 09/11/18 18:19 Blood Blood Culture - Final Alpha Hemolytic Streptococcus 09/12/18 06:39 Blood Blood Culture Gram Stain - Final 09/12/18 06:39 Blood Blood Culture - Final Strep agalactiae - (group b) 09/12/18 16:14 Blood Blood Culture - Final 09/12/18 06:01 Blood Blood Culture - Final 09/12/18 06:39 Blood Blood Culture - Final 09/11/18 18:19 Blood Blood Culture - Final Laboratory Results WBC 10.7 k/uL (3.8-10.6) H 09/22/18 05:55 RBC 2.87 m/uL (4.30-5.90) L 09/22/18 05:55 Hgb 8.7 gm/dL (13.0-17.5) L 09/22/18 05:55 Hct 26.4 % (39.0-53.0) L 09/22/18 05:55 MCV 91.9 fL (80.0-100.0) 09/22/18 05:55 MCH 30.2 pg (25.0-35.0) 09/22/18 05:55 MCHC 32.9 g/dL (31.0-37.0) 09/22/18 05:55 RDW 15.7 % (11.5-15.5) H 09/22/18 05:55 Plt Count 198 k/uL (150-450) 09/22/18 05:55 Neutrophils % 87 % 09/22/18 05:55 Lymphocytes % 7 % 09/22/18 05:55 Monocytes % 4 % 09/22/18 05:55 Eosinophils % 0 % 09/22/18 05:55 Basophils % 0 % 09/22/18 05:55 Neutrophils # 9.3 k/uL (1.3-7.7) H 09/22/18 05:55 Lymphocytes # 0.8 k/uL (1.0-4.8) L 09/22/18 05:55 Monocytes # 0.5 k/uL (0-1.0) 09/22/18 05:55 Eosinophils # 0.1 k/uL (0-0.7) 09/22/18 05:55 Basophils # 0.0 k/uL (0-0.2) 09/22/18 05:55 PT 11.0 sec (9.0-12.0) 09/22/18 05:55 INR 1.0 (<1.2) 09/22/18 05:55 APTT 25.0 sec (22.0-30.0) 09/22/18 05:55 Sample Site A line 09/21/18 16:57 ABG pH 7.43 (7.35-7.45) 09/21/18 16:57 ABG pCO2 36 mmHg (35-45) 09/21/18 16:57 ABG pO2 109 mmHg (83-108) H 09/21/18 16:57 ABG HCO3 24 mmol/L (21-25) 09/21/18 16:57 ABG Total CO2 25 mmol/L (19-24) H 09/21/18 16:57 ABG O2 Saturation 98.8 % (94-97) H 09/21/18 16:57 ABG Base Excess -0.2 mmol/L 09/21/18 16:57 ABG Hematocrit 25 % (34.0-46.0) L 09/21/18 12:15 Pranav Test no 09/21/18 16:57 ABG Sodium 139 mmol/L (135-146) 09/21/18 12:15 ABG Potassium 3.7 mmol/L (3.4-4.5) 09/21/18 12:15 ABG Ionized Calcium 4.5 mg/dL (4.5-5.3) 09/21/18 12:15 ABG Glucose 92 mg/dL (75-99) 09/21/18 12:15 ABG Lactic Acid 1.7 mmol/L (0.5-1.6) H 09/21/18 12:15 Hemoglobin 8.3 gm/dL (13.0-17.5) L 09/21/18 12:15 FiO2 40 % 09/21/18 16:57 Sodium 136 mmol/L (137-145) L 09/22/18 05:55 Potassium 4.4 mmol/L (3.5-5.1) 09/22/18 05:55 Chloride 106 mmol/L (98-107) 09/22/18 05:55 Carbon Dioxide 24 mmol/L (22-30) 09/22/18 05:55 Anion Gap 6 mmol/L 09/22/18 05:55 BUN 16 mg/dL (9-20) 09/22/18 05:55 Creatinine 0.88 mg/dL (0.66-1.25) 09/22/18 05:55 Est GFR (CKD-EPI)AfAm >90 (>60 ml/min/1.73 sqM) 09/22/18 05:55 Est GFR (CKD-EPI)NonAf >90 (>60 ml/min/1.73 sqM) 09/22/18 05:55 Glucose 120 mg/dL (74-99) H 09/22/18 05:55 POC Glucose (mg/dL) 127 mg/dL (75-99) H 09/22/18 21:01 POC Glu Jumpbasting Machine Operator ID [email or web address], Sachin 09/22/18 21:[address] Glu mg/dL 103 09/14/18 05:49 Hemoglobin A1c 5.2 % (4.0-6.0) 09/14/18 05:49 Plasma Lactic Acid Maximiliano 1.1 mmol/L (0.7-2.0) 09/11/18 18:19 Calcium 8.3 mg/dL (8.4-10.2) L 09/22/18 05:55 Ionized Calcium Abdi 4.7 mg/dL (4.5-5.3) 09/22/18 05:55 Magnesium 2.0 mg/dL (1.6-2.3) 09/22/18 05:55 Total Bilirubin 1.0 mg/dL (0.2-1.3) 09/22/18 05:55 AST 46 U/L (17-59) 09/22/18 05:55 ALT 24 U/L (21-72) 09/22/18 05:55 Alkaline Phosphatase 84 U/L (38-126) 09/22/18 05:55 Total Creatine Kinase 36 U/L (55-170) L 09/11/18 18:19 CK-MB (CK-2) 0.7 ng/mL (0.0-2.4) 09/11/18 18:19 CK-MB (CK-2) Rel Index 1.9 09/11/18 18:19 Troponin I 0.066 ng/mL (0.000-0.034) H* 09/11/18 18:19 C-Reactive Protein 46.2 mg/L (<10.0) H 09/12/18 06:01 Total Protein 5.8 g/dL (6.3-8.2) L 09/22/18 05:55 Albumin 3.5 g/dL (3.5-5.0) 09/22/18 05:55 Triglycerides 66 mg/dL (<150) 09/19/18 05:30 Cholesterol 158 mg/dL (<200) 09/19/18 05:30 LDL Cholesterol, Calc 106 mg/dL (0-99) H 09/19/18 05:30 HDL Cholesterol 39 mg/dL (40-60) L 09/19/18 05:30 Procalcitonin 0.55 ng/mL (0.02-0.09) H 09/11/18 18:19 TSH 2.630 mIU/L (0.465-4.680) 09/19/18 05:30 Arterial Blood Potassium 3.7 mmol/L (3.4-4.5) 09/21/18 12:15 Arterial Blood Glucose 92 mg/dL (75-99) 09/21/18 12:15 Urine Color Light Yellow 09/18/18 12:52 Urine Appearance Clear (Clear) 09/18/18 12:52 Urine pH 6.5 (5.0-8.0) 09/18/18 12:52 Ur Specific [place] 1.009 (1.001-1.035) 09/18/18 12:52 Urine Protein Negative (Negative) 09/18/18 12:52 Urine Glucose (UA) Negative (Negative) 09/18/18 12:52 Urine Ketones Negative (Negative) 09/18/18 12:52 Urine Blood Negative (Negative) 09/18/18 12:52 Urine Nitrite Negative (Negative) 09/18/18 12:52 Urine Bilirubin Negative (Negative) 09/18/18 12:52 Urine Urobilinogen <2.0 mg/dL (<2.0) 09/18/18 12:52 Ur Leukocyte Esterase Negative (Negative) 09/18/18 12:52 Gentamicin Peak 4.2 ug/mL 09/18/18 14:42 Gentamicin Trough 0.7 ug/mL 09/18/18 11:26 Vancomycin Trough 5.5 ug/mL 09/14/18 05:49 Hepatitis A IgM Ab Non-Reactive (Non-Reactive) 09/14/18 05:49 Hep Bs Antigen Non-Reactive (Non-Reactive) 09/14/18 05:49 Hep B Core IgM Ab Non-Reactive (Non-Reactive) 09/14/18 05:49 Hep C IgG Ab Non-Reactive (Non-Reactive) 09/14/18 05:49 Blood Type B Positive 09/20/18 05:35 Blood Type Confirm B Positive 09/18/18 06:15 Blood Type Recheck CABO Indicated 09/20/18 05:35 Antibody Screen NEGATIVE 09/20/18 05:35 Crossmatch See Detail 09/20/18 05:35 Transfuse Platelets 09/21/18 09/20/18 08:45 Spec Expiration Date 09/23/2018 - 2438 09/20/18 05:35 Microbiology 09/21/18 13:02 Heart Valve Gram Stain - Preliminary 09/21/18 13:02 Heart Valve Tissue Culture - Preliminary 09/15/18 20:22 Blood Blood Culture - Final No Growth after 144 hours 09/21/18 13:02 Heart Valve Anaerobic Culture - Preliminary 09/14/18 05:49 Blood Blood Culture - Final No Growth after 144 hours 09/18/18 12:09 Nasal Swab Nasal Screen MRSA/MSSA - Final 09/18/18 12:52 Urine,Voided Urine Culture - Final 09/13/18 15:00 Blood Blood Culture Gram Stain - Final 09/13/18 15:00 Blood Blood Culture - Final Alpha Hemolytic Streptococcus 09/12/18 16:14 Blood Blood Culture Gram Stain - Final 09/12/18 16:14 Blood Blood Culture - Final Alpha Hemolytic Streptococcus 09/13/18 15:00 Blood Blood Culture - Final 09/12/18 06:01 Blood Blood Culture Gram Stain - Final 09/12/18 06:01 Blood Blood Culture - Final Alpha Hemolytic Streptococcus 09/11/18 18:19 Blood Blood Culture Gram Stain - Final 09/11/18 18:19 Blood Blood Culture - Final Alpha Hemolytic Streptococcus 09/12/18 06:39 Blood Blood Culture Gram Stain - Final 09/12/18 06:39 Blood Blood Culture - Final Strep agalactiae - (group b) 09/12/18 16:14 Blood Blood Culture - Final 09/12/18 06:01 Blood Blood Culture - Final 09/12/18 06:39 Blood Blood Culture - Final 09/11/18 18:19 Blood Blood Culture - Final Assessment and Plan (1) Endocarditis of [place] valve Narrative/Plan: Pleasant 63-year-old male presents to Hospital feeling poorly for quite some time. Because he was feeling poorly eventually had an echocardiogram performed to evaluate his cardiac status after computed tomography scan revealed potential abnormality. The transthoracic echocardiogram reveal evidence of the abnormality in the mitral valve leaflet. The patient underwent transesophageal echocardiogram the verifies the mitral regurgitant murmur in the large vegetation of the mitral valve. The patient now has multiple positive blood cultures with group B strep. 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 The patient relates that he has had a heart murmur noted for many years but has not had ongoing follow-up over time. At this time the murmur is easily heard and he has been evaluated by cardiothoracic surgery. Our plan will be to maximize antibiotic therapy this point time with ampicillin and gentamicin try to rapidly cleared his bacteremia. Once clearance of bacteremia has occurred he will proceed to the mitral valve surgery for removal of vegetation and repair or replacement of the valve. The reasons for the surgery are discussed including goal to reduce the risk of a significant embolic event Barbara concern would be of a large stroke. Secondly would be for repairing of the mitral valve without left ventricular dysfunction and refractory congestive heart failure. The qualifications of the cardiovascular surgeons is again reviewed with the patient's father and understands that the valve surgery is within the capability of the facility and the surgeons. There are many questions are answered. 09/15/2018 patient is feeling better today. No fevers or chills. Laboratories is starting to report some negative blood cultures hopefully on the new antibiotic therapy of ampicillin and gentamicin the blood stream will be sterilized rapidly. Once this occurs it appears a cardiovascular surgery will be taking him for surgical intervention because of the large size of the vegetation and a valvular malfunction that is occurring which are both indications for intervention. 09/16/2018 patient feeling better today. Tolerating antibiotic therapy well with no significant difficulty such as fevers or chills. No nausea or emesis or diarrhea. Overall progressing. 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 As noted there are now blood cultures -48 hours and one set at 24 hours hopefully relating to the parents of his bacteremia with the synergistic combination of ampicillin and gentamicin. Patient be monitored for any nephrotoxicity. The patient and his mother's questions are answered. 09/18/2018 patient continues to improve. Is being followed closely by multiple consultants and cardiothoracic surgery is planning on the family repair or replacement on Friday. He has noted the blood cultures are now negative and 2 events the patient clinically has had significant improvement. We will continue to monitor in the perioperative timeframe. Continue current antimicrobial therapy with ampicillin and gentamicin. 09/19/2018 ongoing improvement await surgery on Friday. Continue the course of antibiotic therapy with ampicillin and gentamicin. 09/20/2018 patient will have his valvular surgery tomorrow and he will be followed postoperatively. The goal will be for 2 weeks of antibiotic therapy after his surgery. Once surgery is complete IV access PICC line can be placed for completion of his course of antibiotic therapy. The frequency of antibiotic might be a bit of a challenge but will work with the home care regarding options. The patient's parents and sister are present and are updated to the patient's status and plans for tomorrow and the overall plan in the outpatient setting. 09/21/2018 Patient is doing well status post mitral valve repair. He is having no specific new complaints. He has been extubated and pain is under good control. 2 weeks of ampicillin gentamicin to be planned in the outpatient setting PICC line will be requested. 09/22/2018 patient continues to do well in the postoperative timeframe. Overall is feeling modestly well. Pain is improved respiratory status is improving, was able to get to the chair to sit. The data reveals that the patient has had repair of the mitral valve, consequently would be more of a complex endocarditis and consequently would plan for weeks of ceftriaxone. PICC line has been requested and will initiate requests for outpatient intravenous antibiotic therapy. Current Visit: Yes Status: Acute Code(s): I38 - ENDOCARDITIS, VALVE UNSPECIFIED SNOMED Code(s): 36226652 (2) Bacteremia due to group B Streptococcus Current Visit: Yes Status: Acute Code(s): R78.81 - BACTEREMIA SNOMED Code( s): 720575595169
[2018-09-23] MEDS: AMPICILLIN 2,000 MG in SODIUM CHLORIDE 0.9% 100 ML IVPB SCH ×6 (01:41→21:39)
[2018-09-23] MEDS: KETOROLAC 30 MG/ML 1 ML VIAL IVP SCH ×4 (03:06→21:38)
[2018-09-23] MEDS: GENTAMICIN IN NACL ISO-OSM PMX 80 MG in SALINE 1 100ML.BAG IVPB SCH ×2 (03:06→15:02)
[2018-09-23] MEDS: LACTATED RINGERS 1,000 ML IV SCH (05:20)
[2018-09-23 05:39] LABS: Basophils % (A) 0 %; Eosinophils # (A) 0.1 k/uL (0-0.7); Eosinophils % (A) 1 %; HCT 23.7 % (39.0-53.0); HGB 7.7 gm/dL (13.0-17.5); Lymphocytes # (A) 0.7 k/uL (1.0-4.8); Lymphocytes % (A) 8 %; MCH 29.6 pg (25.0-35.0); MCHC 32.5 g/dL (31.0-37.0); MCV 90.8 fL (80.0-100.0); Mean Platelet Volume 7.2; Monocytes # (A) 0.4 k/uL (0-1.0); Monocytes % (A) 4 %; Neutrophils # (A) 7.9 k/uL (1.3-7.7); Neutrophils % (A) 87 %; Platelet Count 156 k/uL (150-450); RBC 2.61 m/uL (4.30-5.90); RDW 15.8 % (11.5-15.5); WBC 9.1 k/uL (3.8-10.6)
[2018-09-23 05:47] LABS: Ionized Calcium 4.7 mg/dL (4.5-5.3)
[2018-09-23 05:55] LABS: Calcium 8.1 mg/dL (8.4-10.2); Potassium 4.3 mmol/L (3.5-5.1); Total Bilirubin 0.6 mg/dL (0.2-1.3); Total Protein 5.1 g/dL (6.3-8.2)
[2018-09-23] MEDS: HYDROcodone/APAP 5-325MG 1 EACH TAB PO PRN ×2 (06:04→09:15)
--- NOTE | 2018-09-23 06:51 | XR ---
EXAMINATION TYPE: XR chest 1V portable DATE OF EXAM: 09/23/2018 CLINICAL HISTORY: Difficulty breathing progress study. Post open cardiac surgery. TECHNIQUE: Single AP portable upright view of the chest is obtained. COMPARISON: Chest x-ray from one day earlier and older studies. FINDINGS: There is interval removal of right internal jugular Delmont-López catheter, cordis sheath mahendra ins in place. There is redemonstration of mediastinal drainage catheter and right-sided chest tube. O verlying sternal wires are redemonstrated. Cardiac closure device over left heart border is again see n. Overlying EKG leads are again seen. There is patchy right medial basilar atelectasis and/or infiltrate redemonstrated. There is stable ca rdiomegaly with central vascular congestion and more dense left basilar opacity. No sizable pneumotho rax is seen bilaterally. Osseous structures are intact. IMPRESSION: Persisting cardiomegaly and mild central vascular congestion with suspected small left pl eural effusion and left greater than right bibasilar atelectasis and/or infiltrate all redemonstrated . No significant interval change.
[2018-09-23 07:08] LABS: Glucose,Whole Blood 103 mg/dL (75-99)
[2018-09-23] MEDS: IPRATROPIUM-ALBUTEROL 3 ML NEB INHALATION SCH ×4 (07:31→20:12)
[2018-09-23] MEDS: INSULIN ASPART 100 UNIT/ML 1 ML 10 ML VIAL SQ SCH ×4 (08:04→21:38)
--- NOTE | 2018-09-23 08:14 | P.PN ---
Subjective Progress Note Date: 09/23/18 Principal diagnosis: Mitral valve endocarditis with flail P2, severe mitral valve regurgitation. Previous medical history of mitral regurgitation, hyperlipidemia, DVT of the right calf in 2011, BPH, occasional wine, and family history of atrial fibrillation. POD #2 complex mitral valve repair with quadrangular resection of P2 with reconstruction and reinforcement with posterior annuloplasty using a 32 mm AnnuloFlex. Excision of the left atrial appendage using a 35 mm AtriClip. Intraoperative transesophageal echocardiogram and epi-aortic scanning. Postoperative atrial fibrillation, unexpected outcome. The patient was sitting up in a recliner in the intensive care unit in no acute distress. Does state pain control is better but he is a little more short of breath this morning. Remains hemodynamically stable on no inotropes or pressors. Patient went into atrial fibrillation last night, currently on IV amiodarone, appears to be in sinus rhythm with a first-degree heart block this morning, beta masood held all day yesterday. Objective - Vital Signs Vital signs: Vital Signs Temp 98.2 F 09/23/18 04:00 Pulse 72 09/23/18 07:42 Resp 18 09/23/18 07:00 BP 98/63 09/23/18 07:00 Pulse Ox 95 09/23/18 07:00 Intake & Output 09/22/18 09/23/18 09/23/18 18:59 06:59 18:59 Intake Total 2100.55 1523 29 Output Total 725 805 25 Balance 1375.55 718 4 Weight 77.1 kg 88.8 kg Intake: IV 1025 1183 29 Albumin Human 5% 250 ml 250 In Empty Bag 1 bag @ 250 mls/hr IVPB Q1HR PRN Rx#: [id number] Ampicillin 2,000 mg In 400 300 Sodium Chloride 0.9% 100 ml @ 200 mls/hr IVPB Q4H [facility] Rx#:[id number] CO/CI 20 Dextrose 5% in Water 100 200 ml @ 618 mls/hr IV .Q10M PRN with Amiodarone 150 mg Rx#:[id number] Gentamicin in NaCl Iso- 100 100 Osm Pmx 80 mg In Saline 1 100ml.bag @ 100 mls/hr IVPB Q12H [facility] Rx#: [id number] Lactated Ringers 1,000 ml 430 240 20 @ 20 mls/hr IV .Q24H [facility] Rx#:[id number] PRESSURE BAG 75 93 9 Intake, IV Titration 355.55 100 Amount ACETAMINOPHEN IV (For NPO 100 100 ) 1,000 mg In Empty Bag 1 bag @ 400 mls/hr IVPB Q6HR [facility] Rx#:[id number] Albumin Human 5% 500 ml 250 In Empty Bag 1 bag @ 250 mls/hr IVPB ONCE ONE Rx#: [id number] Insulin Regular 100 unit 5.55 In Sodium Chloride 0.9% 100 ml @ Per Protocol IV .Q0M [facility] Rx#:[id number] Oral 720 240 Output: Chest Tube Drainage 110 280 Chest Tube Mediastinal 40 50 Right Pleural Chest Tube 70 230 Urine 615 525 25 Other: Voiding Method Indwelling Catheter Indwelling Catheter ABP, PAP, CO, CI - Last Documented Arterial Blood Pressure 83/47 Pulmonary Artery Pressure 24/12 Cardiac Output 7.0 Cardiac Index 3.6 - Constitutional General appearance: Present: cooperative, no acute distress - Respiratory Details: Lungs sounds clear bilaterally. Respirations even, nonlabored. Currently on 3 L nasal cannula with oxygen saturation 98%. Able to achieve 750 mL on his incentive spirometry. Strong cough. Mediastinal chest tube to continuous wall suction, 40 mL serosanguineous drainage overnight, 80 mL the last 24 hours. Right pleural chest tube to continuous wall suction, 210 mL serosanguineous drainage overnight, 300 mL in the last 24 hours. No air leaks present. - Cardiovascular Details: S1, S2 present. Positive systolic murmur present. Regular rate and rhythm, sinus rhythm with first-degree AV block on telemetry. Sternum stable. A/V epicardial pacemaker wires present, connected to generator, VVI mode backup rate 50 bpm. Palpable peripheral pulses bilaterally. No edema present. No calf pain or tenderness noted. Right internal jugular Cordis, right radial arterial line present. Heart hugger in place with patient demonstrating appropriate use. - Gastrointestinal Gastrointestinal Comment(s): Abdomen soft, nontender, nondistended. Hypoactive bowel sounds 4 quadrants. Tolerating clear liquids. Positive belching, negative flatus. - Genitourinary Genitourinary Comment(s): George present draining clear, yellow urine. Output 45-50 mL per hour in the early part of the night, dropping down to 25-30 mL/h in the last few hours overnight. - Integumentary Integumentary Comment(s): Skin is warm and dry with evidence of good perfusion. Anterior chest incision well approximated and covered with dry intact dressing. - Neurologic Neurologic: Present: CNII-XII intact - Musculoskeletal Musculoskeletal: Present: gait normal, strength equal bilaterally - Psychiatric Psychiatric: Present: A&O x's 3, appropriate affect, intact judgment & insight - Allied health notes Allied health notes reviewed: nursing - Labs CBC & Chem 7: 09/23/18 05:17 09/23/18 05:17 Labs: Abnormal Lab Results - Last 24 Hours (Table) 09/22/18 09/22/18 09/22/18 Range/Units 12:10 16:53 21:01 RBC (4.30-5.90) m/uL Hgb (13.0-17.5) gm/dL Hct (39.0-53.0) % RDW (11.5-15.5) % Neutrophils # (1.3-7.7) k/uL Lymphocytes # (1.0-4.8) k/uL Sodium (137-145) mmol/L Glucose (74-99) mg/dL POC Glucose (mg/dL) 137 H 121 H 127 H (75-99) mg/dL Calcium (8.4-10.2) mg/dL Total Protein (6.3-8.2) g/dL Albumin (3.5-5.0) g/dL 18 18 09/23/18 Range/Units 05:17 05:17 07:06 RBC 2.61 L (4.30-5.90) m/uL Hgb 7.7 L (13.0-17.5) gm/dL Hct 23.7 L (39.0-53.0) % RDW 15.8 H (11.5-15.5) % Neutrophils # 7.9 H (1.3-7.7) k/uL Lymphocytes # 0.7 L (1.0-4.8) k/uL Sodium 134 L (137-145) mmol/L Glucose 109 H (74-99) mg/dL POC Glucose (mg/dL) 103 H (75-99) mg/dL Calcium 8.1 L (8.4-10.2) mg/dL Total Protein 5.1 L (6.3-8.2) g/dL Albumin 3.0 L (3.5-5.0) g/dL Microbiology - Last 24 Hours (Table) 09/21/18 13:02 Gram Stain - Preliminary Heart Valve Tissue Culture - Preliminary - Imaging and Cardiology Chest x-ray: report reviewed, image reviewed Assessment and Plan (1) Mitral regurgitation Current Visit: Yes Status: Chronic Code(s): I34.0 - NONRHEUMATIC MITRAL ( VALVE) INSUFFICIENCY SNOMED Code(s): 30973747 (2) History of DVT (deep vein thrombosis) Current Visit: No Status: Resolved Code(s): Z86.718 - PERSONAL HISTORY OF OTHER VENOUS THROMBOSIS AND EMBOLISM SNOMED Code(s): 208995944 (3) Hyperlipemia Current Visit: Yes Status: Chronic Code(s): E78.5 - HYPERLIPIDEMIA, UNSPECIFIED SNOMED Code(s): 98980124 (4) Endocarditis of ak chin valve Current Visit: Yes Status: Acute Code(s): I38 - ENDOCARDITIS, VALVE UNSPECIFIED SNOMED Code(s): 19952310 Plan: 1. Continue aspirin, statin, Plavix. Will hold beta masood therapy for now 2. Continue amiodarone for A. fib prophylaxis. Will transition to oral amiodarone.. 3. Wean O2 as tolerated. Encourage incentive spirometry 10 times every hour while awake. 4. Continue antibiotics per recommendations from infectious disease. PICC line to be placed today. 5. Bronchodilators per pulmonology. 6. Will monitor daily labs, chest x-rays. Electrolyte replacement per protocol. 7. Pain controlled current medication regimen. 8. GI prophylaxis with Protonix, DVT prophylaxis with subcu heparin and SCDs. 9. Insulin management per primary care service. 10. Increase activity, ambulate as tolerated. PT/OT/cardiac rehab following. 11. More recommendations to follow based on patient's progress. Time with Patient: Greater than 30
[2018-09-23] MEDS: HEPARIN SODIUM,PORCINE 5,000 UNIT/ML 1 ML VIAL SQ SCH ×2 (08:16→15:56)
[2018-09-23] MEDS: PANTOPRAZOLE 40 MG TABLET PO SCH (08:28)
[2018-09-23] MEDS: ASPIRIN 325 MG TAB PO SCH (08:28)
[2018-09-23] MEDS: CLOPIDOGREL 75 MG TAB PO SCH (08:29)
[2018-09-23] MEDS: ATORVASTATIN 40 MG TAB PO SCH (08:29)
[2018-09-23] MEDS: MUPIROCIN 2% OINT 22 GM TUBE NASAL SCH ×2 (08:29→21:39)
[2018-09-23] MEDS ORDERED: LIDOCAINE 1% INJ 10MG/ML (20 ML MDV) ONE (08:58)
[2018-09-23] MEDS ORDERED: LIDOCAINE 1% INJ 10MG/ML (20 ML MDV) SQ ONE (09:19)
[2018-09-23] MEDS ORDERED: ALBUMIN HUMAN 5% 250 ML in EMPTY BAG 1 BAG IVPB ONE ×2 (09:28→14:35)
[2018-09-23] MEDS ORDERED: HYDROcodone/APAP 7.5-325MG 1 EACH TAB PO PRN (09:44)
--- NOTE | 2018-09-23 09:46 | XR ---
EXAMINATION TYPE: XR chest 1V portable DATE OF EXAM: 09/23/2018 CLINICAL HISTORY: PICC line placement. Post open cardiac surgery. TECHNIQUE: Single AP portable frontal view of the chest is obtained. COMPARISON: Chest x-ray from earlier today and older studies. FINDINGS: There is new left-sided PICC line terminating short of brachiocephalic confluence. There is stable right internal jugular cordis sheath. There is persistent right-sided chest tube. Ove rlying superficial pacer wires are seen. Mediastinal drainage catheter is not definitively visualized . Overlying Sternal wires and cardiac closure device left heart border are redemonstrated. There is p ersistent cardiomegaly with bibasilar opacities and central vascular congestion. No large pneumothora x is seen. Low lung volumes are redemonstrated. Osseous structures are intact. IMPRESSION: New left-sided PICC line tip is likely within proximal left brachiocephalic vein. Other f indings stable as there is low lung volumes and persistent cardiomegaly with mild central vascular co ngestion, small left pleural effusion, and left greater than right bibasilar acute atelectasis and/or infiltrate all redemonstrated.
[2018-09-23] MEDS: AMIODARONE 200 MG TAB PO SCH ×2 (11:14→21:37)
--- NOTE | 2018-09-23 11:33 | PN ---
PROGRESS NOTE DATE OF SERVICE: 09/23/2018 This is a 63-year-old male, postop day #2, status post mitral valve replacement and left atrial appendage excision. Patient is doing reasonably well. Developed atrial fibrillation last night. The patient was given some amiodarone and started on an amiodarone drip of 0.5 mg/minute. He is also receiving lactated Ringer's at 20 mL an hour. He is on nasal O2 at 3 L. 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 The patient also has a history of DVT and pulmonary embolism following a kidney stone removal and suffers also from hyperlipidemia and BPH. Currently doing reasonably well. I asked him whether not he felt the atrial fibrillation and he did not. He states he did not notice any chest pain, difficulty breathing, chest pressure, palpitations, fluttering, etc. Other than that, he is doing reasonably well. His chest x-ray does show some bilateral pleural effusions, left greater than right, and some bibasilar atelectasis with some central vascular congestion. Vital signs are reviewed, temperature 98.2, heart rate 70, respiratory rate pf 18, blood pressure 98/63 with a mean of 74. The saturations are 95% on 3 L. Appears in no acute distress. Sitting comfortably at the bedside. HEENT examination is grossly unremarkable. Nasal O2 in place. Mucous membranes are moist. Neck is supple. Full range of motion. No adenopathy. Cardiovascular examination reveals irregular rhythm and rate. S1, S2 normal. Heart rate is below 100. Lungs reveal some bibasilar crackles. There is a few scattered rhonchi. Breath sounds are diminished. He does not take deep breaths. Abdomen is soft. Bowel sounds are heard. Extremities are intact. No cyanosis, clubbing, or edema. Skin without rash. Neurologic examination is brief but nonfocal. Chest x-ray is reviewed. LABORATORY DATA: Includes a white count of 9.1, hemoglobin 7.7, hematocrit 23.7, and a platelet count of 156,000. Sodium 134, potassium 4.3, chloride 104, CO2 is 26, BUN and creatinine were 20 and 1.05. Albumin is 3. Microbiologic studies show evidence of alpha hemolytic strep in the blood beginning on 09/11 and continuing to 09/13. His medications are reviewed. From the antibiotic standpoint, he is on ampicillin and gentamicin. The rest of his medications including the updrafts are appropriate. ASSESSMENT: 1. 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 2. Routine mechanical ventilatory management with extubation within 6 hours after the operation. 3. Hyperlipidemia. 4. History of deep venous thrombosis and pulmonary embolisms in 2011 following a kidney procedure. 5. History of benign prostatic hypertrophy. PLAN: Currently, the patient is doing reasonably well. He did develop atrial fibrillation last night. That was managed with amiodarone. He is currently on amiodarone drip 0.5 mg/minute. He remains on lactated Ringer's at 20 mL an hour. Chest x-ray shows some central vascular congestion, small effusions and some bibasilar atelectasis. The left- sided effusion is worse than the right. Medications are reviewed. X-rays and labs are reviewed. Will continue to follow. Clinically, the patient seems to be doing reasonably well. Critical care management is 33 minutes. MMODL / IJN: [id number] /
[2018-09-23 12:08] LABS: Glucose,Whole Blood 121 mg/dL (75-99)
--- NOTE | 2018-09-23 12:53 | IR ---
PICC LINE PLACEMENT: HISTORY: Infection requiring long-term antibiotic therapy PROCEDURE: Ultrasound guidance of PICC line placement. SHAPING MACHINE OPERATOR: Dr. Almazan. COMPLICATIONS: None ANESTHESIA: 1. 1% Lidocaine locally. FINDINGS/TECHNIQUE: The procedure was explained to the patient. The risks, complications, benefits and alternatives were discussed and any questions were answered. Informed consent was obtained. The patient was placed supine on the fluoroscopic table and prepped and draped in the usual sterile formerly [facility] ion. Utilizing a 21 gauge needle and sonographic guidance, access in the left basilic vein was achi eved and there is placement of a 0.018 guidewire. The vein is patent. A 5-F. sheath was placed over the guidewire. The guidewire and dilator were removed and a 5-F. Double lumen PICC line was placed through the sheath with the chest x-ray confirming the tip at the level of the SVC. The sheath was r emoved, the catheter was flushed and sutured into position. The patient was stable throughout the pr ocedure and remained stable upon discharge from the Department of Radiology. The vein puncture was patent under ultrasound. A neves scale image was obtained to document patency of the vein punctured. All elements of the maximal barrier and sterile technique were utilized. IMPRESSION: 1. Successful PICC line placement under ultrasound performed bedside within the ICU.
--- NOTE | 2018-09-23 12:54 | PN ---
PROGRESS NOTE Mr. Reddy is status post mitral valve repair. He went into atrial fib yesterday for a short while and then converted after amiodarone to sinus with a first-degree. His first-degree AV block is evident. He had a Wenckebach, but this morning I can see that the VT interval is prolonged, but does not show any Wenckebach phenomenon during my evaluation. I am recommending we hold beta masood. Continue amiodarone. He is slightly hypotensive. Received some volume. Blood pressure today is 96. His urine output is decent. S1-S2 heard normally, short systolic murmur noted. Lungs reveal fair air entry. Abdomen and lower extremity exam unchanged. Plan is to continue supportive care and hold beta masood. Continue amiodarone and see how he does. MMODL / IJN: [id number] /
[2018-09-23] MEDS: HYDROcodone/APAP 7.5-325MG 1 EACH TAB PO PRN ×2 (13:37→17:15)
[2018-09-23] MEDS: FERROUS SULFATE 325 MG TAB PO SCH (13:44)
--- NOTE | 2018-09-23 14:09 | P.PN ---
Subjective Progress Note Date: 09/23/18 This is a 63-year-old male patient of Dr. Sosa and Dr. Price with history of hyperlipidemia but long-standing history of heart murmur. Patient was having chills and sweating with generalized achiness that impacted his physical activity. He was initially treated for pneumonia and completed antibiotics but his symptoms continued. There was also concern for Lyme disease and patient was started on doxycycline approximate 3 weeks ago. He subsequently underwent a CAT scan that showed dilated ascending aorta and the patient was referred to Dr. Bear on for transthoracic echocardiogram that revealed a preserved systolic function with severe mitral regurgitation and a mass on the posterior mitral valve leaflet suggestive of endocarditis and vegetation and the patient was then set up for SILVIA and heart catheterization which was done yesterday. SILVIA revealed ejection fraction of 55% with severe eccentric right regurgitation with vegetation on the posterior mitral valve, mild tricuspid regurgitation and mild dilatation of the aorta and mild aortic regurgitation. Heart catheterization showed normal coronary arteries and dilated ascending aorta. Patient was admitted and a consult was added for Dr. Beck. Blood cultures were obtained. 09/13: patient is feeling well , was started on vancomycin ans subsequently was switched to Ancef 2gr IVPB Q8H as he is bacteeremic to Group B strep and alpha hemolytic strep, and we will repeat blood cultures today and tomorrow. 09/14: Patient is currently on Ancef. Patient has been seen by cardiothoracic surgery with plan for valve replacement or repair as early as Friday. Patient has been seen by dental surgeon and cleared of any present dental infection. CAT scan of the facial bones reveals sinuses clear with exception of left maxillary sinus and ostiomeatal complex is patent bilaterally. No evidence of abscess. Patient denies any new complaints. He has been afebrile since September 22. Pulse ox is 95% on room air. 09/15: Dr. Beck has changed antibiotics to ampicillin and gentamicin. Blood culture obtained on September 13 and one on September 14 are currently showing no growth after 24 hours. Patient is afebrile, vital signs are stable, blood pressure is noted to be some readings on the low side. Pulse ox is 92% to 94% on room air. Patient continues to deny any chest pain or shortness of breath, no lightheadedness or dizziness. He denies any fever or chills. 09/16: Blood culture from September 23 is now positive. Blood culture obtained on September 14 showing no growth. Blood culture from September 15 is in progress. Patient has been afebrile. He denies any fever or chills. He has had no nausea vomiting or diarrhea. Patient is continued on ampicillin and gentamicin. Cardiothoracic surgery is tentatively planning for surgery on Friday or Friday. 09/17: Patient denies any new complaints. He remains afebrile. Blood cultures from September 14 and September 15 are showing no growth. Patient is tentatively scheduled for surgery on Friday. 09/18: Patient denies any Complains any remains afebrile. Blood cultures from September 14 and September 15 are continuing to show no growth. Patient is scheduled for open heart surgery on Friday for mitral valve repair or replacement. Patient is continued on ampicillin and gentamicin and followed by Dr. Beck. 09/21: Patient is status post complex mitral valve repair with quadrangular resection of P2 with reconstruction and reinforcement with posterior annuloplasty using a 32 mm AnnuloFlex. Excision of the left atrial appendage using a 35 mm AtriClip. Intraoperative transesophageal echocardiogram and epi- aortic scanning. Patient is currently intubated and on mechanical ventilation. He is continued on IV antibiotics with ampicillin and gentamicin. Right- sided Cordis in place. Patient is currently on Clevidipine 4 for blood pressure control. Insulin drip has been started. He has a right-sided pleural chest tube and mediastinal. Patient has not required transfusion. Anticipate possible extubation this evening. 09/22: Patient has been successfully extubated. He is found sitting up in a recliner and appears to be comfortable and in no acute distress. His pain is currently controlled. He states he is having pain in the lower sternal area only area No shortness of breath. Incentive spirometer is 1750 ML's. Pulse ox is 95% on 3 L nasal cannula, blood pressure is on the low side. He has not required vasopressors. White count is 10.7, hemoglobin 8.7. Capillary blood glucose running between 101-121 and he is off insulin drip. We will add in ferrous sulfate. 09/23: Patient remains in intensive care unit. White count is normal, hemoglobin 7.7, capillary blood glucose running between 103 and 127. He has been hemodynamically stable. Pulse ox is running 90-95% on 3 L nasal cannula. Patient has been afebrile. Blood pressures on the low side but patient has not required vasopressors. Mediastinal chest tubes removed. George cath remains in place and urine output has been adequate. He denies any chest pain or shortness of breath. He is continued on ampicillin and gentamicin. Dr. Beck has ordered a PICC line placement Review Of Systems: Constitutional: No fever, no chills, no night sweats. No weight change. No weakness, reports fatigue or lethargy. No daytime sleepiness. EENT: No headache. No blurred vision or double vision, no loss of vision. No loss of Hearing, no ringing in the ears, no dizziness. No nasal drainage or congestion. No epistaxis. No sore throat. Lungs: No shortness of breath, cough, no sputum production. No wheezing. Cardiovascular: No chest pain, complains of postop pain, no lower extremity edema. No palpitations. No paroxysmal nocturnal dyspnea. No orthopnea. No lightheadedness or dizziness. No syncopal episodes. Abdominal: No abdominal pain. No nausea, vomiting. No diarrhea. No constipation. No bloody or tarry stools.. No loss of appetite. Genitourinary: No dysuria, increased frequency, urgency. No urinary retention. Musculoskeletal: No myalgias. No muscle weakness, no gait dysfunction, no frequent falls. No back pain. No neck pain. Integumentary: No wounds, no lesions. No rash or pruritus. No unusual bruising. No change in hair or nails. Neurologic: No aphasia. No facial droop. No change in mentation. No head injury. No headache. No paralysis. No paresthesia. Psychiatric: No depression. No anxiety. No mood swings. Endocrine: No abnormal blood sugars. No weight change. Objective - Vital Signs Vital signs: Vital Signs Temp 99.3 F 09/23/18 08:00 Pulse 74 09/23/18 10:00 Resp 24 09/23/18 10:00 BP 90/51 09/23/18 09:00 Pulse Ox 95 09/23/18 10:00 Intake & Output 09/22/18 09/23/18 09/23/18 18:59 06:59 18:59 Intake Total 2100.55 1523 357 Output Total 725 805 190 Balance 1375.55 718 167 Weight 77.1 kg 88.8 kg 88.8 kg Intake: IV 1025 1183 107 Albumin Human 5% 250 ml 250 In Empty Bag 1 bag @ 250 mls/hr IVPB Q1HR PRN Rx#: [id number] Ampicillin 2,000 mg In 400 300 Sodium Chloride 0.9% 100 ml @ 200 mls/hr IVPB Q4H [facility] [place] Rx#:[id number] CO/CI 20 Dextrose 5% in Water 100 200 ml @ 618 mls/hr IV .Q10M PRN with Amiodarone 150 mg Rx#:[id number] Gentamicin in NaCl Iso- 100 100 Osm Pmx 80 mg In Saline 1 100ml.bag @ 100 mls/hr IVPB Q12H [facility] [place] Rx#: [id number] Lactated Ringers 1,000 ml 430 240 80 @ 20 mls/hr IV .Q24H [facility] [place] Rx#:[id number] PRESSURE BAG 75 93 27 Intake, IV Titration 355.55 100 250 Amount ACETAMINOPHEN IV (For NPO 100 100 ) 1,000 mg In Empty Bag 1 bag @ 400 mls/hr IVPB Q6HR [facility] [place] Rx#:[id number] Albumin Human 5% 250 ml 250 In Empty Bag 1 bag @ 250 mls/hr IVPB ONCE ONE Rx#: [id number] Albumin Human 5% 500 ml 250 In Empty Bag 1 bag @ 250 mls/hr IVPB ONCE ONE Rx#: [id number] Insulin Regular 100 unit 5.55 In Sodium Chloride 0.9% 100 ml @ Per Protocol IV .Q0M [facility] [place] Rx#:[id number] Oral 720 240 Output: Chest Tube Drainage 110 280 110 Chest Tube Mediastinal 40 50 60 Right Pleural Chest Tube 70 230 50 Urine 615 525 80 Other: Voiding Method Indwelling Catheter Indwelling Catheter Indwelling Catheter ABP, PAP, CO, CI - Last Documented Arterial Blood Pressure 99/57 Pulmonary Artery Pressure 24/12 Cardiac Output 6.2 Cardiac Index 3.6 - Exam General appearance: no acute distress, sitting up in recliner and appears to be comfortable and in no acute distress - Neck Neck: no lymphadenopathy, normal ROM, no rigidity, no stridor, no thyromegaly, right-sided Cordis in place Carotids: bilateral: upstroke normal Thyroid: bilateral: normal size - Respiratory Respiratory: bilateral: diminished, negative: dullness, rales, rhonchi, wheezing , prolonged expiration, prolonged inspiration - Cardiovascular Rhythm: regular Heart sounds: abnormal: S1 (Decreased) Abnormal Heart Sounds: systolic murmur (There is 4/6 systolic ejection murmur located in the apex Radiating to the axilla.) Chest tubes in place. - Gastrointestinal General gastrointestinal: no hepatomegaly, hypoactive bowel sounds, soft, no splenomegaly, no tenderness, no umbilical hernia, no ventral hernia, George catheter in place - Integumentary Integumentary: normal, normal turgor - Neurologic Neurologic: CNII-XII intact - Musculoskeletal Musculoskeletal: generalized weakness, gait steady - Psychiatric Psychiatric: Awake alert and oriented 3, intact judgment, normal affect. - Labs CBC & Chem 7: 09/23/18 05:17 09/23/18 05:17 Labs: Abnormal Lab Results - Last 24 Hours (Table) 09/22/18 09/22/18 09/22/18 Range/Units 12:10 16:53 21:01 RBC (4.30-5.90) m/uL Hgb (13.0-17.5) gm/dL Hct (39.0-53.0) % RDW (11.5-15.5) % Neutrophils # (1.3-7.7) k/uL Lymphocytes # (1.0-4.8) k/uL Sodium (137-145) mmol/L Glucose (74-99) mg/dL POC Glucose (mg/dL) 137 H 121 H 127 H (75-99) mg/dL Calcium (8.4-10.2) mg/dL Total Protein (6.3-8.2) g/dL Albumin (3.5-5.0) g/dL 09/23/18 09/23/18 09/23/18 Range/Units 05:17 05:17 07:06 RBC 2.61 L (4.30-5.90) m/uL Hgb 7.7 L (13.0-17.5) gm/dL Hct 23.7 L (39.0-53.0) % RDW 15.8 H (11.5-15.5) % Neutrophils # 7.9 H (1.3-7.7) k/uL Lymphocytes # 0.7 L (1.0-4.8) k/uL Sodium 134 L (137-145) mmol/L Glucose 109 H (74-99) mg/dL POC Glucose (mg/dL) 103 H (75-99) mg/dL Calcium 8.1 L (8.4-10.2) mg/dL Total Protein 5.1 L (6.3-8.2) g/dL Albumin 3.0 L (3.5-5.0) g/dL Microbiology - Last 24 Hours (Table) 09/21/18 13:02 Gram Stain - Preliminary Heart Valve Tissue Culture - Preliminary Assessment and Plan Plan: 1. Subacute endocarditis with mitral valve vegetation post SILVIA and left heart catheterization that showed normal coronaries. Blood cultures were positive for group B streptococcus agalactia and alpha hemolytic strep. Patient is status post complex mitral valve repair with quadrangular resection of P2 with reconstruction and reinforcement with posterior annuloplasty using a 32 mm AnnuloFlex. Continue ampicillin and gentamicin per Dr. Beck. Repeat blood cultures from September 14 and are showing no growth. Continue current management per cardiothoracic surgery. Dr. Beck as ordered PICC line for outpatient antibiotic with Rocephin for 4 weeks. 2. Severe mitral regurgitation with mitral valve vegetation due to endocarditis. 3. Benign prostatic hypertrophy. Continue Flomax 0.4 mg orally once every day. 4. History of kidney stones. Stable. 5. DVT prophylaxis. Heparin 5000 units subcutaneously every 8 hours. 6. GI prophylaxis. Protonix 40 mg orally once every day. 7. Acute postop blood loss anemia, expected from surgery. Continue to monitor. Discharge plan: Home with homecare/IV antibiotics Impression and plan of care have been directed as dictated by the signing physician. Olga Roman nurse practitioner acting as scribe for signing physician.
[2018-09-23] MEDS: CLEVIDIPINE BUTYRATE 25 MG in EMPTY BAG 1 BAG IV SCH (15:54)
[2018-09-23 16:57] LABS: Glucose,Whole Blood 124 mg/dL (75-99)
[2018-09-23 20:22] LABS: Glucose,Whole Blood 146 mg/dL (75-99)
[2018-09-23] MEDS: SENNOSIDES-DOCUSATE SODIUM 1 EACH TAB PO SCH (21:37)
[2018-09-23] MEDS: TAMSULOSIN 0.4 MG CAP.ER.24H PO SCH (21:38)
[2018-09-24] MEDS: HEPARIN SODIUM,PORCINE 5,000 UNIT/ML 1 ML VIAL SQ SCH ×5 (01:00→23:03)
[2018-09-24 01:52] LABS: Glucose,Whole Blood 111 mg/dL (75-99)
[2018-09-24] MEDS: AMPICILLIN 2,000 MG in SODIUM CHLORIDE 0.9% 100 ML IVPB SCH ×6 (02:55→21:34)
[2018-09-24] MEDS: KETOROLAC 30 MG/ML 1 ML VIAL IVP SCH ×4 (02:55→21:22)
[2018-09-24] MEDS: GENTAMICIN IN NACL ISO-OSM PMX 80 MG in SALINE 1 100ML.BAG IVPB SCH ×2 (02:55→14:24)
[2018-09-24 06:36] LABS: Basophils % (A) 0 %; Eosinophils # (A) 0.1 k/uL (0-0.7); Eosinophils % (A) 1 %; HCT 24.8 % (39.0-53.0); HGB 7.8 gm/dL (13.0-17.5); Lymphocytes # (A) 0.9 k/uL (1.0-4.8); Lymphocytes % (A) 10 %; MCH 28.7 pg (25.0-35.0); MCHC 31.5 g/dL (31.0-37.0); Mean Platelet Volume 7.7; Monocytes # (A) 0.3 k/uL (0-1.0); Monocytes % (A) 4 %; Neutrophils # (A) 7.6 k/uL (1.3-7.7); Neutrophils % (A) 84 %; Platelet Count 159 k/uL (150-450); RBC 2.72 m/uL (4.30-5.90); RDW 15.9 % (11.5-15.5)
[2018-09-24 06:45] LABS: Albumin 2.7 g/dL (3.5-5.0); Calcium 8.2 mg/dL (8.4-10.2); Magnesium 1.9 mg/dL (1.6-2.3); Potassium 4.2 mmol/L (3.5-5.1); Total Bilirubin 0.5 mg/dL (0.2-1.3); Total Protein 5.1 g/dL (6.3-8.2)
[2018-09-24 06:51] LABS: Glucose,Whole Blood 103 mg/dL (75-99)
[2018-09-24] MEDS: INSULIN ASPART 100 UNIT/ML 1 ML 10 ML VIAL SQ SCH ×4 (07:06→21:12)
[2018-09-24] MEDS: LACTATED RINGERS 1,000 ML IV SCH (07:07)
--- NOTE | 2018-09-24 07:18 | XR ---
EXAMINATION TYPE: XR chest 1V portable DATE OF EXAM: 09/24/2018 COMPARISON: 09/23/2018 HISTORY: SOB, Follow Up FINDINGS: Indwelling tubes and catheters are unchanged. Persistent scattered areas of linear atelectasis and/or infiltrate. Continued pulmonary venous congestion. Stable appearance of the cardio-mediastinal structures at this time. Pleural effusion unchanged. IMPRESSION: 1. Persistent scattered areas of linear atelectasis and/or infiltrate. Continued pulmonary venous congestion.
[2018-09-24] MEDS: IPRATROPIUM-ALBUTEROL 3 ML NEB INHALATION SCH ×4 (08:03→22:33)
[2018-09-24] MEDS: MAGNESIUM SULFATE-D5W PMX 1 GM in DEXTROSE/WATER 1 100ML.BAG IVPB SCH ×2 (08:12→10:13)
[2018-09-24] MEDS: AMIODARONE 200 MG TAB PO SCH ×2 (08:13→21:22)
[2018-09-24] MEDS: CLOPIDOGREL 75 MG TAB PO SCH (08:13)
[2018-09-24] MEDS: ASPIRIN 325 MG TAB PO SCH (08:13)
[2018-09-24] MEDS: ATORVASTATIN 40 MG TAB PO SCH (08:13)
[2018-09-24] MEDS: MUPIROCIN 2% OINT 22 GM TUBE NASAL SCH ×3 (08:13→22:29)
[2018-09-24] MEDS: HYDROcodone/APAP 7.5-325MG 1 EACH TAB PO PRN ×2 (08:14→13:15)
[2018-09-24] MEDS: PANTOPRAZOLE 40 MG TABLET PO SCH ×2 (08:18→22:29)
--- NOTE | 2018-09-24 09:19 | P.PN ---
Subjective Progress Note Date: 09/24/18 Principal diagnosis: Mitral valve endocarditis, severe mitral valve regurgitation, status post mitral valve repair This is a 63-year-old white male patient of Dr. Sosa, who was initially admitted on 09/11/2018 for mitral valve endocarditis. Patient had been having night sweats, severe headaches, fevers on and off for the last 3 months, since June. He has been having generalized malaise, he was evaluated by his PCP , he was treated with a course of antibiotics with some improvement initially, but then patient's symptoms would recur. Patient had the SILVIA and cardiac catheterization by Dr. Hinojosa, findings revealed vegetation of the posterior mitral valve. Ejection fraction was preserved, cardiac presentation was within normal limits. Patient started on antibiotics, currently on IV ampicillin and gentamicin, and ID service is following. Patient's multiple blood cultures were positive for alpha hemolytic streptococcus, most recently his last 3 blood cultures have shown no growth. Afebrile, denies any chest pain, denies any dyspnea, pulse ox is 93%. No dizziness or syncopal episodes. Blood cultures are being drawn daily. Patient has received dental clearance. He is scheduled for mitral valve repair, possible replacement and exclusion of left atrial appendage on September 21. Patient does not have any history of chronic lung condition, He states he only smoked 6 cigarettes in his whole entire life, No asthma, no COPD. Other medical history includes hyperlipidemia, history of DVT and pulmonary embolism in 2010 following surgery on removal of kidney stone. He completed a course of anticoagulation for 9 months with Coumadin. The patient is seen today 09/24/2018 in follow-up in the intensive care unit. He is postoperative day #3 of a complex mitral valve repair. He is currently sitting up in the chair at the bedside. He is awake and alert in no acute distress. He is maintaining O2 saturations in the low 90s on 3 L/m per nasal cannula. He is afebrile. He is currently in sinus rhythm. His amiodarone drip is off and he is on oral amiodarone. He has a lactated Ringer's at a KVO. Today's chest x-ray shows atelectasis in the lung bases. Right chest tube remains in place. He is working with the incentive spirometer. Follow-up blood cultures reveal no growth. White count 9.0. Hemoglobin 7.8. Creatinine 1.06. He is currently on ampicillin and gentamicin. Objective - Vital Signs Vital signs: Vital Signs Temp 98.6 F 09/24/18 08:00 Pulse 62 09/24/18 08:03 Resp 28 H 09/24/18 08:00 BP 99/64 09/24/18 08:00 Pulse Ox 93 L 09/24/18 08:00 Intake & Output 09/23/18 09/24/18 09/24/18 18:59 06:59 18:59 Intake Total 1109 476 46 Output Total 475 720 125 Balance 634 -244 -79 Weight 88.8 kg 89.2 kg Intake: IV 859 476 46 Albumin Human 5% 250 ml 250 In Empty Bag 1 bag @ 250 mls/hr IVPB Q1HR PRN Rx#: [id number] Ampicillin 2,000 mg In 100 200 Sodium Chloride 0.9% 100 ml @ 200 mls/hr IVPB Q4H [facility] Rx#:[id number] Gentamicin in NaCl Iso- 200 Osm Pmx 80 mg In Saline 1 100ml.bag @ 100 mls/hr IVPB Q12H [facility] Rx#: [id number] Lactated Ringers 1,000 ml 240 240 40 @ 20 mls/hr IV .Q24H [facility] Rx#:[id number] PRESSURE BAG 69 36 6 Intake, IV Titration 250 Amount Albumin Human 5% 250 ml 250 In Empty Bag 1 bag @ 250 mls/hr IVPB ONCE ONE Rx#: [id number] Output: Chest Tube Drainage 160 320 100 Chest Tube Mediastinal 60 Right Pleural Chest Tube 100 320 100 Urine 315 400 25 Other: Voiding Method Indwelling Catheter Indwelling Catheter ABP, PAP, CO, CI - Last Documented Arterial Blood Pressure 98/56 Pulmonary Artery Pressure 24/12 Cardiac Output 6.2 Cardiac Index 3.6 - Exam GENERAL EXAM: Alert, up in a chair, comfortable in no apparent distress. On 3 L /m per nasal cannula HEAD: Normocephalic. EYES: Normal reaction of pupils, equal size. NOSE: Clear with pink turbinates. THROAT: No erythema or exudates. NECK: No masses, no JVD. CHEST: Sternal dressing dry and intact. Right chest tube in place. LUNGS: Equal air entry with Actos in the bilateral posterior bases. CVS: S1 and S2 normal with audible murmur, regular rhythm. ABDOMEN: No hepatosplenomegaly, normal bowel sounds, no guarding or rigidity. SPINE: No scoliosis or deformity SKIN: No rashes CENTRAL NERVOUS SYSTEM: No focal deficits, tone is normal in all 4 extremities. EXTREMITIES: There is no peripheral edema. No clubbing, no cyanosis. Peripheral pulses are intact. - Labs CBC & Chem 7: 09/24/18 06:00 09/24/18 06:00 Labs: Abnormal Lab Results - Last 24 Hours (Table) 09/23/18 09/23/18 09/23/18 Range/Units 12:06 16:55 20:20 RBC (4.30-5.90) m/uL Hgb (13.0-17.5) gm/dL Hct (39.0-53.0) % RDW (11.5-15.5) % Lymphocytes # (1.0-4.8) k/uL Sodium (137-145) mmol/L BUN (9-20) mg/dL Glucose (74-99) mg/dL POC Glucose (mg/dL) 121 H 124 H 146 H (75-99) mg/dL Calcium (8.4-10.2) mg/dL Total Protein (6.3-8.2) g/dL Albumin (3.5-5.0) g/dL 09/24/18 09/24/18 09/24/18 Range/Units 01:51 06:00 06:00 RBC 2.72 L (4.30-5.90) m/uL Hgb 7.8 L (13.0-17.5) gm/dL Hct 24.8 L (39.0-53.0) % RDW 15.9 H (11.5-15.5) % Lymphocytes # 0.9 L (1.0-4.8) k/uL Sodium 134 L (137-145) mmol/L BUN 24 H (9-20) mg/dL Glucose 105 H (74-99) mg/dL POC Glucose (mg/dL) 111 H (75-99) mg/dL Calcium 8.2 L (8.4-10.2) mg/dL Total Protein 5.1 L (6.3-8.2) g/dL Albumin 2.7 L (3.5-5.0) g/dL 09/24/18 Range/Units 06:49 RBC (4.30-5.90) m/uL Hgb (13.0-17.5) gm/dL Hct (39.0-53.0) % RDW (11.5-15.5) % Lymphocytes # (1.0-4.8) k/uL Sodium (137-145) mmol/L BUN (9-20) mg/dL Glucose (74-99) mg/dL POC Glucose (mg/dL) 103 H (75-99) mg/dL Calcium (8.4-10.2) mg/dL Total Protein (6.3-8.2) g/dL Albumin (3.5-5.0) g/dL Microbiology - Last 24 Hours (Table) 09/21/18 13:02 Anaerobic Culture - Preliminary Heart Valve 09/21/18 13:02 Gram Stain - Preliminary Heart Valve Tissue Culture - Preliminary Assessment and Plan Assessment: Assessment #1. 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 Severe mitral valve regurgitation repaired status post complex mitral valve repair. Postoperative day #3. #3. Hyperlipidemia #4. History of DVT and pulmonary embolism in 2010 following the procedure for removal of kidney stone, completed 9 months course of Coumadin #5. Benign prostatic hypertrophy Plan: The patient was seen and evaluated by Dr. Schrader. Chest x-ray and labs reviewed. He is again encouraged regarding the increased use of the incentive spirometer. Titrate down the FiO2 as tolerated. Continue the current treatment plan. We'll increase his activity as tolerated. We'll continue to follow make further recommendations based on his clinical status. I, the cosigning physician, performed a history & physical examination of the patient. Lungs sounds crackles in the bilateral posterior bases. Maintaining good O2 saturations in the 90s on 3 L/m per nasal cannula. I discussed the assessment and plan of care with my nurse practitioner, Jana Drummond. I attest to the above note as dictated by her. Time with Patient: Greater than 30
[2018-09-24] MEDS ORDERED: FUROSEMIDE 10 MG/ML 2 ML VIAL IV ONE ×2 (09:37→14:06)
[2018-09-24 09:40] VITALS: BMI 29.0
[2018-09-24 12:07] LABS: Glucose,Whole Blood 123 mg/dL (75-99)
[2018-09-24] MEDS: FERROUS SULFATE 325 MG TAB PO SCH (13:15)
[2018-09-24] MEDS ORDERED: GENTAMICIN TROUGH DUE 1 EACH MISC MISCELLANE ONE (14:00)
--- NOTE | 2018-09-24 14:26 | P.PN ---
Subjective Progress Note Date: 09/24/18 This is a 63-year-old male patient of Dr. Sosa and Dr. Price with history of hyperlipidemia but long-standing history of heart murmur. Patient was having chills and sweating with generalized achiness that impacted his physical activity. He was initially treated for pneumonia and completed antibiotics but his symptoms continued. There was also concern for Lyme disease and patient was started on doxycycline approximate 3 weeks ago. He subsequently underwent a CAT scan that showed dilated ascending aorta and the patient was referred to Dr. Bear on for transthoracic echocardiogram that revealed a preserved systolic function with severe mitral regurgitation and a mass on the posterior mitral valve leaflet suggestive of endocarditis and vegetation and the patient was then set up for ISLVIA and heart catheterization which was done yesterday. SILVIA revealed ejection fraction of 55% with severe eccentric right regurgitation with vegetation on the posterior mitral valve, mild tricuspid regurgitation and mild dilatation of the aorta and mild aortic regurgitation. Heart catheterization showed normal coronary arteries and dilated ascending aorta. Patient was admitted and a consult was added for Dr. Beck. Blood cultures were obtained. 09/13: patient is feeling well , was started on vancomycin ans subsequently was switched to Ancef 2gr IVPB Q8H as he is bacteeremic to Group B strep and alpha hemolytic strep, and we will repeat blood cultures today and tomorrow. 09/14: Patient is currently on Ancef. Patient has been seen by cardiothoracic surgery with plan for valve replacement or repair as early as Friday. Patient has been seen by dental surgeon and cleared of any present dental infection. CAT scan of the facial bones reveals sinuses clear with exception of left maxillary sinus and ostiomeatal complex is patent bilaterally. No evidence of abscess. Patient denies any new complaints. He has been afebrile since September 22. Pulse ox is 95% on room air. 09/15: Dr. Beck has changed antibiotics to ampicillin and gentamicin. Blood culture obtained on September 13 and one on September 14 are currently showing no growth after 24 hours. Patient is afebrile, vital signs are stable, blood pressure is noted to be some readings on the low side. Pulse ox is 92% to 94% on room air. Patient continues to deny any chest pain or shortness of breath, no lightheadedness or dizziness. He denies any fever or chills. 09/16: Blood culture from September 23 is now positive. Blood culture obtained on September 14 showing no growth. Blood culture from September 15 is in progress. Patient has been afebrile. He denies any fever or chills. He has had no nausea vomiting or diarrhea. Patient is continued on ampicillin and gentamicin. Cardiothoracic surgery is tentatively planning for surgery on Friday or Friday. 09/17: Patient denies any new complaints. He remains afebrile. Blood cultures from September 14 and September 15 are showing no growth. Patient is tentatively scheduled for surgery on Friday. 09/18: Patient denies any Complains any remains afebrile. Blood cultures from September 14 and September 15 are continuing to show no growth. Patient is scheduled for open heart surgery on Friday for mitral valve repair or replacement. Patient is continued on ampicillin and gentamicin and followed by Dr. Beck. 09/21: Patient is status post complex mitral valve repair with quadrangular resection of P2 with reconstruction and reinforcement with posterior annuloplasty using a 32 mm AnnuloFlex. Excision of the left atrial appendage using a 35 mm AtriClip. Intraoperative transesophageal echocardiogram and epi- aortic scanning. Patient is currently intubated and on mechanical ventilation. He is continued on IV antibiotics with ampicillin and gentamicin. Right- sided Cordis in place. Patient is currently on Clevidipine 4 for blood pressure control. Insulin drip has been started. He has a right-sided pleural chest tube and mediastinal. Patient has not required transfusion. Anticipate possible extubation this evening. 09/22: Patient has been successfully extubated. He is found sitting up in a recliner and appears to be comfortable and in no acute distress. His pain is currently controlled. He states he is having pain in the lower sternal area only area No shortness of breath. Incentive spirometer is 1750 ML's. Pulse ox is 95% on 3 L nasal cannula, blood pressure is on the low side. He has not required vasopressors. White count is 10.7, hemoglobin 8.7. Capillary blood glucose running between 101-121 and he is off insulin drip. We will add in ferrous sulfate. 09/23: Patient remains in intensive care unit. White count is normal, hemoglobin 7.7, capillary blood glucose running between 103 and 127. He has been hemodynamically stable. Pulse ox is running 90-95% on 3 L nasal cannula. Patient has been afebrile. Blood pressures on the low side but patient has not required vasopressors. Mediastinal chest tubes removed. George cath remains in place and urine output has been adequate. He denies any chest pain or shortness of breath. He is continued on ampicillin and gentamicin. Dr. Beck has ordered a PICC line placement 09/24: Patient remains in the ICU. Patient states he is still a little short of breath and after ambulation was more short of breath. His pulse ox is 95% on 3 L nasal cannula. He is passing gas but not had a bowel movement. He is urinating since George catheter was removed. He has been afebrile. Capillary blood glucose running 103-146. Hemoglobin stable at 7.8 and platelet count 159. BUN 24 and creatinine 1.06. PICC line has been placed. Plan is for Rocephin for 4 week course as an outpatient. Review Of Systems: Constitutional: No fever, no chills, no night sweats. No weight change. No weakness, reports fatigue or lethargy. No daytime sleepiness. EENT: No headache. No blurred vision or double vision, no loss of vision. No loss of Hearing, no ringing in the ears, no dizziness. No nasal drainage or congestion. No epistaxis. No sore throat. Lungs: Reports shortness of breath, reports cough, reports sputum production. No wheezing. Cardiovascular: No chest pain, complains of postop pain, no lower extremity edema. No palpitations. No paroxysmal nocturnal dyspnea. No orthopnea. No lightheadedness or dizziness. No syncopal episodes. Abdominal: No abdominal pain. No nausea, vomiting. No diarrhea. No constipation. No bloody or tarry stools.. No loss of appetite. Genitourinary: No dysuria, increased frequency, urgency. No urinary retention. Musculoskeletal: No myalgias. No muscle weakness, no gait dysfunction, no frequent falls. No back pain. No neck pain. Integumentary: No wounds, no lesions. No rash or pruritus. No unusual bruising. No change in hair or nails. Neurologic: No aphasia. No facial droop. No change in mentation. No head injury. No headache. No paralysis. No paresthesia. Psychiatric: No depression. No anxiety. No mood swings. Endocrine: No abnormal blood sugars. No weight change. Objective - Vital Signs Vital signs: Vital Signs Temp 98.6 F 09/24/18 08:00 Pulse 62 09/24/18 11:00 Resp 21 09/24/18 11:00 BP 91/62 09/24/18 11:00 Pulse Ox 92 L 09/24/18 11:00 Intake & Output 09/23/18 09/24/18 09/24/18 18:59 06:59 18:59 Intake Total 1109 476 252 Output Total 475 720 175 Balance 634 -244 77 Weight 88.8 kg 89.2 kg 89.2 kg Intake: IV 859 476 52 Albumin Human 5% 250 ml 250 In Empty Bag 1 bag @ 250 mls/hr IVPB Q1HR PRN Rx#: [id number] Ampicillin 2,000 mg In 100 200 Sodium Chloride 0.9% 100 ml @ 200 mls/hr IVPB Q4H [facility] Rx#:[id number] Gentamicin in NaCl Iso- 200 Osm Pmx 80 mg In Saline 1 100ml.bag @ 100 mls/hr IVPB Q12H [facility] Rx#: [id number] Lactated Ringers 1,000 ml 240 240 40 @ 20 mls/hr IV .Q24H [facility] Rx#:[id number] PRESSURE BAG 69 36 12 Intake, IV Titration 250 200 Amount Albumin Human 5% 250 ml 250 In Empty Bag 1 bag @ 250 mls/hr IVPB ONCE ONE Rx#: [id number] Magnesium Sulfate-D5w Pmx 200 1 gm In Dextrose/Water 1 100ml.bag @ 100 mls/hr IVPB Q1H [facility] Rx#: [id number] Output: Chest Tube Drainage 160 320 150 Chest Tube Mediastinal 60 Right Pleural Chest Tube 100 320 150 Urine 315 400 25 Other: Voiding Method Indwelling Catheter Indwelling Catheter ABP, PAP, CO, CI - Last Documented Arterial Blood Pressure 91/62 Pulmonary Artery Pressure 24/12 Cardiac Output 6.2 Cardiac Index 3.6 - Exam General appearance: no acute distress, sitting up in recliner and appears to be comfortable and in no acute distress - Neck Neck: no lymphadenopathy, normal ROM, no rigidity, no stridor, no thyromegaly Carotids: bilateral: upstroke normal Thyroid: bilateral: normal size - Respiratory Respiratory: bilateral: diminished, negative: dullness, rales, rhonchi, wheezing , prolonged expiration, prolonged inspiration - Cardiovascular Rhythm: regular Heart sounds: abnormal: S1 (Decreased) Abnormal Heart Sounds: systolic murmur (There is 4/6 systolic ejection murmur located in the apex Radiating to the axilla.) - Gastrointestinal General gastrointestinal: no hepatomegaly, hypoactive bowel sounds, soft, no splenomegaly, no tenderness, no umbilical hernia, no ventral hernia, - Integumentary Integumentary: normal, normal turgor - Neurologic Neurologic: CNII-XII intact - Musculoskeletal Musculoskeletal: generalized weakness - Psychiatric Psychiatric: Awake alert and oriented 3, intact judgment, normal affect. - Labs CBC & Chem 7: 09/24/18 06:00 09/24/18 06:00 Labs: Abnormal Lab Results - Last 24 Hours (Table) 09/23/18 09/23/18 09/23/18 Range/Units 12:06 16:55 20:20 RBC (4.30-5.90) m/uL Hgb (13.0-17.5) gm/dL Hct (39.0-53.0) % RDW (11.5-15.5) % Lymphocytes # (1.0-4.8) k/uL Sodium (137-145) mmol/L BUN (9-20) mg/dL Glucose (74-99) mg/dL POC Glucose (mg/dL) 121 H 124 H 146 H (75-99) mg/dL Calcium (8.4-10.2) mg/dL Total Protein (6.3-8.2) g/dL Albumin (3.5-5.0) g/dL 09/24/18 09/24/18 09/24/18 Range/Units 01:51 06:00 06:00 RBC 2.72 L (4.30-5.90) m/uL Hgb 7.8 L (13.0-17.5) gm/dL Hct 24.8 L (39.0-53.0) % RDW 15.9 H (11.5-15.5) % Lymphocytes # 0.9 L (1.0-4.8) k/uL Sodium 134 L (137-145) mmol/L BUN 24 H (9-20) mg/dL Glucose 105 H (74-99) mg/dL POC Glucose (mg/dL) 111 H (75-99) mg/dL Calcium 8.2 L (8.4-10.2) mg/dL Total Protein 5.1 L (6.3-8.2) g/dL Albumin 2.7 L (3.5-5.0) g/dL 09/24/18 Range/Units 06:49 RBC (4.30-5.90) m/uL Hgb (13.0-17.5) gm/dL Hct (39.0-53.0) % RDW (11.5-15.5) % Lymphocytes # (1.0-4.8) k/uL Sodium (137-145) mmol/L BUN (9-20) mg/dL Glucose (74-99) mg/dL POC Glucose (mg/dL) 103 H (75-99) mg/dL Calcium (8.4-10.2) mg/dL Total Protein (6.3-8.2) g/dL Albumin (3.5-5.0) g/dL Microbiology - Last 24 Hours (Table) 09/21/18 13:02 Anaerobic Culture - Preliminary Heart Valve 09/21/18 13:02 Gram Stain - Preliminary Heart Valve Tissue Culture - Preliminary Assessment and Plan Plan: 1. Subacute endocarditis with mitral valve vegetation post SILVIA and left heart catheterization that showed normal coronaries. Blood cultures were positive for group B streptococcus agalactia and alpha hemolytic strep. Patient is status post complex mitral valve repair with quadrangular resection of P2 with reconstruction and reinforcement with posterior annuloplasty using a 32 mm AnnuloFlex. Continue ampicillin and gentamicin per Dr. Beck. Continue current management per cardiothoracic surgery. Dr. Beck has ordered PICC line which has been placed for outpatient antibiotic with Rocephin for 4 weeks. 2. Severe mitral regurgitation with mitral valve vegetation due to endocarditis. 3. Benign prostatic hypertrophy. Continue Flomax 0.4 mg orally once every day. 4. History of kidney stones. Stable. 5. DVT prophylaxis. Heparin 5000 units subcutaneously every 8 hours. 6. GI prophylaxis. Protonix 40 mg orally once every day. 7. Acute postop blood loss anemia, expected from surgery. Continue to monitor. Discharge plan: Home with homecare/IV antibiotics Impression and plan of care have been directed as dictated by the signing physician. Olga Roman nurse practitioner acting as scribe for signing physician.
--- NOTE | 2018-09-24 14:49 | PN ---
PROGRESS NOTE Mr. Reddy is status post mitral valve repair and this is because of mitral valve endocarditis. He is clinically stable, hemodynamically better, but he is in atrial flutter with a variable rate in the range of 80 or so. S1-S2 are normally, short systolic murmur noted. Lungs reveal improved air entry. Abdomen and lower extremity exam unchanged. Plan is to continue current medications including amiodarone and see how he does. Continue incentive spirometry and pulmonary MMODL / IJN: [id number] /
--- NOTE | 2018-09-24 15:41 | P.PN ---
Subjective Progress Note Date: 09/24/18 Principal diagnosis: Mitral valve endocarditis with flail P2, severe mitral valve regurgitation. Previous medical history of mitral regurgitation, hyperlipidemia, DVT of the right calf in 2011, BPH, occasional wine, and family history of atrial fibrillation. POD #3 complex mitral valve repair with quadrangular resection of P2 with reconstruction and reinforcement with posterior annuloplasty using a 32 mm AnnuloFlex. Excision of the left atrial appendage using a 35 mm AtriClip. Intraoperative transesophageal echocardiogram and epi-aortic scanning. Postoperative atrial fibrillation, unexpected outcome. The patient was sitting up in a recliner in the intensive care unit in no acute distress. States he feels a lot better this morning, pain control is better and he denies shortness of breath. Remains hemodynamically stable on no inotropes or pressors. Patient remains in sinus rhythm. He has ambulated in the hallway. Mediastinal chest tube was discontinued yesterday. Objective - Vital Signs Vital signs: Vital Signs Temp 98.8 F 09/24/18 13:00 Pulse 63 09/24/18 15:00 Resp 14 09/24/18 15:00 BP 93/62 09/24/18 15:00 Pulse Ox 94 L 09/24/18 15:00 Intake & Output 09/23/18 09/24/18 09/24/18 18:59 06:59 18:59 Intake Total 1109 476 495 Output Total 475 720 725 Balance 854 -590 -779 Weight 88.8 kg 89.2 kg 89.2 kg Intake: IV 859 476 295 Albumin Human 5% 250 ml 250 In Empty Bag 1 bag @ 250 mls/hr IVPB Q1HR PRN Rx#: [id number] Ampicillin 2,000 mg In 100 200 100 Sodium Chloride 0.9% 100 ml @ 200 mls/hr IVPB Q4H [facility] Rx#:[id number] Gentamicin in NaCl Iso- 200 100 Osm Pmx 80 mg In Saline 1 100ml.bag @ 100 mls/hr IVPB Q12H [facility] Rx#: [id number] Lactated Ringers 1,000 ml 240 240 80 @ 20 mls/hr IV .Q24H [facility] Rx#:[id number] PRESSURE BAG 69 36 15 Intake, IV Titration 250 200 Amount Albumin Human 5% 250 ml 250 In Empty Bag 1 bag @ 250 mls/hr IVPB ONCE ONE Rx#: [id number] Magnesium Sulfate-D5w Pmx 200 1 gm In Dextrose/Water 1 100ml.bag @ 100 mls/hr IVPB Q1H [facility] Rx#: [id number] Output: Chest Tube Drainage 160 320 150 Chest Tube Mediastinal 60 Right Pleural Chest Tube 100 320 150 Urine 315 400 575 Other: Voiding Method Indwelling Catheter Indwelling Catheter Indwelling Catheter ABP, PAP, CO, CI - Last Documented Arterial Blood Pressure 91/62 Pulmonary Artery Pressure 24/12 Cardiac Output 6.2 Cardiac Index 3.6 - Constitutional General appearance: Present: cooperative, no acute distress - Respiratory Details: Lungs sounds clear bilaterally. Respirations even, nonlabored. Currently on 2 L nasal cannula with oxygen saturation 94%. Able to achieve 1000 mL on his incentive spirometry. Strong cough. Right pleural chest tube to continuous wall suction, 300 mL serosanguineous drainage overnight, 500 mL in 24 hours. No air leaks present. - Cardiovascular Details: S1, S2 present. Positive systolic murmur present. Regular rate and rhythm, sinus rhythm with first-degree AV block on telemetry. Sternum stable. A/V epicardial pacemaker wires present, connected to generator, VVI mode backup rate 50 bpm. Palpable peripheral pulses bilaterally. No edema present. No calf pain or tenderness noted. Right right radial arterial line present. Heart hugger in place with patient demonstrating appropriate use. Antiembolism stockings, SCDs present. - Gastrointestinal Gastrointestinal Comment(s): Abdomen soft, nontender, nondistended. Hypoactive bowel sounds 4 quadrants. Tolerating clear liquids. Positive flatus. - Genitourinary Genitourinary Comment(s): George was discontinued yesterday. Patient continues to void clear, yellow urine. - Integumentary Integumentary Comment(s): Skin is warm and dry with evidence of good perfusion. Anterior chest incision well approximated and covered with dry intact dressing. - Neurologic Neurologic: Present: CNII-XII intact - Musculoskeletal Musculoskeletal: Present: gait normal, strength equal bilaterally - Psychiatric Psychiatric: Present: A&O x's 3, appropriate affect, intact judgment & insight - Allied health notes Allied health notes reviewed: nursing - Labs CBC & Chem 7: 09/24/18 06:00 09/24/18 06:00 Labs: Abnormal Lab Results - Last 24 Hours (Table) 09/23/18 09/23/1809/24/18 Range/Units 16:55 20:20 01:51 RBC (4.30-5.90) m/uL Hgb (13.0-17.5) gm/dL Hct (39.0-53.0) % RDW (11.5-15.5) % Lymphocytes # (1.0-4.8) k/uL Sodium (137-145) mmol/L BUN (9-20) mg/dL Glucose (74-99) mg/dL POC Glucose (mg/dL) 124 H 146 H 111 H (75-99) mg/dL Calcium (8.4-10.2) mg/dL Total Protein (6.3-8.2) g/dL Albumin (3.5-5.0) g/dL 09/24/18 09/24/18 09/24/18 Range/Units 06:00 06:00 06:49 RBC 2.72 L (4.30-5.90) m/uL Hgb 7.8 L (13.0-17.5) gm/dL Hct 24.8 L (39.0-53.0) % RDW 15.9 H (11.5-15.5) % Lymphocytes # 0.9 L (1.0-4.8) k/uL Sodium 134 L (137-145) mmol/L BUN 24 H (9-20) mg/dL Glucose 105 H (74-99) mg/dL POC Glucose (mg/dL) 103 H (75-99) mg/dL Calcium 8.2 L (8.4-10.2) mg/dL Total Protein 5.1 L (6.3-8.2) g/dL Albumin 2.7 L (3.5-5.0) g/dL 09/24/18 Range/Units 12:06 RBC (4.30-5.90) m/uL Hgb (13.0-17.5) gm/dL Hct (39.0-53.0) % RDW (11.5-15.5) % Lymphocytes # (1.0-4.8) k/uL Sodium (137-145) mmol/L BUN (9-20) mg/dL Glucose (74-99) mg/dL POC Glucose (mg/dL) 123 H (75-99) mg/dL Calcium (8.4-10.2) mg/dL Total Protein (6.3-8.2) g/dL Albumin (3.5-5.0) g/dL Microbiology - Last 24 Hours (Table) 09/21/18 13:02 Gram Stain - Preliminary Heart Valve Tissue Culture - Preliminary 09/21/18 13:02 Anaerobic Culture - Preliminary Heart Valve - Imaging and Cardiology Chest x-ray: report reviewed, image reviewed Assessment and Plan (1) Mitral regurgitation Current Visit: Yes Status: Chronic Code(s): I34.0 - NONRHEUMATIC MITRAL ( VALVE) INSUFFICIENCY SNOMED Code(s): 13074686 (2) History of DVT (deep vein thrombosis) Current Visit: No Status: Resolved Code(s): Z86.718 - PERSONAL HISTORY OF OTHER VENOUS THROMBOSIS AND EMBOLISM SNOMED Code(s): 298098807 (3) Hyperlipemia Current Visit: Yes Status: Chronic Code(s): E78.5 - HYPERLIPIDEMIA, UNSPECIFIED SNOMED Code(s): 56677461 (4) Endocarditis of [place] valve Current Visit: Yes Status: Acute Code(s): I38 - ENDOCARDITIS, VALVE UNSPECIFIED SNOMED Code(s): 35845946 Plan: 1. Continue aspirin, statin, Plavix. Will hold beta masood therapy for now 2. Continue amiodarone for A. fib prophylaxis. No need for anticoagulation unless patient remains in atrial fibrillation for greater than 24 hours. 3. Wean O2 as tolerated. Encourage incentive spirometry 10 times every hour while awake. 4. Continue antibiotics per recommendations from infectious disease. PICC line placed yesterday. 5. Bronchodilators per pulmonology. 6. Will monitor daily labs, chest x-rays. Electrolyte replacement per protocol. 7. Pain controlled current medication regimen. 8. GI prophylaxis with Protonix, DVT prophylaxis with subcu heparin and SCDs. 9. Insulin management per primary care service. 10. Increase activity, ambulate as tolerated. PT/OT/cardiac rehab following. 11. Discontinue epicardial pacemaker wires. Continue right pleural chest tube for another 24 hours. 12. Lasix 20 mg IV push given [address] transfers for 3 self cardiac stepdown unit. May transfer on bed available. 14. More recommendations to follow based on patient's progress. Time with Patient: Greater than 30
[2018-09-24] MEDS ORDERED: GENTAMICIN PEAK DUE 1 EACH MISC MISCELLANE ONE (16:30)
[2018-09-24 17:17] LABS: Glucose,Whole Blood 106 mg/dL (75-99)
[2018-09-24 20:17] LABS: Glucose,Whole Blood 117 mg/dL (75-99)
[2018-09-24] MEDS: SENNOSIDES-DOCUSATE SODIUM 1 EACH TAB PO SCH (21:23)
[2018-09-24] MEDS: TAMSULOSIN 0.4 MG CAP.ER.24H PO SCH (21:24)
[2018-09-24] MEDS: NATTOKINASE PO SCH (22:29)
[2018-09-24] MEDS: METOPROLOL TARTRATE 12.5 MG TAB PO SCH (22:29)
[2018-09-24] MEDS: DOCUSATE 100 MG CAP PO SCH (22:29)
--- NOTE | 2018-09-24 23:54 | P.PN ---
Subjective Progress Note Date: 09/24/18 Pleasant 63-year-old male presents to Hospital feeling poorly for quite some time. Because he was feeling poorly eventually had an echocardiogram performed to evaluate his cardiac status after computed tomography scan revealed potential abnormality. The transthoracic echocardiogram reveal evidence of the abnormality in the mitral valve leaflet. The patient underwent transesophageal echocardiogram the verifies the mitral regurgitant murmur in the large vegetation of the mitral valve. The patient now has multiple positive blood cultures with group B strep. 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 The patient relates that he has had a heart murmur noted for many years but has not had ongoing follow-up over time. At this time the murmur is easily heard and he has been evaluated by cardiothoracic surgery. Our plan will be to maximize antibiotic therapy this point time with ampicillin and gentamicin try to rapidly cleared his bacteremia. Once clearance of bacteremia has occurred he will proceed to the mitral valve surgery for removal of vegetation and repair or replacement of the valve. The reasons for the surgery are discussed including goal to reduce the risk of a significant embolic event Barbara concern would be of a large stroke. Secondly would be for repairing of the mitral valve without left ventricular dysfunction and refractory congestive heart failure. The qualifications of the cardiovascular surgeons is again reviewed with the patient's father and understands that the valve surgery is within the capability of the facility and the surgeons. There are many questions are answered. 09/15/2018 patient is feeling better today. He is having no fevers. Denies chills or rigors. Energy level is stable. No nausea or emesis and no onset of diarrhea. No skin rashes and no difficulties with painful joints. No painful oral cavity. 09/16/2018 patient continues to feel a bit better. The severe fever chills myalgias have all improved since coming to hospital. Denies to be in shortness of breath or cough denies chest pains and no new neurological complaints. Tolerating antibiotic therapy well 09/18/2018 patient is continued to have improvement of his status. Diffusion shows a resolved. Energy levels improved. Diffuse profuse myalgias and arthralgias have resolved. He is anxious to proceed to cardiac surgery. 09/19/2018 patient is stable looks forward to surgery Friday09/20/2018 patient is prepped for surgery for tomorrow and will monitor him in the postoperative time frame. . 09/21/2018 patient is now post operative from the the mitral valve repair , doing very well is extubated and has adequate pain control 09/22/2018 patient is continued to improve, is now sitting upright in the chair with this pain is considerably improved from yesterday. He is not having shortness of breath he is having difficulty with incentive spirometer present illness relates that he is without other acute difficulty. No fevers or chills. Tolerating current course of antibiotic therapy well. 09/24/2018 patient continues to improve status post his surgery. His been up and ambulating today. Right-sided chest tube still in place possibly removed tomorrow. Plans for outpatient intravenous antibiotic therapy have been made. Objective - Vital Signs Vital signs: Vital Signs Temp 97.6 F 09/24/18 17:20 Pulse 63 09/24/18 22:45 Resp 16 09/24/18 22:45 BP 94/56 09/24/18 17:20 Pulse Ox 95 09/24/18 17:20 Intake & Output 09/24/18 09/24/18 09/25/18 06:59 18:59 06:59 Intake Total 476 895 0 Output Total 720 975 400 Balance -244 -80 -400 Weight 89.2 kg 89.2 kg Intake: IV 476 395 Ampicillin 2,000 mg In 200 200 Sodium Chloride 0.9% 100 ml @ 200 mls/hr IVPB Q4H [facility] Rx#:[id number] Gentamicin in NaCl Iso- 100 Osm Pmx 80 mg In Saline 1 100ml.bag @ 100 mls/hr IVPB Q12H [facility] Rx#: [id number] Lactated Ringers 1,000 ml 240 80 @ 20 mls/hr IV .Q24H [facility] Rx#:[id number] PRESSURE BAG 36 15 Intake, IV Titration 200 Amount Magnesium Sulfate-D5w Pmx 200 1 gm In Dextrose/Water 1 100ml.bag @ 100 mls/hr IVPB Q1H [facility] Rx#: [id number] Oral 300 0 Output: Chest Tube Drainage 320 150 Right Pleural Chest Tube 320 150 Urine 400 825 400 Other: Voiding Method Indwelling Catheter Indwelling Catheter ABP, PAP, CO, CI - Last Documented Arterial Blood Pressure 91/62 Pulmonary Artery Pressure 24/12 Cardiac Output 6.2 Cardiac Index 3.6 - Exam Pleasant 63-year-old male is postoperative, extubated complaining of some pain in his chest HEENT: Anicteric conjunctiva are pink and moist nasal mucosa grossly intact without significant lesions, there is no thrush. Neck: The neck is supple without significant lymphadenopathy or thyromegaly. Lungs: Good bilateral air entry without significant crackles or wheezing. There is no significant bronchial sounds. There is no egophony or dullness. Right-sided chest tube is still in place Heart: Regular audible S1 and S2 soft S3 no significant murmur No radiation to the carotids. Carotids have brisk upstroke without thrill Abdomen: Positive bowel sounds soft and nontender without palpable masses or organomegaly. There was no guarding or rebound. Extremities: The upper extremities have excellent pulses they are symmetric, no significant petechiae or telangiectasia. No splinter hemorrhages were noted. The lower extremities are free from significant edema. The peripheral pulses were 2+ and symmetric. Neuro: Awake alert oriented to person place and time. There are no acute new gross focal sensory motor deficits. The skin is without any evidence of petechia telangiectasia or splinter hemorrhages. There are no petechia of the hard or soft palate. No conjunctival lesions. - Labs CBC & Chem 7: 09/24/18 06:00 09/24/18 06:00 Labs: Abnormal Lab Results - Last 24 Hours (Table) 09/24/18 09/24/18 09/24/18 Range/Units 01:51 06:00 06:00 RBC 2.72 L (4.30-5.90) m/uL Hgb 7.8 L (13.0-17.5) gm/dL Hct 24.8 L (39.0-53.0) % RDW 15.9 H (11.5-15.5) % Lymphocytes # 0.9 L (1.0-4.8) k/uL Sodium 134 L (137-145) mmol/L BUN 24 H (9-20) mg/dL Glucose 105 H (74-99) mg/dL POC Glucose (mg/dL) 111 H (75-99) mg/dL Calcium 8.2 L (8.4-10.2) mg/dL Total Protein 5.1 L (6.3-8.2) g/dL Albumin 2.7 L (3.5-5.0) g/dL 09/24/18 09/24/18 09/24/18 Range/Units 06:49 12:06 17:16 RBC (4.30-5.90) m/uL Hgb (13.0-17.5) gm/dL Hct (39.0-53.0) % RDW (11.5-15.5) % Lymphocytes # (1.0-4.8) k/uL Sodium (137-145) mmol/L BUN (9-20) mg/dL Glucose (74-99) mg/dL POC Glucose (mg/dL) 103 H 123 H 106 H (75-99) mg/dL Calcium (8.4-10.2) mg/dL Total Protein (6.3-8.2) g/dL Albumin (3.5-5.0) g/dL 09/24/18 Range/Units 20:16 RBC (4.30-5.90) m/uL Hgb (13.0-17.5) gm/dL Hct (39.0-53.0) % RDW (11.5-15.5) % Lymphocytes # (1.0-4.8) k/uL Sodium (137-145) mmol/L BUN (9-20) mg/dL Glucose (74-99) mg/dL POC Glucose (mg/dL) 117 H (75-99) mg/dL Calcium (8.4-10.2) mg/dL Total Protein (6.3-8.2) g/dL Albumin (3.5-5.0) g/dL Microbiology - Last 24 Hours (Table) 09/21/18 13:02 Gram Stain - Preliminary Heart Valve Tissue Culture - Preliminary Laboratory Results WBC 9.0 k/uL (3.8-10.6) 09/24/18 06:00 RBC 2.72 m/uL (4.30-5.90) L 09/24/18 06:00 Hgb 7.8 gm/dL (13.0-17.5) L 09/24/18 06:00 Hct 24.8 % (39.0-53.0) L 09/24/18 06:00 MCV 91.0 fL (80.0-100.0) 09/24/18 06:00 MCH 28.7 pg (25.0-35.0) 09/24/18 06:00 MCHC 31.5 g/dL (31.0-37.0) 09/24/18 06:00 RDW 15.9 % (11.5-15.5) H 09/24/18 06:00 Plt Count 159 k/uL (150-450) 09/24/18 06:00 Neutrophils % 84 % 09/24/18 06:00 Lymphocytes % 10 % 09/24/18 06:00 Monocytes % 4 % 09/24/18 06:00 Eosinophils % 1 % 09/24/18 06:00 Basophils % 0 % 09/24/18 06:00 Neutrophils # 7.6 k/uL (1.3-7.7) 09/24/18 06:00 Lymphocytes # 0.9 k/uL (1.0-4.8) L 09/24/18 06:00 Monocytes # 0.3 k/uL (0-1.0) 09/24/18 06:00 Eosinophils # 0.1 k/uL (0-0.7) 09/24/18 06:00 Basophils # 0.0 k/uL (0-0.2) 09/24/18 06:00 PT 11.0 sec (9.0-12.0) 09/22/18 05:55 INR 1.0 (<1.2) 09/22/18 05:55 APTT 25.0 sec (22.0-30.0) 09/22/18 05:55 Sample Site A line 09/21/18 16:57 ABG pH 7.43 (7.35-7.45) 09/21/18 16:57 ABG pCO2 36 mmHg (35-45) 09/21/18 16:57 ABG pO2 109 mmHg (83-108) H 09/21/18 16:57 ABG HCO3 24 mmol/L (21-25) 09/21/18 16:57 ABG Total CO2 25 mmol/L (19-24) H 09/21/18 16:57 ABG O2 Saturation 98.8 % (94-97) H 09/21/18 16:57 ABG Base Excess -0.2 mmol/L 09/21/18 16:57 ABG Hematocrit 25 % (34.0-46.0) L 09/21/18 12:15 Pranav Test no 09/21/18 16:57 ABG Sodium 139 mmol/L (135-146) 09/21/18 12:15 ABG Potassium 3.7 mmol/L (3.4-4.5) 09/21/18 12:15 ABG Ionized Calcium 4.5 mg/dL (4.5-5.3) 09/21/18 12:15 ABG Glucose 92 mg/dL (75-99) 09/21/18 12:15 ABG Lactic Acid 1.7 mmol/L (0.5-1.6) H 09/21/18 12:15 Hemoglobin 8.3 gm/dL (13.0-17.5) L 09/21/18 12:15 FiO2 40 % 09/21/18 16:57 Sodium 134 mmol/L (137-145) L 09/24/18 06:00 Potassium 4.2 mmol/L (3.5-5.1) 09/24/18 06:00 Chloride 104 mmol/L (98-107) 09/24/18 06:00 Carbon Dioxide 26 mmol/L (22-30) 09/24/18 06:00 Anion Gap 4 mmol/L 09/24/18 06:00 BUN 24 mg/dL (9-20) H 09/24/18 06:00 Creatinine 1.06 mg/dL (0.66-1.25) 09/24/18 06:00 Est GFR (CKD-EPI)AfAm 85 (>60 ml/min/1.73 sqM) 09/24/18 06:00 Est GFR (CKD-EPI)NonAf 74 (>60 ml/min/1.73 sqM) 09/24/18 06:00 Glucose 105 mg/dL (74-99) H 09/24/18 06:00 POC Glucose (mg/dL) 117 mg/dL (75-99) H 09/24/18 20:16 POC Glu Physical Director MARCELLE Rosalie Warner 09/24/18 20:[address] Glu mg/dL 103 09/14/18 05:49 Hemoglobin A1c 5.2 % (4.0-6.0) 09/14/18 05:49 Plasma Lactic Acid Maximiliano 1.1 mmol/L (0.7-2.0) 09/11/18 18:19 Calcium 8.2 mg/dL (8.4-10.2) L 09/24/18 06:00 Ionized Calcium Abdi 4.7 mg/dL (4.5-5.3) 09/23/18 05:17 Magnesium 1.9 mg/dL (1.6-2.3) 09/24/18 06:00 Total Bilirubin 0.5 mg/dL (0.2-1.3) 09/24/18 06:00 AST 23 U/L (17-59) 09/24/18 06:00 ALT 29 U/L (21-72) 09/24/18 06:00 Alkaline Phosphatase 73 U/L (38-126) 09/24/18 06:00 Total Creatine Kinase 36 U/L (55-170) L 09/11/18 18:19 CK-MB (CK-2) 0.7 ng/mL (0.0-2.4) 09/11/18 18:19 CK-MB (CK-2) Rel Index 1.9 09/11/18 18:19 Troponin I 0.066 ng/mL (0.000-0.034) H* 09/11/18 18:19 C-Reactive Protein 46.2 mg/L (<10.0) H 09/12/18 06:01 Total Protein 5.1 g/dL (6.3-8.2) L 09/24/18 06:00 Albumin 2.7 g/dL (3.5-5.0) L 09/24/18 06:00 Triglycerides 66 mg/dL (<150) 09/19/18 05:30 Cholesterol 158 mg/dL (<200) 09/19/18 05:30 LDL Cholesterol, Calc 106 mg/dL (0-99) H 09/19/18 05:30 HDL Cholesterol 39 mg/dL (40-60) L 09/19/18 05:30 Procalcitonin 0.55 ng/mL (0.02-0.09) H 09/11/18 18:19 TSH 2.630 mIU/L (0.465-4.680) 09/19/18 05:30 Arterial Blood Potassium 3.7 mmol/L (3.4-4.5) 09/21/18 12:15 Arterial Blood Glucose 92 mg/dL (75-99) 09/21/18 12:15 Urine Color Light Yellow 09/18/18 12:52 Urine Appearance Clear (Clear) 09/18/18 12:52 Urine pH 6.5 (5.0-8.0) 09/18/18 12:52 Ur Specific [place] 1.009 (1.001-1.035) 09/18/18 12:52 Urine Protein Negative (Negative) 09/18/18 12:52 Urine Glucose (UA) Negative (Negative) 09/18/18 12:52 Urine Ketones Negative (Negative) 09/18/18 12:52 Urine Blood Negative (Negative) 09/18/18 12:52 Urine Nitrite Negative (Negative) 09/18/18 12:52 Urine Bilirubin Negative (Negative) 09/18/18 12:52 Urine Urobilinogen <2.0 mg/dL (<2.0) 09/18/18 12:52 Ur Leukocyte Esterase Negative (Negative) 09/18/18 12:52 Gentamicin Peak 3.1 ug/mL 09/24/18 16:23 Gentamicin Trough 1.1 ug/mL 09/24/18 13:43 Vancomycin Trough 5.5 ug/mL 09/14/18 05:49 Hepatitis A IgM Ab Non-Reactive (Non-Reactive) 09/14/18 05:49 Hep Bs Antigen Non-Reactive (Non-Reactive) 09/14/18 05:49 Hep B Core IgM Ab Non-Reactive (Non-Reactive) 09/14/18 05:49 Hep C IgG Ab Non-Reactive (Non-Reactive) 09/14/18 05:49 Blood Type B Positive 09/20/18 05:35 Blood Type Confirm B Positive 09/18/18 06:15 Blood Type Recheck CABO Indicated 09/20/18 05:35 Antibody Screen NEGATIVE 09/20/18 05:35 Crossmatch See Detail 09/20/18 05:35 Transfuse Platelets 09/21/18 09/20/18 08:45 Spec Expiration Date 09/23/2018 - 7540 09/20/18 05:35 Microbiology 09/21/18 13:02 Heart Valve Gram Stain - Preliminary 09/21/18 13:02 Heart Valve Tissue Culture - Preliminary 09/21/18 13:02 Heart Valve Anaerobic Culture - Preliminary 09/15/18 20:22 Blood Blood Culture - Final No Growth after 144 hours 09/14/18 05:49 Blood Blood Culture - Final No Growth after 144 hours 09/18/18 12:09 Nasal Swab Nasal Screen MRSA/MSSA - Final 09/18/18 12:52 Urine,Voided Urine Culture - Final 09/13/18 15:00 Blood Blood Culture Gram Stain - Final 09/13/18 15:00 Blood Blood Culture - Final Alpha Hemolytic Streptococcus 09/12/18 16:14 Blood Blood Culture Gram Stain - Final 09/12/18 16:14 Blood Blood Culture - Final Alpha Hemolytic Streptococcus 09/13/18 15:00 Blood Blood Culture - Final 09/12/18 06:01 Blood Blood Culture Gram Stain - Final 09/12/18 06:01 Blood Blood Culture - Final Alpha Hemolytic Streptococcus 09/11/18 18:19 Blood Blood Culture Gram Stain - Final 09/11/18 18:19 Blood Blood Culture - Final Alpha Hemolytic Streptococcus 09/12/18 06:39 Blood Blood Culture Gram Stain - Final 09/12/18 06:39 Blood Blood Culture - Final Strep agalactiae - (group b) 09/12/18 16:14 Blood Blood Culture - Final 09/12/18 06:01 Blood Blood Culture - Final 09/12/18 06:39 Blood Blood Culture - Final 09/11/18 18:19 Blood Blood Culture - Final Assessment and Plan (1) Endocarditis of [place] valve Narrative/Plan: Pleasant 63-year-old male presents to Hospital feeling poorly for quite some time. Because he was feeling poorly eventually had an echocardiogram performed to evaluate his cardiac status after computed tomography scan revealed potential abnormality. The transthoracic echocardiogram reveal evidence of the abnormality in the mitral valve leaflet. The patient underwent transesophageal echocardiogram the verifies the mitral regurgitant murmur in the large vegetation of the mitral valve. The patient now has multiple positive blood cultures with group B strep. 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 The patient relates that he has had a heart murmur noted for many years but has not had ongoing follow-up over time. At this time the murmur is easily heard and he has been evaluated by cardiothoracic surgery. Our plan will be to maximize antibiotic therapy this point time with ampicillin and gentamicin try to rapidly cleared his bacteremia. Once clearance of bacteremia has occurred he will proceed to the mitral valve surgery for removal of vegetation and repair or replacement of the valve. The reasons for the surgery are discussed including goal to reduce the risk of a significant embolic event Barbara concern would be of a large stroke. Secondly would be for repairing of the mitral valve without left ventricular dysfunction and refractory congestive heart failure. The qualifications of the cardiovascular surgeons is again reviewed with the patient's father and understands that the valve surgery is within the capability of the facility and the surgeons. There are many questions are answered. 09/15/2018 patient is feeling better today. No fevers or chills. Laboratories is starting to report some negative blood cultures hopefully on the new antibiotic therapy of ampicillin and gentamicin the blood stream will be sterilized rapidly. Once this occurs it appears a cardiovascular surgery will be taking him for surgical intervention because of the large size of the vegetation and a valvular malfunction that is occurring which are both indications for intervention. 09/16/2018 patient feeling better today. Tolerating antibiotic therapy well with no significant difficulty such as fevers or chills. No nausea or emesis or diarrhea. Overall progressing. 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 As noted there are now blood cultures -48 hours and one set at 24 hours hopefully relating to the parents of his bacteremia with the synergistic combination of ampicillin and gentamicin. Patient be monitored for any nephrotoxicity. The patient and his mother's questions are answered. 09/18/2018 patient continues to improve. Is being followed closely by multiple consultants and cardiothoracic surgery is planning on the family repair or replacement on Friday. He has noted the blood cultures are now negative and 2 events the patient clinically has had significant improvement. We will continue to monitor in the perioperative timeframe. Continue current antimicrobial therapy with ampicillin and gentamicin. 09/19/2018 ongoing improvement await surgery on Friday. Continue the course of antibiotic therapy with ampicillin and gentamicin. 09/20/2018 patient will have his valvular surgery tomorrow and he will be followed postoperatively. The goal will be for 2 weeks of antibiotic therapy after his surgery. Once surgery is complete IV access PICC line can be placed for completion of his course of antibiotic therapy. The frequency of antibiotic might be a bit of a challenge but will work with the home care regarding options. The patient's parents and sister are present and are updated to the patient's status and plans for tomorrow and the overall plan in the outpatient setting. 09/21/2018 Patient is doing well status post mitral valve repair. He is having no specific new complaints. He has been extubated and pain is under good control. 2 weeks of ampicillin gentamicin to be planned in the outpatient setting PICC line will be requested. 09/22/2018 patient continues to do well in the postoperative timeframe. Overall is feeling modestly well. Pain is improved respiratory status is improving, was able to get to the chair to sit. The data reveals that the patient has had repair of the mitral valve, consequently would be more of a complex endocarditis and consequently would plan for weeks of ceftriaxone. PICC line has been requested and will initiate requests for outpatient intravenous antibiotic therapy. 09/24/2018 ongoing improvement in the postoperative timeframe from his mitral valve repair for his group B streptococcus bacteremia and endocarditis. Continues to show steady improvement working diligently with his incentive spirometer and deep breathing and coughing to improve his pulmonary status. When ready at discharge home antibiotic summary been arranged in the form of Rocephin to complete 28 days of therapy. PICC line is ready placed. Following the office in 2 and 4 weeks. Current Visit: Yes Status: Acute Code(s): I38 - ENDOCARDITIS, VALVE UNSPECIFIED SNOMED Code(s): 83516926 (2) Bacteremia due to group B Streptococcus Current Visit: Yes Status: Acute Code(s): R78.81 - BACTEREMIA SNOMED Code( s): 206309541611
[2018-09-25] MEDS: AMPICILLIN 2,000 MG in SODIUM CHLORIDE 0.9% 100 ML IVPB SCH ×6 (01:20→22:43)
[2018-09-25 02:26] LABS: Glucose,Whole Blood 123 mg/dL (75-99)
[2018-09-25] MEDS: KETOROLAC 30 MG/ML 1 ML VIAL IVP SCH ×4 (03:10→20:17)
[2018-09-25] MEDS: GENTAMICIN IN NACL ISO-OSM PMX 80 MG in SALINE 1 100ML.BAG IVPB SCH ×2 (03:10→16:49)
[2018-09-25] MEDS: PANTOPRAZOLE 40 MG TABLET PO SCH (05:56)
[2018-09-25 06:08] LABS: Glucose,Whole Blood 110 mg/dL (75-99)
[2018-09-25] MEDS: INSULIN ASPART 100 UNIT/ML 1 ML 10 ML VIAL SQ SCH ×4 (06:20→21:18)
[2018-09-25 06:37] LABS: Anisocytosis Slight; HCT 23.7 % (39.0-53.0); HGB 7.8 gm/dL (13.0-17.5); MCH 30.4 pg (25.0-35.0); MCHC 32.9 g/dL (31.0-37.0); MCV 92.4 fL (80.0-100.0); Platelet Count 182 k/uL (150-450); RBC 2.56 m/uL (4.30-5.90); RDW 16.1 % (11.5-15.5); WBC 7.5 k/uL (3.8-10.6)
[2018-09-25 06:59] LABS: Albumin 2.6 g/dL (3.5-5.0); Calcium 8.2 mg/dL (8.4-10.2); Magnesium 2.1 mg/dL (1.6-2.3); Potassium 4.5 mmol/L (3.5-5.1); Total Bilirubin 0.4 mg/dL (0.2-1.3)
--- NOTE | 2018-09-25 09:06 | XR ---
EXAMINATION TYPE: XR chest 1V portable DATE OF EXAM: 09/25/2018 COMPARISON: 09/24/2018 HISTORY: Status post cardiac surgery. Follow-up exam. TECHNIQUE: Single frontal view of the chest is obtained. FINDINGS: There is an enlarged cardiac silhouette with retrocardiac opacity remaining. And postsurgi zina changes of the chest are redemonstrated. Right infrahilar opacity is again seen. Very minimal pul monary vascular congestion remains. No pneumothorax. Osseous structures appear intact. IMPRESSION: Persistent retrocardiac opacity likely relating to small left pleural effusion and bibas ilar atelectasis with mild pulmonary vascular congestion.
[2018-09-25] MEDS: IPRATROPIUM-ALBUTEROL 3 ML NEB INHALATION SCH ×4 (09:10→20:48)
[2018-09-25] MEDS: AMIODARONE 200 MG TAB PO SCH ×2 (09:51→20:19)
[2018-09-25] MEDS: ASPIRIN 325 MG TAB PO SCH (09:51)
[2018-09-25] MEDS: HEPARIN SODIUM,PORCINE 5,000 UNIT/ML 1 ML VIAL SQ SCH ×2 (09:51→15:38)
[2018-09-25] MEDS: ATORVASTATIN 40 MG TAB PO SCH (09:51)
[2018-09-25] MEDS: CLOPIDOGREL 75 MG TAB PO SCH (09:52)
[2018-09-25] MEDS ORDERED: ACETAMINOPHEN TAB 325 MG TAB PO PRN ×2 (11:13)
[2018-09-25 12:00] LABS: Glucose,Whole Blood 111 mg/dL (75-99)
[2018-09-25] MEDS: FERROUS SULFATE 325 MG TAB PO SCH (12:51)
[2018-09-25] MEDS ORDERED: SODIUM FERRIC GLUCONAT-SUCROSE 125 MG in SODIUM CHLORIDE 0.9% 100 ML IVPB ONE (14:01)
--- NOTE | 2018-09-25 14:13 | P.PN ---
Subjective Progress Note Date: 09/25/18 This is a 63-year-old male patient of Dr. Sosa and Dr. Price with history of hyperlipidemia but long-standing history of heart murmur. Patient was having chills and sweating with generalized achiness that impacted his physical activity. He was initially treated for pneumonia and completed antibiotics but his symptoms continued. There was also concern for Lyme disease and patient was started on doxycycline approximate 3 weeks ago. He subsequently underwent a CAT scan that showed dilated ascending aorta and the patient was referred to Dr. Bear on for transthoracic echocardiogram that revealed a preserved systolic function with severe mitral regurgitation and a mass on the posterior mitral valve leaflet suggestive of endocarditis and vegetation and the patient was then set up for SILVIA and heart catheterization which was done yesterday. SILVIA revealed ejection fraction of 55% with severe eccentric right regurgitation with vegetation on the posterior mitral valve, mild tricuspid regurgitation and mild dilatation of the aorta and mild aortic regurgitation. Heart catheterization showed normal coronary arteries and dilated ascending aorta. Patient was admitted and a consult was added for Dr. Beck. Blood cultures were obtained. 09/13: patient is feeling well , was started on vancomycin ans subsequently was switched to Ancef 2gr IVPB Q8H as he is bacteeremic to Group B strep and alpha hemolytic strep, and we will repeat blood cultures today and tomorrow. 09/14: Patient is currently on Ancef. Patient has been seen by cardiothoracic surgery with plan for valve replacement or repair as early as Friday. Patient has been seen by dental surgeon and cleared of any present dental infection. CAT scan of the facial bones reveals sinuses clear with exception of left maxillary sinus and ostiomeatal complex is patent bilaterally. No evidence of abscess. Patient denies any new complaints. He has been afebrile since September 22. Pulse ox is 95% on room air. 09/15: Dr. Beck has changed antibiotics to ampicillin and gentamicin. Blood culture obtained on September 13 and one on September 14 are currently showing no growth after 24 hours. Patient is afebrile, vital signs are stable, blood pressure is noted to be some readings on the low side. Pulse ox is 92% to 94% on room air. Patient continues to deny any chest pain or shortness of breath, no lightheadedness or dizziness. He denies any fever or chills. 09/16: Blood culture from September 23 is now positive. Blood culture obtained on September 14 showing no growth. Blood culture from September 15 is in progress. Patient has been afebrile. He denies any fever or chills. He has had no nausea vomiting or diarrhea. Patient is continued on ampicillin and gentamicin. Cardiothoracic surgery is tentatively planning for surgery on Friday or Friday. 09/17: Patient denies any new complaints. He remains afebrile. Blood cultures from September 14 and September 15 are showing no growth. Patient is tentatively scheduled for surgery on Friday. 09/18: Patient denies any Complains any remains afebrile. Blood cultures from September 14 and September 15 are continuing to show no growth. Patient is scheduled for open heart surgery on Friday for mitral valve repair or replacement. Patient is continued on ampicillin and gentamicin and followed by Dr. Beck. 09/21: Patient is status post complex mitral valve repair with quadrangular resection of P2 with reconstruction and reinforcement with posterior annuloplasty using a 32 mm AnnuloFlex. Excision of the left atrial appendage using a 35 mm AtriClip. Intraoperative transesophageal echocardiogram and epi- aortic scanning. Patient is currently intubated and on mechanical ventilation. He is continued on IV antibiotics with ampicillin and gentamicin. Right- sided Cordis in place. Patient is currently on Clevidipine 4 for blood pressure control. Insulin drip has been started. He has a right-sided pleural chest tube and mediastinal. Patient has not required transfusion. Anticipate possible extubation this evening. 09/22: Patient has been successfully extubated. He is found sitting up in a recliner and appears to be comfortable and in no acute distress. His pain is currently controlled. He states he is having pain in the lower sternal area only area No shortness of breath. Incentive spirometer is 1750 ML's. Pulse ox is 95% on 3 L nasal cannula, blood pressure is on the low side. He has not required vasopressors. White count is 10.7, hemoglobin 8.7. Capillary blood glucose running between 101-121 and he is off insulin drip. We will add in ferrous sulfate. 09/23: Patient remains in intensive care unit. White count is normal, hemoglobin 7.7, capillary blood glucose running between 103 and 127. He has been hemodynamically stable. Pulse ox is running 90-95% on 3 L nasal cannula. Patient has been afebrile. Blood pressures on the low side but patient has not required vasopressors. Mediastinal chest tubes removed. George cath remains in place and urine output has been adequate. He denies any chest pain or shortness of breath. He is continued on ampicillin and gentamicin. Dr. Beck has ordered a PICC line placement 09/24: Patient remains in the ICU. Patient states he is still a little short of breath and after ambulation was more short of breath. His pulse ox is 95% on 3 L nasal cannula. He is passing gas but not had a bowel movement. He is urinating since George catheter was removed. He has been afebrile. Capillary blood glucose running 103-146. Hemoglobin stable at 7.8 and platelet count 159. BUN 24 and creatinine 1.06. PICC line has been placed. Plan is for Rocephin for 4 week course as an outpatient. 09/25, patient currently is in the cardiac floor, some shortness of breath some edema, Lasix 20 mg every 12 hours 2 dose is to be given today, ensure with protein to be given, x-ray so shows mild pleural effusion, and CHF changes. Hemoglobin 7.8, for ferrllicit 125 mg IV 1 dose Objective - Vital Signs Vital signs: Vital Signs Temp 97.5 F L 09/25/18 08:00 Pulse 64 09/25/18 12:26 Resp 18 09/25/18 12:12 BP 97/60 09/25/18 09:53 Pulse Ox 96 09/25/18 09:53 Intake & Output 09/24/18 09/25/18 09/25/18 18:59 06:59 18:59 Intake Total 895 560 Output Total 975 530 Balance -80 30 Weight 89.2 kg 87.4 kg Intake: IV 395 Ampicillin 2,000 mg In 200 Sodium Chloride 0.9% 100 ml @ 200 mls/hr IVPB Q4H [facility] Rx#:[id number] Gentamicin in NaCl Iso- 100 Osm Pmx 80 mg In Saline 1 100ml.bag @ 100 mls/hr IVPB Q12H [facility] Rx#: [id number] Lactated Ringers 1,000 ml 80 @ 20 mls/hr IV .Q24H [facility] Rx#:[id number] PRESSURE BAG 15 Intake, IV Titration 200 Amount Magnesium Sulfate-D5w Pmx 200 1 gm In Dextrose/Water 1 100ml.bag @ 100 mls/hr IVPB Q1H [facility] Rx#: [id number] Oral 300 560 Output: Chest Tube Drainage 150 130 Right Pleural Chest Tube 150 130 Urine 825 400 Other: Voiding Method Indwelling Catheter Toilet Urinal ABP, PAP, CO, CI - Last Documented Arterial Blood Pressure 91/62 Pulmonary Artery Pressure 24/12 Cardiac Output 6.2 Cardiac Index 3.6 - Constitutional General appearance: Present: cooperative, no acute distress - EENT Eyes: Present: anicteric sclerae, EOMI, PERRLA, normal appearance ENT: Present: NA/AT, normal oropharynx - Neck Neck: Present: normal ROM - Respiratory Respiratory: bilateral: CTA, negative: dullness, rales, rhonchi, wheezing, prolonged expiration, prolonged inspiration - Cardiovascular Rhythm: regular Heart sounds: normal: S1, S2 Abnormal Heart Sounds: Absent: systolic murmur, diastolic murmur, rub, S3 Gallop , S4 Gallop, click, other - Gastrointestinal General gastrointestinal: Present: normal bowel sounds, soft - Integumentary Integumentary: Present: decreased turgor, normal - Neurologic Neurologic: Present: CNII-XII intact - Musculoskeletal Musculoskeletal: Present: gait normal, strength equal bilaterally - Labs CBC & Chem 7: 09/25/18 05:51 09/25/18 05:51 Labs: Abnormal Lab Results - Last 24 Hours (Table) 09/24/18 09/24/18 09/25/18 Range/Units 17:16 20:16 02:24 RBC (4.30-5.90) m/uL Hgb (13.0-17.5) gm/dL Hct (39.0-53.0) % RDW (11.5-15.5) % BUN (9-20) mg/dL Creatinine (0.66-1.25) mg/dL Glucose (74-99) mg/dL POC Glucose (mg/dL) 106 H 117 H 123 H (75-99) mg/dL Calcium (8.4-10.2) mg/dL Total Protein (6.3-8.2) g/dL Albumin (3.5-5.0) g/dL 09/25/18 09/25/18 09/25/18 Range/Units 05:51 05:51 06:07 RBC 2.56 L (4.30-5.90) m/uL Hgb 7.8 L (13.0-17.5) gm/dL Hct 23.7 L (39.0-53.0) % RDW 16.1 H (11.5-15.5) % BUN 25 H (9-20) mg/dL Creatinine 1.36 H (0.66-1.25) mg/dL Glucose 102 H (74-99) mg/dL POC Glucose (mg/dL) 110 H (75-99) mg/dL Calcium 8.2 L (8.4-10.2) mg/dL Total Protein 5.0 L (6.3-8.2) g/dL Albumin 2.6 L (3.5-5.0) g/dL 09/25/18 Range/Units 11:42 RBC (4.30-5.90) m/uL Hgb (13.0-17.5) gm/dL Hct (39.0-53.0) % RDW (11.5-15.5) % BUN (9-20) mg/dL Creatinine (0.66-1.25) mg/dL Glucose (74-99) mg/dL POC Glucose (mg/dL) 111 H (75-99) mg/dL Calcium (8.4-10.2) mg/dL Total Protein (6.3-8.2) g/dL Albumin (3.5-5.0) g/dL Microbiology - Last 24 Hours (Table) 09/21/18 13:02 Gram Stain - Final Heart Valve Tissue Culture - Final Assessment and Plan Plan: 1. Subacute endocarditis with mitral valve vegetation post SILVIA and left heart catheterization that showed normal coronaries. Blood cultures were positive for group B streptococcus agalactia and alpha hemolytic strep. Patient is status post complex mitral valve repair with quadrangular resection of P2 with reconstruction and reinforcement with posterior annuloplasty using a 32 mm AnnuloFlex. Continue ampicillin and gentamicin per Dr. Beck. Continue current management per cardiothoracic surgery. Dr. Beck has ordered PICC line which has been placed for outpatient antibiotic with Rocephin for 4 weeks. 2. Severe mitral regurgitation with mitral valve vegetation due to endocarditis. 3. Benign prostatic hypertrophy. Continue Flomax 0.4 mg orally once every day. 4. History of kidney stones. Stable. 5. DVT prophylaxis. Heparin 5000 units subcutaneously every 8 hours. 6. GI prophylaxis. Protonix 40 mg orally once every day. 7. Acute diastolic CHF possible postoperative passive venous congestion, IV Lasix 20 mg 2 doses to be given today, on protein supplementation with ensure 8. Mild edema with protein deficiency, patient will be started on protein supplementation ensure and life 7. Acute postop blood loss anemia, expected from surgery. Continue to monitor.
--- NOTE | 2018-09-25 15:03 | P.PN ---
Subjective Progress Note Date: 09/25/18 Principal diagnosis: Mitral valve endocarditis with flail P2, severe mitral valve regurgitation. Previous medical history of mitral regurgitation, hyperlipidemia, DVT of the right calf in 2011, BPH, occasional wine, and family history of atrial fibrillation. POD #4 complex mitral valve repair with quadrangular resection of P2 with reconstruction and reinforcement with posterior annuloplasty using a 32 mm AnnuloFlex. Excision of the left atrial appendage using a 35 mm AtriClip. Intraoperative transesophageal echocardiogram and epi-aortic scanning. Postoperative atrial fibrillation, unexpected outcome. The patient was sitting up in a recliner on the stepdown unit in no acute distress. States he feels a lot better this morning, pain control is better and he denies shortness of breath. Patient currently in controlled atrial flutter. He has ambulated in the hallway. No new complaints. He was transfered out of ICU to [address] [place] [address] [facility]. Objective - Vital Signs Vital signs: Vital Signs Temp 97.5 F L 09/25/18 08:00 Pulse 64 09/25/18 12:26 Resp 18 09/25/18 12:12 BP 97/60 09/25/18 09:53 Pulse Ox 96 09/25/18 09:53 Intake & Output 09/24/18 09/25/18 09/25/18 18:59 06:59 18:59 Intake Total 895 560 Output Total 975 530 Balance -80 30 Weight 89.2 kg 87.4 kg Intake: IV 395 Ampicillin 2,000 mg In 200 Sodium Chloride 0.9% 100 ml @ 200 mls/hr IVPB Q4H [facility] Rx#:[id number] Gentamicin in NaCl Iso- 100 Osm Pmx 80 mg In Saline 1 100ml.bag @ 100 mls/hr IVPB Q12H [facility] Rx#: [id number] Lactated Ringers 1,000 ml 80 @ 20 mls/hr IV .Q24H [facility] Rx#:[id number] PRESSURE BAG 15 Intake, IV Titration 200 Amount Magnesium Sulfate-D5w Pmx 200 1 gm In Dextrose/Water 1 100ml.bag @ 100 mls/hr IVPB Q1H [facility] Rx#: [id number] Oral 300 560 Output: Chest Tube Drainage 150 130 Right Pleural Chest Tube 150 130 Urine 825 400 Other: Voiding Method Indwelling Catheter Toilet Urinal ABP, PAP, CO, CI - Last Documented Arterial Blood Pressure 91/62 Pulmonary Artery Pressure 24/12 Cardiac Output 6.2 Cardiac Index 3.6 - Constitutional General appearance: Present: cooperative, no acute distress - Respiratory Details: Lungs sounds clear bilaterally. Respirations even, nonlabored. Currently on 2 L nasal cannula with oxygen saturation 96%. Able to achieve 8690-7365 mL on his incentive spirometry. Strong cough. Right pleural chest tube to continuous wall suction, 30 mL serosanguineous drainage overnight, 350 mL in 24 hours. No air leaks present. - Cardiovascular Details: S1, S2 present. Regular rate and rhythm, controlled atrial flutter on telemetry. Sternum stable. Palpable peripheral pulses bilaterally. No edema present. No calf pain or tenderness noted. Heart hugger in place with patient demonstrating appropriate use. Antiembolism stockings, SCDs present. - Gastrointestinal Gastrointestinal Comment(s): Abdomen soft, nontender, nondistended. Hypoactive bowel sounds 4 quadrants. Tolerating diet. Positive flatus, negative bowel movement. - Genitourinary Genitourinary Comment(s): Patient continues to void clear, yellow urine. - Integumentary Integumentary Comment(s): Skin is warm and dry with evidence of good perfusion. Anterior chest incision well approximated and covered with dry intact dressing. - Neurologic Neurologic: Present: CNII-XII intact - Musculoskeletal Musculoskeletal: Present: gait normal, strength equal bilaterally - Psychiatric Psychiatric: Present: A&O x's 3, appropriate affect, intact judgment & insight - Allied health notes Allied health notes reviewed: nursing - Labs CBC & Chem 7: 09/25/18 05:51 09/25/18 05:51 Labs: Abnormal Lab Results - Last 24 Hours (Table) 09/24/18 09/24/18 09/25/18 Range/Units 17:16 20:16 02:24 RBC (4.30-5.90) m/uL Hgb (13.0-17.5) gm/dL Hct (39.0-53.0) % RDW (11.5-15.5) % BUN (9-20) mg/dL Creatinine (0.66-1.25) mg/dL Glucose (74-99) mg/dL POC Glucose (mg/dL) 106 H 117 H 123 H (75-99) mg/dL Calcium (8.4-10.2) mg/dL Total Protein (6.3-8.2) g/dL Albumin (3.5-5.0) g/dL 09/25/18 09/25/18 09/25/18 Range/Units 05:51 05:51 06:07 RBC 2.56 L (4.30-5.90) m/uL Hgb 7.8 L (13.0-17.5) gm/dL Hct 23.7 L (39.0-53.0) % RDW 16.1 H (11.5-15.5) % BUN 25 H (9-20) mg/dL Creatinine 1.36 H (0.66-1.25) mg/dL Glucose 102 H (74-99) mg/dL POC Glucose (mg/dL) 110 H (75-99) mg/dL Calcium 8.2 L (8.4-10.2) mg/dL Total Protein 5.0 L (6.3-8.2) g/dL Albumin 2.6 L (3.5-5.0) g/dL 09/25/18 Range/Units 11:42 RBC (4.30-5.90) m/uL Hgb (13.0-17.5) gm/dL Hct (39.0-53.0) % RDW (11.5-15.5) % BUN (9-20) mg/dL Creatinine (0.66-1.25) mg/dL Glucose (74-99) mg/dL POC Glucose (mg/dL) 111 H (75-99) mg/dL Calcium (8.4-10.2) mg/dL Total Protein (6.3-8.2) g/dL Albumin (3.5-5.0) g/dL Microbiology - Last 24 Hours (Table) 09/21/18 13:02 Gram Stain - Final Heart Valve Tissue Culture - Final - Imaging and Cardiology Chest x-ray: report reviewed, image reviewed Assessment and Plan (1) Mitral regurgitation Current Visit: Yes Status: Chronic Code(s): I34.0 - NONRHEUMATIC MITRAL ( VALVE) INSUFFICIENCY SNOMED Code(s): 95113171 (2) History of DVT (deep vein thrombosis) Current Visit: No Status: Resolved Code(s): Z86.718 - PERSONAL HISTORY OF OTHER VENOUS THROMBOSIS AND EMBOLISM SNOMED Code(s): 850441855 (3) Hyperlipemia Current Visit: Yes Status: Chronic Code(s): E78.5 - HYPERLIPIDEMIA, UNSPECIFIED SNOMED Code(s): 81605281 (4) Endocarditis of [place] valve Current Visit: Yes Status: Acute Code(s): I38 - ENDOCARDITIS, VALVE UNSPECIFIED SNOMED Code(s): 15941143 Plan: 1. Continue low-dose aspirin, statin. Will hold beta masood therapy for now. 2. Continue amiodarone for A. fib prophylaxis. Eliquis started for anticoagulation. Discontinue Plavix. 3. Wean O2 as tolerated. Encourage incentive spirometry 10 times every hour while awake. 4. Continue antibiotics per recommendations from infectious disease. PICC line placed yesterday. Per Dr. Beck, continue antibiotics for a total 28 days. Rocephin prescription with case management. 5. Bronchodilators per pulmonology. 6. Will monitor daily labs, chest x-rays. Electrolyte replacement per protocol. 7. Pain controlled current medication regimen. 8. GI prophylaxis with Protonix, DVT prophylaxis with SCDs. 9. Insulin management per primary care service. 10. Increase activity, ambulate as tolerated. PT/OT/cardiac rehab following. 11. Right pleural chest tube was discontinued without incident. 12. No Lasix today. 13. Discharge planning in progress. Likely will discharge to home with home care in the next 24-48 hours. 14. More recommendations to follow based on patient's progress. Time with Patient: Greater than 30
--- NOTE | 2018-09-25 15:13 | P.PN ---
Subjective Progress Note Date: 09/25/18 Principal diagnosis: Mitral valve endocarditis, severe mitral valve regurgitation, status post mitral valve repair This is a 63-year-old white male patient of Dr. Sosa, who was initially admitted on 09/11/2018 for mitral valve endocarditis. Patient had been having night sweats, severe headaches, fevers on and off for the last 3 months, since June. He has been having generalized malaise, he was evaluated by his PCP , he was treated with a course of antibiotics with some improvement initially, but then patient's symptoms would recur. Patient had the SILVIA and cardiac catheterization by Dr. Hinojosa, findings revealed vegetation of the posterior mitral valve. Ejection fraction was preserved, cardiac presentation was within normal limits. Patient started on antibiotics, currently on IV ampicillin and gentamicin, and ID service is following. Patient's multiple blood cultures were positive for alpha hemolytic streptococcus, most recently his last 3 blood cultures have shown no growth. Afebrile, denies any chest pain, denies any dyspnea, pulse ox is 93%. No dizziness or syncopal episodes. Blood cultures are being drawn daily. Patient has received dental clearance. He is scheduled for mitral valve repair, possible replacement and exclusion of left atrial appendage on September 21. Patient does not have any history of chronic lung condition, He states he only smoked 6 cigarettes in his whole entire life, No asthma, no COPD. Other medical history includes hyperlipidemia, history of DVT and pulmonary embolism in 2010 following surgery on removal of kidney stone. He completed a course of anticoagulation for 9 months with Coumadin. The patient is seen today 09/24/2018 in follow-up in the intensive care unit. He is postoperative day #3 of a complex mitral valve repair. He is currently sitting up in the chair at the bedside. He is awake and alert in no acute distress. He is maintaining O2 saturations in the low 90s on 3 L/m per nasal cannula. He is afebrile. He is currently in sinus rhythm. His amiodarone drip is off and he is on oral amiodarone. He has a lactated Ringer's at a KVO. Today's chest x-ray shows atelectasis in the lung bases. Right chest tube remains in place. He is working with the incentive spirometer. Follow-up blood cultures reveal no growth. White count 9.0. Hemoglobin 7.8. Creatinine 1.06. He is currently on ampicillin and gentamicin. The patient was seen again today 09/25/2018 in follow-up on the selective care unit. He is awake and alert in no acute distress. He is currently sitting up in a chair at the bedside. He is postoperative day #4. No worsening shortness of breath, cough or congestion. He is working well with the incentive spirometer. Chest x-ray shows persistent retrocardiac opacity related to left small pleural effusion and bibasilar atelectasis. Right-sided chest tube removed today. He is maintaining good O2 saturations in the 90s on 2 L/m per nasal cannula. He's been afebrile. Hemodynamically stable. White count 7.5. Hemoglobin 7.8. Creatinine 1.36. Objective - Vital Signs Vital signs: Vital Signs Temp 97.5 F L 09/25/18 08:00 Pulse 64 09/25/18 12:26 Resp 18 09/25/18 12:12 BP 97/60 09/25/18 09:53 Pulse Ox 96 09/25/18 09:53 Intake & Output 09/24/18 09/25/18 09/25/18 18:59 06:59 18:59 Intake Total 895 560 Output Total 975 530 Balance -80 30 Weight 89.2 kg 87.4 kg Intake: IV 395 Ampicillin 2,000 mg In 200 Sodium Chloride 0.9% 100 ml @ 200 mls/hr IVPB Q4H [facility] Rx#:[id number] Gentamicin in NaCl Iso- 100 Osm Pmx 80 mg In Saline 1 100ml.bag @ 100 mls/hr IVPB Q12H [facility] Rx#: [id number] Lactated Ringers 1,000 ml 80 @ 20 mls/hr IV .Q24H [facility] Rx#:[id number] PRESSURE BAG 15 Intake, IV Titration 200 Amount Magnesium Sulfate-D5w Pmx 200 1 gm In Dextrose/Water 1 100ml.bag @ 100 mls/hr IVPB Q1H [facility] Rx#: [id number] Oral 300 560 Output: Chest Tube Drainage 150 130 Right Pleural Chest Tube 150 130 Urine 825 400 Other: Voiding Method Indwelling Catheter Toilet Urinal ABP, PAP, CO, CI - Last Documented Arterial Blood Pressure 91/62 Pulmonary Artery Pressure 24/12 Cardiac Output 6.2 Cardiac Index 3.6 - Exam GENERAL EXAM: Alert, up in a chair, comfortable in no apparent distress. On 2 L /m per nasal cannula HEAD: Normocephalic. EYES: Normal reaction of pupils, equal size. NOSE: Clear with pink turbinates. THROAT: No erythema or exudates. NECK: No masses, no JVD. CHEST: Sternal dressing dry and intact. LUNGS: Equal air entry with Actos in the bilateral posterior bases. CVS: S1 and S2 normal with audible murmur, regular rhythm. ABDOMEN: No hepatosplenomegaly, normal bowel sounds, no guarding or rigidity. SPINE: No scoliosis or deformity SKIN: No rashes CENTRAL NERVOUS SYSTEM: No focal deficits, tone is normal in all 4 extremities. EXTREMITIES: There is no peripheral edema. No clubbing, no cyanosis. Peripheral pulses are intact. - Labs CBC & Chem 7: 09/25/18 05:51 09/25/18 05:51 Labs: Abnormal Lab Results - Last 24 Hours (Table) 09/24/18 09/24/18 09/25/18 Range/Units 17:16 20:16 02:24 RBC (4.30-5.90) m/uL Hgb (13.0-17.5) gm/dL Hct (39.0-53.0) % RDW (11.5-15.5) % BUN (9-20) mg/dL Creatinine (0.66-1.25) mg/dL Glucose (74-99) mg/dL POC Glucose (mg/dL) 106 H 117 H 123 H (75-99) mg/dL Calcium (8.4-10.2) mg/dL Total Protein (6.3-8.2) g/dL Albumin (3.5-5.0) g/dL 09/25/18 09/25/18 09/25/18 Range/Units 05:51 05:51 06:07 RBC 2.56 L (4.30-5.90) m/uL Hgb 7.8 L (13.0-17.5) gm/dL Hct 23.7 L (39.0-53.0) % RDW 16.1 H (11.5-15.5) % BUN 25 H (9-20) mg/dL Creatinine 1.36 H (0.66-1.25) mg/dL Glucose 102 H (74-99) mg/dL POC Glucose (mg/dL) 110 H (75-99) mg/dL Calcium 8.2 L (8.4-10.2) mg/dL Total Protein 5.0 L (6.3-8.2) g/dL Albumin 2.6 L (3.5-5.0) g/dL 09/25/18 Range/Units 11:42 RBC (4.30-5.90) m/uL Hgb (13.0-17.5) gm/dL Hct (39.0-53.0) % RDW (11.5-15.5) % BUN (9-20) mg/dL Creatinine (0.66-1.25) mg/dL Glucose (74-99) mg/dL POC Glucose (mg/dL) 111 H (75-99) mg/dL Calcium (8.4-10.2) mg/dL Total Protein (6.3-8.2) g/dL Albumin (3.5-5.0) g/dL Microbiology - Last 24 Hours (Table) 09/21/18 13:02 Gram Stain - Final Heart Valve Tissue Culture - Final Assessment and Plan Assessment: Assessment #1. 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 Severe mitral valve regurgitation repaired status post complex mitral valve repair. Postoperative day #4. #3. Hyperlipidemia #4. History of DVT and pulmonary embolism in 2010 following the procedure for removal of kidney stone, completed 9 months course of Coumadin #5. Benign prostatic hypertrophy Plan: The patient was seen and evaluated by Dr. Schrader. Chest x-ray and labs reviewed. Right-sided chest tube removed. Patient's activity as tolerated. We 'll continue to follow make further recommendations based on his clinical status. I, the cosigning physician, performed a history & physical examination of the patient. Lungs sounds crackles in the bilateral posterior bases. Maintaining good O2 saturations in the 90s on 2 L/m per nasal cannula. I discussed the assessment and plan of care with my nurse practitioner, Jana Drummond. I attest to the above note as dictated by her.
[2018-09-25] MEDS: FUROSEMIDE 10 MG/ML 2 ML VIAL IV SCH ×2 (15:37→20:19)
[2018-09-25 17:11] LABS: Glucose,Whole Blood 113 mg/dL (75-99)
--- NOTE | 2018-09-25 17:17 | PN ---
PROGRESS NOTE Mr. Reddy underwent mitral valve repair after endocarditis of mitral valve. He is doing well in this regard. He has developed atrial flutter with a variable rate. Rate is in the 70s. He is tolerating this very well. S1-S2 heard normally. Short systolic murmur noted. Irregular rhythm noted. Lungs reveal improved air entry with some diminished breath sounds on both bases. Abdomen and lower extremity exam unchanged. Plan is to continue incentive spirometry, pulmonary toilet. Given the fact patient is in atrial flutter/fibrillation syndrome, I am recommending Eliquis 5 mg b.i.d. to be started, and we can hold both aspirin and Plavix. Patient did not have a bypass surgery. I communicated with Nancy Valladares, nurse practitioner. EKG revealed atrial flutter with a controlled ventricular rate. Hopefully patient can be discharged soon. MMODL / IJN: [id number] /
[2018-09-25] MEDS: SENNOSIDES-DOCUSATE SODIUM 1 EACH TAB PO SCH (20:19)
[2018-09-25] MEDS: TAMSULOSIN 0.4 MG CAP.ER.24H PO SCH (20:19)
[2018-09-25] MEDS: APIXABAN 5 MG TAB PO SCH (20:19)
[2018-09-25 21:12] LABS: Glucose,Whole Blood 126 mg/dL (75-99)
--- NOTE | 2018-09-25 23:09 | P.PN ---
Subjective Progress Note Date: 09/25/18 Pleasant 63-year-old male presents to Hospital feeling poorly for quite some time. Because he was feeling poorly eventually had an echocardiogram performed to evaluate his cardiac status after computed tomography scan revealed potential abnormality. The transthoracic echocardiogram reveal evidence of the abnormality in the mitral valve leaflet. The patient underwent transesophageal echocardiogram the verifies the mitral regurgitant murmur in the large vegetation of the mitral valve. The patient now has multiple positive blood cultures with group B strep. 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 The patient relates that he has had a heart murmur noted for many years but has not had ongoing follow-up over time. At this time the murmur is easily heard and he has been evaluated by cardiothoracic surgery. Our plan will be to maximize antibiotic therapy this point time with ampicillin and gentamicin try to rapidly cleared his bacteremia. Once clearance of bacteremia has occurred he will proceed to the mitral valve surgery for removal of vegetation and repair or replacement of the valve. The reasons for the surgery are discussed including goal to reduce the risk of a significant embolic event Barbara concern would be of a large stroke. Secondly would be for repairing of the mitral valve without left ventricular dysfunction and refractory congestive heart failure. The qualifications of the cardiovascular surgeons is again reviewed with the patient's father and understands that the valve surgery is within the capability of the facility and the surgeons. There are many questions are answered. 09/15/2018 patient is feeling better today. He is having no fevers. Denies chills or rigors. Energy level is stable. No nausea or emesis and no onset of diarrhea. No skin rashes and no difficulties with painful joints. No painful oral cavity. 09/16/2018 patient continues to feel a bit better. The severe fever chills myalgias have all improved since coming to hospital. Denies to be in shortness of breath or cough denies chest pains and no new neurological complaints. Tolerating antibiotic therapy well 09/18/2018 patient is continued to have improvement of his status. Diffusion shows a resolved. Energy levels improved. Diffuse profuse myalgias and arthralgias have resolved. He is anxious to proceed to cardiac surgery. 09/19/2018 patient is stable looks forward to surgery Friday09/20/2018 patient is prepped for surgery for tomorrow and will monitor him in the postoperative time frame. . 09/21/2018 patient is now post operative from the the mitral valve repair , doing very well is extubated and has adequate pain control 09/22/2018 patient is continued to improve, is now sitting upright in the chair with this pain is considerably improved from yesterday. He is not having shortness of breath he is having difficulty with incentive spirometer present illness relates that he is without other acute difficulty. No fevers or chills. Tolerating current course of antibiotic therapy well. 09/24/2018 patient continues to improve status post his surgery. His been up and ambulating today. Right-sided chest tube still in place possibly removed tomorrow. Plans for outpatient intravenous antibiotic therapy have been made. 09/25/2018 patient has ongoing improvement. Right-sided chest tube removed his pain is better and he is up ambulating much more readily. Functioning well this deep breathing. Atrial flutter is better controlled with amiodarone. He feels well and continues to track for his discharge in the next few days. Objective - Vital Signs Vital signs: Vital Signs Temp 97.9 F 09/25/18 20:00 Pulse 65 09/25/18 20:59 Resp 20 09/25/18 20:00 BP 97/58 09/25/18 20:00 Pulse Ox 92 L 09/25/18 20:00 Intake & Output 09/25/18 09/25/18 09/26/18 06:59 18:59 06:59 Intake Total 560 300 Output Total 530 Balance 30 300 Weight 87.4 kg Intake: IV 200 Ampicillin 2,000 mg In 100 Sodium Chloride 0.9% 100 ml @ 200 mls/hr IVPB Q4H [facility] Rx#:[id number] Gentamicin in NaCl Iso- 100 Osm Pmx 80 mg In Saline 1 100ml.bag @ 100 mls/hr IVPB Q12H [facility] Rx#: [id number] Intake, IV Titration 100 Amount Sodium Ferric Gluconat- 100 Sucrose 125 mg In Sodium Chloride 0.9% 100 ml @ 100 mls/hr IVPB ONCE ONE Rx#:[id number] Oral 560 Output: Chest Tube Drainage 130 Right Pleural Chest Tube 130 Urine 400 Other: Voiding Method Toilet Toilet Urinal Urinal ABP, PAP, CO, CI - Last Documented Arterial Blood Pressure 91/62 Pulmonary Artery Pressure 24/12 Cardiac Output 6.2 Cardiac Index 3.6 - Exam Pleasant 63-year-old male is postoperative, extubated complaining of some pain in his chest HEENT: Anicteric conjunctiva are pink and moist nasal mucosa grossly intact without significant lesions, there is no thrush. Neck: The neck is supple without significant lymphadenopathy or thyromegaly. Lungs: Good bilateral air entry without significant crackles or wheezing. There is no significant bronchial sounds. There is no egophony or dullness. Right-sided chest tube is removed. Heart: Regular audible S1 and S2 soft S3 no significant murmur No radiation to the carotids. Carotids have brisk upstroke without thrill Abdomen: Positive bowel sounds soft and nontender without palpable masses or organomegaly. There was no guarding or rebound. Extremities: The upper extremities have excellent pulses they are symmetric, no significant petechiae or telangiectasia. No splinter hemorrhages were noted. The lower extremities are free from significant edema. The peripheral pulses were 2+ and symmetric. Neuro: Awake alert oriented to person place and time. There are no acute new gross focal sensory motor deficits. The skin is without any evidence of petechia telangiectasia or splinter hemorrhages. There are no petechia of the hard or soft palate. No conjunctival lesions. - Labs CBC & Chem 7: 09/25/18 05:51 09/25/18 05:51 Labs: Abnormal Lab Results - Last 24 Hours (Table) 09/25/18 09/25/18 09/25/18 Range/Units 02:24 05:51 05:51 RBC 2.56 L (4.30-5.90) m/uL Hgb 7.8 L (13.0-17.5) gm/dL Hct 23.7 L (39.0-53.0) % RDW 16.1 H (11.5-15.5) % BUN 25 H (9-20) mg/dL Creatinine 1.36 H (0.66-1.25) mg/dL Glucose 102 H (74-99) mg/dL POC Glucose (mg/dL) 123 H (75-99) mg/dL Calcium 8.2 L (8.4-10.2) mg/dL Total Protein 5.0 L (6.3-8.2) g/dL Albumin 2.6 L (3.5-5.0) g/dL 09/25/18 09/25/18 09/25/18 Range/Units 06:07 11:42 16:52 RBC (4.30-5.90) m/uL Hgb (13.0-17.5) gm/dL Hct (39.0-53.0) % RDW (11.5-15.5) % BUN (9-20) mg/dL Creatinine (0.66-1.25) mg/dL Glucose (74-99) mg/dL POC Glucose (mg/dL) 110 H 111 H 113 H (75-99) mg/dL Calcium (8.4-10.2) mg/dL Total Protein (6.3-8.2) g/dL Albumin (3.5-5.0) g/dL 09/25/18 Range/Units 21:11 RBC (4.30-5.90) m/uL Hgb (13.0-17.5) gm/dL Hct (39.0-53.0) % RDW (11.5-15.5) % BUN (9-20) mg/dL Creatinine (0.66-1.25) mg/dL Glucose (74-99) mg/dL POC Glucose (mg/dL) 126 H (75-99) mg/dL Calcium (8.4-10.2) mg/dL Total Protein (6.3-8.2) g/dL Albumin (3.5-5.0) g/dL Microbiology - Last 24 Hours (Table) 09/21/18 13:02 Anaerobic Culture - Final Heart Valve 09/21/18 13:02 Gram Stain - Final Heart Valve Tissue Culture - Final Laboratory Results WBC 7.5 k/uL (3.8-10.6) 09/25/18 05:51 RBC 2.56 m/uL (4.30-5.90) L 09/25/18 05:51 Hgb 7.8 gm/dL (13.0-17.5) L 09/25/18 05:51 Hct 23.7 % (39.0-53.0) L 09/25/18 05:51 MCV 92.4 fL (80.0-100.0) 09/25/18 05:51 MCH 30.4 pg (25.0-35.0) 09/25/18 05:51 MCHC 32.9 g/dL (31.0-37.0) 09/25/18 05:51 RDW 16.1 % (11.5-15.5) H 09/25/18 05:51 Plt Count 182 k/uL (150-450) 09/25/18 05:51 Neutrophils % 84 % 09/24/18 06:00 Lymphocytes % 10 % 09/24/18 06:00 Monocytes % 4 % 09/24/18 06:00 Eosinophils % 1 % 09/24/18 06:00 Basophils % 0 % 09/24/18 06:00 Neutrophils # 7.6 k/uL (1.3-7.7) 09/24/18 06:00 Lymphocytes # 0.9 k/uL (1.0-4.8) L 09/24/18 06:00 Monocytes # 0.3 k/uL (0-1.0) 09/24/18 06:00 Eosinophils # 0.1 k/uL (0-0.7) 09/24/18 06:00 Basophils # 0.0 k/uL (0-0.2) 09/24/18 06:00 Anisocytosis Slight 09/25/18 05:51 PT 11.0 sec (9.0-12.0) 09/22/18 05:55 INR 1.0 (<1.2) 09/22/18 05:55 APTT 25.0 sec (22.0-30.0) 09/22/18 05:55 Sample Site A line 09/21/18 16:57 ABG pH 7.43 (7.35-7.45) 09/21/18 16:57 ABG pCO2 36 mmHg (35-45) 09/21/18 16:57 ABG pO2 109 mmHg (83-108) H 09/21/18 16:57 ABG HCO3 24 mmol/L (21-25) 09/21/18 16:57 ABG Total CO2 25 mmol/L (19-24) H 09/21/18 16:57 ABG O2 Saturation 98.8 % (94-97) H 09/21/18 16:57 ABG Base Excess -0.2 mmol/L 09/21/18 16:57 ABG Hematocrit 25 % (34.0-46.0) L 09/21/18 12:15 Pranav Test no 09/21/18 16:57 ABG Sodium 139 mmol/L (135-146) 09/21/18 12:15 ABG Potassium 3.7 mmol/L (3.4-4.5) 09/21/18 12:15 ABG Ionized Calcium 4.5 mg/dL (4.5-5.3) 09/21/18 12:15 ABG Glucose 92 mg/dL (75-99) 09/21/18 12:15 ABG Lactic Acid 1.7 mmol/L (0.5-1.6) H 09/21/18 12:15 Hemoglobin 8.3 gm/dL (13.0-17.5) L 09/21/18 12:15 FiO2 40 % 09/21/18 16:57 Sodium 138 mmol/L (137-145) 09/25/18 05:51 Potassium 4.5 mmol/L (3.5-5.1) 09/25/18 05:51 Chloride 104 mmol/L (98-107) 09/25/18 05:51 Carbon Dioxide 27 mmol/L (22-30) 09/25/18 05:51 Anion Gap 7 mmol/L 09/25/18 05:51 BUN 25 mg/dL (9-20) H 09/25/18 05:51 Creatinine 1.36 mg/dL (0.66-1.25) H 09/25/18 05:51 Est GFR (CKD-EPI)AfAm 63 (>60 ml/min/1.73 sqM) 09/25/18 05:51 Est GFR (CKD-EPI)NonAf 54 (>60 ml/min/1.73 sqM) 09/25/18 05:51 Glucose 102 mg/dL (74-99) H 09/25/18 05:51 POC Glucose (mg/dL) 126 mg/dL (75-99) H 09/25/18 21:11 POC Glu Heat Se[employer] Operator ID Ulysses Edward 09/25/18 21:[address] Glu mg/dL 103 09/14/18 05:49 Hemoglobin A1c 5.2 % (4.0-6.0) 09/14/18 05:49 Plasma Lactic Acid Maximiliano 1.1 mmol/L (0.7-2.0) 09/11/18 18:19 Calcium 8.2 mg/dL (8.4-10.2) L 09/25/18 05:51 Ionized Calcium Abdi 4.7 mg/dL (4.5-5.3) 09/23/18 05:17 Magnesium 2.1 mg/dL (1.6-2.3) 09/25/18 05:51 Total Bilirubin 0.4 mg/dL (0.2-1.3) 09/25/18 05:51 AST 21 U/L (17-59) 09/25/18 05:51 ALT 25 U/L (21-72) 09/25/18 05:51 Alkaline Phosphatase 95 U/L (38-126) 09/25/18 05:51 Total Creatine Kinase 36 U/L (55-170) L 09/11/18 18:19 CK-MB (CK-2) 0.7 ng/mL (0.0-2.4) 09/11/18 18:19 CK-MB (CK-2) Rel Index 1.9 09/11/18 18:19 Troponin I 0.066 ng/mL (0.000-0.034) H* 09/11/18 18:19 C-Reactive Protein 46.2 mg/L (<10.0) H 09/12/18 06:01 Total Protein 5.0 g/dL (6.3-8.2) L 09/25/18 05:51 Albumin 2.6 g/dL (3.5-5.0) L 09/25/18 05:51 Triglycerides 66 mg/dL (<150) 09/19/18 05:30 Cholesterol 158 mg/dL (<200) 09/19/18 05:30 LDL Cholesterol, Calc 106 mg/dL (0-99) H 09/19/18 05:30 HDL Cholesterol 39 mg/dL (40-60) L 09/19/18 05:30 Procalcitonin 0.55 ng/mL (0.02-0.09) H 09/11/18 18:19 TSH 2.630 mIU/L (0.465-4.680) 09/19/18 05:30 Arterial Blood Potassium 3.7 mmol/L (3.4-4.5) 09/21/18 12:15 Arterial Blood Glucose 92 mg/dL (75-99) 09/21/18 12:15 Urine Color Light Yellow 09/18/18 12:52 Urine Appearance Clear (Clear) 09/18/18 12:52 Urine pH 6.5 (5.0-8.0) 09/18/18 12:52 Ur Specific [place] 1.009 (1.001-1.035) 09/18/18 12:52 Urine Protein Negative (Negative) 09/18/18 12:52 Urine Glucose (UA) Negative (Negative) 09/18/18 12:52 Urine Ketones Negative (Negative) 09/18/18 12:52 Urine Blood Negative (Negative) 09/18/18 12:52 Urine Nitrite Negative (Negative) 09/18/18 12:52 Urine Bilirubin Negative (Negative) 09/18/18 12:52 Urine Urobilinogen <2.0 mg/dL (<2.0) 09/18/18 12:52 Ur Leukocyte Esterase Negative (Negative) 09/18/18 12:52 Gentamicin Peak 3.1 ug/mL 09/24/18 16:23 Gentamicin Trough 1.1 ug/mL 09/24/18 13:43 Vancomycin Trough 5.5 ug/mL 09/14/18 05:49 Hepatitis A IgM Ab Non-Reactive (Non-Reactive) 09/14/18 05:49 Hep Bs Antigen Non-Reactive (Non-Reactive) 09/14/18 05:49 Hep B Core IgM Ab Non-Reactive (Non-Reactive) 09/14/18 05:49 Hep C IgG Ab Non-Reactive (Non-Reactive) 09/14/18 05:49 Blood Type B Positive 09/20/18 05:35 Blood Type Confirm B Positive 09/18/18 06:15 Blood Type Recheck CABO Indicated 09/20/18 05:35 Antibody Screen NEGATIVE 09/20/18 05:35 Crossmatch See Detail 09/20/18 05:35 Transfuse Platelets 09/21/18 09/20/18 08:45 Spec Expiration Date 09/23/2018 - 1211 09/20/18 05:35 Microbiology 09/21/18 13:02 Heart Valve Anaerobic Culture - Final 09/21/18 13:02 Heart Valve Gram Stain - Final 09/21/18 13:02 Heart Valve Tissue Culture - Final 09/15/18 20:22 Blood Blood Culture - Final No Growth after 144 hours 09/14/18 05:49 Blood Blood Culture - Final No Growth after 144 hours 09/18/18 12:09 Nasal Swab Nasal Screen MRSA/MSSA - Final 09/18/18 12:52 Urine,Voided Urine Culture - Final 09/13/18 15:00 Blood Blood Culture Gram Stain - Final 09/13/18 15:00 Blood Blood Culture - Final Alpha Hemolytic Streptococcus 09/12/18 16:14 Blood Blood Culture Gram Stain - Final 09/12/18 16:14 Blood Blood Culture - Final Alpha Hemolytic Streptococcus 09/13/18 15:00 Blood Blood Culture - Final 09/12/18 06:01 Blood Blood Culture Gram Stain - Final 09/12/18 06:01 Blood Blood Culture - Final Alpha Hemolytic Streptococcus 09/11/18 18:19 Blood Blood Culture Gram Stain - Final 09/11/18 18:19 Blood Blood Culture - Final Alpha Hemolytic Streptococcus 09/12/18 06:39 Blood Blood Culture Gram Stain - Final 09/12/18 06:39 Blood Blood Culture - Final Strep agalactiae - (group b) 09/12/18 16:14 Blood Blood Culture - Final 09/12/18 06:01 Blood Blood Culture - Final 09/12/18 06:39 Blood Blood Culture - Final 09/11/18 18:19 Blood Blood Culture - Final Assessment and Plan (1) Endocarditis of [place] valve Narrative/Plan: Pleasant 63-year-old male presents to Hospital feeling poorly for quite some time. Because he was feeling poorly eventually had an echocardiogram performed to evaluate his cardiac status after computed tomography scan revealed potential abnormality. The transthoracic echocardiogram reveal evidence of the abnormality in the mitral valve leaflet. The patient underwent transesophageal echocardiogram the verifies the mitral regurgitant murmur in the large vegetation of the mitral valve. The patient now has multiple positive blood cultures with group B strep. 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 The patient relates that he has had a heart murmur noted for many years but has not had ongoing follow-up over time. At this time the murmur is easily heard and he has been evaluated by cardiothoracic surgery. Our plan will be to maximize antibiotic therapy this point time with ampicillin and gentamicin try to rapidly cleared his bacteremia. Once clearance of bacteremia has occurred he will proceed to the mitral valve surgery for removal of vegetation and repair or replacement of the valve. The reasons for the surgery are discussed including goal to reduce the risk of a significant embolic event Barbara concern would be of a large stroke. Secondly would be for repairing of the mitral valve without left ventricular dysfunction and refractory congestive heart failure. The qualifications of the cardiovascular surgeons is again reviewed with the patient's father and understands that the valve surgery is within the capability of the facility and the surgeons. There are many questions are answered. 09/15/2018 patient is feeling better today. No fevers or chills. Laboratories is starting to report some negative blood cultures hopefully on the new antibiotic therapy of ampicillin and gentamicin the blood stream will be sterilized rapidly. Once this occurs it appears a cardiovascular surgery will be taking him for surgical intervention because of the large size of the vegetation and a valvular malfunction that is occurring which are both indications for intervention. 09/16/2018 patient feeling better today. Tolerating antibiotic therapy well with no significant difficulty such as fevers or chills. No nausea or emesis or diarrhea. Overall progressing. 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 As noted there are now blood cultures -48 hours and one set at 24 hours hopefully relating to the parents of his bacteremia with the synergistic combination of ampicillin and gentamicin. Patient be monitored for any nephrotoxicity. The patient and his mother's questions are answered. 09/18/2018 patient continues to improve. Is being followed closely by multiple consultants and cardiothoracic surgery is planning on the family repair or replacement on Friday. He has noted the blood cultures are now negative and 2 events the patient clinically has had significant improvement. We will continue to monitor in the perioperative timeframe. Continue current antimicrobial therapy with ampicillin and gentamicin. 09/19/2018 ongoing improvement await surgery on Friday. Continue the course of antibiotic therapy with ampicillin and gentamicin. 09/20/2018 patient will have his valvular surgery tomorrow and he will be followed postoperatively. The goal will be for 2 weeks of antibiotic therapy after his surgery. Once surgery is complete IV access PICC line can be placed for completion of his course of antibiotic therapy. The frequency of antibiotic might be a bit of a challenge but will work with the home care regarding options. The patient's parents and sister are present and are updated to the patient's status and plans for tomorrow and the overall plan in the outpatient setting. 09/21/2018 Patient is doing well status post mitral valve repair. He is having no specific new complaints. He has been extubated and pain is under good control. 2 weeks of ampicillin gentamicin to be planned in the outpatient setting PICC line will be requested. 09/22/2018 patient continues to do well in the postoperative timeframe. Overall is feeling modestly well. Pain is improved respiratory status is improving, was able to get to the chair to sit. The data reveals that the patient has had repair of the mitral valve, consequently would be more of a complex endocarditis and consequently would plan for weeks of ceftriaxone. PICC line has been requested and will initiate requests for outpatient intravenous antibiotic therapy. 09/24/2018 ongoing improvement in the postoperative timeframe from his mitral valve repair for his group B streptococcus bacteremia and endocarditis. Continues to show steady improvement working diligently with his incentive spirometer and deep breathing and coughing to improve his pulmonary status. When ready at discharge home antibiotic summary been arranged in the form of Rocephin to complete 28 days of therapy. PICC line is ready placed. Following the office in 2 and 4 weeks. 09/25/2018 continues to have ongoing improvement. Right chest tube was then removed pain levels improved doing better with walking and incentive spirometry. At this time has no other new acute complaints. Continue to work towards discharge planning. PICC lines are in place. We'll transition his antibiotic therapy to Rocephin now getting him ready for is discharged home to complete his 4 weeks of therapy. Current Visit: Yes Status: Acute Code(s): I38 - ENDOCARDITIS, VALVE UNSPECIFIED SNOMED Code(s): 08103903 (2) Bacteremia due to group B Streptococcus Current Visit: Yes Status: Acute Code(s): R78.81 - BACTEREMIA SNOMED Code( s): 917504476422
[2018-09-26 01:57] LABS: Glucose,Whole Blood 109 mg/dL (75-99)
[2018-09-26] MEDS: AMPICILLIN 2,000 MG in SODIUM CHLORIDE 0.9% 100 ML IVPB SCH ×3 (02:12→08:47)
[2018-09-26] MEDS: GENTAMICIN IN NACL ISO-OSM PMX 80 MG in SALINE 1 100ML.BAG IVPB SCH (03:45)
[2018-09-26] MEDS: KETOROLAC 30 MG/ML 1 ML VIAL IVP SCH ×2 (03:45→08:39)
[2018-09-26] MEDS: PANTOPRAZOLE 40 MG TABLET PO SCH (06:07)
[2018-09-26 06:34] LABS: Glucose,Whole Blood 114 mg/dL (75-99)
[2018-09-26] MEDS: INSULIN ASPART 100 UNIT/ML 1 ML 10 ML VIAL SQ SCH ×4 (06:34→20:56)
[2018-09-26 06:50] LABS: Anisocytosis Slight; Basophils % (A) 0 %; Eosinophils # (A) 0.2 k/uL (0-0.7); Eosinophils % (A) 3 %; HCT 24.6 % (39.0-53.0); HGB 7.9 gm/dL (13.0-17.5); Lymphocytes # (A) 0.9 k/uL (1.0-4.8); Lymphocytes % (A) 14 %; MCH 29.9 pg (25.0-35.0); MCHC 32.2 g/dL (31.0-37.0); MCV 92.8 fL (80.0-100.0); Mean Platelet Volume 6.6; Monocytes # (A) 0.3 k/uL (0-1.0); Monocytes % (A) 4 %; Neutrophils # (A) 4.9 k/uL (1.3-7.7); Neutrophils % (A) 77 %; Platelet Count 250 k/uL (150-450); RBC 2.65 m/uL (4.30-5.90); RDW 16.4 % (11.5-15.5); WBC 6.3 k/uL (3.8-10.6)
[2018-09-26 07:02] LABS: Albumin 2.7 g/dL (3.5-5.0); Calcium 8.4 mg/dL (8.4-10.2); Potassium 4.1 mmol/L (3.5-5.1); Total Bilirubin 0.4 mg/dL (0.2-1.3); Total Protein 5.1 g/dL (6.3-8.2)
[2018-09-26] MEDS: IPRATROPIUM-ALBUTEROL 3 ML NEB INHALATION SCH ×4 (07:36→20:42)
--- NOTE | 2018-09-26 07:56 | XR ---
EXAMINATION TYPE: XR chest 2V DATE OF EXAM: 09/26/2018 COMPARISON: 09/25/2018 HISTORY: 63-year-old male postop CABG TECHNIQUE: PA and lateral views FINDINGS: Median sternotomy wires are present with post-CABG changes. Heart upper limits of normal in size. Mil d interstitial prominence with small effusions. Left PICC tip not clearly seen beyond the left brachi ocephalic vein. Trace right apical pneumothorax measuring 8 mm to the apical margin. In retrospect, t his measured 9 mm, previously. IMPRESSION: 1. Trace right apical pneumothorax measuring only 8 mm. Measured 9 mm previously in retrospect. Find ing called to Patricio in [facility] at 7:54am. 2. Correlate for continued mild pulmonary vascular congestion. Small effusions. Some patchy retrocard iac atelectasis.
[2018-09-26] MEDS: ATORVASTATIN 40 MG TAB PO SCH (08:38)
[2018-09-26] MEDS: FERROUS SULFATE 325 MG TAB PO SCH ×3 (08:38→15:32)
[2018-09-26] MEDS: AMIODARONE 200 MG TAB PO SCH ×2 (08:38→20:51)
[2018-09-26] MEDS: APIXABAN 5 MG TAB PO SCH ×2 (08:38→20:51)
[2018-09-26] MEDS: ASPIRIN 81 MG PO SCH (08:38)
--- NOTE | 2018-09-26 11:33 | P.PN ---
Subjective This is a 63-year-old male patient of Dr. Sosa and Dr. Price with history of hyperlipidemia but long-standing history of heart murmur. Patient was having chills and sweating with generalized achiness that impacted his physical activity. He was initially treated for pneumonia and completed antibiotics but his symptoms continued. There was also concern for Lyme disease and patient was started on doxycycline approximate 3 weeks ago. He subsequently underwent a CAT scan that showed dilated ascending aorta and the patient was referred to Dr. Bear on for transthoracic echocardiogram that revealed a preserved systolic function with severe mitral regurgitation and a mass on the posterior mitral valve leaflet suggestive of endocarditis and vegetation and the patient was then set up for SILVIA and heart catheterization which was done yesterday. SILVIA revealed ejection fraction of 55% with severe eccentric right regurgitation with vegetation on the posterior mitral valve, mild tricuspid regurgitation and mild dilatation of the aorta and mild aortic regurgitation. Heart catheterization showed normal coronary arteries and dilated ascending aorta. Patient was admitted and a consult was added for Dr. Beck. Blood cultures were obtained. 09/13: patient is feeling well , was started on vancomycin ans subsequently was switched to Ancef 2gr IVPB Q8H as he is bacteeremic to Group B strep and alpha hemolytic strep, and we will repeat blood cultures today and tomorrow. 09/14: Patient is currently on Ancef. Patient has been seen by cardiothoracic surgery with plan for valve replacement or repair as early as Friday. Patient has been seen by dental surgeon and cleared of any present dental infection. CAT scan of the facial bones reveals sinuses clear with exception of left maxillary sinus and ostiomeatal complex is patent bilaterally. No evidence of abscess. Patient denies any new complaints. He has been afebrile since September 22. Pulse ox is 95% on room air. 09/15: Dr. Beck has changed antibiotics to ampicillin and gentamicin. Blood culture obtained on September 13 and one on September 14 are currently showing no growth after 24 hours. Patient is afebrile, vital signs are stable, blood pressure is noted to be some readings on the low side. Pulse ox is 92% to 94% on room air. Patient continues to deny any chest pain or shortness of breath, no lightheadedness or dizziness. He denies any fever or chills. 09/16: Blood culture from September 23 is now positive. Blood culture obtained on September 14 showing no growth. Blood culture from September 15 is in progress. Patient has been afebrile. He denies any fever or chills. He has had no nausea vomiting or diarrhea. Patient is continued on ampicillin and gentamicin. Cardiothoracic surgery is tentatively planning for surgery on Friday or Friday. 09/17: Patient denies any new complaints. He remains afebrile. Blood cultures from September 14 and September 15 are showing no growth. Patient is tentatively scheduled for surgery on Friday. 09/18: Patient denies any Complains any remains afebrile. Blood cultures from September 14 and September 15 are continuing to show no growth. Patient is scheduled for open heart surgery on Friday for mitral valve repair or replacement. Patient is continued on ampicillin and gentamicin and followed by Dr. Beck. 09/21: Patient is status post complex mitral valve repair with quadrangular resection of P2 with reconstruction and reinforcement with posterior annuloplasty using a 32 mm AnnuloFlex. Excision of the left atrial appendage using a 35 mm AtriClip. Intraoperative transesophageal echocardiogram and epi- aortic scanning. Patient is currently intubated and on mechanical ventilation. He is continued on IV antibiotics with ampicillin and gentamicin. Right- sided Cordis in place. Patient is currently on Clevidipine 4 for blood pressure control. Insulin drip has been started. He has a right-sided pleural chest tube and mediastinal. Patient has not required transfusion. Anticipate possible extubation this evening. 09/22: Patient has been successfully extubated. He is found sitting up in a recliner and appears to be comfortable and in no acute distress. His pain is currently controlled. He states he is having pain in the lower sternal area only area No shortness of breath. Incentive spirometer is 1750 ML's. Pulse ox is 95% on 3 L nasal cannula, blood pressure is on the low side. He has not required vasopressors. White count is 10.7, hemoglobin 8.7. Capillary blood glucose running between 101-121 and he is off insulin drip. We will add in ferrous sulfate. 09/23: Patient remains in intensive care unit. White count is normal, hemoglobin 7.7, capillary blood glucose running between 103 and 127. He has been hemodynamically stable. Pulse ox is running 90-95% on 3 L nasal cannula. Patient has been afebrile. Blood pressures on the low side but patient has not required vasopressors. Mediastinal chest tubes removed. George cath remains in place and urine output has been adequate. He denies any chest pain or shortness of breath. He is continued on ampicillin and gentamicin. Dr. Beck has ordered a PICC line placement 09/24: Patient remains in the ICU. Patient states he is still a little short of breath and after ambulation was more short of breath. His pulse ox is 95% on 3 L nasal cannula. He is passing gas but not had a bowel movement. He is urinating since George catheter was removed. He has been afebrile. Capillary blood glucose running 103-146. Hemoglobin stable at 7.8 and platelet count 159. BUN 24 and creatinine 1.06. PICC line has been placed. Plan is for Rocephin for 4 week course as an outpatient. 09/25, patient currently is in the cardiac floor, some shortness of breath some edema, Lasix 20 mg every 12 hours 2 dose is to be given today, ensure with protein to be given, x-ray so shows mild pleural effusion, and CHF changes. Hemoglobin 7.8, for ferrllicit 125 mg IV 1 dose 09/26: Patient evaluated today, he remains in atrial flutter, he continues on amiodarone. Patient does still complain of slight shortness of breath with exertion, although he states it is improving. Pulse ox 96% on 2 L. Repeat chest x-ray trace right atypical pneumothorax at 8 mm, previously 9 mm, mild pulmonary vascular congestion with small effusions. Hemoglobin 7.9, will increase iron to 3 times a day. Objective - Vital Signs Vital signs: Vital Signs Temp 97.7 F 09/26/18 08:00 Pulse 85 09/26/18 11:20 Resp 18 09/26/18 08:00 BP 104/58 09/26/18 08:00 Pulse Ox 96 09/26/18 08:00 Intake & Output 09/25/18 09/26/18 09/26/18 18:59 06:59 18:59 Intake Total 300 1050 Balance 300 1050 Weight 87.9 kg Intake: IV 200 300 Ampicillin 2,000 mg In 100 200 Sodium Chloride 0.9% 100 ml @ 200 mls/hr IVPB Q4H [facility] Rx#:[id number] Gentamicin in NaCl Iso- 100 100 Osm Pmx 80 mg In Saline 1 100ml.bag @ 100 mls/hr IVPB Q12H [facility] Rx#: [id number] Intake, IV Titration 100 Amount Sodium Ferric Gluconat- 100 Sucrose 125 mg In Sodium Chloride 0.9% 100 ml @ 100 mls/hr IVPB ONCE ONE Rx#:[id number] Oral 750 Other: Voiding Method Toilet Toilet Urinal Urinal # Voids 2 ABP, PAP, CO, CI - Last Documented Arterial Blood Pressure 91/62 Pulmonary Artery Pressure 24/12 Cardiac Output 6.2 Cardiac Index 3.6 - Exam - Constitutional General appearance: Present: cooperative, no acute distress - EENT Eyes: Present: anicteric sclerae, EOMI, PERRLA, normal appearance ENT: Present: NA/AT, normal oropharynx - Neck Neck: Present: normal ROM - Respiratory Respiratory: bilateral: CTA, negative: dullness, rales, rhonchi, wheezing, prolonged expiration, prolonged inspiration - Cardiovascular Rhythm: regular Heart sounds: normal: S1, S2 Abnormal Heart Sounds: Absent: systolic murmur, diastolic murmur, rub, S3 Gallop , S4 Gallop, click, other - Gastrointestinal General gastrointestinal: Present: normal bowel sounds, soft - Integumentary Integumentary: Present: decreased turgor, normal - Neurologic Neurologic: Present: CNII-XII intact - Musculoskeletal Musculoskeletal: Present: gait normal, strength equal bilaterally - Labs CBC & Chem 7: 09/26/18 05:52 09/26/18 05:52 Labs: Abnormal Lab Results - Last 24 Hours (Table) 09/25/18 09/25/18 09/25/18 Range/Units 11:42 16:52 21:11 RBC (4.30-5.90) m/uL Hgb (13.0-17.5) gm/dL Hct (39.0-53.0) % RDW (11.5-15.5) % Lymphocytes # (1.0-4.8) k/uL BUN (9-20) mg/dL Creatinine (0.66-1.25) mg/dL Glucose (74-99) mg/dL POC Glucose (mg/dL) 111 H 113 H 126 H (75-99) mg/dL Alkaline Phosphatase (38-126) U/L Total Protein (6.3-8.2) g/dL Albumin (3.5-5.0) g/dL 09/26/18 09/26/18 09/26/18 Range/Units 01:56 05:52 05:52 RBC 2.65 L (4.30-5.90) m/uL Hgb 7.9 L (13.0-17.5) gm/dL Hct 24.6 L (39.0-53.0) % RDW 16.4 H (11.5-15.5) % Lymphocytes # 0.9 L (1.0-4.8) k/uL BUN 27 H (9-20) mg/dL Creatinine 1.33 H (0.66-1.25) mg/dL Glucose 103 H (74-99) mg/dL POC Glucose (mg/dL) 109 H (75-99) mg/dL Alkaline Phosphatase 136 H (38-126) U/L Total Protein 5.1 L (6.3-8.2) g/dL Albumin 2.7 L (3.5-5.0) g/dL 09/26/18 Range/Units 06:32 RBC (4.30-5.90) m/uL Hgb (13.0-17.5) gm/dL Hct (39.0-53.0) % RDW (11.5-15.5) % Lymphocytes # (1.0-4.8) k/uL BUN (9-20) mg/dL Creatinine (0.66-1.25) mg/dL Glucose (74-99) mg/dL POC Glucose (mg/dL) 114 H (75-99) mg/dL Alkaline Phosphatase (38-126) U/L Total Protein (6.3-8.2) g/dL Albumin (3.5-5.0) g/dL Microbiology - Last 24 Hours (Table) 09/21/18 13:02 Anaerobic Culture - Final Heart Valve 09/21/18 13:02 Gram Stain - Final Heart Valve Tissue Culture - Final Assessment and Plan Plan: 1. Subacute endocarditis with mitral valve vegetation post SILVIA and left heart catheterization that showed normal coronaries. Blood cultures were positive for group B streptococcus agalactia and alpha hemolytic strep. Patient is status post complex mitral valve repair with quadrangular resection of P2 with reconstruction and reinforcement with posterior annuloplasty using a 32 mm AnnuloFlex. Continue ampicillin and gentamicin per Dr. Beck. Continue current management per cardiothoracic surgery. Dr. Beck has ordered PICC line which has been placed for outpatient antibiotic with Rocephin for 4 weeks. 2. Severe mitral regurgitation with mitral valve vegetation due to endocarditis. 3. Benign prostatic hypertrophy. Continue Flomax 0.4 mg orally once every day. 4. History of kidney stones. Stable. 5. DVT prophylaxis. Heparin 5000 units subcutaneously every 8 hours. 6. GI prophylaxis. Protonix 40 mg orally once every day. 7. Acute diastolic CHF possible postoperative passive venous congestion, IV Lasix 20 mg 2 doses to be given today, on protein supplementation with ensure 8. Mild edema with protein deficiency, patient will be started on protein supplementation ensure and life 7. Acute postop blood loss anemia, expected from surgery. Continue to monitor. Continue with iron supplements 3 times a day The above impression and plan of care have been discussed and directed by signing physician. Jaquelin Baldwin nurse practitioner acting as scribe for signing physician.
[2018-09-26] MEDS: cefTRIAXone 2,000 MG in SODIUM CHLORIDE 0.9% 100 ML IVPB SCH (12:09)
[2018-09-26] MEDS: METOPROLOL TARTRATE 12.5 MG TAB PO SCH (12:10)
[2018-09-26 12:11] LABS: Glucose,Whole Blood 103 mg/dL (75-99)
--- NOTE | 2018-09-26 13:54 | P.PN ---
Subjective Progress Note Date: 09/26/18 This is a 63-year-old white male patient of Dr. Sosa, who was initially admitted on 09/11/2018 for mitral valve endocarditis. Patient had been having night sweats, severe headaches, fevers on and off for the last 3 months, since June. He has been having generalized malaise, he was evaluated by his PCP , he was treated with a course of antibiotics with some improvement initially, but then patient's symptoms would recur. Patient had the SILVIA and cardiac catheterization by Dr. Hinojosa, findings revealed vegetation of the posterior mitral valve. Ejection fraction was preserved, cardiac presentation was within normal limits. Patient started on antibiotics, currently on IV ampicillin and gentamicin, and ID service is following. Patient's multiple blood cultures were positive for alpha hemolytic streptococcus, most recently his last 3 blood cultures have shown no growth. Afebrile, denies any chest pain, denies any dyspnea, pulse ox is 93%. No dizziness or syncopal episodes. Blood cultures are being drawn daily. Patient has received dental clearance. He is scheduled for mitral valve repair, possible replacement and exclusion of left atrial appendage on Friday, September 21. Patient does not have any history of chronic lung condition, He states he only smoked 6 cigarettes in his whole entire life, No asthma, no COPD. Other medical history includes hyperlipidemia, history of DVT and pulmonary embolism in 2010 following surgery on removal of kidney stone. He completed a course of anticoagulation for 9 months with Coumadin. 09 26 2018 Patient was seen and examined today, he is postoperative day 5 of a complex mitral valve repair. He's been up ambulating in the michel several times today. Feeling well. I pressure 102/60 with a heart rate in the 80s. White blood cell count 6.3, hemoglobin 7.9, platelet count 250. Sodium 138, potassium 4.1, BUN 27, creatinine 1.3. Objective - Vital Signs Vital signs: Vital Signs Temp 96.5 F L 09/26/18 12:00 Pulse 89 09/26/18 12:00 Resp 18 09/26/18 12:00 BP 102/60 09/26/18 12:00 Pulse Ox 97 09/26/18 12:00 Intake & Output 09/25/18 09/26/18 09/26/18 18:59 06:59 18:59 Intake Total 300 1050 Balance 300 1050 Weight 87.9 kg Intake: IV 200 300 Ampicillin 2,000 mg In 100 200 Sodium Chloride 0.9% 100 ml @ 200 mls/hr IVPB Q4H [facility] Rx#:[id number] Gentamicin in NaCl Iso- 100 100 Osm Pmx 80 mg In Saline 1 100ml.bag @ 100 mls/hr IVPB Q12H [facility] Rx#: [id number] Intake, IV Titration 100 Amount Sodium Ferric Gluconat- 100 Sucrose 125 mg In Sodium Chloride 0.9% 100 ml @ 100 mls/hr IVPB ONCE ONE Rx#:[id number] Oral 750 Other: Voiding Method Toilet Toilet Urinal Urinal # Voids 2 ABP, PAP, CO, CI - Last Documented Arterial Blood Pressure 91/62 Pulmonary Artery Pressure 24/12 Cardiac Output 6.2 Cardiac Index 3.6 - Exam GENERAL EXAM: Alert, up in a chair, comfortable in no apparent distress. On 2 L /m per nasal cannula HEAD: Normocephalic. EYES: Normal reaction of pupils, equal size. NOSE: Clear with pink turbinates. THROAT: No erythema or exudates. NECK: No masses, no JVD. CHEST: Sternal dressing dry and intact. LUNGS: Equal air entry with Actos in the bilateral posterior bases. CVS: S1 and S2 normal with audible murmur, regular rhythm. ABDOMEN: No hepatosplenomegaly, normal bowel sounds, no guarding or rigidity. SPINE: No scoliosis or deformity SKIN: No rashes CENTRAL NERVOUS SYSTEM: No focal deficits, tone is normal in all 4 extremities. EXTREMITIES: There is no peripheral edema. No clubbing, no cyanosis. Peripheral pulses are intact. - Labs CBC & Chem 7: 09/26/18 05:52 09/26/18 05:52 Labs: Abnormal Lab Results - Last 24 Hours (Table) 09/25/18 09/25/18 09/26/18 Range/Units 16:52 21:11 01:56 RBC (4.30-5.90) m/uL Hgb (13.0-17.5) gm/dL Hct (39.0-53.0) % RDW (11.5-15.5) % Lymphocytes # (1.0-4.8) k/uL BUN (9-20) mg/dL Creatinine (0.66-1.25) mg/dL Glucose (74-99) mg/dL POC Glucose (mg/dL) 113 H 126 H 109 H (75-99) mg/dL Alkaline Phosphatase (38-126) U/L Total Protein (6.3-8.2) g/dL Albumin (3.5-5.0) g/dL 09/26/18 09/26/18 09/26/18 Range/Units 05:52 05:52 06:32 RBC 2.65 L (4.30-5.90) m/uL Hgb 7.9 L (13.0-17.5) gm/dL Hct 24.6 L (39.0-53.0) % RDW 16.4 H (11.5-15.5) % Lymphocytes # 0.9 L (1.0-4.8) k/uL BUN 27 H (9-20) mg/dL Creatinine 1.33 H (0.66-1.25) mg/dL Glucose 103 H (74-99) mg/dL POC Glucose (mg/dL) 114 H (75-99) mg/dL Alkaline Phosphatase 136 H (38-126) U/L Total Protein 5.1 L (6.3-8.2) g/dL Albumin 2.7 L (3.5-5.0) g/dL 09/26/18 Range/Units 11:55 RBC (4.30-5.90) m/uL Hgb (13.0-17.5) gm/dL Hct (39.0-53.0) % RDW (11.5-15.5) % Lymphocytes # (1.0-4.8) k/uL BUN (9-20) mg/dL Creatinine (0.66-1.25) mg/dL Glucose (74-99) mg/dL POC Glucose (mg/dL) 103 H (75-99) mg/dL Alkaline Phosphatase (38-126) U/L Total Protein (6.3-8.2) g/dL Albumin (3.5-5.0) g/dL Microbiology - Last 24 Hours (Table) 09/21/18 13:02 Anaerobic Culture - Final Heart Valve Assessment and Plan Plan: Assessment #1. 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 Severe mitral valve regurgitation repaired status post complex mitral valve repair. Postoperative day #4. #3. Hyperlipidemia #4. History of DVT and pulmonary embolism in 2010 following the procedure for removal of kidney stone, completed 9 months course of Coumadin #5. Benign prostatic hypertrophy #6 paroxysmal atrial fibrillation Plan Patient is currently remaining in normal sinus rhythm, on Eliquis for anticoagulation. We will continue current medications, overall he is doing well. We will continue to follow. DNP note has been reviewed, I agree with a documented findings and plan of care. Patient was seen and examined.
--- NOTE | 2018-09-26 14:11 | P.PN ---
Subjective Progress Note Date: 09/26/18 Principal diagnosis: Mitral valve endocarditis with flail P2, severe mitral valve regurgitation, hyperlipidemia, history of DVT of the right calf in 2011, benign prostatic hypertrophy, occasional EtOH use and family history of atrial fibrillation. POD #5 complex mitral valve repair with quadrangular resection of P2 with reconstruction and reinforcement with posterior annuloplasty using a 32 mm AnnuloFlex. Excision of the left atrial appendage using a 35 mm AtriClip. Intraoperative transesophageal echocardiogram and epi-aortic scanning. Postoperative paroxysmal atrial fibrillation an unexpected outcome. The patient is sitting up to the bedside chair on the [address] [place] [address] cardiac stepdown unit. He is in no acute distress. He remains hemodynamically stable. He denies any complaints of pain or shortness of breath at this time. His remote telemetry demonstrates atrial fibrillation/atrial flutter heart rate 65. He reports his been ambulating in the 3 S. hallway 3 times yesterday and completed the whole [place] on 3 S. Objective - Vital Signs Vital signs: Vital Signs Temp 96.5 F L 09/26/18 12:00 Pulse 89 09/26/18 12:00 Resp 18 09/26/18 12:00 BP 102/60 09/26/18 12:00 Pulse Ox 97 09/26/18 12:00 Intake & Output 09/25/18 09/26/18 09/26/18 18:59 06:59 18:59 Intake Total 300 1050 Balance 300 1050 Weight 87.9 kg Intake: IV 200 300 Ampicillin 2,000 mg In 100 200 Sodium Chloride 0.9% 100 ml @ 200 mls/hr IVPB Q4H [facility] Rx#:[id number] Gentamicin in NaCl Iso- 100 100 Osm Pmx 80 mg In Saline 1 100ml.bag @ 100 mls/hr IVPB Q12H [facility] Rx#: [id number] Intake, IV Titration 100 Amount Sodium Ferric Gluconat- 100 Sucrose 125 mg In Sodium Chloride 0.9% 100 ml @ 100 mls/hr IVPB ONCE ONE Rx#:[id number] Oral 750 Other: Voiding Method Toilet Toilet Urinal Urinal # Voids 2 ABP, PAP, CO, CI - Last Documented Arterial Blood Pressure 91/62 Pulmonary Artery Pressure 24/12 Cardiac Output 6.2 Cardiac Index 3.6 - Constitutional General appearance: Present: cooperative, no acute distress - Respiratory Details: Lungs sounds essentially clear throughout. Respirations are symmetrical and nonlabored. Oxygen saturation are 97% on room air. He is achieving 1500 mL on his incentive spirometry. - Cardiovascular Details: Irregular rhythm with controlled rate. S1 and S2 present, negative for S3, gallop or murmur. Sternum is stable. Remote telemetry showing atrial fibrillation/atrial flutter heart rate 65. Heart hugger is in place and the instruments demonstrate appropriate use. Knee-high JR hose and sequential compression devices in place to his bilateral lower extremities. - Gastrointestinal Gastrointestinal Comment(s): Abdomen is soft, nontender and nondistended. Active bowel sounds all 4 abdominal quadrants. Tolerating oral intake. Passing flatus. - Genitourinary Genitourinary Comment(s): Clear yellow urine. - Integumentary Integumentary Comment(s): Skin is warm and dry. No clubbing or cyanosis present. Midline sternal incision is clean, dry and well approximated. No drainage or redness present. Gauze dressing clean, dry and intact. - Neurologic Neurologic: Present: CNII-XII intact - Musculoskeletal Musculoskeletal: Present: gait normal, strength equal bilaterally - Psychiatric Psychiatric: Present: A&O x's 3, appropriate affect, intact judgment & insight - Allied health notes Allied health notes reviewed: nursing - Labs CBC & Chem 7: 09/26/18 05:52 09/26/18 05:52 Labs: Abnormal Lab Results - Last 24 Hours (Table) 09/25/18 09/25/18 09/26/18 Range/Units 16:52 21:11 01:56 RBC (4.30-5.90) m/uL Hgb (13.0-17.5) gm/dL Hct (39.0-53.0) % RDW (11.5-15.5) % Lymphocytes # (1.0-4.8) k/uL BUN (9-20) mg/dL Creatinine (0.66-1.25) mg/dL Glucose (74-99) mg/dL POC Glucose (mg/dL) 113 H 126 H 109 H (75-99) mg/dL Alkaline Phosphatase (38-126) U/L Total Protein (6.3-8.2) g/dL Albumin (3.5-5.0) g/dL 09/26/18 09/26/1809/26/18 Range/Units 05:52 05:52 06:32 RBC 2.65 L (4.30-5.90) m/uL Hgb 7.9 L (13.0-17.5) gm/dL Hct 24.6 L (39.0-53.0) % RDW 16.4 H (11.5-15.5) % Lymphocytes # 0.9 L (1.0-4.8) k/uL BUN 27 H (9-20) mg/dL Creatinine 1.33 H (0.66-1.25) mg/dL Glucose 103 H (74-99) mg/dL POC Glucose (mg/dL) 114 H (75-99) mg/dL Alkaline Phosphatase 136 H (38-126) U/L Total Protein 5.1 L (6.3-8.2) g/dL Albumin 2.7 L (3.5-5.0) g/dL 09/26/18 Range/Units 11:55 RBC (4.30-5.90) m/uL Hgb (13.0-17.5) gm/dL Hct (39.0-53.0) % RDW (11.5-15.5) % Lymphocytes # (1.0-4.8) k/uL BUN (9-20) mg/dL Creatinine (0.66-1.25) mg/dL Glucose (74-99) mg/dL POC Glucose (mg/dL) 103 H (75-99) mg/dL Alkaline Phosphatase (38-126) U/L Total Protein (6.3-8.2) g/dL Albumin (3.5-5.0) g/dL Microbiology - Last 24 Hours (Table) 09/21/18 13:02 Anaerobic Culture - Final Heart Valve - Imaging and Cardiology Chest x-ray: report reviewed, image reviewed Assessment and Plan (1) Bacteremia due to group B Streptococcus Current Visit: Yes Status: Acute Code(s): R78.81 - BACTEREMIA SNOMED Code( s): 832025190002 (2) Endocarditis of [place] valve Current Visit: Yes Status: Acute Code(s): I38 - ENDOCARDITIS, VALVE UNSPECIFIED SNOMED Code(s): 33772143 (3) Hyperlipemia Current Visit: Yes Status: Chronic Code(s): E78.5 - HYPERLIPIDEMIA, UNSPECIFIED SNOMED Code(s): 03004972 (4) Mitral regurgitation Current Visit: Yes Status: Chronic Code(s): I34.0 - NONRHEUMATIC MITRAL ( VALVE) INSUFFICIENCY SNOMED Code(s): 52106893 (5) History of DVT (deep vein thrombosis) Current Visit: No Status: Resolved Code(s): Z86.718 - PERSONAL HISTORY OF OTHER VENOUS THROMBOSIS AND EMBOLISM SNOMED Code(s): 851750138 Plan: 1. Continue low-dose aspirin, statin and beta masood. We will increase beta masood as tolerated. 2. Continue amiodarone for A. fib prophylaxis. Continue Eliquis for anticoagulation. 3. Encourage incentive spirometry 10 times every hour while awake. 4. Continue antibiotics per recommendations from infectious disease. PICC line placed yesterday. Rocephin prescription with case management. discontinue ampicillin and gentamicin. Rocephin 2 g IVPB every [address] Beck. 5. Bronchodilators per pulmonology. 6. Will monitor daily labs, chest x-rays. Electrolyte replacement per protocol. 7. Pain controlled current medication regimen. 8. GI prophylaxis with Protonix, DVT prophylaxis with SCDs. 9. Insulin management per primary care service. 10. Increase activity, ambulate as tolerated. PT/OT/cardiac rehab following. 11. No diuresis today 12. Discharge planning in progress. Likely will discharge to home with home care in the next 24-48 hours. 13. More recommendations to follow based on patient's clinical course. Time with Patient: Greater than 30
--- NOTE | 2018-09-26 14:39 | P.PN ---
Subjective Progress Note Date: 09/26/18 Principal diagnosis: Mitral valve endocarditis, severe mitral valve regurgitation, status post mitral valve repair This is a 63-year-old white male patient of Dr. Sosa, who was initially admitted on 09/11/2018 for mitral valve endocarditis. Patient had been having night sweats, severe headaches, fevers on and off for the last 3 months, since June. He has been having generalized malaise, he was evaluated by his PCP , he was treated with a course of antibiotics with some improvement initially, but then patient's symptoms would recur. Patient had the SILVIA and cardiac catheterization by Dr. Hinojosa, findings revealed vegetation of the posterior mitral valve. Ejection fraction was preserved, cardiac presentation was within normal limits. Patient started on antibiotics, currently on IV ampicillin and gentamicin, and ID service is following. Patient's multiple blood cultures were positive for alpha hemolytic streptococcus, most recently his last 3 blood cultures have shown no growth. Afebrile, denies any chest pain, denies any dyspnea, pulse ox is 93%. No dizziness or syncopal episodes. Blood cultures are being drawn daily. Patient has received dental clearance. He is scheduled for mitral valve repair, possible replacement and exclusion of left atrial appendage on September 21. Patient does not have any history of chronic lung condition, He states he only smoked 6 cigarettes in his whole entire life, No asthma, no COPD. Other medical history includes hyperlipidemia, history of DVT and pulmonary embolism in 2010 following surgery on removal of kidney stone. He completed a course of anticoagulation for 9 months with Coumadin. The patient is seen today 09/24/2018 in follow-up in the intensive care unit. He is postoperative day #3 of a complex mitral valve repair. He is currently sitting up in the chair at the bedside. He is awake and alert in no acute distress. He is maintaining O2 saturations in the low 90s on 3 L/m per nasal cannula. He is afebrile. He is currently in sinus rhythm. His amiodarone drip is off and he is on oral amiodarone. He has a lactated Ringer's at a KVO. Today's chest x-ray shows atelectasis in the lung bases. Right chest tube remains in place. He is working with the incentive spirometer. Follow-up blood cultures reveal no growth. White count 9.0. Hemoglobin 7.8. Creatinine 1.06. He is currently on ampicillin and gentamicin. The patient was seen again today 09/25/2018 in follow-up on the selective care unit. He is awake and alert in no acute distress. He is currently sitting up in a chair at the bedside. He is postoperative day #4. No worsening shortness of breath, cough or congestion. He is working well with the incentive spirometer. Chest x-ray shows persistent retrocardiac opacity related to left small pleural effusion and bibasilar atelectasis. Right-sided chest tube removed today. He is maintaining good O2 saturations in the 90s on 2 L/m per nasal cannula. He's been afebrile. Hemodynamically stable. White count 7.5. Hemoglobin 7.8. Creatinine 1.36. The patient is seen again today 09/26/2018 in follow-up on the selective care unit. He is currently sitting up in chair at the bedside. He is awake and alert in no acute distress. He did have an episode of atrial fibrillation last night. He is on oral amiodarone and Eliquis. Currently maintaining good O2 saturations in the upper 90s on 2 L/m per nasal cannula. White count 6.3. Hemoglobin 7.5. Creatinine 1.33. Objective - Vital Signs Vital signs: Vital Signs Temp 96.5 F L 09/26/18 12:00 Pulse 89 09/26/18 12:00 Resp 18 09/26/18 12:00 BP 102/60 09/26/18 12:00 Pulse Ox 97 09/26/18 12:00 Intake & Output 09/25/18 09/26/18 09/26/18 18:59 06:59 18:59 Intake Total 300 1050 Balance 300 1050 Weight 87.9 kg Intake: IV 200 300 Ampicillin 2,000 mg In 100 200 Sodium Chloride 0.9% 100 ml @ 200 mls/hr IVPB Q4H JESUS Rx#:[id number] Gentamicin in NaCl Iso- 100 100 Osm Pmx 80 mg In Saline 1 100ml.bag @ 100 mls/hr IVPB Q12H JESUS Rx#: [id number] Intake, IV Titration 100 Amount Sodium Ferric Gluconat- 100 Sucrose 125 mg In Sodium Chloride 0.9% 100 ml @ 100 mls/hr IVPB ONCE ONE Rx#:[id number] Oral 750 Other: Voiding Method Toilet Toilet Urinal Urinal # Voids 2 ABP, PAP, CO, CI - Last Documented Arterial Blood Pressure 91/62 Pulmonary Artery Pressure 24/12 Cardiac Output 6.2 Cardiac Index 3.6 - Exam GENERAL EXAM: Alert, comfortable in no apparent distress. On 2 L/m per nasal cannula HEAD: Normocephalic. EYES: Normal reaction of pupils, equal size. NOSE: Clear with pink turbinates. THROAT: No erythema or exudates. NECK: No masses, no JVD. CHEST: Sternal dressing dry and intact. LUNGS: Equal air entry with Actos in the bilateral posterior bases. CVS: S1 and S2 normal with audible murmur, irregular rhythm. ABDOMEN: No hepatosplenomegaly, normal bowel sounds, no guarding or rigidity. SPINE: No scoliosis or deformity SKIN: No rashes CENTRAL NERVOUS SYSTEM: No focal deficits, tone is normal in all 4 extremities. EXTREMITIES: There is no peripheral edema. No clubbing, no cyanosis. Peripheral pulses are intact. - Labs CBC & Chem 7: 09/26/18 05:52 09/26/18 05:52 Labs: Abnormal Lab Results - Last 24 Hours (Table) 09/25/18 09/25/18 09/26/18 Range/Units 16:52 21:11 01:56 RBC (4.30-5.90) m/uL Hgb (13.0-17.5) gm/dL Hct (39.0-53.0) % RDW (11.5-15.5) % Lymphocytes # (1.0-4.8) k/uL BUN (9-20) mg/dL Creatinine (0.66-1.25) mg/dL Glucose (74-99) mg/dL POC Glucose (mg/dL) 113 H 126 H 109 H (75-99) mg/dL Alkaline Phosphatase (38-126) U/L Total Protein (6.3-8.2) g/dL Albumin (3.5-5.0) g/dL 09/26/18 09/26/18 09/26/18 Range/Units 05:52 05:52 06:32 RBC 2.65 L (4.30-5.90) m/uL Hgb 7.9 L (13.0-17.5) gm/dL Hct 24.6 L (39.0-53.0) % RDW 16.4 H (11.5-15.5) % Lymphocytes # 0.9 L (1.0-4.8) k/uL BUN 27 H (9-20) mg/dL Creatinine 1.33 H (0.66-1.25) mg/dL Glucose 103 H (74-99) mg/dL POC Glucose (mg/dL) 114 H (75-99) mg/dL Alkaline Phosphatase 136 H (38-126) U/L Total Protein 5.1 L (6.3-8.2) g/dL Albumin 2.7 L (3.5-5.0) g/dL 09/26/18 Range/Units 11:55 RBC (4.30-5.90) m/uL Hgb (13.0-17.5) gm/dL Hct (39.0-53.0) % RDW (11.5-15.5) % Lymphocytes # (1.0-4.8) k/uL BUN (9-20) mg/dL Creatinine (0.66-1.25) mg/dL Glucose (74-99) mg/dL POC Glucose (mg/dL) 103 H (75-99) mg/dL Alkaline Phosphatase (38-126) U/L Total Protein (6.3-8.2) g/dL Albumin (3.5-5.0) g/dL Microbiology - Last 24 Hours (Table) 09/21/18 13:02 Anaerobic Culture - Final Heart Valve Assessment and Plan Assessment: Assessment #1. 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 Severe mitral valve regurgitation repaired status post complex mitral valve repair. Postoperative day #5. #3. Hyperlipidemia #4. History of DVT and pulmonary embolism in 2010 following the procedure for removal of kidney stone, completed 9 months course of Coumadin #5. Benign prostatic hypertrophy #6. Atrial fibrillation currently on amiodarone and Eliquis. Plan: The patient was seen and evaluated by Dr. Schrader. He is currently stable from the pulmonary standpoint. Remains in atrial fibrillation. Anticoagulated with Eliquis. Probable discharge in the a.m. I, the cosigning physician, performed a history & physical examination of the patient. Lungs sounds crackles in the bilateral posterior bases. Maintaining good O2 saturations in the 90s on 2 L/m per nasal cannula. I discussed the assessment and plan of care with my nurse practitioner, Jana Drummond. I attest to the above note as dictated by her.
[2018-09-26 17:35] LABS: Glucose,Whole Blood 118 mg/dL (75-99)
[2018-09-26 20:49] LABS: Glucose,Whole Blood 103 mg/dL (75-99)
[2018-09-26] MEDS: TAMSULOSIN 0.4 MG CAP.ER.24H PO SCH (20:51)
[2018-09-26] MEDS: SENNOSIDES-DOCUSATE SODIUM 1 EACH TAB PO SCH (20:51)
[2018-09-27 02:45] LABS: Glucose,Whole Blood 107 mg/dL (75-99)
[2018-09-27 06:28] LABS: Anisocytosis Slight; Basophils % (A) 0 %; Eosinophils # (A) 0.2 k/uL (0-0.7); Eosinophils % (A) 2 %; HCT 25.8 % (39.0-53.0); HGB 8.2 gm/dL (13.0-17.5); Lymphocytes % (A) 15 %; MCH 29.2 pg (25.0-35.0); MCHC 31.7 g/dL (31.0-37.0); MCV 92.3 fL (80.0-100.0); Mean Platelet Volume 6.9; Monocytes # (A) 0.3 k/uL (0-1.0); Monocytes % (A) 4 %; Neutrophils % (A) 76 %; Platelet Count 290 k/uL (150-450); RDW 16.2 % (11.5-15.5); WBC 6.7 k/uL (3.8-10.6)
[2018-09-27 06:38] LABS: Albumin 2.9 g/dL (3.5-5.0); Calcium 8.6 mg/dL (8.4-10.2); Potassium 4.1 mmol/L (3.5-5.1); Total Bilirubin 0.3 mg/dL (0.2-1.3); Total Protein 5.5 g/dL (6.3-8.2)
[2018-09-27 06:51] LABS: Glucose,Whole Blood 96 mg/dL (75-99)
--- NOTE | 2018-09-27 07:13 | XR ---
EXAMINATION TYPE: XR chest 2V DATE OF EXAM: 09/27/2018 COMPARISON: Chest x-ray from yesterday and older studies. HISTORY: Post open mitral valve replacement. TECHNIQUE: Frontal and lateral views of the chest are obtained. FINDINGS: Overlying sternal wires are redemonstrated. Metallic mitral valve and cardiac closure ricardo ce superior left heart border again identified. There is stable left-sided PICC line. There is persistent small left pleural effusion. There is associated left basilar atelectasis and/or infiltrate. There is persistent right medial basilar opacity. No sizable pneumothorax identified on c urrent study. Mild central vascular congestion remains present. Mild cardiomegaly is again seen. IMPRESSION: Tiny right apical pneumothorax on prior study is not clearly seen on current study. Ther e is persistent cardiomegaly with mild central vascular congestion, small left pleural effusion, and bibasilar acute atelectasis and/or infiltrate all redemonstrated.
[2018-09-27] MEDS: IPRATROPIUM-ALBUTEROL 3 ML NEB INHALATION SCH ×3 (07:42→15:57)
[2018-09-27] MEDS: INSULIN ASPART 100 UNIT/ML 1 ML 10 ML VIAL SQ SCH ×2 (08:12→12:23)
[2018-09-27] MEDS: FERROUS SULFATE 325 MG TAB PO SCH ×3 (08:15→13:10)
[2018-09-27] MEDS: PANTOPRAZOLE 40 MG TABLET PO SCH (08:15)
[2018-09-27 10:05] VITALS: RESP 16; TEMP 97.7
[2018-09-27] MEDS: cefTRIAXone 2,000 MG in SODIUM CHLORIDE 0.9% 100 ML IVPB SCH (10:08)
[2018-09-27] MEDS: AMIODARONE 200 MG TAB PO SCH (10:36)
[2018-09-27] MEDS: APIXABAN 5 MG TAB PO SCH (10:36)
[2018-09-27] MEDS: METOPROLOL TARTRATE 12.5 MG TAB PO SCH (10:36)
[2018-09-27] MEDS: ATORVASTATIN 40 MG TAB PO SCH (10:37)
[2018-09-27] MEDS: ASPIRIN 81 MG PO SCH (10:37)
--- NOTE | 2018-09-27 11:52 | PN ---
PROGRESS NOTE DATE OF SERVICE: 09/27/2018. This is a 63-year-old male with a history of mitral valve endocarditis status post mitral valve repair. His endocarditis was caused by streptococcal infection. Actually it was beta-hemolytic strep. He is postop day #6. He is doing relatively well. He has been weaned off of oxygen. He did have some issues with atrial fibrillation for which he was on amiodarone. The patient also has a history of hyperlipidemia and a previous history of DVT and pulmonary embolism back in 2010 following a kidney stone removal. He also suffers from BPH. Currently, the patient is on Eliquis for his chronic atrial fibrillation. He is doing well. Denies any shortness of breath , chest pain, chest discomfort, or other complaints for that matter. Vital signs are reviewed. Temperature 97.7, heart rate 66, respiratory rate 16, blood pressure 96/60, room air saturation 94-96 percent. Appears in no acute distress. HEENT examination is grossly unremarkable. Mucous membranes are moist. No nasal O2 noted. Neck is supple. Full range of motion. No adenopathy or thyromegaly. Cardiovascular examination reveals regular rhythm and rate. S1, S2 normal. No S3, S4, or murmur. Lungs reveal relatively clear breath sounds. A few scattered rhonchi. No wheezes or crackles. Breath sounds are diminished at the bases. Abdomen is soft bowel sounds are heard. There is no masses or tenderness. Extremities reveals no cyanosis, clubbing, or edema. Skin without rash. Neurologic examination is brief but nonfocal. LAB DATA: Reviewed. White count 6.7, hemoglobin 8.2, hematocrit 25.8, platelet count 290, 000. Sodium, potassium, chloride, CO2 all normal. Anion gap normal. BUN and creatinine were 29 and 1.32. Albumin 2.9. X-RAY: Chest x-ray shows a tiny right apical pneumothorax. There is some cardiomegaly and some mild vascular congestion with small left pleural effusion. There is also some bibasilar atelectasis. Microbiologic analysis were positive for alpha hemolytic streptococci. Medications and x-rays reviewed. Labs are reviewed. ASSESSMENT: 1. 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 2. Severe mitral valve regurgitation which has been repaired postop day #6. 3. Hyperlipidemia. 4. History of deep venous thrombosis and pulmonary embolism in 2010 following kidney stone removal. 5. Benign prostatic hypertrophy. 6. Atrial fibrillation. PLAN: The patient is doing relatively well. Currently, the patient remains on Cordarone and Eliquis for his atrial fibrillation. He is also on Rocephin for infections. Additional recommendations and suggestions forthcoming. Prognosis is guarded. He will follow up with us in the office. He does have a tiny apical pneumothorax on the right side. He will need a followup chest x-ray. We asked him to continue deep breathing, coughing, clearing of secretions, and using his incentive spirometer. He will also follow up with the Infectious Disease team as well. No additional recommendations are made. Prognosis is guarded. MMODL / IJN: [id number] / MTDTrever
[2018-09-27 12:19] LABS: Glucose,Whole Blood 92 mg/dL (75-99)
--- NOTE | 2018-09-27 12:37 | P.DS ---
Providers Date of admission: 09/11/18 19:06 Expected date of discharge: 09/27/18 Attending physician: Salazar Figueroa Consults: 09/11/18 18:12 Consult Physician Stat Consulting Provider: Sea Hinojosa Consult Reason/Comments: endocarditis mitral valve-[place] Do you want consulting provider notified?: Yes 09/11/18 18:22 Consult Physician Stat Consulting Provider: Jose Beck Consult Reason/Comments: endocarditis mitral valve-[place] Do you want consulting provider notified?: Yes 09/13/18 11:06 Consult Physician Routine Consulting Provider: Grayson Hatch Consult Reason/Comments: mitral valve endocarditis with severe mr Do you want consulting provider notified?: Yes 09/14/18 09:57 Consult Physician Routine Consulting Provider: Sabra Mari Consult Reason/Comments: dental clearence for MV surgery Do you want consulting provider notified?: Yes 09/18/18 09:53 Consult Physician Routine Consulting Provider: Sharon Bowles Consult Reason/Comments: preop cabg Do you want consulting provider notified?: Yes Consult to Anesthesia Routine Consulting Provider: Anesthesia,Services Consult Reason/Comments: Cardiac Surgery Pre-Op Primary care physician: Jose Sosa - Discharge Diagnosis(es) (1) Bacteremia due to group B Streptococcus Current Visit: Yes Status: Acute (2) Endocarditis of [place] valve Current Visit: Yes Status: Acute (3) Hyperlipemia Current Visit: Yes Status: Chronic (4) Mitral regurgitation Current Visit: Yes Status: Chronic (5) History of DVT (deep vein thrombosis) Current Visit: No Status: Resolved Hospital Course: FINAL DIAGNOSIS: 1. Mitral valve endocarditis with flail P2 2. Severe mitral valve regurgitation 3. Bacteremia due to group B streptococcus 4. Hyperlipidemia 5. History of DVT of the right calf in 2010 6. Benign prostatic hypertrophy 7. Occasional EtOH use 8. Family history of atrial fibrillation 9. Postoperative paroxysmal atrial fibrillation an unexpected outcome PRINCIPAL PROCEDURE: 1. Complex mitral valve repair with quadrangular resection of P2 with reconstruction and reinforcement with posterior annuloplasty using a #32 mm AnnuloFlex. 2. Exclusion of left atrial appendage using a #35 mm Atriclip. 3. Intraoperative transesophageal echocardiogram and epi-aortic scanning. 4. Placement of peripherally inserted central catheter for long-term antibiotic therapy. HISTORY OF PRESENT ILLNESS: This is a 63-year-old gentleman who is followed by Dr. Jose Sosa on an outpatient basis. patient has a past medical history significant for hyperlipidemia, history of DVT of the right calf in 2011, BPH, occasional EtOH use and family history of atrial fibrillation. Recently, the patient developed a severe headache associated with fevers, chills, diaphoresis and feeling of fatigue. He was seen and examined by his primary care physician and was subsequently treated for pneumonia. Even with antibiotic treatments patient did not improve with his symptoms. He was subsequently treated for possible Lyme's disease with doxycycline with only slight improvement in his symptoms. He was subsequently referred to Dr. Hinojosa from [facility] for further workup and evaluation. A 2-D echocardiogram was completed which showed him to have a normal left ventricular function with an ejection fraction of 50-55%, and aortic root measuring 4.1 cm, ascending aorta measuring 4.6 cm and severe mitral valve regurgitation with a large mobile vegetation attached to the posterior leaflet. For further evaluation the patient underwent an elective heart catheterization which demonstrated normal coronary arteries. A transesophageal echocardiogram was also completed which demonstrated a normal left ventricular function with an ejection fraction of 55% , severe eccentric mitral valve regurgitation with vegetation on the posterior leaflet and a dilated ascending aorta with mild aortic valve regurgitation. The above-mentioned results were reviewed with the patient and a consult was placed to Dr. Salazar Figueroa from cardiothoracic surgery. Dr. Figueroa evaluated the patient and discussed the above-mentioned findings with the patient and a mitral valve repair replacement surgery was recommended. The patient understanding the risks and benefits of the surgery wished to proceed with a mitral valve repair or replacement surgery. HOSPITAL COURSE: the patient was admitted to the hospital and after obtaining consent was taken to the operating room where Dr. Salazar Figueroa performed an elective complex mitral valve repair with quadrangular resection of P2 with reconstruction and reinforcement with posterior annuloplasty using a #32 mm AnnuloFlex. He also underwent exclusion of his left atrial appendage using a # 35 mm Atriclip, and an intraoperative transesophageal echocardiogram and epi- aortic scanning. Upon completion of his surgery the patient was transferred to the cardiovascular intensive care unit where he was recovered, monitored hemodynamically and where he progressed cardiac rehabilitation phase 1. He was extubated, all lines, tubes and supportive drips were discontinued when appropriate and he was transferred to [address] [place] [address] cardiac stepdown unit for further rehabilitation needs. The patient also had a peripherally inserted central catheter placed for long-term antibiotic therapy for his bacteremia due to group B streptococcus. Antibiotics will be managed by Dr. Jose Beck on an outpatient basis. The patient did have some postoperative paroxysmal atrial fibrillation which was treated accordingly and has been started on amiodarone for atrial fibrillation prophylaxis and Eliquis for anticoagulation therapy. His oxygen has been weaned off and he is maintaining good oxygen saturations on room air, he continues to work with physical and occupational therapy, he has been tolerating an oral diet, his pain is well controlled and he is ready to be discharged home with [facility] on postoperative day #6. He has received written and verbal instructions regarding his medications, activity restrictions, signs and symptoms requiring physician notification and his follow -up appointments. COMPLICATIONS: his postoperative period was complicated by some paroxysmal atrial fibrillation which was treated accordingly. CONSULTATIONS: 1. Dr. Price for cardiology management. 2. Dr. Sosa for medical management. 3. Dr. Bowles for pulmonary and ventilator management. 4. Dr. Beck for infectious disease and antibiotic management. DISCHARGE INSTRUCTIONS: 1. No driving for 4 weeks, or until physician gives their ok. 2. The patient should sleep in their own bed, no medical bed needed. 3. Stairs are not an issue. If the bedroom is upstairs, it is advised that the patient go up at night and down in the morning for the first week. Go slowly, using handrail and take 1 step at a time. 4. JR hose are to be worn for 30 days or until physician discontinues. 5. Heart hugger is to be worn 100% of the time until physician discontinues.( except when showering) 6. No lifting, pushing, or pulling more than 10 pounds for 12 weeks. The physician will advise of any restriction changes. 7. The patient is expected to continue the prescribed walking program. 8. Continue pain control per as needed orders. 9. Continue with incentive spirometry and splinting/heart hugger until otherwise directed by the physician. 10. Must shower daily using liquid antibacterial soap and a separate white washcloth for each individual incision. 11. Routine sternal incision care, no ointments, lotions or powders on the incisions. 12. Please notify surgeon/nurse practitioner for temperature greater than 101F or purulent drainage from incisions 13. Prescriptions for first 30 days given per cardiac surgery service. After 30 days, all prescription refills obtained through cardiology/primary care physician. 14. A red arm and has been placed on this patient it should be worn for 30 days post surgery and will be removed by the cardiothoracic surgeons. If an ER visit is necessary, please make sure the number on the red arm band is called. 15. The patient will be discharged home on Rocephin 2000 mg IV piggyback every 24 hours to be infused by [facility]. 16. CBC, BMP, C-reactive protein and sed rate to be drawn weekly by home health care and results to Dr. Jose Beck from infectious disease (endocarditis ). HOME HEALTH SERVICES TO PROVIDE: RN SKILLED HOME CARE SERVICES FOR POST-OP SURGICAL PATIENTS WITH THE FOLLOWING: Coronary Artery Bypass Surgery (CABG), Mitral Valve Replacement/ Repair ( MVR), Aortic Valve Replacement/Repair (AVR) RN TO CONTINUE EDUCATION FROM ``ROAD TO A HEALTH HEART PATIENT EDUCATION MANUAL" (GIVEN TO PATIENT IN THE HOSPITAL) MEDICATION RECONCILIATION WITH EDUCATION NEEDED ON FIRST HOME VISIT EMPHASIZE IMPORTANCE OF WEARING BREAST SUPPORT/HEART HUGGER ENCOURAGE USE OF INCENTIVE SPIROMETER 10 X EVERY HOUR WHILE AWAKE ENCOURAGE UTILIZATION OF LOWER EXTREMITY COMPRESSION STOCKINGS/JR HOSE and ELEVATE LEGS ABOVE LEVEL OF HEART WHILE AT REST. ENCOURAGE AMBULATION 3-5x/day INCREASING TOLERATES, WHILE AVOID EXTREMES IN TEMPERATURE FREQUENCY: RN TO OPEN THE PATIENT WITHIN 24 HOURS OF DISCHARGE FROM THE HOSPITAL WITH TELEHEALTH INSTALLED AT [facility], RN TO VISIT 2-3 X A WEEK FOR 4 WEEKS ESTABLISHED BY PATIENT NEEDS. LABORATORY: CBC, CMP TO BE DRAWN ON THE THIRD DAY HOME 09/30/2018 (RAN STAT) FAX RESULTS TO [phone]. TELEHEALTH PARAMETERS: WEIGHT: NOTIFY MD OF WEIGHT GAIN OF 2 LBS IN 24 HOURS OR 5 LBS IN ONE WEEK HR: NOTIFY MD OF HR <55 BPM OR HR>100 BPM BP: NOTIFY MD IF BP <90/55 OR BP>140/100 O2 SAT: NOTIFY MD IF PO2<93% ON ROOM AIR SEND TELEHEALTH REPORT TO [facility] SPECIAL EDUCATION TEACHER AND CARDIOVASCULAR SURGEON THE FIRST WEEK OF CARE AND THEN BI-WEEKLY. PLEASE ADDITIONALLY COMMUNICATE ANY ABNORMALS AND NEW FINDINGS TO THE SURGEONS OFFICE. Plan - Discharge Summary Discharge Rx Participant: No New Discharge Prescriptions: New cefTRIAXone [Rocephin] 2,000 mg IVPB Q24HR #28 vial Acetaminophen Tab [Tylenol] 325 mg PO Q4HR PRN tab PRN Reason: Fever and/ or Mild Pain Amiodarone [Cordarone] 400 mg PO BID #50 tab Apixaban [Eliquis] 5 mg PO BID #60 tab Aspirin 81 mg PO DAILY chew Atorvastatin [Lipitor] 40 mg PO DAILY #30 tab Ferrous Sulfate [Iron (65 MG Elemental)] 325 mg PO W/LUNCH #30 tab Metoprolol Tartrate [Lopressor] 12.5 mg PO DAILY #30 tab Pantoprazole [Protonix] 40 mg PO AC-BRKFST #30 tablet.dr Continue Tamsulosin [Flomax] 0.4 mg PO HS Discontinued Doxycycline [Vibramycin] 100 mg PO BID Serrapeptase 1 tab PO DAILY Nattokinase 1 tab PO DAILY Discharge Medication List Tamsulosin [Flomax] 0.4 mg PO HS 09/08/18 [History] cefTRIAXone [Rocephin] 2,000 mg IVPB Q24HR #28 vial 09/22/18 [Rx] Acetaminophen Tab [Tylenol] 325 mg PO Q4HR PRN tab 09/27/18 [Rx] Amiodarone [Cordarone] 400 mg PO BID #50 tab 09/27/18 [Rx] Apixaban [Eliquis] 5 mg PO BID #60 tab 09/27/18 [Rx] Aspirin 81 mg PO DAILY chew 09/27/18 [Rx] Atorvastatin [Lipitor] 40 mg PO DAILY #30 tab 09/27/18 [Rx] Ferrous Sulfate [Iron (65 MG Elemental)] 325 mg PO W/LUNCH #30 tab 09/27/18 [Rx] Metoprolol Tartrate [Lopressor] 12.5 mg PO DAILY #30 tab 09/27/18 [Rx] Pantoprazole [Protonix] 40 mg PO AC-BRKFST #30 tablet. 09/27/18 [Rx] Follow up Appointment(s)/Referral(s): Sharon Bowles MD [STAFF PHYSICIAN] - 10/16/18 1:15 pm Sea Hinojosa MD [STAFF PHYSICIAN] - 10/12/18 2:15 pm Salazar Figueroa MD [Family Provider] - 10/16/18 11:00 am Jose Beck MD [STAFF PHYSICIAN] - 2 Weeks Jose Sosa MD [Primary Care Provider] - 1-2 days [facility], [NON-STAFF] - Ambulatory/Diagnostic Orders: Basic Metabolic Panel [LAB.AMB] Location: None Selected Basic Metabolic Panel [LAB.AMB] Time Frame: 09/30/18, Facility: [facility], Location: Laboratory [facility] Complete Blood Count w/diff [LAB.AMB] Location: None Selected Complete Blood Count w/diff [LAB.AMB] Time Frame: 09/30/18, Facility: [facility], Location: Laboratory [facility] C Reactive Protein [LAB.AMB] Location: None Selected Erythrocyte Sedimentation Rate [LAB.AMB] Location: None Selected Patient Instructions/Handouts: Endocarditis (DC) Activity/Diet/Wound Care/Special Instructions: DC to his parents home with IV ABX Discharge Disposition: HOME WITH HOME HEALTH SERVICES
--- NOTE | 2018-09-27 12:58 | P.PN ---
Subjective This is a 63-year-old male patient of Dr. Sosa and Dr. Price with history of hyperlipidemia but long-standing history of heart murmur. Patient was having chills and sweating with generalized achiness that impacted his physical activity. He was initially treated for pneumonia and completed antibiotics but his symptoms continued. There was also concern for Lyme disease and patient was started on doxycycline approximate 3 weeks ago. He subsequently underwent a CAT scan that showed dilated ascending aorta and the patient was referred to Dr. Bear on for transthoracic echocardiogram that revealed a preserved systolic function with severe mitral regurgitation and a mass on the posterior mitral valve leaflet suggestive of endocarditis and vegetation and the patient was then set up for SILVIA and heart catheterization which was done yesterday. SILVIA revealed ejection fraction of 55% with severe eccentric right regurgitation with vegetation on the posterior mitral valve, mild tricuspid regurgitation and mild dilatation of the aorta and mild aortic regurgitation. Heart catheterization showed normal coronary arteries and dilated ascending aorta. Patient was admitted and a consult was added for Dr. Beck. Blood cultures were obtained. 09/13: patient is feeling well , was started on vancomycin ans subsequently was switched to Ancef 2gr IVPB Q8H as he is bacteeremic to Group B strep and alpha hemolytic strep, and we will repeat blood cultures today and tomorrow. 09/14: Patient is currently on Ancef. Patient has been seen by cardiothoracic surgery with plan for valve replacement or repair as early as Friday. Patient has been seen by dental surgeon and cleared of any present dental infection. CAT scan of the facial bones reveals sinuses clear with exception of left maxillary sinus and ostiomeatal complex is patent bilaterally. No evidence of abscess. Patient denies any new complaints. He has been afebrile since September 22. Pulse ox is 95% on room air. 09/15: Dr. Beck has changed antibiotics to ampicillin and gentamicin. Blood culture obtained on September 13 and one on September 14 are currently showing no growth after 24 hours. Patient is afebrile, vital signs are stable, blood pressure is noted to be some readings on the low side. Pulse ox is 92% to 94% on room air. Patient continues to deny any chest pain or shortness of breath, no lightheadedness or dizziness. He denies any fever or chills. 09/16: Blood culture from September 23 is now positive. Blood culture obtained on September 14 showing no growth. Blood culture from September 15 is in progress. Patient has been afebrile. He denies any fever or chills. He has had no nausea vomiting or diarrhea. Patient is continued on ampicillin and gentamicin. Cardiothoracic surgery is tentatively planning for surgery on Friday or Friday. 09/17: Patient denies any new complaints. He remains afebrile. Blood cultures from September 14 and September 15 are showing no growth. Patient is tentatively scheduled for surgery on Friday. 09/18: Patient denies any Complains any remains afebrile. Blood cultures from September 14 and September 15 are continuing to show no growth. Patient is scheduled for open heart surgery on Friday for mitral valve repair or replacement. Patient is continued on ampicillin and gentamicin and followed by Dr. Beck. 09/21: Patient is status post complex mitral valve repair with quadrangular resection of P2 with reconstruction and reinforcement with posterior annuloplasty using a 32 mm AnnuloFlex. Excision of the left atrial appendage using a 35 mm AtriClip. Intraoperative transesophageal echocardiogram and epi- aortic scanning. Patient is currently intubated and on mechanical ventilation. He is continued on IV antibiotics with ampicillin and gentamicin. Right- sided Cordis in place. Patient is currently on Clevidipine 4 for blood pressure control. Insulin drip has been started. He has a right-sided pleural chest tube and mediastinal. Patient has not required transfusion. Anticipate possible extubation this evening. 09/22: Patient has been successfully extubated. He is found sitting up in a recliner and appears to be comfortable and in no acute distress. His pain is currently controlled. He states he is having pain in the lower sternal area only area No shortness of breath. Incentive spirometer is 1750 ML's. Pulse ox is 95% on 3 L nasal cannula, blood pressure is on the low side. He has not required vasopressors. White count is 10.7, hemoglobin 8.7. Capillary blood glucose running between 101-121 and he is off insulin drip. We will add in ferrous sulfate. 09/23: Patient remains in intensive care unit. White count is normal, hemoglobin 7.7, capillary blood glucose running between 103 and 127. He has been hemodynamically stable. Pulse ox is running 90-95% on 3 L nasal cannula. Patient has been afebrile. Blood pressures on the low side but patient has not required vasopressors. Mediastinal chest tubes removed. George cath remains in place and urine output has been adequate. He denies any chest pain or shortness of breath. He is continued on ampicillin and gentamicin. Dr. Beck has ordered a PICC line placement 09/24: Patient remains in the ICU. Patient states he is still a little short of breath and after ambulation was more short of breath. His pulse ox is 95% on 3 L nasal cannula. He is passing gas but not had a bowel movement. He is urinating since George catheter was removed. He has been afebrile. Capillary blood glucose running 103-146. Hemoglobin stable at 7.8 and platelet count 159. BUN 24 and creatinine 1.06. PICC line has been placed. Plan is for Rocephin for 4 week course as an outpatient. 09/25, patient currently is in the cardiac floor, some shortness of breath some edema, Lasix 20 mg every 12 hours 2 dose is to be given today, ensure with protein to be given, x-ray so shows mild pleural effusion, and CHF changes. Hemoglobin 7.8, for ferrllicit 125 mg IV 1 dose 09/26: Patient evaluated today, he remains in atrial flutter, he continues on amiodarone. Patient does still complain of slight shortness of breath with exertion, although he states it is improving. Pulse ox 96% on 2 L. Repeat chest x-ray trace right atypical pneumothorax at 8 mm, previously 9 mm, mild pulmonary vascular congestion with small effusions. Hemoglobin 7.9, will increase iron to 3 times a day. 09/27: Patient evaluated today, noted to be sitting up at the bedside chair. Patient has been ambulating several times in the hallway. He reports he is feeling well. He is maintaining good O2 saturation and has been weaned off supplemental oxygen. WBC 6.7 hemoglobin, 8.2, creatinine 1.3. Repeat chest x- ray shows right pneumothorax not currently seen, cardiomegaly with mild central vascular congestion, small left pleural effusion, atelectasis. He is planning on discharge today. Objective - Vital Signs Vital signs: Vital Signs Temp 98.1 F 09/27/18 04:00 Pulse 98 09/27/18 07:56 Resp 20 09/27/18 04:00 BP 116/59 09/27/18 04:00 Pulse Ox 94 L 09/27/18 07:43 Intake & Output 09/26/18 09/27/18 09/27/18 18:59 06:59 18:59 Intake Total 460 600 600 Balance 460 600 600 Weight 88.3 kg Intake: IV 200 Ampicillin 2,000 mg In 200 Sodium Chloride 0.9% 100 ml @ 200 mls/hr IVPB Q4H [facility] Rx#:[id number] Intake, IV Titration 100 Amount cefTRIAXone 2,000 mg In 100 Sodium Chloride 0.9% 100 ml @ 100 mls/hr IVPB Q24HR [facility] Rx#:[id number] Oral 160 600 600 Other: Voiding Method Toilet Toilet Urinal Urinal # Voids 2 1 ABP, PAP, CO, CI - Last Documented Arterial Blood Pressure 91/62 Pulmonary Artery Pressure 24/12 Cardiac Output 6.2 Cardiac Index 3.6 - Exam - Constitutional General appearance: Present: cooperative, no acute distress - EENT Eyes: Present: anicteric sclerae, EOMI, PERRLA, normal appearance ENT: Present: NA/AT, normal oropharynx - Neck Neck: Present: normal ROM - Respiratory Respiratory: bilateral: CTA, negative: dullness, rales, rhonchi, wheezing, prolonged expiration, prolonged inspiration - Cardiovascular Rhythm: regular Heart sounds: normal: S1, S2 Abnormal Heart Sounds: Absent: systolic murmur, diastolic murmur, rub, S3 Gallop , S4 Gallop, click, other - Gastrointestinal General gastrointestinal: Present: normal bowel sounds, soft - Integumentary Integumentary: Present: decreased turgor, normal - Neurologic Neurologic: Present: CNII-XII intact - Musculoskeletal Musculoskeletal: Present: gait normal, strength equal bilaterally - Labs CBC & Chem 7: 09/27/18 06:00 09/27/18 06:00 Labs: Abnormal Lab Results - Last 24 Hours (Table) 09/26/18 09/26/18 09/26/18 Range/Units 11:55 17:21 20:42 RBC (4.30-5.90) m/uL Hgb (13.0-17.5) gm/dL Hct (39.0-53.0) % RDW (11.5-15.5) % BUN (9-20) mg/dL Creatinine (0.66-1.25) mg/dL POC Glucose (mg/dL) 103 H 118 H 103 H (75-99) mg/dL Alkaline Phosphatase (38-126) U/L Total Protein (6.3-8.2) g/dL Albumin (3.5-5.0) g/dL 09/27/18 09/27/18 09/27/18 Range/Units 02:29 06:00 06:00 RBC 2.80 L (4.30-5.90) m/uL Hgb 8.2 L (13.0-17.5) gm/dL Hct 25.8 L (39.0-53.0) % RDW 16.2 H (11.5-15.5) % BUN 29 H (9-20) mg/dL Creatinine 1.32 H (0.66-1.25) mg/dL POC Glucose (mg/dL) 107 H (75-99) mg/dL Alkaline Phosphatase 169 H (38-126) U/L Total Protein 5.5 L (6.3-8.2) g/dL Albumin 2.9 L (3.5-5.0) g/dL Assessment and Plan Plan: 1. Subacute endocarditis with mitral valve vegetation post SILVIA and left heart catheterization that showed normal coronaries. Blood cultures were positive for group B streptococcus agalactia and alpha hemolytic strep. Patient is status post complex mitral valve repair with quadrangular resection of P2 with reconstruction and reinforcement with posterior annuloplasty using a 32 mm AnnuloFlex. Continue ampicillin and gentamicin per Dr. Beck. Continue current management per cardiothoracic surgery. Dr. Beck has ordered PICC line which has been placed for outpatient antibiotic with Rocephin for 4 weeks. 2. Severe mitral regurgitation with mitral valve vegetation due to endocarditis. 3. Benign prostatic hypertrophy. Continue Flomax 0.4 mg orally once every day. 4. History of kidney stones. Stable. 5. DVT prophylaxis. Heparin 5000 units subcutaneously every 8 hours. 6. GI prophylaxis. Protonix 40 mg orally once every day. 7. Acute diastolic CHF possible postoperative passive venous congestion, IV Lasix 20 mg 2 doses to be given today, on protein supplementation with ensure 8. Mild edema with protein deficiency, patient will be started on protein supplementation ensure and life 7. Acute postop blood loss anemia, expected from surgery. Continue to monitor. Continue with iron supplements 3 times a day The above impression and plan of care have been discussed and directed by signing physician. Jaquelin Baldwin nurse practitioner acting as scribe for signing physician.
--- NOTE | 2018-09-27 13:11 | P.PN ---
Subjective Progress Note Date: 09/27/18 This is a 63-year-old gentleman with history of ruptured chordae tendineae and also endocarditis with vegetation on the mitral valve. Patient had mitral valve replacement. Patient has received antibiotic therapy. Patient has been stable without any fevers. Blood cultures have been negative. Patient seemed to be clinically doing well. He is being discharged home to continue home antibiotic therapy. Patient will have follow-up with the Dr. Hinojosa in one week. Patient also has history of DVT and paroxysmal atrial fibrillation. Patient needs to a long-term anticoagulation therapy Objective - Vital Signs Vital signs: Vital Signs Temp 97.7 F 09/27/18 08:55 Pulse 100 09/27/18 11:30 Resp 16 09/27/18 08:55 BP 96/60 09/27/18 08:55 Pulse Ox 96 09/27/18 08:55 Intake & Output 09/26/18 09/27/18 09/27/18 18:59 06:59 18:59 Intake Total 460 600 600 Balance 460 600 600 Weight 88.3 kg Intake: IV 200 Ampicillin 2,000 mg In 200 Sodium Chloride 0.9% 100 ml @ 200 mls/hr IVPB Q4H [facility] Rx#:[id number] Intake, IV Titration 100 Amount cefTRIAXone 2,000 mg In 100 Sodium Chloride 0.9% 100 ml @ 100 mls/hr IVPB Q24HR [facility] Rx#:[id number] Oral 160 600 600 Other: Voiding Method Toilet Toilet Urinal Urinal # Voids 2 1 ABP, PAP, CO, CI - Last Documented Arterial Blood Pressure 91/62 Pulmonary Artery Pressure 24/12 Cardiac Output 6.2 Cardiac Index 3.6 - Exam GENERAL EXAM: Patient is alert and oriented and doesn't appear to be in any acute distress HEENT: Normocephalic. NECK: No masses, no nuchal rigidity. CHEST: No chest wall deformity. LUNGS: Equal air entry with no crackles or wheeze. HEART: S1 and S2 normal with no audible mumurs or gallops. Regular rhythm, femorals equal on both sides.. ABDOMEN: No hepatosplenomegaly, normal bowel sounds, no guarding or rigidity. SKIN: No rashes CENTRAL NERVOUS SYSTEM: No focal deficits. EXTREMITIES: No cyanosis, clubbing or edema. - Labs CBC & Chem 7: 09/27/18 06:00 09/27/18 06:00 Labs: Abnormal Lab Results - Last 24 Hours (Table) 09/26/18 09/26/18 09/27/18 Range/Units 17:21 20:42 02:29 RBC (4.30-5.90) m/uL Hgb (13.0-17.5) gm/dL Hct (39.0-53.0) % RDW (11.5-15.5) % BUN (9-20) mg/dL Creatinine (0.66-1.25) mg/dL POC Glucose (mg/dL) 118 H 103 H 107 H (75-99) mg/dL Alkaline Phosphatase (38-126) U/L Total Protein (6.3-8.2) g/dL Albumin (3.5-5.0) g/dL 09/27/18 09/27/18 Range/Units 06:00 06:00 RBC 2.80 L (4.30-5.90) m/uL Hgb 8.2 L (13.0-17.5) gm/dL Hct 25.8 L (39.0-53.0) % RDW 16.2 H (11.5-15.5) % BUN 29 H (9-20) mg/dL Creatinine 1.32 H (0.66-1.25) mg/dL POC Glucose (mg/dL) (75-99) mg/dL Alkaline Phosphatase 169 H (38-126) U/L Total Protein 5.5 L (6.3-8.2) g/dL Albumin 2.9 L (3.5-5.0) g/dL Assessment and Plan (1) Paroxysmal atrial fibrillation Current Visit: Yes Status: Acute Code(s): I48.0 - PAROXYSMAL ATRIAL FIBRILLATION SNOMED Code(s): 682049319 (2) Endocarditis of [place] valve Current Visit: Yes Status: Acute Code(s): I38 - ENDOCARDITIS, VALVE UNSPECIFIED SNOMED Code(s): 11084102 (3) Mitral regurgitation Current Visit: Yes Status: Chronic Code(s): I34.0 - NONRHEUMATIC MITRAL ( VALVE) INSUFFICIENCY SNOMED Code(s): 10905013 (4) History of DVT (deep vein thrombosis) Current Visit: No Status: Resolved Code(s): Z86.718 - PERSONAL HISTORY OF OTHER VENOUS THROMBOSIS AND EMBOLISM SNOMED Code(s): 676890962 Plan: Patient is critically stable. Being discharged home today. He'll continue home antibiotic therapy. Follow up with Dr. Castaneda in one week
[2018-09-27 13:38] VITALS: BP 108/72; PULSE 90
--- NOTE | 2018-09-28 12:09 | CDI ---
Documentation Clarification Form Date: 09/28/18 From: NIRANJAN Reddy Phone: If you have question, contact Jesica Rwoley at [phone] M-F 8:30 am to 6pm Admit Date: 09/11/2018 7:06:00 PM Patient Name: Casey Reddy Visit Number: [id number] Discharge Date: 09/27/2018 4:50:00 PM ATTENTION: The Clinical Documentation Specialists (CDI) and [facility] Coding Staff appreciate your assistance in clarifying documentation. Please respond to the clarification below the line at the bottom and electronically sign. The CDI & [facility] Coding staff will review the response and follow-up if needed. Please note: Queries are made part of the Legal Health Record. If you have any questions, please contact the author of this message via ITS. Dr. Salazar Figueroa Patient is admitted with subacute mitral valve endocarditis. Bacteremia due to group B streptococcus is documented throughout the chart. Patient history/risk factors: Long-standing heart murmur Clinical Indicators: Vitals on admission to ED: T 100.2, P 92, RR 20, BP 117/73 Blood Culture: group B streptococcus Treatment: IV antibiotics with ampicillin and gentamicin Bacteremia is considered a lab finding. Please clarify if that lab finding is clinical indicator of a more definitive medical diagnosis such as: Sepsis Severe Sepsis Infectious Process, please specify: Other, please specify Unable to determine ___Bacteremia due to subacute bacterial endocarditis. MTDD
== END 2018-09-27 16:50 | disposition home health service (06) | DRG 220 ==
LOC: EC 17:44 → 3SCARD 19:06 → 2SICU 09-21 06:10 → 3SCARD 09-24 17:03
PROVIDERS: ADMIT Internal Medicine Geriatric Medicine; ATTEND Surgery
PROC: 02UG0JZ Supplement Mitral Valve with Synthetic Substitute, Open Approach (ICD-10-PCS; principal; 2018-09-11)
PROC: 5A1221Z Performance of Cardiac Output, Continuous (ICD-10-PCS; 2018-09-11)
PROC: 30233N0 Transfusion of Autologous Red Blood Cells into Peripheral Vein, Percutaneous Approach (ICD-10-PCS; 2018-09-11)
PROC: 02B70ZK Excision of Left Atrial Appendage, Open Approach (ICD-10-PCS; 2018-09-11)
PROC: 02HV33Z Insertion of Infusion Device into Superior Vena Cava, Percutaneous Approach (ICD-10-PCS; 2018-09-23)
DX: I33.0 Acute and subacute infective endocarditis (principal); R78.81 Bacteremia; I48.92 Unspecified atrial flutter; J93.9 Pneumothorax, unspecified; I48.0 Paroxysmal atrial fibrillation; B95.1 Streptococcus, group B, as the cause of diseases classified elsewhere; E78.5 Hyperlipidemia, unspecified; E86.9 Volume depletion, unspecified; I08.3 Combined rheumatic disorders of mitral, aortic and tricuspid valves; I44.0 Atrioventricular block, first degree; I50.9 Heart failure, unspecified; N40.0 Benign prostatic hyperplasia without lower urinary tract symptoms; Z87.442 Personal history of urinary calculi; Z86.718 Personal history of other venous thrombosis and embolism; Z86.711 Personal history of pulmonary embolism; Z83.3 Family history of diabetes mellitus; Z79.01 Long term (current) use of anticoagulants
CPT/HCPCS: 36415; 36569; 70486; 71045; 71046; 76937; 80048; 80053; 80061; 80074; 80170; 80202; 81003; 82330; 82550; 82553; 82805; 83036; 83605; 83735; 84145; 84443; 84484; 85025; 85027; 85520; 85610; 85730; 86140; 86850; 86891; 86900; 86901; 86920; 87040; 87070; 87075; 87077; 87086; 87150; 87186; 87205; 88305; 93005; 93880; 94002; 94150; 94640; 94760; 96360; 96361; 99285

== ENCOUNTER 2024-04-14 12:34 | Emergency (ER) | payer MEDICARE, OTHER ==
[2024-04-14 12:40] VITALS: RESP 18; TEMP 98.9
--- NOTE | 2024-04-14 13:01 | ED ---
Chest Pain HPI - General Source: patient, EMS, RN notes reviewed Mode of arrival: EMS Limitations: no limitations <Jairo Garvin - Last Filed: 04/14/24 12:59> <Fiona Walls - Last Filed: 04/15/24 11:20> - General Chief Complaint: Chest Pain Stated Complaint: Abn EKG-sent by UC Time Seen by Provider: 04/14/24 12:48 - History of Present Illness Initial Comments: Quick [id number] male presents emergency department from urgent care for evaluation of chest pain, A-fib. Patient states that he is having pain started few days ago this has persisted patient does have history of CABG, valve replacement states he is on natural blood thinners. Patient denies any fevers or chills patient states he still has mild discomfort. Patient states that he was seen in urgent care A-fib on EKG no history (Jairo Garvin) Patient is a 68-year-old male with past medical history prior open heart surgery, CABG, valve replacement presented today for chest pain. 1 day ago patient began experiencing midsternal chest pressure. He thought it was indigestion so took Tums which did not resolve his pain. Patient was seen at a local urgent care today which showed that he was in atrial fibrillation and they directed him to the emergency department. Patient denies any history of atrial fibrillation. He states he does take a natural blood thinner called "nanocase". This is not prescribed to him by a doctor and is bought [id number]. Patient states he has not been taking it regularly as of late. He was taking this because he did not want to be on Coumadin due to history of prior DVT. Of note, patient also began noting a mild, 3/10 SALDIVAR this morning at the front of his head. He states he does not usually get headaches but feels this is due to lack of sleep last night. Denies changes in vision, new numbness, weakness or slurred speech or head trauma. (Fiona Walls) - Related Data Home Medications Medication Instructions Recorded Confirmed Tamsulosin [Flomax] 0.4 mg PO HS 09/08/18 09/11/18 Previous Rx's Medication Instructions Recorded cefTRIAXone [Rocephin] 2,000 mg IVPB Q24HR #28 vial 09/22/18 Acetaminophen Tab [Tylenol] 325 mg PO Q4HR PRN tab 09/27/18 Amiodarone [Cordarone] 400 mg PO BID #50 tab 09/27/18 Apixaban [Eliquis] 5 mg PO BID #60 tab 09/27/18 Aspirin 81 mg PO DAILY chew 09/27/18 Atorvastatin [Lipitor] 40 mg PO DAILY #30 tab 09/27/18 Ferrous Sulfate [Iron (65 MG 325 mg PO W/LUNCH #30 tab 09/27/18 Elemental)] Metoprolol Tartrate [Lopressor] 12.5 mg PO DAILY #30 tab 09/27/18 Pantoprazole [Protonix] 40 mg PO AC-BRKFST #30 tablet. 09/27/18 Apixaban [Eliquis] 5 mg PO BID 30 Days #60 tab 04/14/24 Allergies Allergy/AdvReac Type Severity Reaction Status Date / Time No Known Allergies Allergy Verified 04/14/24 12:40 Review of Systems ROS Other: All systems not noted in ROS Statement are negative. <Jairo Garvin - Last Filed: 04/14/24 12:59> ROS Other: All systems not noted in ROS Statement are negative. <Fiona Walls - Last Filed: 04/15/24 11:20> ROS Statement: Those systems with pertinent positive or pertinent negative responses have been documented in the HPI. EKG Findings - EKG Comments: EKG Findings:: Atrial fibrillation, rate 62 bpm, borderline left axis deviation, QT/QTc interval within normal limits, no STEMI - EKG Results: EKG shows: atrial fibrillation - Blocks, [place], Hypertrophy, ST Abn: Repolarization changes or abnormalities: nonspecific abnormality, ST segment, and/or T wave (No STEMI, T wave flattening I, AvL, V6) <Fiona Walls - Last Filed: 04/15/24 11:20> Past Medical History Past Medical History: Deep Vein Thrombosis (DVT), Prostate Disorder Additional Past Medical History / Comment(s): SEE DR. HINOJOSA [facility] FOR CARDIAC INFORMATION. DVT-2010-RT [facility]. WAS SEEN IN ER 08/08/18 FOR SEVERE GROIN PAIN. HX KIDNEY STONES History of Any Multi-Drug Resistant Organisms: None Reported Past Surgical History: Heart Catheterization Additional Past Surgical History / Comment(s): Lithotripsy. COLONOSOCPY. ALSO SCHEDULED FOR SILVIA 09/11/18 Past Anesthesia/Blood Transfusion Reactions: No Reported Reaction Past Psychological History: No Psychological Hx Reported Past Alcohol Use History: Occasional Past Drug Use History: None Reported - Past Family History Mother Family Medical History: AFIB (Mother is 84-year-old with a history of skin cancer as well as macular degeneration with atrial flutter.), Cancer Additional Family Medical History / Comment(s): SKIN Father Family Medical History: Diabetes Mellitus (His biological father at age of 72 from diabetes complications.) Sister(s) Family Medical History: AFIB (Patient has one biological sister with atrial flutter and one stepsister.) Additional Family Medical History / Comment(s): Patient has no kids. <Jairo Garvin - Last Filed: 04/14/24 12:59> General Exam Limitations: no limitations <Jairo Garvin - Last Filed: 04/14/24 12:59> <Fiona Walls - Last Filed: 04/15/24 11:20> - General Exam Comments Initial Comments: Visual Physical Exam Vital signs reviewed General: Well-appearing, nontoxic, no acute distress. Head: Normocephalic, atraumatic Eyes: PERRLA, EOMI ENT: Airway patent Chest: Nonlabored breathing Skin: No visual rash, normal skin tone Neuro: Alert and oriented 3 Musculoskeletal: No gross abnormalities (Jairo Garvin) PE: CONSTITUTIONAL: no apparent distress, well appearing SKIN: warm, dry, no jaundice, hives or petechiae EYES: pupils are equally round, extraocular movements intact without nystagmus, clear conjunctiva, non-icteric sclera HENT: normocephalic, atraumatic, moist mucus membranes, oropharynx clear without exudates NECK: normal appearance full range of motion PULMONARY: clear to auscultation without wheezes, rhonchi, or rales, normal excursion, no accessory muscle use and no stridor CARDIOVASCULAR: Irregularly irregular rate and rhythm normal S1 and S2. No appreciated murmurs. Strong radial pulses with intact distal perfusion GASTROINTESTINAL: soft, non-tender, non-distended, no palpable masses, no rebound or guarding LYMPHATICS: no edema in lower extremities MUSCULOSKELETAL: Extremities have no gross deformity, no edema, redness, or swelling NEUROLOGIC: _a/o x 3, GCS 15, normal mentation and speech. Moves all extremities x 4 without motor or sensory deficit PSYCHIATRIC: _normal mood and affect, thought process is clear and linear (Fiona Walls) Course Vital Signs 04/14/24 04/14/24 12:36 15:35 Temperature 98.9 F Pulse Rate 74 78 Respiratory 18 18 Rate Blood Pressure 121/68 126/79 O2 Sat by Pulse 97 98 Oximetry Chest Pain MDM <Jairo Garvin - Last Filed: 04/14/24 12:59> <Fiona Walls - Last Filed: 04/15/24 11:20> - MDM I completed the quick note portion of this chart signed Jairo Garvin PA-C (Jairo Garvin) Was pt. sent in by a medical professional or institution (, PA, TOWEL HEMMER, urgent care, hospital, or assisted...) When possible be specific @ -Yes, patient sent by local urgent care due to atrial fibrillation noted on EKG Did you speak to anyone other than the patient for history (EMS, parent, family, police, friend...)? What history was obtained from this source @ -No Did you review nursing and triage notes (agree or disagree)? Why? @ -I reviewed and agree with nursing and triage notes Were old charts reviewed (outside hosp., previous admission, EMS record, old EKG, old radiological studies, urgent care reports/EKG's, assisted records)? 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 Reviewed EKG that patient presented with from local urgent care which also appeared to show atrial fibrillation, similar to EKG performed in the ED today Differential Diagnosis (chest pain, altered mental status, abdominal pain women, abdominal pain men, vaginal bleeding, weakness, fever, dyspnea, syncope, headache, dizziness, GI bleed, back pain, seizure, CVA, palpatations, mental health, musculoskeletal)? @ -Differential Chest Pain: Stable Angina, Unstable Angina, considered STEMI however patient does not show signs of ST elevation on EKG, NSTEMI, Pneumothorax, Musculoskeletal, Esophageal Spasm GERD, Cholecystitis, Pancreatitis, this is not meant to be an all- inclusive list. EKG interpreted by me (3pts min.). @ -As above X-rays interpreted by me (1pt min.). @ -Reviewed chest x-ray read by radiologist as negative, on my review does appear patient has mild cardiomegaly however otherwise I agree with radiologist interpretation, no consolidations, effusions or cracks noted What testing was considered but not performed or refused? (CT, X-rays, U/S, labs)? Why? @ -Due to patient's new headache and plan to initiate patient on blood thinners due to new onset A-fib a CT brain was considered however upon discussing this with patient and my reasoning for obtaining a CT brain patient politely declined stating that he does not feel this is necessary. I do feel this is reasonable as patient is capable of making his own decisions and has no focal neurologic deficits on exam, headache is not severe in nature What meds were considered but not given or refused? Why? @ Considered initiating patient on cardizem or beta masood however patient's rate currently controlled and it is unclear how long patient has been in A fib, patient has not been on a prescribed blood thinner, so refrained from chemical cardioversion Did you discuss the management of the patient with other professionals (professionals i.e. , PA, TOWEL HEMMER, lab, RT, psych nurse, director social welfare, bender helper, teacher, custodial officer, mental health case manager)? Give summary @ -No Was smoking cessation discussed for >3mins.? @ -No Was critical care preformed (if so, how long)? @ -No Were there social determinants of health that impacted care today? How? (Homelessness, low income, unemployed, alcoholism, drug addiction, transportation, low edu. Level, literacy, decrease access to med. care, group home, rehab)? @ -Yes, no income, patient refused admission due to concern he would not be able to afford hospital bills and find assistance with care of his animals at home Was there de-escalation of care discussed even if they declined (Discuss DNR or withdrawal of care, Hospice)? DNR status @ -No What co-morbidities impacted this encounter? (DM, HTN, Smoking, COPD, CAD, Cancer, CVA, ARF, Chemo, Hep., AIDS, mental health diagnosis, sleep apnea, morbid obesity)? @ -CAD Was patient admitted / discharged? Hospital course, mention meds given and route, prescriptions, significant lab abnormalities, going to OR and other pertinent info. @ -I have reviewed the patient's past medical records including triage summary, chief complaint, pertinent medical conditions, medications, surgical history, known medication allergies and previous visits to the emergency department. Patient is a 68-year-old with a past medical history of CAD, mitral valve repair presenting for chest pain and atrial fibrillation, new onset, noted on outpatient EKG. Initial evaluation showed well-appearing 68-year-old male in no acute distress. PE significant for irregularly irregular heart rhythm on cardiac exam, skin pink and well-perfused, lungs clear to auscultation bilaterally, no lower extremity edema.top differential diagnosis as noted above. A chest x-ray, CBC, CMP and troponin were already ordered by [facility]. As part of a quick note evaluation. Patient's troponin noted to be elevated at 0.089, potassium slightly elevated at 5.4 however was noted to be hemolyzed. Chest x-ray findings as above. I discussed with patient my concerns regarding new onset A- fib, especially in setting of chest pain with significant risk factors and that I would like to admit him to the hospital for further evaluation and monitoring patient declined this stating that he would like to get home because he does not think his insurance will cover a hospital stay and he has horses and dogs to care for at home. I offered to have her mental health case manager assist him with payment plans or options to help with affording hospital stay however patient stated that despite this he would still like to be discharged home today. I discussed with him my concerns that his chest pain and elevated troponin could indicate stress to his heart or an impending heart attack and that should he be discharged without further monitoring and evaluation he could potentially , suffer heart attack, stop breathing or serious long-term disability due to complications from this and that should he still choose to leave the hospital he would be leaving AGAINST MEDICAL ADVICE. Patient is understanding of this and states that if it is his time to go it at this time. He is AO x 4 and able to report back to me in his own words the risks emergency department AGAINST MEDICAL ADVICE. I did discuss with him his elevated troponin and requested that we be allowed to obtain repeat troponin and recheck his potassium due to hemolyzed sample to ensure no significant hyperkalemia. Patient was agreeable with this but would like to be discharged after blood draw without waiting for his. We discussed his headache and that I considered obtaining a CT brain prior to discharge to ensure no signs of intracranial abnormality that would be potentially worsened by blood thinner use, as I explained to the patient blood thinners can increase risk of bleeding, however patient declined CT brain, stating he felt his SALDIVAR was 2/2 to lack of sleep. I do have a very low suspicion for acute intracranial abnormality given lack of neuro deficits, no head trauma, and patient's description of SALDIVAR, and I feel risk of stroke from a fib outweighs risk of forgoing anticoagulation without head CT. I then discussed with the patient the risk of stroke due to atrial fibrillation and indication for a blood thinner due to this. Patient initially states that he is on [id number] supplement that has been working for him as a "blood thinner" that he has used since previously being diagnosed with a DVT in the past. This is not prescribed to him or monitored by a physician. He states he has not taken this in the last 2 days. I discussed the importance of initiating a blood thinner that can be prescribed by a physician and is indicated in his case, such as eliquis. Patient was agreeable with initiating this. We discussed that he should stop taking his [id number] supplement that he has been using as a blood thinner while on Eliquis and to follow-up with his primary care provider and load tallier regarding continuation of eliquis or if they feel comfortably transitioning patient back to his OTC supplement. The patient and I discussed the risks associated with starting a blood thinner such as increased risk of bleeding and easy bruising. We discussed that should he fall or hit his head, become involved in an accident he should report to the emergency department immediately for further evaluation due to increased risk of bleeding. Additionally we discussed the importance of watching for black or bloody stools and to report to the emergency department should he notice this out of concern for GI bleeding. At this point, I was unfortunately unable to convince the patient to remain in the hospital for further workup and evaluation and he will be discharged AGAINST MEDICAL ADVICE. Patient discharged on Eliquis 5 mg, twice daily. We discussed the importance of following up with his primary care provider and load tallier as soon as possible for follow-up today visit and should he change his mind and wish to return to the hospital he is welcome to do so at any point. We discussed signs symptoms warranting return to the emergency department which were also listed in his discharge paperwork. All questions were answered and patient was discharged with ice. Undiagnosed new problem with uncertain prognosis? @ -Yes Drug Therapy requiring intensive monitoring for toxicity (Heparin, Nitro, Insulin, Cardizem)? @ -No Were any procedures done? @ -No Diagnosis/symptom? @ -New onset atrial fibrillation, rate controlled, elevated troponin, chest pain Acute, or Chronic, or Acute on Chronic? @ -Acute Uncomplicated (without systemic symptoms) or Complicated (systemic symptoms)? @ -complicated Side effects of treatment? @ -No Exacerbation, Progression, or Severe Exacerbation? @ -No Poses a threat to life or bodily function? How? (Chest pain, [place], ID, pneumonia, PE, COPD, DKA, ARF, appy, cholecystitis, CVA, Diverticulitis, Homicidal, Suicidal, threat to staff... and all critical care pts) @ Yes, chest pain, new onset a fib (Fiona Walls) Disposition <Jairo Garvin - Last Filed: 04/14/24 12:59> Is patient prescribed a controlled substance at d/c from ED?: No <Fiona Walls - Last Filed: 04/15/24 11:20> Clinical Impression: Left against medical advice, Atrial fibrillation, Elevated troponin, Chest pain Disposition: LEFT AGAINST MEDICAL ADVICE Condition: Fair Instructions (If sedation given, give patient instructions): A-fib (Atrial Fibrillation) (ED), Chest Pain (ED) Additional Instructions: You are being started on a blood thinner. You will bleed easier with minor scrapes and cuts. Please also know that due to increased risk of bleeding, should you hit your head, be involved in an accident such as a car accident please come the emergency department immediately to be assessed to ensure no signs of internal bleeding. Should you notice black or bloody stools please report to the emergency department immediately as this could be a sign that you are bleeding internally. Please take Eliquis as prescribed, 5 mg twice a day. Please stop taking your home Nanokinase/blood thinner supplement immediately. Please follow-up with your primary care provider and your load tallier as soon as possible, preferably within the next 24 to 48 hours for further workup of and monitoring of atrial fibrillation and your blood thinners. Every disease is a spectrum and a small chance still exists that a serious condition could develop, for this reason, please monitor yourself closely for new, changing or worsening symptoms, symptoms that do not improve 24 hours, should you change your mind and wish to return to the emergency department for further workup and care of your chest pain and new onset atrial fibrillation, lightheadedness, dizziness, shortness of breath, swelling in your legs, any worsening chest pain, palpitations, signs or symptoms of a stroke such as changes in vision, slurred speech, facial droop, confusion, sudden onset nausea and vomiting, worsening or new headaches, numbness or weakness in your extre mities, inability to tolerate/keep down fluids or your medications, inability to follow up with outpatient providers as instructed and should you experience these symptoms or should you have any further concerns for your wellbeing please return to the ED or call 911 immediately. PLEASE call your primary care physician as soon as possible to arrange / discuss plan for followup appointment. Appointment in the next 1-3 days is strongly encouraged if possible. PLEASE let us know here before you leave if there is anything further we can do to be of any assistance. Take care and feel Better! Prescriptions: Apixaban [Eliquis] 5 mg PO BID 30 Days #60 tab Referrals: Sea Hinojosa MD [STAFF PHYSICIAN] - As Soon As Possible (Office will contact you regarding an appointment. ) [facility] [REFERRING] - (Contact regarding help with Medicaid application. ) Saurabh Tucker DO [Primary Care Provider] - 04/28/24 8:20 am [facility] [Provider Group] - 1-2 days Forms: Community Resources, Personal Activities Aide
[2024-04-14 13:55] LABS: Partial Thromboplastin Time 23.1 sec (22.0-30.0); Prothrombin Time 11.1 sec (10.0-12.5)
[2024-04-14 13:56] LABS: ALT 33 U/L (4-49); African American GFR (CKD) 78 (>60 ml/min/1.73 sqM); Anion Gap 6 mmol/L; Blood Urea Nitrogen 25 mg/dL (9-20); Calcium 9.1 mg/dL (8.4-10.2); Carbon Dioxide 24 mmol/L (22-30); Chloride 107 mmol/L (98-107); Glucose 96 mg/dL (74-99); Non-African American GFR(CKD) 67 (>60 ml/min/1.73 sqM); Sodium 137 mmol/L (137-145); Total Bilirubin 1.8 mg/dL (0.2-1.3); Total Protein 6.9 g/dL (6.3-8.2)
[2024-04-14 13:57] LABS: AST 41 U/L (17-59); Albumin 4.3 g/dL (3.5-5.0); Magnesium 1.9 mg/dL (1.6-2.3); Potassium 5.4 mmol/L (3.5-5.1)
--- NOTE | 2024-04-14 13:57 | XR ---
EXAMINATION TYPE: XR chest 2V DATE OF EXAM: 04/14/2024 COMPARISON: 09/27/2018 INDICATION: Chest pain and abnormal EKG TECHNIQUE: Frontal and lateral views of the chest are obtained. FINDINGS: The heart size is enlarged. Sternotomy wires from prior CABG are evident. The pulmonary vasculature is normal. The lungs are clear. IMPRESSION: 1. No acute pulmonary process.
[2024-04-14 13:58] LABS: Alkaline Phosphatase 77 U/L (38-126)
[2024-04-14 14:03] LABS: NT-Pro-B-Type Natriuretic Pept 1340 pg/mL
[2024-04-14 14:04] LABS: Basophils % (A) 0 %; Eosinophils # (A) 0.1 k/uL (0-0.7); Eosinophils % (A) 1 %; HCT 46.2 % (39.0-53.0); HGB 14.6 gm/dL (13.0-17.5); Lymphocytes # (A) 1.6 k/uL (1.0-4.8); Lymphocytes % (A) 15 %; MCH 30.5 pg (25.0-35.0); MCHC 31.7 g/dL (31.0-37.0); MCV 96.4 fL (80.0-100.0); Mean Platelet Volume 8.5; Monocytes # (A) 0.8 k/uL (0-1.0); Monocytes % (A) 7 %; Neutrophils % (A) 76 %; Platelet Count 169 k/uL (150-450); RDW 12.7 % (11.5-15.5); WBC 10.6 k/uL (3.8-10.6)
[2024-04-14] MEDS: APIXABAN 5 MG TAB PO STA (15:08)
[2024-04-14] MEDS: ACETAMINOPHEN TAB 500 MG TAB PO STA (15:08)
[2024-04-14] MEDS: ASPIRIN 81 MG PO STA (15:08)
[2024-04-14 15:36] VITALS: BP 126/79; PULSE 78
== END 2024-04-14 15:36 | disposition left against medical advice (07) ==
LOC: EC 12:34
DX: I48.91 Unspecified atrial fibrillation (principal); R79.89 Other specified abnormal findings of blood chemistry; Z53.29 Procedure and treatment not carried out because of patient's decision for other reasons; I25.10 Atherosclerotic heart disease of native coronary artery without angina pectoris
CPT/HCPCS: 36415; 71046; 80053; 83735; 83880; 84132; 84484; 85025; 85610; 85730; 93005; 99285

== ENCOUNTER 2024-05-01 05:13 | Emergency (ER) | payer MEDICARE ==
[2024-05-01 05:21] VITALS: RESP 18; TEMP 97.7
[2024-05-01] MEDS: MORPHINE SULFATE 4 MG/ML SYRINGE IV STA (05:47)
[2024-05-01] MEDS: ASPIRIN 81 MG PO STA (05:53)
[2024-05-01 06:28] LABS: Basophils % (A) 0 %; Eosinophils # (A) 0.1 k/uL (0-0.7); Eosinophils % (A) 0 %; HCT 38.8 % (39.0-53.0); HGB 12.7 gm/dL (13.0-17.5); Lymphocytes # (A) 0.9 k/uL (1.0-4.8); Lymphocytes % (A) 6 %; MCH 30.7 pg (25.0-35.0); MCHC 32.6 g/dL (31.0-37.0); MCV 93.9 fL (80.0-100.0); Mean Platelet Volume 7.8; Monocytes # (A) 0.6 k/uL (0-1.0); Monocytes % (A) 4 %; Neutrophils # (A) 13.6 k/uL (1.3-7.7); Neutrophils % (A) 89 %; RBC 4.13 m/uL (4.30-5.90); RDW 12.3 % (11.5-15.5); WBC 15.4 k/uL (3.8-10.6)
[2024-05-01 06:31] LABS: Platelet Count 388 k/uL (150-450)
[2024-05-01] MEDS: NITROGLYCERIN SL TABS 0.4 MG TAB SUBLINGUAL STA (06:35)
[2024-05-01 06:40] LABS: INR 3.6 (<1.2); Partial Thromboplastin Time 23.4 sec (22.0-30.0); Prothrombin Time 35.2 sec (10.0-12.5)
[2024-05-01 06:45] LABS: ALT 39 U/L (4-49); African American GFR (CKD) 76 (>60 ml/min/1.73 sqM); Albumin 3.9 g/dL (3.5-5.0); Anion Gap 15 mmol/L; Blood Urea Nitrogen 33 mg/dL (9-20); Calcium 10.1 mg/dL (8.4-10.2); Carbon Dioxide 22 mmol/L (22-30); Chloride 95 mmol/L (98-107); Glucose 184 mg/dL (74-99); Non-African American GFR(CKD) 66 (>60 ml/min/1.73 sqM); Sodium 132 mmol/L (137-145); Total Bilirubin 1.3 mg/dL (0.2-1.3); Total Protein 6.7 g/dL (6.3-8.2)
--- NOTE | 2024-05-01 06:56 | XR ---
EXAMINATION TYPE: XR chest 2V DATE OF EXAM: 05/01/2024 COMPARISON: 04/14/2024 HISTORY: Chest pain TECHNIQUE: Frontal and lateral views of the chest are obtained. FINDINGS: There has been interval development of marked widening of the mediastinal contour on the right raisin g the question of mediastinal/hilar mass versus thoracic aortic aneurysm. There is mild interstitial scarring or atelectasis in the left lung base. There is no pneumothorax or large pleural effusion. There is no airspace consolidation. The osseous structures are intact IMPRESSION: Interval development of marked widening on the right side of the mediastinum/daniela as javon cribed above. CT the chest is recommended for further evaluation.
[2024-05-01 07:03] LABS: Magnesium 1.9 mg/dL (1.6-2.3); Potassium 4.4 mmol/L (3.5-5.1)
[2024-05-01 07:04] LABS: AST 58 U/L (17-59); Alkaline Phosphatase 293 U/L (38-126)
[2024-05-01 07:41] VITALS: BP 94/71; PULSE 98
[2024-05-01] MEDS ORDERED: NITROGLYCERIN SL TABS 0.4 MG TAB SUBLINGUAL PRN (07:54)
[2024-05-01] MEDS ORDERED: SODIUM BICARB 8.4% 50 ML SYR (1 MEQ/ML) ONE (08:19)
[2024-05-01] MEDS ORDERED: EPINEPHrine 10 ML SYRINGE (0.1 MG/ML) ONE (08:19)
--- NOTE | 2024-05-01 08:26 | ED ---
Chest Pain HPI - General Chief Complaint: Chest Pain Stated Complaint: chest pain Time Seen by Provider: 05/01/24 05:23 Source: patient Mode of arrival: wheelchair Limitations: no limitations - History of Present Illness Initial Comments: Patient is a 68-year-old man who is here to have evaluation of thoracic pain. The pain started between 3 and 4 days ago. He describes it as aching and at times sharp. He indicates the area below the right scapula. Also an area along the diaphragm bilaterally at anterior chest. Patient relates previous history of endocarditis with valvuloplasty. Also history of atrial fibrillation. MD Complaint: chest pain Onset/Timin -: days(s) Onset: during rest Pain Location: substernal, right chest Pain Radiation: back Severity: severe Quality: aching, sharp Consistency: constant Improves With: nothing Worsens With: nothing Anginal Symptoms: nausea Treatments Prior to Arrival: none - Related Data Home Medications Medication Instructions Recorded Confirmed Tamsulosin [Flomax] 0.4 mg PO HS 09/08/18 09/11/18 Previous Rx's Medication Instructions Recorded cefTRIAXone [Rocephin] 2,000 mg IVPB Q24HR #28 vial 09/22/18 Acetaminophen Tab [Tylenol] 325 mg PO Q4HR PRN tab 09/27/18 Amiodarone [Cordarone] 400 mg PO BID #50 tab 09/27/18 Apixaban [Eliquis] 5 mg PO BID #60 tab 09/27/18 Aspirin 81 mg PO DAILY chew 09/27/18 Atorvastatin [Lipitor] 40 mg PO DAILY #30 tab 09/27/18 Ferrous Sulfate [Iron (65 MG 325 mg PO W/LUNCH #30 tab 09/27/18 Elemental)] Metoprolol Tartrate [Lopressor] 12.5 mg PO DAILY #30 tab 09/27/18 Pantoprazole [Protonix] 40 mg PO AC-BRKFST #30 tablet. 09/27/18 Apixaban [Eliquis] 5 mg PO BID 30 Days #60 tab 04/14/24 Allergies Allergy/AdvReac Type Severity Reaction Status Date / Time No Known Allergies Allergy Verified 05/01/24 05:17 Review of Systems ROS Statement: Those systems with pertinent positive or pertinent negative responses have been documented in the HPI. ROS Other: All systems not noted in ROS Statement are negative. Constitutional: Denies: fever, weakness Respiratory: Denies: cough, dyspnea Cardiovascular: Reports: as per HPI, chest pain. Denies: palpitations, orthopnea, edema, syncope Gastrointestinal: Reports: nausea. Denies: abdominal pain, vomiting, diarrhea Genitourinary: Denies: dysuria, hematuria Musculoskeletal: Reports: as per HPI, back pain Skin: Denies: rash Neurological: Denies: headache, weakness, numbness Hematological/Lymphatic: Reports: easy bleeding (Coumadin) EKG Findings - EKG Results: EKG: interpreted by ERMD, normal axis EKG shows: tachycardia (102 bpm), atrial fibrillation - [place], Pacemaker, Normal: Myocardial infarction: inferior [place] (old age indeterminate) Past Medical History Past Medical History: Deep Vein Thrombosis (DVT), Prostate Disorder Additional Past Medical History / Comment(s): SEE DR. ROMO [facility] & P FOR CARDIAC INFORMATION. DVT-2010-RT [facility]. WAS SEEN IN ER 08/08/18 FOR SEVERE GROIN PAIN. HX KIDNEY STONES History of Any Multi-Drug Resistant Organisms: None Reported Past Surgical History: Coronary Bypass/CABG, Heart Catheterization Additional Past Surgical History / Comment(s): Lithotripsy. COLONOSOCPY. ALSO SCHEDULED FOR SILVIA 09/11/18 Past Anesthesia/Blood Transfusion Reactions: No Reported Reaction Past Psychological History: No Psychological Hx Reported Smoking Status: Never smoker Past Alcohol Use History: None Reported Past Drug Use History: None Reported - Past Family History Mother Family Medical History: AFIB (Mother is 84-year-old with a history of skin cancer as well as macular degeneration with atrial flutter.), Cancer Additional Family Medical History / Comment(s): SKIN Father Family Medical History: Diabetes Mellitus (His biological father at age of 72 from diabetes complications.) Sister(s) Family Medical History: AFIB (Patient has one biological sister with atrial flutter and one stepsister.) Additional Family Medical History / Comment(s): Patient has no kids. General Exam Limitations: no limitations General appearance: alert, in no apparent distress Head exam: Present: atraumatic, normocephalic Eye exam: Present: normal appearance. Absent: scleral icterus, conjunctival injection ENT exam: Present: mucous membranes dry Neck exam: Present: normal inspection, full ROM Respiratory exam: Present: normal lung sounds bilaterally, chest wall tenderness (There is tenderness to the right back below the tip of the scapula). Absent: respiratory distress, wheezes, rales, rhonchi, stridor, accessory muscle use Cardiovascular Exam: Present: irregular rhythm, systolic murmur. Absent: normal rhythm, diastolic murmur, rubs, gallop GI/Abdominal exam: Present: soft. Absent: distended, tenderness, guarding, rebound, rigid, mass Extremities exam: Present: normal inspection, normal capillary refill. Absent: pedal edema, calf tenderness Back exam: Present: normal inspection. Absent: CVA tenderness (R), CVA tenderness (L) Neurological exam: Present: alert Skin exam: Present: warm, dry, intact, normal color. Absent: rash Course Vital Signs 05/01/24 05/01/24 05/01/24 05:17 05:33 05:55 Temperature 97.7 F Pulse Rate 111 H 97 105 H Respiratory 18 18 18 Rate Blood Pressure 106/61 91/49 96/68 O2 Sat by Pulse 94 L 93 L 95 Oximetry 05/01/24 05/01/24 06:23 07:39 Temperature Pulse Rate 112 H 98 Respiratory 18 18 Rate Blood Pressure 92/64 94/71 O2 Sat by Pulse 91 L 97 Oximetry Chest Pain MDM - MDM 68-year-old man with 3 to 4 days of pain to the anterior chest as well as to the right back scapular area. There is a reproducible component to the scapular pain. The patient's chest x-ray, by my interpretation, does appear concerning for widening at the right of the mediastinum, concerning for thoracic aortic aneurysm. The patient sent for CT scan and then lost vital signs as they were preparing to perform CT. The patient was brought directly to the resuscitation area where ACLS protocol was continued. The patient was intubated by myself at the first pulse check. CPR continued. There was no response to medications. I did place ultrasound probe which only showed some twitching of the myocardium. CPR was continued and I did go and discussed case with patient's family and they want to go to the bedside. Once at the bedside, at the next pulse check they requested stop resuscitative efforts. The patient rhythm had deteriorated to V-fib which was pulseless and the patient was pronounced at 837. I subsequently discussed the case with Dr. Tucker with the nuclear medicine medical director. Was pt. sent in by a medical professional or institution (AIDEN Mccarthy, PICKING CREW SUPERVISOR, urgent care, hospital, or jail...) When possible be specific @ -[No] Did you speak to anyone other than the patient for history (EMS, parent, family, police, friend...)? What history was obtained from this source @ -[Case was discussed with patient's family, including . Did you review nursing and triage notes (agree or disagree)? Why? @ -[I reviewed and agree with nursing and triage notes] Were old charts reviewed (outside hosp., previous admission, EMS record, old EKG, old radiological studies, urgent care reports/EKG's, jail records)? Report findings @ -[No old charts were reviewed] Differential Diagnosis (chest pain, altered mental status, abdominal pain women, abdominal pain men, vaginal bleeding, weakness, fever, dyspnea, syncope, headache, dizziness, GI bleed, back pain, seizure, CVA, palpatations, mental health, musculoskeletal)? @ -[Differential Chest Pain: Stable Angina, Unstable Angina, STEMI, NSTEMI Aortic Dissection, Pneumothorax, Musculoskeletal, Esophageal Spasm GERD, Cholecystitis, Pancreatitis, Zoster, this is not meant to be an all-inclusive list. EKG interpreted by me (3pts min.). @ -[As above] X-rays interpreted by me (1pt min.). @ -[I interpreted as above CT interpreted by me (1pt min.). @ -[None done] U/S interpreted by me (1pt. min.). @ -[None done] What testing was considered but not performed or refused? (CT, X-rays, U/S, labs)? Why? @ -[None] What meds were considered but not given or refused? Why? @ -[None] Did you discuss the management of the patient with other professionals (professionals i.e. AIDEN Mccarthy, P[employer]ING [employer]W SUPERVISOR, lab, RT, psych nurse, older adult social work specialist, frozen pie maker, teacher, military source operations officer, pillowcase cutter)? Give summary @ -[No] Was smoking cessation discussed for >3mins.? @ -[No] Was critical care preformed (if so, how long)? @ -[Yes, 40 minutes Were there social determinants of health that impacted care today? How? (Homelessness, low income, unemployed, alcoholism, drug addiction, transportation, low edu. Level, literacy, decrease access to med. care, senior living, rehab)? @ -[No] Was there de-escalation of care discussed even if they declined (Discuss DNR or withdrawal of care, Hospice)? DNR status @ -[Yes see the above note What co-morbidities impacted this encounter? (DM, HTN, Smoking, COPD, CAD, Cancer, CVA, ARF, Chemo, Hep., AIDS, mental health diagnosis, sleep apnea, morbid obesity)? @ -[Hypertension Was patient admitted / discharged? Hospital course, mention meds given and route, prescriptions, significant lab abnormalities, going to OR and other pertinent info. @ -[See the note above Undiagnosed new problem with uncertain prognosis? @ -[No] Drug Therapy requiring intensive monitoring for toxicity (Heparin, Nitro, Insulin, Cardizem)? @ -[No] Were any procedures done? @ -[No] Diagnosis/symptom? @ -[Acute chest pain Suspected aortic dissection Cardiopulmonary arrest Acute, or Chronic, or Acute on Chronic? @ -[Acute Uncomplicated (without systemic symptoms) or Complicated (systemic symptoms)? @ -[Complicated Side effects of treatment? @ -[No] Exacerbation, Progression, or Severe Exacerbation? @ -[No] Poses a threat to life or bodily function? How? (Chest pain, [place], [place], pneumonia, PE, COPD, DKA, ARF, appy, cholecystitis, CVA, Diverticulitis, Homicidal, Suicidal, threat to staff... and all critical care pts) @ -Yes Disposition Clinical Impression: Chest pain, Cardiopulmonary arrest Disposition: Condition: Undetermined Is patient prescribed a controlled substance at d/c from ED?: No Referrals: Saurabh Tucker DO [Primary Care Provider] - 1-2 days Preliminary Cause of : Cardiopulmonary arrest, suspected due to aortic dissection
[2024-05-02] MEDS ORDERED: ASPIRIN 325 MG TAB PO SCH (09:00)
== END 2024-05-01 08:37 | disposition expired ==
LOC: EC 05:13 → UNDOADMIN 07:54 → 3SCARD 07:54 → EC 08:37
DX: I46.9 Cardiac arrest, cause unspecified (principal); I10 Essential (primary) hypertension; Z95.1 Presence of aortocoronary bypass graft
CPT/HCPCS: 99291; 96374; 36415; 92950; 93005; 83880; 80053; 83605; 83735; 84484; 85025; 85610; 85730; 87040; 71046; J2270; J0171